=== PATIENT | female | born 1980 | race Caucasian/White ===

== ENCOUNTER 2017-10-29 09:05 | Emergency (ER) | payer MEDICARE, MEDICAID, SELFPAY ==
[2017-10-29 10:00] VITALS: BP 156/112; PULSE 118; RESP 18; TEMP 36.9
--- NOTE | 2017-10-29 10:12 | PC.NURSE ---
After talking with patient and trying to get history, patient states has Cerebral palsy and tells me I dont think I can be safe if I go home this way. I never dont have urine in my bladder. recently put on flomax and now voids 12 times a day from 5 or 6.
--- NOTE | 2017-10-29 10:40 | DI.RAD.S_ITS ---
PROCEDURE: XR LUMBAR SPINE 2-3V INDICATIONS: pain fall today compression fx in july TECHNIQUE: 3 views of the lumbar spine were acquired. COMPARISON: None. FINDINGS: Bones: 5 [id number] vertebrae are present. There is an approximate 34% compression deformity at L2 as well as an approximate 29% compression deformity at L1. There is an approximate 27% compression deformity at T11. No priors are available for comparison. Disc and foraminal narrowing is present to a mild to moderate degree at L5-S1. Soft tissues: Overlying bowel gas pattern is normal. No suspicious soft tissue calcifications. IMPRESSION: Compression deformities as above of indeterminate age, as no priors are available for comparison. Fractures at L1 and L2 are suspected to be acute/subacute. Recommend correlation for history of trauma and point tenderness. Dictated by: Eloisa Ramos M.D. on 10/29/2017 at 11:39 Approved by: Eloisa Ramos M.D. on 10/29/2017 at 11:42
--- NOTE | 2017-10-29 10:44 | ED_ITS ---
HPI - Female Genitourinary General Chief complaint: Urogenital-Female Stated complaint: CANT EMPTY BLADDER Time Seen by Provider: 10/29/17 09:31 Source: patient Mode of arrival: ambulatory Limitations: no limitations History of Present Illness HPI Narrative: Patient is a 37-year-old female who presents with painful frequent urination for 1 week. She says she feels like she is not emptying her bladder out fully. She has some lower abdominal discomfort. She thinks she may have discharge. She denies any sexual activity and no history of sexually transmitted disease. She does not think she says she actually went to a urologist for the symptoms on a up about 2 months ago. She had a cystoscopy and is now taking Flomax. She says the symptoms she is having for the last 1 week have been the worst. She also fell getting off the [place]. She fell sideways. She says she has compression fractures from when she fell in July. She fell forward in July not backwards. She has no numbness or tingling in her legs. She is ambulatory without any difficulty. Related Data Home Medications Medication Instructions Recorded Confirmed chlorhexidine gluconate [Periogard] 15 ml PO #0 05/19/16 estradiol [Estrace] 1 gm VAGINAL SEE INSTRUCTIONS #0 05/19/16 ketorolac 10 mg PO Q6H #0 05/19/16 methocarbamol 500 mg PO QDAY #0 05/19/16 oxycodone 5 mg PO Q6HP PRN #0 05/19/16 calcium polycarbophil [FiberCon] 1 tab PO QDAYP PRN #0 02/10/17 cholecalciferol (vitamin D3) 1 tab PO QDAY #0 02/10/17 [Vitamin D3] nystatin 15 gm TOPICAL #0 02/10/17 omega 7-jzc-cec-fish oil [Fish Oil] 1,000 mg PO QDAY #0 02/10/17 ondansetron 4 mg SUBLINGUAL Q6HP PRN #0 02/10/17 albuterol sulfate [Ventolin HFA] 10/29/17 baclofen 10 mg PO DAILY 10/29/17 10/29/17 cefdinir 1 cap PO Q12H 10/29/17 10/29/17 diazepam 5 mg PO DAILY 10/29/17 10/29/17 fluconazole 1 tab PO Q48H 10/29/17 10/29/17 ibuprofen [IBU] 600 mg PO QID 10/29/17 10/29/17 methocarbamol 500 mg PO TID 10/29/17 10/29/17 morphine 1 tab PO BID 10/29/17 10/29/17 oxybutynin chloride 5 mg PO DAILY 10/29/17 10/29/17 oxycodone 1 dose PO DIRECTED 10/29/17 10/29/17 tizanidine 1 dose PO DIRECTED 10/29/17 10/29/17 Previous Rx's Medication Instructions Recorded sulfamethoxazole-trimethoprim 1 tab PO BID 5 Days #10 tab 10/29/17 Allergies Allergy/AdvReac Type Severity Reaction Status Date / Time acetaminophen [ACETAMINOPHEN] Allergy Mild Unverified 08/25/17 12:39 adhesive [ADHESIVE] Allergy Mild Unverified 08/25/17 12:39 povidone-iodine Allergy Mild Unverified 08/25/17 12:39 [From BETADINE] prochlorperazine Allergy Mild Unverified 08/25/17 12:39 [From COMPAZINE] soap [From BETADINE] Allergy Mild Unverified 08/25/17 12:39 tramadol [TRAMADOL] Allergy Mild Unverified 08/25/17 12:39 venlafaxine [From EFFEXOR] Allergy Mild Unverified 08/25/17 12:39 msg Allergy Unknown vomiting Uncoded 08/25/17 12:39 diahrrea nitrates Allergy Unknown vomiting, Uncoded 08/25/17 12:39 diahrrea Review of Systems Review of Systems GENERAL: Denies chills, fatigue, malaise, fever, sweats, travel HEENT: Denies sinus pain, ear pain, sore throat, difficulty swallowing, neck pain RESPIRATORY: Denies dyspnea, cough, wheezing, hemoptysis, sputum. CARDIOVASCULAR: Denies chest pain, palpitations, orthopnea, edema GASTROINTESTINAL: Denies nausea, vomiting, abdominal pain, diarrhea, constipation, melena. : See HPI MUSCULOSKELETAL: Denies weakness, joint pain, or bony pain SKIN: No rash, no erythema, no pruritus NEUROLOGIC: Denies weakness, dizziness, headache, numbness, change in speech, confusion PSYCHIATRIC: No concerning psychosocial issues. 12 point review of systems is negative except for those stated above and HPI PFSH Social History Smoking Status: Never smoker Exam Initial Vital Signs Initial Vital Signs: Vital Signs Temperature 98.5 F 10/29/17 10:00 Pulse Rate 118 H 10/29/17 10:00 Respiratory Rate 18 10/29/17 10:00 Blood Pressure 156/112 H 10/29/17 10:00 GENERAL: Well-appearing, well-nourished and in no acute distress. HEENT: Head atraumatic,EOMI, pupils reactive, face symmetric, moist mucous membranes CARDIOVASCULAR: Regular rate and rhythm without murmurs, rubs or gallops. RESPIRATORY: Breath sounds equal bilaterally, no wheezes rales or rhonchi. ABDOMEN: Soft, nontender. Normoactive bowel sounds all 4 quadrants. No guarding or rebound. : No CVA tenderness EXTREMITIES: Normal range of motion, no clubbing or edema. Neurovascularly intact NEUROLOGICAL: Alert and oriented x4.Normal gait and speech. Cranial nerves II through XII grossly intact. SKIN: Warm, dry, no laceration, no petechiae, no rashes or lesions. Course Orders Ordered: ED Orders 10/29/17 10:40 XR lumbar spine 2-3V Stat Vital Signs - 8 hr 10/29/17 10:00 10/29/17 11:33 Temperature 98.5 F Pulse Rate 118 H 114 H Respiratory Rate 18 20 Blood Pressure [Left Arm] 156/112 H 135/114 H Pulse Oximetry 100 MDM - Female Genitourinary Lab Data Attestation: I reviewed the patient's lab results. [facility] Narrative Medical decision making narrative: The patient is having UTI symptoms of her urine does not appear infected. She does chronic compression fracture of a. It remains relatively unchanged. A probably subacute on x-ray. Discharge Plan Departure Patient Disposition: Home, Self-Care Clinical Impression: Urinary tract infection, Compression fracture Discharge Date/Time: 10/29/17 12:46 Interventions: ED Discharge Assessment Last Done: 10/29/17 12:23 Instructions: DI for Urinary Tract Infection (UTI) Activity Restrictions/Additional Instructions: *You have been diagnosed with UTI *What to do: Increase fluids *Continue to take medications as directed *Follow up with your primary care provider in 2-3 days *Return to ER if you should have any new, worsening or concerning symptoms Prescriptions: New sulfamethoxazole-trimethoprim 800-160 mg tablet 1 tab PO BID 5 Days Qty: 10 RF: 0 No Action oxycodone 5 MG tablet 5 mg PO Q6HP PRN (Reason: Pain, Severe) Qty: 0 RF: 0 methocarbamol 500 MG tablet 500 mg PO QDAY Qty: 0 RF: 0 ketorolac 10 MG tablet 10 mg PO Q6H Qty: 0 RF: 0 estradiol [Estrace] 0.01 % cream 1 gm Vaginal SEE INSTRUCTIONS Qty: 0 RF: 0 chlorhexidine gluconate [Periogard] 473 ML mouthwash 15 ml PO Qty: 0 RF: 0 nystatin 30 GM ointment 15 gm Topical Qty: 0 RF: 0 calcium polycarbophil [FiberCon] 625 MG tablet 1 tab PO QDAYP PRN (Reason: fiber) Qty: 0 RF: 0 ondansetron 4 MG tablet,disintegrating 4 mg Sublingual Q6HP PRN (Reason: Nausea) Qty: 0 RF: 0 cholecalciferol (vitamin D3) [Vitamin D3] 2,000 UNIT tablet 1 tab PO QDAY Qty: 0 RF: 0 omega 0-nyl-mvx-fish oil [Fish Oil] 1,000 MG capsule 1,000 mg PO QDAY Qty: 0 RF: 0 fluconazole 100 mg tablet 1 tab PO Q48H RF: 0 methocarbamol 500 mg tablet 500 mg PO TID RF: 0 baclofen 10 mg tablet 10 mg PO DAILY RF: 0 morphine 15 mg tablet extended release 1 tab PO BID RF: 0 ibuprofen [IBU] 600 mg tablet 600 mg PO QID RF: 0 albuterol sulfate [Ventolin HFA] 90 mcg/actuation HFA aerosol inhaler RF: 0 oxybutynin chloride 5 mg tablet 5 mg PO DAILY RF: 0 cefdinir 300 mg capsule 1 cap PO Q12H RF: 0 diazepam 5 mg tablet 5 mg PO DAILY RF: 0 oxycodone 5 mg tablet 1 dose PO DIRECTED RF: 0 tizanidine 6 mg capsule 1 dose PO DIRECTED RF: 0
[2017-10-29 11:33] VITALS: BP 135/114; PULSE 114; RESP 20; O2SAT 100
== END 2017-10-29 12:46 | disposition home or self-care (01) ==
PROVIDERS: Emergency Provider Emergency Medicine
DX: N39.0 Urinary tract infection, site not specified (principal); S32.000A Wedge compression fracture of unspecified lumbar vertebra, initial encounter for closed fracture
CPT/HCPCS: 51798; 72100; 81003; 81025; 99283; 99284

== ENCOUNTER 2017-12-25 00:30 | Emergency (ER) | payer MEDICARE, MEDICAID, SELFPAY ==
[2017-12-25] VITALS (7 sets, daily range): BP systolic 125–158; BP diastolic 56–102; PULSE 68–89; RESP 14–18; TEMP 37.1; O2SAT 96–100
[2017-12-25 01:07] LABS: RBC Urine None Seen (0-5/HPF)
[2017-12-25 01:14] LABS: Bacteria Urine Occasional (0-1); Culture Indicated Urine Cult Not Indicated; Mucus Urine 1+ (Negative); Squamous Epithelial Cell Urine 0-1 /HPF; WBC Urine 0-1/HPF (0-5/HPF)
[2017-12-25 01:40] LABS: Add Manual Diff / Slide Review NO; Eosinophils Percent Auto 2.6 % (2-4); Hematocrit 42.2 % (36-46); Hemoglobin 14.5 g/dL (12.0-16.0); Lymphocytes Percent Auto 35.7 % (25-40); Mean Corpuscular HGB Conc 34.4 % (30-36); Mean Corpuscular Hemoglobin 31.2 PG (26-34); Mean Corpuscular Volume 90.7 fL (80-100); Monocytes Percent Auto 6.9 % (3-14); Neutrophils Absolute Auto 1800 /uL (3000-5900); Neutrophils Percent Auto 53.8 % (50-75); Platelet Count 223 X10^3/uL (150-400); Red Blood Cell Count 4.65 X10^6/uL (4.0-5.2); Red Cell Distribution Width 14.3 % (11.6-14.8); White Blood Cell Count 3.3 X10^3/uL (4.5-11.0)
[2017-12-25 01:48] LABS: Alanine Aminotransferase 39 IU/L (9-52); Albumin 4.6 g/dL (3.5-5.0); Albumin Globulin Ratio 1.4 (1.0-2.8); Alkaline Phosphatase 127 U/L (38-126); Aspartate Aminotransferase 34 IU/L (14-36); BUN Creatinine Ratio 12.2 (6-22); Bilirubin Total 0.9 mg/dL (0.2-1.3); Blood Urea Nitrogen 11 mg/dL (7-17); Carbon Dioxide 32 mmol/L (22-32); Chloride 100 mmol/L (98-107); Estimated Glomerular Filt Rate > 60.0 mL/min (>60); Globulin 3.2 g/dL (1.7-4.1); Glucose 110 mg/dL (70-100); HEMOLYSIS < 15 (0-50); Lipase 38 U/L (23-300); Potassium 3.7 mmol/L (3.4-5.1); Sodium 143 mmol/L (137-145); Total Protein 7.8 g/dL (6.3-8.2)
--- NOTE | 2017-12-25 01:50 | DI.CT.S_ITS ---
PROCEDURE: CT ABDOMEN PELVIS W CON INDICATIONS: Abdominal pain,Vomiting, history of small bowel obstruction TECHNIQUE: After the administration of intravenous contrast, 5 mm thick sections acquired from the diaphragm to the symphysis. 5 mm coronal and sagittal reformats were acquired. For radiation dose reduction, the following was used: automated exposure control, adjustment of mA and/or kV according to patient size. COMPARISON: [facility], CR, XR LUMBAR SPINE 2-3V, 10/29/2017, 11:05. FINDINGS: Image quality: Excellent. ABDOMEN: Lung bases: Lung bases are clear. Heart size is normal. Solid organs: Liver is normal in size and enhancement. Gallbladder is surgically absent. Biliary system is non dilated. Pancreas enhances normally. Spleen is normal in size and enhancement. No adrenal nodules. Kidneys demonstrate normal size and enhancement, without hydronephrosis. Peritoneum and bowel: Mildly prominent small bowel within the left hemiabdomen. Bowel loops otherwise demonstrate normal wall thickness and caliber. No free fluid or air. Nodes and vessels: No retroperitoneal or mesenteric adenopathy by size criteria. Aorta and inferior vena cava are normal in size. Miscellaneous: No ventral hernias. PELVIS: Genitourinary: Bladder wall thickness is normal. Miscellaneous: No inguinal hernias or adenopathy. Bones: No suspicious bony lesions. No v acute ertebral body compression fractures. Mild chronic T11, L1, and L2 compression fractures. Small ununited fracture fragment at the anterosuperior aspect of the L2 vertebral body, as before. Spinal catheter is present. IMPRESSION: 1. Mildly prominent small bowel loops, which may indicate focal ileus or early obstruction. 2. No change in thoracolumbar compression fractures. 3. Concordant with preliminary interpretation. Dictated by: Fabian Mallory M.D. on 12/25/2017 at 10:03 Approved by: Fabian Mallory M.D. on 12/25/2017 at 10:07
[2017-12-25] MEDS: ONDANSETRON 4 MG/2 ML INJ IV (02:01)
[2017-12-25] MEDS: SODIUM CHLORIDE 0.9% 1,000 ML 1000 ML IV ×2 (02:05→06:30)
[2017-12-25] MEDS: MORPHINE 5 MG/ML INJ 4 MG IV ×2 (02:05→05:24)
--- NOTE | 2017-12-25 03:16 | ED_ITS ---
HPI - Abdominal Pain General Chief Complaint: Abdominal Pain Stated Complaint: NAUSEA, VOMITING, ABDOMINAL PAIN Time Seen by Provider: 12/25/17 01:15 Source: patient Mode of arrival: ambulatory Limitations: no limitations History of Present Illness HPI narrative: Patient is a 37-year-old female who presents with nausea vomiting. She does have a history small bowel obstruction she says this feels like that. She is no longer able to keep any fluids down. She has not had a bowel movement in some time she cannot remember when. She has some diffuse abdominal discomfort. No localization of pain. Related Data Home Medications Medication Instructions Recorded Confirmed chlorhexidine gluconate [Periogard] 15 ml PO #0 05/19/16 estradiol [Estrace] 1 gm VAGINAL SEE INSTRUCTIONS #0 05/19/16 ketorolac 10 mg PO Q6H #0 05/19/16 methocarbamol 500 mg PO QDAY #0 05/19/16 oxycodone 5 mg PO Q6HP PRN #0 05/19/16 calcium polycarbophil [FiberCon] 1 tab PO QDAYP PRN #0 02/10/17 cholecalciferol (vitamin D3) 1 tab PO QDAY #0 02/10/17 [Vitamin D3] nystatin 15 gm TOPICAL #0 02/10/17 omega 1-kxm-lne-fish oil [Fish Oil] 1,000 mg PO QDAY #0 02/10/17 ondansetron 4 mg SUBLINGUAL Q6HP PRN #0 02/10/17 albuterol sulfate [Ventolin HFA] 10/29/17 baclofen 10 mg PO DAILY 10/29/17 10/29/17 cefdinir 1 cap PO Q12H 10/29/17 10/29/17 diazepam 5 mg PO DAILY 10/29/17 10/29/17 fluconazole 1 tab PO Q48H 10/29/17 10/29/17 ibuprofen [IBU] 600 mg PO QID 10/29/17 10/29/17 methocarbamol 500 mg PO TID 10/29/17 10/29/17 morphine 1 tab PO BID 10/29/17 10/29/17 oxybutynin chloride 5 mg PO DAILY 10/29/17 10/29/17 oxycodone 1 dose PO DIRECTED 10/29/17 10/29/17 tizanidine 1 dose PO DIRECTED 10/29/17 10/29/17 Allergies Allergy/AdvReac Type Severity Reaction Status Date / Time acetaminophen [ACETAMINOPHEN] Allergy Mild Verified 12/25/17 02:00 adhesive [ADHESIVE] Allergy Mild Verified 12/25/17 02:00 povidone-iodine Allergy Mild Verified 12/25/17 02:00 [From BETADINE] prochlorperazine Allergy Mild Verified 12/25/17 02:00 [From COMPAZINE] soap [From BETADINE] Allergy Mild Verified 12/25/17 02:00 tramadol [TRAMADOL] Allergy Mild Verified 12/25/17 02:00 venlafaxine [From EFFEXOR] Allergy Mild Verified 12/25/17 02:00 msg Allergy Unknown vomiting Uncoded 12/25/17 02:00 diahrrea nitrates Allergy Unknown vomiting, Uncoded 12/25/17 02:00 diahrrea Review of Systems Review of Systems GENERAL: Denies chills, fatigue, malaise, fever, sweats, travel HEENT: Denies sinus pain, ear pain, sore throat, difficulty swallowing, neck pain RESPIRATORY: Denies dyspnea, cough, wheezing, hemoptysis, sputum. CARDIOVASCULAR: Denies chest pain, palpitations, orthopnea, edema GASTROINTESTINAL: See HPI : Denies dysuria, frequency, incontinence, hematuria, urinary retention, flank pain. MUSCULOSKELETAL: Denies weakness, joint pain, or bony pain SKIN: No rash, no erythema, no pruritus NEUROLOGIC: Denies weakness, dizziness, headache, numbness, change in speech, confusion PSYCHIATRIC: No concerning psychosocial issues. 12 point review of systems is negative except for those stated above and HPI PFSH Medical History History of hysterectomy (Acute) History of small bowel obstruction (Acute) Surgical History History of appendectomy (Acute) History of cholecystectomy (Acute) Social History Smoking Status: Never smoker Exam Initial Vital Signs Initial Vital Signs: Vital Signs Temperature 98.7 F 12/25/17 00:36 Pulse Rate 88 12/25/17 00:36 Respiratory Rate 18 12/25/17 00:36 Blood Pressure 158/102 H 12/25/17 00:36 Pulse Oximetry 96 12/25/17 00:36 GENERAL: Obese female sleeping but easily arousable is HEENT: Head atraumatic,EOMI, pupils reactive, neck is supple CARDIOVASCULAR: Regular rate and rhythm without murmurs, rubs or gallops. RESPIRATORY: Breath sounds equal bilaterally, no wheezes rales or rhonchi. ABDOMEN: Soft, obese no localization of tenderness no guarding no rebound EXTREMITIES: Normal range of motion, no clubbing or edema. Neurovascularly intact NEUROLOGICAL: Alert and oriented x4.Normal gait and speech. Cranial nerves II through XII grossly intact. SKIN: Warm, dry, no laceration, no petechiae, no rashes or lesions. Course Orders Ordered: ED Orders 12/25/17 00:55 Urine Microscopic Stat 12/25/17 01:30 Complete Blood Count AUTO DIFF Stat Comprehensive Metabolic Panel Stat Lactate (Lactic Acid) Stat Lipase Stat 12/25/17 01:50 CT abdomen pelvis w con Stat Discontinued Medications Sodium Chloride (Normal Saline 0.9%) 1,000 mls @ 1,000 mls/hr IV BOLUS ONE Stop: 12/25/17 02:14 Last Infusion: 12/25/17 06:23 Dose: 0 mls/hr Admin: 12/25/17 02:05 Dose: 1,000 mls/hr Sodium Chloride (Normal Saline 0.9%) 1,000 mls @ 1,000 mls/hr IV BOLUS ONE Stop: 12/25/17 02:49 Last Infusion: 12/25/17 08:03 Dose: 0 mls/hr Admin: 12/25/17 06:30 Dose: 1,000 mls/hr Magnesium Citrate (Magnesium Citrate) 300 ml PO NOW ONE Stop: 12/25/17 06:41 Last Admin: 12/25/17 06:54 Dose: 300 ml Morphine Sulfate (Morphine Sulfate) 4 mg IV NOW ONE Stop: 12/25/17 01:51 Last Admin: 12/25/17 02:05 Dose: 4 mg Morphine Sulfate (Morphine Sulfate) 4 mg IV NOW ONE Stop: 12/25/17 05:23 Last Admin: 12/25/17 05:24 Dose: 4 mg Ondansetron HCl (Zofran) 4 mg IV NOW ONE Stop: 12/25/17 01:51 Last Admin: 12/25/17 02:01 Dose: 4 mg Ondansetron HCl (Zofran Odt Prepack) 1 bottle MISC SEEINSTR ONE Stop: 12/25/17 06:42 Last Admin: 12/25/17 06:54 Dose: 1 bottle Sodium Biphosphate/Sodium Phosphate (Fleet Enema) 1 each IL NOW ONE Stop: 12/25/17 04:45 Last Admin: 12/25/17 05:15 Dose: 1 each Vital Signs - 8 hr 12/25/17 00:36 12/25/17 06:15 12/25/17 07:44 Temperature 98.7 F Pulse Rate 88 89 68 Respiratory Rate 18 14 16 Blood Pressure 158/102 H Blood Pressure [Left Arm] 129/88 H 136/66 H Pulse Oximetry 96 96 96 MDM - Abdominal Pain Lab Data Attestation: I reviewed the patient's lab results. Result diagrams: 12/25/17 01:30 12/25/17 01:30 Lab Results 12/25/17 12/25/17 12/25/17 Range/Units 00:55 01:30 01:30 WBC 3.3 L (4.5-11.0) X10^3/uL RBC 4.65 (4.0-5.2) X10^6/uL Hgb 14.5 (12.0-16.0) g/dL Hct 42.2 (36-46) % MCV 90.7 (80-100) fL MCH 31.2 (26-34) PG MCHC 34.4 (30-36) % RDW 14.3 (11.6-14.8) % Plt Count 223 (150-400) X10^3/uL Neut % (Auto) 53.8 (50-75) % Lymph % (Auto) 35.7 (25-40) % [place] % (Auto) 6.9 (3-14) % Eos % (Auto) 2.6 (2-4) % Baso % (Auto) 1.0 (0-2) % Neut # (Auto) 1800 L (1713-0866) /uL Sodium 143 (137-145) mmol/L Potassium 3.7 (3.4-5.1) mmol/L Chloride 100 (98-107) mmol/L Carbon Dioxide 32 (22-32) mmol/L BUN 11 (7-17) mg/dL Creatinine 0.90 (0.52-1.04) mg/dL Estimated GFR > 60.0 (>60) mL/min BUN/Creatinine Ratio 12.2 (6-22) Glucose 110 H (70-100) mg/dL Lactate (0.7-2.1) mmol/L Calcium 10.0 (8.4-10.2) mg/dL Total Bilirubin 0.9 (0.2-1.3) mg/dL AST 34 (14-36) IU/L ALT 39 (9-52) IU/L Alkaline Phosphatase 127 H (38-126) U/L Total Protein 7.8 (6.3-8.2) g/dL Albumin 4.6 (3.5-5.0) g/dL Globulin 3.2 (1.7-4.1) g/dL Albumin/Globulin Ratio 1.4 (1.0-2.8) Lipase 38 (23-300) U/L Urine RBC None seen (0-5/HPF) Urine WBC 0-1/hpf (0-5/HPF) Ur Squamous Epith Cells 0-1 /hpf Urine Bacteria Occasional (0-1) (None) Urine Mucus 1+ H (Negative) Ur Culture Indicated? Cult not indicated Micro UA Comment Not Reportable 12/25/17 Range/Units 01:30 WBC (4.5-11.0) X10^3/uL RBC (4.0-5.2) X10^6/uL Hgb (12.0-16.0) g/dL Hct (36-46) % MCV (80-100) fL MCH (26-34) PG MCHC (30-36) % RDW (11.6-14.8) % Plt Count (150-400) X10^3/uL Neut % (Auto) (50-75) % Lymph % (Auto) (25-40) % Ma[place] % (Auto) (3-14) % Eos % (Auto) (2-4) % Baso % (Auto) (0-2) % Neut # (Auto) (1266-6314) /uL Sodium (137-145) mmol/L Potassium (3.4-5.1) mmol/L Chloride (98-107) mmol/L Carbon Dioxide (22-32) mmol/L BUN (7-17) mg/dL Creatinine (0.52-1.04) mg/dL Estimated GFR (>60) mL/min BUN/Creatinine Ratio (6-22) Glucose (70-100) mg/dL Lactate 1.0 (0.7-2.1) mmol/L Calcium (8.4-10.2) mg/dL Total Bilirubin (0.2-1.3) mg/dL AST (14-36) IU/L ALT (9-52) IU/L Alkaline Phosphatase (38-126) U/L Total Protein (6.3-8.2) g/dL Albumin (3.5-5.0) g/dL Globulin (1.7-4.1) g/dL Albumin/Globulin Ratio (1.0-2.8) Lipase (23-300) U/L Urine RBC (0-5/HPF) Urine WBC (0-5/HPF) Ur Squamous Epith Cells Urine Bacteria (None) Urine Mucus (Negative) Ur Culture Indicated? 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 Cannot completely exclude very early or partial small-bowel obstruction. Duodenum and proximal jejunal loops appear collapse and mildly thickened wall suggesting enteritis. The colon is not decompressed moderate stool and most of:. Cholecystectomy hysterectomy appendectomy. Chronic spine changes an epidural stimulator catheter. MDM Narrative Medical decision making narrative: Patient tolerating very small amounts of fluid. Overall she has required 2 doses of morphine and has not been vomiting during her long length of stay in the ED. Although in the last 1 hr she did start vomiting again. I have discussed case with of surgery. Will be to ED to evaluate patient Dr. Pascual-recommends repeat enema and discharge with magnesium citrate. Discharge Plan Departure Patient Disposition: Home, Self-Care Clinical Impression: Constipation Instructions: DI for Constipation Activity Restrictions/Additional Instructions: *You have been diagnosed with constipation, possible early small-bowel obstruction *What to do: Recommend Gatorade or Gatorade like substance *Continue to take medications as directed Drink a bottle of magnesium citrate once you get home -Zofran every 6-8 hours if needed for nausea or vomiting *Follow up with your primary care provider in 2-3 days *Return to ER if you should have any new, worsening or concerning symptoms Prescriptions: No Action oxycodone 5 MG tablet 5 mg PO Q6HP PRN (Reason: Pain, Severe) Qty: 0 RF: 0 methocarbamol 500 MG tablet 500 mg PO QDAY Qty: 0 RF: 0 ketorolac 10 MG tablet 10 mg PO Q6H Qty: 0 RF: 0 estradiol [Estrace] 0.01 % cream 1 gm Vaginal SEE INSTRUCTIONS Qty: 0 RF: 0 chlorhexidine gluconate [Periogard] 473 ML mouthwash 15 ml PO Qty: 0 RF: 0 nystatin 30 GM ointment 15 gm Topical Qty: 0 RF: 0 calcium polycarbophil [FiberCon] 625 MG tablet 1 tab PO QDAYP PRN (Reason: fiber) Qty: 0 RF: 0 ondansetron 4 MG tablet,disintegrating 4 mg Sublingual Q6HP PRN (Reason: Nausea) Qty: 0 RF: 0 cholecalciferol (vitamin D3) [Vitamin D3] 2,000 UNIT tablet 1 tab PO QDAY Qty: 0 RF: 0 omega 9-bng-ctm-fish oil [Fish Oil] 1,000 MG capsule 1,000 mg PO QDAY Qty: 0 RF: 0 fluconazole 100 mg tablet 1 tab PO Q48H RF: 0 methocarbamol 500 mg tablet 500 mg PO TID RF: 0 baclofen 10 mg tablet 10 mg PO DAILY RF: 0 morphine 15 mg tablet extended release 1 tab PO BID RF: 0 ibuprofen [IBU] 600 mg tablet 600 mg PO QID RF: 0 albuterol sulfate [Ventolin HFA] 90 mcg/actuation HFA aerosol inhaler RF: 0 oxybutynin chloride 5 mg tablet 5 mg PO DAILY RF: 0 cefdinir 300 mg capsule 1 cap PO Q12H RF: 0 diazepam 5 mg tablet 5 mg PO DAILY RF: 0 oxycodone 5 mg tablet 1 dose PO DIRECTED RF: 0 tizanidine 6 mg capsule 1 dose PO DIRECTED RF: 0
[2017-12-25] MEDS: FLEETS ENEMA 1 EACH PR (05:15)
[2017-12-25] MEDS: ONDANSETRON 4 MG ODT PREPACK 1 BOTTLE MISC (06:54)
[2017-12-25] MEDS: MAGNESIUM CITRATE 300 ML SOLUTION PO (06:54)
--- NOTE | 2017-12-25 08:37 | PC.NURSE ---
up to bedside commode independently.
--- NOTE | 2017-12-25 08:49 | PM.HP.1 ---
History of Present Illness Date Patient Seen: 12/25/17 Time Patient Seen: 08:42 Chief complaint: NAUSEA, VOMITING, ABDOMINAL PAIN Narrative: Patient is a very pleasant 37-year-old female with a complex surgical history and medical history who reports 2-3 days of decreased oral intake and nausea vomiting abdominal pain. She lives on [facility] has a history of a laparoscopic cholecystectomy laparoscopic appendectomy laparoscopic hysterectomy laparoscopic lysis of adhesions all performed either [facility] or [facility] in addition a baclofen pump has been placed for history of C lower extremity muscle spasms from cerebral palsy. She does not have a tense abdomen she is reporting abdominal pain trouble with nausea has had a difficult time with bowel function is currently raising 2 boys ages 12 and 10 at home and lives with her . Patient denies projectile vomiting denies melena hematochezia of bright blood red blood per rectum, jaundice, dark urine or other. Patient History Medical History History of hysterectomy (Acute) History of small bowel obstruction (Acute) Surgical History History of appendectomy (Acute) History of cholecystectomy (Acute) Family & Social History Family History: Reviewed 12/25/17 by Tonio Pascual MD Safety & Behavioral: Feels Safe in Current Yes Environment Tobacco & Substance use: Smoking Status Never smoker alcohol intake frequency 0-2 drinks per day Meds Home Medications Medication Instructions Recorded Confirmed Type chlorhexidine gluconate [Periogard] 15 ml PO #0 05/19/16 History estradiol [Estrace] 1 gm VAGINAL SEE INSTRUCTIONS #0 05/19/16 History ketorolac 10 mg PO Q6H #0 05/19/16 History methocarbamol 500 mg PO QDAY #0 05/19/16 History oxycodone 5 mg PO Q6HP PRN #0 05/19/16 History calcium polycarbophil [FiberCon] 1 tab PO QDAYP PRN #0 02/10/17 History cholecalciferol (vitamin D3) 1 tab PO QDAY #0 02/10/17 History [Vitamin D3] nystatin 15 gm TOPICAL #0 02/10/17 History omega 2-jnr-vro-fish oil [Fish Oil] 1,000 mg PO QDAY #0 02/10/17 History ondansetron 4 mg SUBLINGUAL Q6HP PRN #0 02/10/17 History albuterol sulfate [Ventolin HFA] 10/29/17 History baclofen 10 mg PO DAILY 10/29/17 10/29/17 History cefdinir 1 cap PO Q12H 10/29/17 10/29/17 History diazepam 5 mg PO DAILY 10/29/17 10/29/17 History fluconazole 1 tab PO Q48H 10/29/17 10/29/17 History ibuprofen [IBU] 600 mg PO QID 10/29/17 10/29/17 History methocarbamol 500 mg PO TID 10/29/17 10/29/17 History morphine 1 tab PO BID 10/29/17 10/29/17 History oxybutynin chloride 5 mg PO DAILY 10/29/17 10/29/17 History oxycodone 1 dose PO DIRECTED 10/29/17 10/29/17 History tizanidine 1 dose PO DIRECTED 10/29/17 10/29/17 History Allergies Allergy/AdvReac Type Severity Reaction Status Date / Time acetaminophen [ACETAMINOPHEN] Allergy Mild Verified 12/25/17 02:00 adhesive [ADHESIVE] Allergy Mild Verified 12/25/17 02:00 povidone-iodine Allergy Mild Verified 12/25/17 02:00 [From BETADINE] prochlorperazine Allergy Mild Verified 12/25/17 02:00 [From COMPAZINE] soap [From BETADINE] Allergy Mild Verified 12/25/17 02:00 tramadol [TRAMADOL] Allergy Mild Verified 12/25/17 02:00 venlafaxine [From EFFEXOR] Allergy Mild Verified 12/25/17 02:00 msg Allergy Unknown vomiting Uncoded 12/25/17 02:00 diahrrea nitrates Allergy Unknown vomiting, Uncoded 12/25/17 02:00 diahrrea Review of Systems Review of Systems All systems reviewed & are unremarkable except as noted in HPI and below Exam Vital Signs (past 8 hours): - 12/25/17 06:15 12/25/17 07:44 Pulse Rate 89 68 Respiratory Rate 14 16 Blood Pressure [Left Arm] 129/88 H 136/66 H Pulse Oximetry 96 96 Oxygen Delivery Method Room Air Const General: cooperative, healthy appearing and anxious Nutritional Appearance: other (Morbidly obese) Orientation: alert, awake and oriented x3 [facility] Head: normal to inspection Ears: hearing grossly normal bilaterally Eyes General: appearance normal, both eyes and all related structures Sclera: sclerae normal Neck Neck: normal visual inspection Chest Chest: normal inspection of the chest Resp Effort & Inspection: normal respiratory effort, able to speak in complete sentences, no audible wheezes, no stridor, not tachypneic and symmetric chest movement Auscultation: no rales, no rhonchi and no wheezes Cardio Rate: regular rate Rhythm: regular rhythm and abnormal rhythm Heart Sounds: S1 normal, S2 normal, no click and no murmurs GI Inspection: normal to inspection, incision (Multiple laparoscopic incisions without obvious hernia difficult exam due to body habitus), large pannus and obesity Palpation: No firm, No guarding, No hepatomegaly, No hernia, No mass, No rigid and tender Percussion: normal to percussion, no dullness to percussion, no fluid wave and no tympanic to percussion Auscultation: normal bowel sounds General: other (Deferred) Back/Spine/Pelvis Back: normal to inspection Skin General: no rashes or lesions noted Neuro General: alert, awake, oriented x3 and moves all extremities Speech: speech normal Extrem General: normal to inspection, no clubbing, cyanosis or edema and no calf tenderness Psych Affect: normal affect Attitude: cooperative Thought Process: normal Thought Content: normal Objective Imaging CT scan - abdomen: My impression: Minimal bowel dilation with normal diameter to 3 cm without air-fluid levels of any significance no obvious or suggested bowel obstruction or transition point. Significant stool burden throughout the colon. No hernia or obvious source for nausea vomiting. Labs Result Diagrams: 12/25/17 01:30 12/25/17 01:30 Labs: Laboratory Results - last 24 hr 12/25/17 12/25/17 12/25/17 00:55 01:30 01:30 WBC 3.3 L RBC 4.65 Hgb 14.5 Hct 42.2 MCV 90.7 MCH 31.2 MCHC 34.4 RDW 14.3 Plt Count 223 Neut % (Auto) 53.8 Lymph % (Auto) 35.7 [place] % (Auto) 6.9 Eos % (Auto) 2.6 Baso % (Auto) 1.0 Neut # (Auto) 1800 L Sodium 143 Potassium 3.7 Chloride 100 Carbon Dioxide 32 BUN 11 Creatinine 0.90 Estimated GFR > 60.0 BUN/Creatinine Ratio 12.2 Glucose 110 H Lactate Calcium 10.0 Total Bilirubin 0.9 AST 34 ALT 39 Alkaline Phosphatase 127 H Total Protein 7.8 Albumin 4.6 Globulin 3.2 Albumin/Globulin Ratio 1.4 Lipase 38 Urine RBC None seen Urine WBC 0-1/hpf Ur Squamous Epith Cells 0-1 /hpf Urine Bacteria Occasional (0-1) Urine Mucus 1+ H Ur Culture Indicated? Cult not indicated Micro UA Comment Not Reportable 12/25/17 01:30 WBC RBC Hgb Hct MCV MCH MCHC RDW Plt Count Neut % (Auto) Lymph % (Auto) [place] % (Auto) Eos % (Auto) Baso % (Auto) Neut # (Auto) Sodium Potassium Chloride Carbon Dioxide BUN Creatinine Estimated GFR BUN/Creatinine Ratio Glucose Lactate 1.0 Calcium Total Bilirubin AST ALT Alkaline Phosphatase Total Protein Albumin Globulin Albumin/Globulin Ratio Lipase Urine RBC Urine WBC Ur Squamous Epith Cells Urine Bacteria Urine Mucus Ur Culture Indicated? Micro UA Comment Assessment & Plan (1) Nausea & vomiting: Current visit: Yes Status: Acute (2) History of small bowel obstruction: Current visit: Yes Status: Acute (3) Cerebral palsy: Current visit: Yes Status: Acute (4) History of cholecystectomy: Current visit: Yes Status: Acute (5) Morbid obesity due to excess calories: Current visit: Yes Status: Acute (6) History of laparoscopic appendectomy: Current visit: Yes Status: Acute (7) History of hysterectomy for benign disease: Current visit: Yes Status: Acute Plan: Assessment/Plan Narrative: I discussed that with the patient extensively the risks and benefits of surgery risks and benefits of NG tube and options for nonsurgical management including attempting Mag citrate and another enema or lactulose. She prefers a nonsurgical management and understands with personal history of lysis of adhesions that this would be preferred. She also understands her CT scan shows no obvious source of her nausea vomiting and we discussed the possibility that there may be another source including a viral illness. She understands that the CT scan does not show me a surgical place to go for cutting adhesions such as dilated bowel or any location that is suspicious and we wonder if constipation may be the cause and she agrees. We will put the Mag citrate on ice and mixed with some Gatorade to see if we can help mask the flavor hydrate her with extra L of fluid and follow her closely should she need admission to the hospital we will proceed with rehydration and follow her closely. Medicine should be consulted for admission as there is no surgical indication at this time. Thank you for this consultation and the opportunity to see this very pleasant patient. Time Spent With Patient Time with patient: Greater than 35 minutes
[2017-12-25] MEDS: METOCLOPRAMIDE 10 MG/2 ML INJ IV (09:51)
== END 2017-12-25 13:56 | disposition home or self-care (01) ==
PROVIDERS: Emergency Provider Emergency Medicine
DX: K59.00 Constipation, unspecified (principal)
CPT/HCPCS: 36591; 74177; 80053; 81003; 81015; 83605; 83690; 85025; 96361; 96374; 96375; 96376; 99284; 99285; J2270; J2405; J2765; Q9967

== ENCOUNTER 2018-03-29 23:20 | Emergency (ER) | payer MEDICARE, MEDICAID, SELFPAY ==
[2018-03-29 23:31] VITALS: BP 140/103; PULSE 108; RESP 20; TEMP 37.4; O2SAT 98
--- NOTE | 2018-03-30 00:03 | ED.TRAUMA ---
HPI - Trauma General Chief Complaint: Extremity Injury, Upper Stated Complaint: Lt shoulder injury Time Seen by Provider: 03/29/18 23:28 Source: patient and EMS Mode of arrival: EMS Limitations: no limitations History of Present Illness HPI narrative: This a 38-year-old with multiple medical problems. Patient states she had a mechanical fall where she tripped and fell, she landed on her left side and is complaining of pain in her left shoulder region. She complains of pain with rotation and pronation supination of her arm. It is mostly in the shoulder but radiates down. She is also having some hip pain, as well as some back pain. She has chronic hip and back issues she states she has known compression fractures thoracic region. She states she had compression fractures in the lumbar spine but that they healed. She also is noted to have disc bulging in the lumbar spine. [place] was no ability to evaluate her [place] there. She denies hitting her head she denies any neck pain. She denies any blood thinners. No shortness of breath. She has felt nauseated, no vomiting. She is asking to urinate at this time. She received Toradol, Dilaudid and Zofran in route patient states she does have a history of osteopenia which was upgraded to osteoporosis recently. She has some history of spinal stenosis as well as multiple other medical problems. Related Data Home Medications Medication Instructions Recorded Confirmed chlorhexidine gluconate [Periogard] 15 ml PO #0 05/19/16 estradiol [Estrace] 1 gm VAGINAL SEE INSTRUCTIONS #0 05/19/16 ketorolac 10 mg PO Q6H #0 05/19/16 methocarbamol 500 mg PO QDAY #0 05/19/16 oxycodone 5 mg PO Q6HP PRN #0 05/19/16 calcium polycarbophil [FiberCon] 1 tab PO QDAYP PRN #0 02/10/17 cholecalciferol (vitamin D3) 1 tab PO QDAY #0 02/10/17 [Vitamin D3] nystatin 15 gm TOPICAL #0 02/10/17 omega 8-ugg-six-fish oil [Fish Oil] 1,000 mg PO QDAY #0 02/10/17 ondansetron 4 mg SUBLINGUAL Q6HP PRN #0 09/27/17 albuterol sulfate [Ventolin HFA] 10/29/17 baclofen 10 mg PO DAILY 10/29/17 10/29/17 cefdinir 1 cap PO Q12H 10/29/17 10/29/17 diazepam 5 mg PO DAILY 10/29/17 10/29/17 fluconazole 1 tab PO Q48H 10/29/17 10/29/17 ibuprofen [IBU] 600 mg PO QID 10/29/17 10/29/17 methocarbamol 500 mg PO TID 10/29/17 10/29/17 morphine 1 tab PO BID 10/29/17 10/29/17 oxybutynin chloride 5 mg PO DAILY 10/29/17 10/29/17 oxycodone 1 dose PO DIRECTED 10/29/17 10/29/17 tizanidine 1 dose PO DIRECTED 10/29/17 10/29/17 Allergies Allergy/AdvReac Type Severity Reaction Status Date / Time acetaminophen [ACETAMINOPHEN] Allergy Mild Verified 12/25/17 02:00 adhesive [ADHESIVE] Allergy Mild Verified 12/25/17 02:00 povidone-iodine Allergy Mild Verified 12/25/17 02:00 [From BETADINE] prochlorperazine Allergy Mild Verified 12/25/17 02:00 [From COMPAZINE] soap [From BETADINE] Allergy Mild Verified 12/25/17 02:00 tramadol [TRAMADOL] Allergy Mild Verified 12/25/17 02:00 venlafaxine [From EFFEXOR] Allergy Mild Verified 12/25/17 02:00 msg Allergy Unknown vomiting Uncoded 12/25/17 02:00 diahrrea nitrates Allergy Unknown vomiting, Uncoded 12/25/17 02:00 diahrrea Review of Systems Review of Systems All systems reviewed & are unremarkable except as noted in HPI and below Constitutional Denies other (LOC) ENT Ears, Nose, Mouth, and Throat: Denies neck pain Cardiovascular Denies chest pain, Denies diaphoresis, Denies syncope, Denies leg edema, Denies dyspnea and Denies dyspnea on exertion Respiratory Denies cough, Denies dyspnea, Denies dyspnea on exertion and Denies wheezing Gastrointestinal Gastrointestinal: Denies abdominal pain, Denies change in bowel habits, Denies diarrhea, Reports nausea and Denies vomiting Genitourinary Denies hematuria, Denies flank pain, Denies urinary incontinence and Denies urinary urgency Musculoskeletal Reports back pain, Denies deformity, Reports arthralgias (left shoulder), Reports limited range of motion, Denies muscle weakness, Denies neck pain, Reports radiating pain into limb (left arm) and Denies tingling Neurologic Denies syncope and Denies tingling Allergic/Immunologic Denies wheezing [facility] Medical History History of hysterectomy (Acute) History of small bowel obstruction (Acute) Surgical History History of appendectomy (Acute) History of cholecystectomy (Acute) Social History Smoking Status: Never smoker Exam Narrative Exam Narrative: GEN: Patient appears in moderate distress. HEAD: No evidence of trauma, no raccoon/Galo sign. NECK: Nontender, painless range of motion, trachea midline Negative Nexus criteria, there is no midline tenderness, distracting injury, altered mental status, neuro deficit, recent EtOH. EYES: PERRLA, EOMI ENT: External inspection normal, trachea is midline, TM's are normal no hemotypanum, Nares are clear, no septal hematoma, no dental or oral injury, airway is normal and with normal occlusion, No bony tenderness RESP: Chest is nontender and has symmetric movement, no ecchymosis, breath sounds are normal no crackles, wheezes or rales CVS: Heart sounds are normal, no murmur noted, No JVD. ABG/GI: Nontender, soft, normal bowel sounds, no distention, no organomegaly, pelvic rock is negative. NEURO: Oriented AOx3, neuro is grossly intact, sensation and motor is normal all 4 extremities moving, cranial nerves II through XII are intact, GCS is 15 PSYCH: Normal mood and affect SKIN: Intact, warm and dry, no crepitus and without decubitus BACK: No CVA tenderness, mild vertebral tenderness over Thoracic 3/4, no step-off's, no crepitus EXT: Tenderness over the left AC joint shoulder, no deformity. Patient does not wish to move the arm. She is able to supinate and pronate the left forearm without issue although it is uncomfortable in the shoulder. She does not have any other bony tenderness in the lower arm. She is complaining of hip pain has mild left hip pain with palpation. Patient has no pedal edema, normal color and temperature, normal range of motion of extremities with normal tendon exam, 2+ pulses in all four extremities Initial Vital Signs Initial Vital Signs: Vital Signs Temperature 99.3 F 03/29/18 23:31 Pulse Rate 108 H 03/29/18 23:31 Respiratory Rate 20 03/29/18 23:31 Blood Pressure 140/103 H 03/29/18 23:31 Pulse Oximetry 98 03/29/18 23:31 Course Orders Ordered: ED Orders 03/30/18 00:02 Test Urine Stat Urinalysis and Microscopic Stat 03/30/18 00:17 XR shoulder LT min 2V Stat XR thoracic spine 3V Stat 03/30/18 01:07 Complete Blood Count AUTO DIFF Stat Comprehensive Metabolic Panel Stat Partial Thromboplastin Time Stat Prothrombin Time INR Stat Discontinued Medications Hydromorphone HCl (Dilaudid) 1 mg IV NOW ONE Stop: 03/30/18 00:18 Last Admin: 03/30/18 00:38 Dose: 1 mg Oxycodone HCl (Percolone) 5 mg PO NOW ONE Stop: 03/30/18 03:26 Last Admin: 03/30/18 03:48 Dose: 5 mg Vital Signs - 8 hr 03/29/18 23:31 Temperature 99.3 F Pulse Rate 108 H Respiratory Rate 20 Blood Pressure 140/103 H Pulse Oximetry 98 [facility] - Trauma Lab Data Result diagrams: 03/30/18 01:07 03/30/18 01:07 Lab Results 03/30/18 03/30/18 03/30/18 Range/Units 00:02 00:02 01:07 WBC 5.7 (4.5-11.0) X10^3/uL RBC 4.45 (4.0-5.2) X10^6/uL Hgb 13.6 (12.0-16.0) g/dL Hct 40.3 (36-46) % MCV 90.6 (80-100) fL MCH 30.5 (26-34) PG MCHC 33.7 (30-36) % RDW 13.8 (11.6-14.8) % Plt Count 192 (150-400) X10^3/uL Neut % (Auto) 77.5 H (50-75) % Lymph % (Auto) 16.6 L (25-40) % [place] % (Auto) 4.7 (3-14) % Eos % (Auto) 0.7 L (2-4) % Baso % (Auto) 0.5 (0-2) % Neut # (Auto) 4400 (7871-5123) /uL PT (10.1-12.7) SECONDS INR (0.9-1.3) APTT (26.4-36.2) SECONDS Sodium (137-145) mmol/L Potassium (3.4-5.1) mmol/L Chloride (98-107) mmol/L Carbon Dioxide (22-32) mmol/L BUN (7-17) mg/dL Creatinine (0.52-1.04) mg/dL Estimated GFR (>60) mL/min BUN/Creatinine Ratio (6-22) Glucose (70-100) mg/dL Calcium (8.4-10.2) mg/dL Total Bilirubin (0.2-1.3) mg/dL AST (14-36) IU/L ALT (9-52) IU/L Alkaline Phosphatase (38-126) U/L Total Protein (6.3-8.2) g/dL Albumin (3.5-5.0) g/dL Globulin (1.7-4.1) g/dL Albumin/Globulin Ratio (1.0-2.8) Urine Color Yellow Urine Appearance Clear Urine pH 6.5 (4.5-8.0) Ur Specific [place] 1.010 (1.000-1.035) Urine Protein Negative (Negative) Urine Glucose (UA) Negative (Normal) g/dL Urine Ketones Negative (NEGATIVE) Urine Occult Blood Negative (Negative) Urine Nitrate Negative (Negative) Urine Bilirubin Negative (NEGATIVE) Urine Urobilinogen 0.2 (0.2) E.U./dL Ur Leukocyte Esterase Negative (NEGATIVE) Urine RBC None seen (0-5/HPF) Urine WBC None seen (0-5/HPF) Urine Bacteria None seen (None) Ur Culture Indicated? Cult not indicated Micro UA Comment Microscopic normal Urine Test Negative (Negative) 03/30/18 03/30/18 Range/Units 01:07 01:07 WBC (4.5-11.0) X10^3/uL RBC (4.0-5.2) X10^6/uL Hgb (12.0-16.0) g/dL Hct (36-46) % MCV (80-100) fL MCH (26-34) PG MCHC (30-36) % RDW (11.6-14.8) % Plt Count (150-400) X10^3/uL Neut % (Auto) (50-75) % Lymph % (Auto) (25-40) % [place] % (Auto) (3-14) % Eos % (Auto) (2-4) % Baso % (Auto) (0-2) % Neut # (Auto) (1273-8097) /uL PT 11.7 (10.1-12.7) SECONDS INR 1.1 (0.9-1.3) APTT 39 H (26.4-36.2) SECONDS Sodium 143 (137-145) mmol/L Potassium 4.2 (3.4-5.1) mmol/L Chloride 103 (98-107) mmol/L Carbon Dioxide 28 (22-32) mmol/L BUN 20 H (7-17) mg/dL Creatinine 0.80 (0.52-1.04) mg/dL Estimated GFR > 60.0 (>60) mL/min BUN/Creatinine Ratio 25.0 H (6-22) Glucose 96 (70-100) mg/dL Calcium 9.4 (8.4-10.2) mg/dL Total Bilirubin 0.4 (0.2-1.3) mg/dL AST 46 H (14-36) IU/L ALT 52 (9-52) IU/L Alkaline Phosphatase 166 H (38-126) U/L Total Protein 7.5 (6.3-8.2) g/dL Albumin 4.4 (3.5-5.0) g/dL Globulin 3.1 (1.7-4.1) g/dL Albumin/Globulin Ratio 1.4 (1.0-2.8) Urine Color Urine Appearance Urine pH (4.5-8.0) Ur Specific [place] (1.000-1.035) Urine Protein (Negative) Urine Glucose (UA) (Normal) g/dL Urine Ketones (NEGATIVE) Urine Occult Blood (Negative) Urine Nitrate (Negative) Urine Bilirubin (NEGATIVE) Urine Urobilinogen (0.2) E.U./dL Ur Leukocyte Esterase (NEGATIVE) Urine RBC (0-5/HPF) Urine WBC (0-5/HPF) Urine Bacteria (None) Ur Culture Indicated? Micro UA Comment Urine Test (Negative) Imaging Data thoracic spine xray: Attestation: I personally reviewed and interpreted this imaging study as follows: My impression: no fx, hardware in place from prior surgery shoulder xray: My impression: no fx, no dislocation noted, AC joint spacing appears appropriate. MDM Narrative Medical decision making narrative: Patient refused bed larios and stood and used bedside commode without issue or assistance. Patient was also able to use upper extremity for nursing without issue after arrival. Patient lives on [facility] so is waiting for [employer] service to start running again. She has a baclofen pump and has home medications for pain. Patient given dose of oxycodone in department as she left her home meds at home. Patient able to ambulate. Discharge Plan Departure Patient Disposition: Home Clinical Impression: Acute shoulder pain, Back pain, Fall from ground level Instructions: Shoulder Sprain Activity Restrictions/Additional Instructions: Follow-up with your physician in the next 2-3 days for recheck if your symptoms are not improving. Return to the emergency department for new numbness, new weakness, loss of sensation, passing out, difficulty breathing, persistent vomiting or other new or concerning symptoms. Take medication as prescribed for pain, this medication can make you sleepy do not drive, perform hazards activities or make any major decisions while taking them. Prescriptions: No Action oxycodone 5 MG tablet 5 mg PO Q6HP PRN (Reason: Pain, Severe) Qty: 0 RF: 0 methocarbamol 500 MG tablet 500 mg PO QDAY Qty: 0 RF: 0 ketorolac 10 MG tablet 10 mg PO Q6H Qty: 0 RF: 0 estradiol [Estrace] 0.01 % cream 1 gm Vaginal SEE INSTRUCTIONS Qty: 0 RF: 0 chlorhexidine gluconate [Periogard] 473 ML mouthwash 15 ml PO Qty: 0 RF: 0 nystatin 30 GM ointment 15 gm Topical Qty: 0 RF: 0 calcium polycarbophil [FiberCon] 625 MG tablet 1 tab PO QDAYP PRN (Reason: fiber) Qty: 0 RF: 0 ondansetron 4 MG tablet,disintegrating 4 mg Sublingual Q6HP PRN (Reason: Nausea) Qty: 0 RF: 0 cholecalciferol (vitamin D3) [Vitamin D3] 2,000 UNIT tablet 1 tab PO QDAY Qty: 0 RF: 0 omega 5-rpi-tkj-fish oil [Fish Oil] 1,000 MG capsule 1,000 mg PO QDAY Qty: 0 RF: 0 fluconazole 100 mg tablet 1 tab PO Q48H RF: 0 methocarbamol 500 mg tablet 500 mg PO TID RF: 0 baclofen 10 mg tablet 10 mg PO DAILY RF: 0 morphine 15 mg tablet extended release 1 tab PO BID RF: 0 ibuprofen [IBU] 600 mg tablet 600 mg PO QID RF: 0 albuterol sulfate [Ventolin HFA] 90 mcg/actuation HFA aerosol inhaler RF: 0 oxybutynin chloride 5 mg tablet 5 mg PO DAILY RF: 0 cefdinir 300 mg capsule 1 cap PO Q12H RF: 0 diazepam 5 mg tablet 5 mg PO DAILY RF: 0 oxycodone 5 mg tablet 1 dose PO DIRECTED RF: 0 tizanidine 6 mg capsule 1 dose PO DIRECTED RF: 0
[2018-03-30 00:14] LABS: Bacteria Urine None Seen; RBC Urine None Seen (0-5/HPF); WBC Urine None Seen (0-5/HPF)
[2018-03-30 00:17] LABS: Appearance Urine UA CLEAR; Bilirubin Urine UA NEGATIVE (NEGATIVE); Color Urine UA YELLOW; Glucose Urine UA NEGATIVE (Normal); Ketones Urine UA NEGATIVE (NEGATIVE); Leukocyte Esterase Urine UA NEGATIVE (NEGATIVE); Nitrite Urine UA NEGATIVE (Negative); Occult Blood Urine UA NEGATIVE (Negative); Protein Urine UA NEGATIVE (Negative); Urobilinogen Urine UA 0.2 E.U./dL (0.2); pH Urine UA 6.5 (4.5-8.0)
--- NOTE | 2018-03-30 00:17 | DI.RAD.S_ITS ---
PROCEDURE: XR THORACIC SPINE 3V INDICATIONS: fall, back pain, history of compression fracture TECHNIQUE: 3 views of the thoracic spine were acquired. COMPARISON: [facility], , XR LUMBAR SPINE 2-3V, 10/29/2017, 11:05. FINDINGS: Bones: Multiple upper lumbar vertebral body compression fractures, which are grossly unchanged since 10/29/17. Remaining visualized vertebral body heights appear preserved although suboptimally visualized. Cervical spine fixation hardware and discogenic changes. Soft tissues: No paravertebral stripe thickening. IMPRESSION: Unchanged appearance of upper lumbar compression fractures. No definite thoracic compression fracture although if there is persistent high clinical suspicion, cross-sectional imaging could be considered. Dictated by: Fausto Perez M.D. on 03/30/2018 at 7:05 Approved by: Fausto Perez M.D. on 03/30/2018 at 7:08
--- NOTE | 2018-03-30 00:17 | DI.RAD.S_ITS ---
PROCEDURE: XR SHOULDER LT MIN 2V INDICATIONS: shoulder/arm pain post fall TECHNIQUE: 2 views of the shoulder were acquired. COMPARISON: [facility], CR, XR THORACIC SPINE 3V, 03/30/2018, 0:22. FINDINGS: Bones: No fractures. There is possible trace superior displacement of the lateral clavicle relative to the acromion. No suspicious bony lesions. Visualized ribs appear intact. Cervical spine fixation hardware intact. Soft tissues: No suspicious soft tissue calcifications. IMPRESSION: No fracture identified. Possible trace subluxation of the AC joint as above, age-indeterminate. Please correlate clinically for point tenderness. This could be further evaluated with dedicated acromioclavicular radiographs with and without weights. Dictated by: Fausto Perez M.D. on 03/30/2018 at 7:51 Approved by: Fausto Perez M.D. on 03/30/2018 at 7:54
[2018-03-30 00:19] LABS: Pregnancy Test Urine Negative (Negative)
[2018-03-30 00:26] LABS: Culture Indicated Urine Cult Not Indicated; Urine Comments Microscopic Normal
[2018-03-30] MEDS: HYDROMORPHONE 1 MG INJ IV (00:38)
[2018-03-30 01:20] LABS: Add Manual Diff / Slide Review NO; Basophils Percent Auto 0.5 % (0-2); Eosinophils Percent Auto 0.7 % (2-4); Hematocrit 40.3 % (36-46); Hemoglobin 13.6 g/dL (12.0-16.0); Lymphocytes Percent Auto 16.6 % (25-40); Mean Corpuscular HGB Conc 33.7 % (30-36); Mean Corpuscular Hemoglobin 30.5 PG (26-34); Mean Corpuscular Volume 90.6 fL (80-100); Monocytes Percent Auto 4.7 % (3-14); Neutrophils Absolute Auto 4400 /uL (3000-5900); Neutrophils Percent Auto 77.5 % (50-75); Platelet Count 192 X10^3/uL (150-400); Red Blood Cell Count 4.45 X10^6/uL (4.0-5.2); Red Cell Distribution Width 13.8 % (11.6-14.8); White Blood Cell Count 5.7 X10^3/uL (4.5-11.0)
[2018-03-30 01:22] LABS: INR 1.1 (0.9-1.3); Prothrombin Time 11.7 SECONDS (10.1-12.7)
[2018-03-30 01:24] LABS: PTT Partial Thromboplastin Tim 39 SECONDS (26.4-36.2)
[2018-03-30 01:26] LABS: Alanine Aminotransferase 52 IU/L (9-52); Albumin 4.4 g/dL (3.5-5.0); Albumin Globulin Ratio 1.4 (1.0-2.8); Alkaline Phosphatase 166 U/L (38-126); Aspartate Aminotransferase 46 IU/L (14-36); Bilirubin Total 0.4 mg/dL (0.2-1.3); Blood Urea Nitrogen 20 mg/dL (7-17); Calcium 9.4 mg/dL (8.4-10.2); Carbon Dioxide 28 mmol/L (22-32); Chloride 103 mmol/L (98-107); Estimated Glomerular Filt Rate > 60.0 mL/min (>60); Globulin 3.1 g/dL (1.7-4.1); Glucose 96 mg/dL (70-100); HEMOLYSIS < 15 (0-50); Potassium 4.2 mmol/L (3.4-5.1); Sodium 143 mmol/L (137-145); Total Protein 7.5 g/dL (6.3-8.2)
[2018-03-30 01:40] VITALS: BP 130/90; PULSE 97; RESP 18; TEMP 37.4; O2SAT 97
[2018-03-30] MEDS: OXYCODONE IR 5 MG TABLET PO (03:48)
[2018-03-30 05:05] VITALS: BP 130/90; PULSE 97; RESP 18; O2SAT 97
== END 2018-03-30 05:05 | disposition home or self-care (01) ==
PROVIDERS: Emergency Provider Emergency Medicine
DX: M25.512 Pain in left shoulder (principal); M54.9 Dorsalgia, unspecified; W01.0XXA Fall on same level from slipping, tripping and stumbling without subsequent striking against object, initial encounter
CPT/HCPCS: 36415; 72072; 73030; 80053; 81001; 81025; 85025; 85610; 85730; 96374; 99283; 99284; J1170

== ENCOUNTER 2018-04-11 14:01 | Emergency (ER) | payer MEDICARE, MEDICAID, SELFPAY ==
[2018-04-11 14:18] VITALS: BP 144/89; PULSE 96; TEMP 37.1; O2SAT 98; BMI 39.1
--- NOTE | 2018-04-11 18:15 | ED.ABDPAIN ---
HPI - Abdominal Pain General Chief Complaint: Abdominal Pain Stated Complaint: abd pain,vomiting, nausea,rectal pain Time Seen by Provider: 04/11/18 18:09 Source: patient History of Present Illness HPI narrative: Patient states that she has been laying in bed for 2 weeks after falling and injuring her left shoulder. She states that the shoulder was not fractured, but since she is afflicted by cerebral palsy, and uses a walker, it is difficult for her to get around with an injured shoulder. She states that since she has been lying in bed, she has become increasingly constipated, and about a week ago, had to drink an entire bottle of Mag citrate to clear her bowels out. She states that after that, she did not have a bowel movement for another 4 days, until 3 days ago. She states that since then she has once again had no further bowel movements. She states that now the magnesium citrate is working, and she is nauseated. Patient denies fevers, though she states ?I would normally run 96, and I was 98.7 today.? Patient states that she does have some rectal pain, and does not know if it is from being constipated, or from pushing to get the bowel movement out. Patient states that she has not vomited with the nausea. She denies chest pain or cough. No dysuria. Patient has had a hysterectomy. Patient denies any other complaints at this time. She states she was not placed on any additional pain control, beyond what she is already on. Related Data Home Medications Medication Instructions Recorded Confirmed chlorhexidine gluconate [Periogard] 15 ml PO #0 05/19/16 estradiol [Estrace] 1 gm VAGINAL SEE INSTRUCTIONS #0 05/19/16 ketorolac 10 mg PO Q6H #0 05/19/16 calcium polycarbophil [FiberCon] 1 tab PO QDAYP PRN #0 02/10/17 cholecalciferol (vitamin D3) 1 tab PO QDAY #0 02/10/17 [Vitamin D3] nystatin 15 gm TOPICAL #0 02/10/17 omega 5-[id number]-fish oil [Fish Oil] 1,000 mg PO QDAY #0 02/10/17 ondansetron 4 mg SUBLINGUAL Q6HP PRN #0 02/10/17 albuterol sulfate [Ventolin HFA] 10/29/17 baclofen 10 mg PO DAILY 10/29/17 04/11/18 diazepam 5 mg PO DAILY 10/29/17 04/11/18 fluconazole 1 tab PO Q48H 10/29/17 10/29/17 ibuprofen [IBU] 600 mg PO QID 10/29/17 10/29/17 methocarbamol 500 mg PO TID 10/29/17 04/11/18 morphine 15 mg PO BID 10/29/17 04/11/18 oxybutynin chloride 5 mg PO DAILY 10/29/17 10/29/17 tizanidine 1 dose PO DIRECTED 10/29/17 10/29/17 fluconazole 150 mg PO QWEEK 04/11/18 04/11/18 gabapentin 04/11/18 ibuprofen 600 mg PO QID 04/11/18 04/11/18 omeprazole 20 mg PO BID 04/11/18 04/11/18 oxycodone 5 mg PO Q4H 04/11/18 04/11/18 Allergies Allergy/AdvReac Type Severity Reaction Status Date / Time acetaminophen [ACETAMINOPHEN] Allergy Mild Verified 04/11/18 14:25 adhesive [ADHESIVE] Allergy Mild Verified 04/11/18 14:25 povidone-iodine Allergy Mild Verified 04/11/18 14:25 [From BETADINE] prochlorperazine Allergy Mild Verified 04/11/18 14:25 [From COMPAZINE] soap [From BETADINE] Allergy Mild Verified 04/11/18 14:25 tramadol [TRAMADOL] Allergy Mild Verified 04/11/18 14:25 venlafaxine [From EFFEXOR] Allergy Mild Verified 04/11/18 14:25 msg Allergy Unknown vomiting Uncoded 04/11/18 14:25 diahrrea nitrates Allergy Unknown vomiting, Uncoded 04/11/18 14:25 diahrrea Review of Systems Review of Systems All systems reviewed & are unremarkable except as noted in HPI and below Constitutional Denies chills, Denies fever(s), Denies lethargy and Denies weakness Eyes Denies change in vision, Denies eye discharge, Denies irritation and Denies loss of vision ENT Ears, Nose, Mouth, and Throat: Denies change in voice, Denies neck pain and Denies sore throat Cardiovascular Denies chest pain, Denies irregular heart rhythm, Denies lightheadedness, Denies palpitations, Denies dyspnea, Denies dyspnea on exertion and Denies orthopnea Respiratory Denies cough, Denies dyspnea, Denies dyspnea on exertion and Denies wheezing Gastrointestinal Gastrointestinal: Reports abdominal pain, Denies change in bowel habits, Reports constipation, Denies diarrhea, Reports nausea and Denies vomiting Genitourinary Denies hematuria, Denies flank pain, Denies urinary incontinence and Denies urinary urgency Musculoskeletal Denies neck pain Integumentary/Breasts Denies pruritus, Denies erythema, Denies rash and Denies wounds Neurologic Denies confusion, Denies loss of vision and Denies weakness Psychiatric Denies anxiety, Denies confusion, Denies depression, Denies homicidal ideation and Denies suicidal ideation Endocrine Denies palpitations Hematologic/Lymphatic Denies easy bruising Allergic/Immunologic Denies wheezing [facility] Medical History History of small bowel obstruction (Acute) History of hysterectomy (Acute) Acute shoulder pain (Acute) Back pain (Acute) Fall from ground level (Acute) Morbid obesity due to excess calories (Acute) Cerebral palsy (Acute) History of small bowel obstruction (Acute) Cerebral palsy (Acute) Surgical History History of cholecystectomy (Acute) History of appendectomy (Acute) History of hysterectomy for benign disease (Acute) History of laparoscopic appendectomy (Acute) Social History Smoking Status: Never smoker Exam Initial Vital Signs Initial Vital Signs: Vital Signs Temperature 98.7 F 04/11/18 14:18 Pulse Rate 96 H 04/11/18 14:18 Blood Pressure 144/89 H 04/11/18 14:18 Pulse Oximetry 98 04/11/18 14:18 Const General: cooperative and well developed Nutritional Appearance: well nourished Orientation: alert, awake, oriented x3 and not confused [facility] Head: normocephalic and atraumatic Ears: external ears normal Nose: external nose normal and No nasal discharge Face and sinus: face symmetric and No dry mucous membranes Mouth: oral mucosae normal and moist mucous membranes Teeth and gingiva: dentition normal Eyes General: appearance normal, both eyes and all related structures Eyelids: eyelids normal Conjunctivae: conjunctivae normal Sclera: sclerae normal Pupils: PERRL EOM: EOM intact bilaterally Neck Neck: normal visual inspection, trachea midline, No lymphadenopathy, No midline deformity and No JVD Lymphatic: No lymphedema Chest Chest: normal inspection of the chest Resp Effort & Inspection: normal respiratory effort, able to speak in complete sentences, no respiratory distress and no use of accessory muscles Auscultation: clear to auscultation bilaterally, no rales, no rhonchi and no wheezes Cardio Rate: regular rate Rhythm: regular rhythm Heart Sounds: no click, no gallops, no murmurs and no rubs Pulses: normal peripheral pulses GI Inspection: non-distended Palpation: soft, no hepatosplenomegaly, No guarding, No pulsatile mass and tender (Mild, suprapubic) Back/Spine/Pelvis Back: No CVA tenderness Cervical Spine: cervical ROM normal and No pain with cervical ROM Thoracic/Lumbar Spine: thoracic and lumbar spine normal to inspection Skin General: no rashes or lesions noted, No jaundice and No petechiae Neuro General: alert, oriented x3, gait normal and no focal motor deficits Speech: speech normal Extrem General: full ROM, no clubbing, cyanosis or edema, no pedal edema and no calf tenderness Psych Appearance: well kempt Mental Status: mental status grossly normal Attitude: cooperative Thought Content: normal and suicidality Judgment: judgment good Course Course Narrative: Patient was worked up with labs and acute abdominal x-ray series, as I did suspect some degree of constipation. She was treated with IV fluids, Zofran, and a dose of Dilaudid, she stated she had not been able to take her chronic pain medications, due to being counseled by her doctor not to eat or drink anything until getting to the emergency department and being cleared. Orders Ordered: ED Orders 04/11/18 18:35 Complete Blood Count AUTO DIFF Stat Comprehensive Metabolic Panel Stat 04/11/18 18:36 XR abdomen min 2V Stat Discontinued Medications Hydromorphone HCl (Dilaudid) 1 mg IV NOW ONE Stop: 04/11/18 18:39 Last Admin: 04/11/18 18:47 Dose: 1 mg Sodium Chloride (Normal Saline 0.9%) 1,000 mls @ 1,000 mls/hr IV BOLUS ONE Stop: 04/11/18 19:35 Last Infusion: 04/11/18 20:39 Dose: 0 mls/hr Admin: 04/11/18 18:47 Dose: 1,000 mls/hr Mineral Oil (Mineral Oil Enema) 1 each NC NOW ONE Stop: 04/11/18 20:27 Last Admin: 04/11/18 20:39 Dose: 1 each Ondansetron HCl (Zofran) 4 mg IV NOW ONE Stop: 04/11/18 18:39 Last Admin: 04/11/18 18:47 Dose: 4 mg Vital Signs - 8 hr 04/11/18 19:41 04/11/18 20:40 Pulse Rate 96 H 95 H Respiratory Rate 18 Blood Pressure 142/87 H Blood Pressure [Right Arm] 144/94 H Pulse Oximetry 94 100 MDM - Abdominal Pain Medical Records Attestation: I reviewed the patient's medical records. Lab Data Attestation: I reviewed the patient's lab results. Result diagrams: 04/11/18 18:35 04/11/18 18:35 Lab Results 04/11/18 04/11/18 Range/Units 18:35 18:35 WBC 4.8 (4.5-11.0) X10^3/uL RBC 4.74 (4.0-5.2) X10^6/uL Hgb 14.7 (12.0-16.0) g/dL Hct 42.8 (36-46) % MCV 90.2 (80-100) fL MCH 31.0 (26-34) PG MCHC 34.3 (30-36) % RDW 14.5 (11.6-14.8) % Plt Count 231 (150-400) X10^3/uL Neut % (Auto) 77.8 H (50-75) % Lymph % (Auto) 15.6 L (25-40) % [place] % (Auto) 4.9 (3-14) % Eos % (Auto) 1.1 L (2-4) % Baso % (Auto) 0.6 (0-2) % Neut # (Auto) 3700 (7888-5389) /uL Sodium 143 (137-145) mmol/L Potassium 4.2 (3.4-5.1) mmol/L Chloride 102 (98-107) mmol/L Carbon Dioxide 28 (22-32) mmol/L BUN 20 H (7-17) mg/dL Creatinine 0.90 (0.52-1.04) mg/dL Estimated GFR > 60.0 (>60) mL/min BUN/Creatinine Ratio 22.2 H (6-22) Glucose 102 H (70-100) mg/dL Calcium 9.7 (8.4-10.2) mg/dL Total Bilirubin 0.7 (0.2-1.3) mg/dL AST 35 (14-36) IU/L ALT 41 (9-52) IU/L Alkaline Phosphatase 145 H (38-126) U/L Total Protein 8.0 (6.3-8.2) g/dL Albumin 4.6 (3.5-5.0) g/dL Globulin 3.4 (1.7-4.1) g/dL Albumin/Globulin Ratio 1.4 (1.0-2.8) Point of care testing: Point of Care Testing Test Results Negative Urine Dip Bedside Urine Glucose Negative Bedside Urine Bilirubin - Negative Bedside Urine Ketone - Negative Urine Specific Dinosaur 1.025 Bedside Urine Occult Blood - Negative Bedside Urine pH 6.0 Bedside Urine Protein - Negative Bedside Urine Urobilinogen - Negative Bedside Urine Nitrite - Negative Bedside Urine Leukocytes - Negative Esterase Imaging Data Abdominal x-ray: Radiologist's impression: PROCEDURE: XR ABDOMEN MIN 2V INDICATIONS: abd pain TECHNIQUE: 2 views of the abdomen were acquired. COMPARISON: None. FINDINGS: Surgical changes and devices: Right upper quadrant cholecystectomy clips, some form of device overlies the fatty soft tissues of the abdomen/pelvis junction at the lateral left body wall.. Bowel: No pneumoperitoneum. The bowel gas pattern is normal. Soft tissues: No masses; visualized solid organ contours appear normal in size. No suspicious abdominal calcifications. Bones: No suspicious bony abnormalities. IMPRESSION: A nonspecific bowel gas pattern is present. A source of current pain is not identified. A control like device is identified over the left abdomen/pelvis junction but lesions extending from this to adjacent areas are not seen. Note is made of right upper quadrant cholecystectomy clips. Dictated by: Jesse Montana M.D. on 04/11/2018 at 19:20 Approved by: Jesse Montana M.D. on 04/11/2018 at 19:21 MDM Narrative Medical decision making narrative: The patient's labs were unremarkable, and the abdominal x-ray series was nonspecific. Patient was found to have stool in her colon, but this was found to be mixed with quite a bit of gas. I discussed with the patient that her bowel movements may have slowed down because she has been laying in bed a lot of and she is on chronic narcotics, but that there is no evidence of obstipation. As such, the patient would be expected to be able to have a bowel movement with little further intervention. I have offered the patient an enema in the emergency department, and have advised that she would need to follow this up with magnesium citrate or some other oral laxative afterward. The patient stated that she would take the enema but would go ahead and just drink magnesium citrate here, as well, since she states she is from [facility] and that the next ferry was to leave in 55 min. I did ask the patient what her plans were for the rest of the night, as it is early in the evening, and the patient does not have an emergent condition that would warrant admission to the hospital. The patient stated that ?before, they have just let me stay in the emergency department all night.? I discussed with her that that would not be an option tonight, as we have been extremely busy, and we have many patients waiting in the waiting room yet to be seen. Additionally, it is not crucial that the enema be done here in the emergency department, but could be done at home by the patient with the assistance of her spouse. I have discussed the other options would be for the patient to stay here and get the enema but be discharged from here. At this point she would need to decide whether to wait in the lobby and catch the morning [place] or get a hotel. The patient was displeased with all options, but ultimately, the best option seemed to be for the patient to catch the ferry and use the enema and magnesium citrate at home. As the patient's x-ray is reassuring and as she definitely does not have a bowel obstruction, I feel this is very much an acceptable option. We did arrange for prior the boarding for the patient, and a taxi was called. Patient left the emergency department 30 min prior to their departure of the ferry. We have discussed the usual indications for return, as well as home management and prevention of the symptoms. Discharge Plan Departure Patient Disposition: Home Clinical Impression: Constipation Discharge Date/Time: 04/11/18 20:42 Interventions: ED Discharge Assessment Last Done: 04/11/18 20:40 Instructions: DI for Constipation Activity Restrictions/Additional Instructions: Your labs look good. Your x-ray shows stool mixed with gas, which means your bowels are moving, and there is no bowel obstruction. Please use your magnesium citrate, as well as the take-home enema, as directed, to assist with stooling. Please follow up with your doctor if no stool is produced in the next 3 days. Prescriptions: No Action ketorolac 10 MG tablet 10 mg PO Q6H Qty: 0 RF: 0 estradiol [Estrace] 0.01 % cream 1 gm Vaginal SEE INSTRUCTIONS Qty: 0 RF: 0 chlorhexidine gluconate [Periogard] 473 ML mouthwash 15 ml PO Qty: 0 RF: 0 nystatin 30 GM ointment 15 gm Topical Qty: 0 RF: 0 calcium polycarbophil [FiberCon] 625 MG tablet 1 tab PO QDAYP PRN (Reason: fiber) Qty: 0 RF: 0 ondansetron 4 MG tablet,disintegrating 4 mg Sublingual Q6HP PRN (Reason: Nausea) Qty: 0 RF: 0 cholecalciferol (vitamin D3) [Vitamin D3] 2,000 UNIT tablet 1 tab PO QDAY Qty: 0 RF: 0 omega 0-mtq-nqw-fish oil [Fish Oil] 1,000 MG capsule 1,000 mg PO QDAY Qty: 0 RF: 0 fluconazole 150 mg tablet 150 mg PO QWEEK RF: 0 gabapentin 300 mg capsule RF: 0 omeprazole 20 mg capsule,delayed release(DR/EC) 20 mg PO BID RF: 0 ibuprofen 600 mg tablet 600 mg PO QID RF: 0 oxycodone 5 mg tablet 5 mg PO Q4H RF: 0 fluconazole 100 mg tablet 1 tab PO Q48H RF: 0 methocarbamol 500 mg tablet 500 mg PO TID RF: 0 baclofen 10 mg tablet 10 mg PO DAILY RF: 0 morphine 15 mg tablet extended release 15 mg PO BID RF: 0 ibuprofen [IBU] 600 mg tablet 600 mg PO QID RF: 0 albuterol sulfate [Ventolin HFA] 90 mcg/actuation HFA aerosol inhaler RF: 0 oxybutynin chloride 5 mg tablet 5 mg PO DAILY RF: 0 diazepam 5 mg tablet 5 mg PO DAILY RF: 0 tizanidine 6 mg capsule 1 dose PO DIRECTED RF: 0
[2018-04-11 18:19] VITALS: BP 121/85; PULSE 123; O2SAT 96
--- NOTE | 2018-04-11 18:36 | DI.RAD.S_ITS ---
PROCEDURE: XR ABDOMEN MIN 2V INDICATIONS: abd pain TECHNIQUE: 2 views of the abdomen were acquired. COMPARISON: None. FINDINGS: Surgical changes and devices: Right upper quadrant cholecystectomy clips, some form of device overlies the fatty soft tissues of the abdomen/pelvis junction at the lateral left body wall.. Bowel: No pneumoperitoneum. The bowel gas pattern is normal. Soft tissues: No masses; visualized solid organ contours appear normal in size. No suspicious abdominal calcifications. Bones: No suspicious bony abnormalities. IMPRESSION: A nonspecific bowel gas pattern is present. A source of current pain is not identified. A control like device is identified over the left abdomen/pelvis junction but lesions extending from this to adjacent areas are not seen. Note is made of right upper quadrant cholecystectomy clips. Dictated by: Jesse Montana M.D. on 04/11/2018 at 19:20 Approved by: Jesse Montana M.D. on 04/11/2018 at 19:21
[2018-04-11] MEDS: HYDROMORPHONE 1 MG INJ IV (18:47)
[2018-04-11] MEDS: ONDANSETRON 4 MG/2 ML INJ IV (18:47)
[2018-04-11] MEDS: SODIUM CHLORIDE 0.9% 1,000 ML 1000 ML IV (18:47)
[2018-04-11 18:50] LABS: Add Manual Diff / Slide Review NO; Basophils Percent Auto 0.6 % (0-2); Eosinophils Percent Auto 1.1 % (2-4); Hematocrit 42.8 % (36-46); Hemoglobin 14.7 g/dL (12.0-16.0); Lymphocytes Percent Auto 15.6 % (25-40); Mean Corpuscular HGB Conc 34.3 % (30-36); Mean Corpuscular Volume 90.2 fL (80-100); Monocytes Percent Auto 4.9 % (3-14); Neutrophils Absolute Auto 3700 /uL (3000-5900); Neutrophils Percent Auto 77.8 % (50-75); Platelet Count 231 X10^3/uL (150-400); Red Blood Cell Count 4.74 X10^6/uL (4.0-5.2); Red Cell Distribution Width 14.5 % (11.6-14.8); White Blood Cell Count 4.8 X10^3/uL (4.5-11.0)
[2018-04-11 19:01] LABS: Alanine Aminotransferase 41 IU/L (9-52); Albumin 4.6 g/dL (3.5-5.0); Albumin Globulin Ratio 1.4 (1.0-2.8); Alkaline Phosphatase 145 U/L (38-126); Aspartate Aminotransferase 35 IU/L (14-36); BUN Creatinine Ratio 22.2 (6-22); Bilirubin Total 0.7 mg/dL (0.2-1.3); Blood Urea Nitrogen 20 mg/dL (7-17); Calcium 9.7 mg/dL (8.4-10.2); Carbon Dioxide 28 mmol/L (22-32); Chloride 102 mmol/L (98-107); Estimated Glomerular Filt Rate > 60.0 mL/min (>60); Globulin 3.4 g/dL (1.7-4.1); Glucose 102 mg/dL (70-100); HEMOLYSIS < 15 (0-50); Potassium 4.2 mmol/L (3.4-5.1); Sodium 143 mmol/L (137-145)
[2018-04-11 19:41] VITALS: BP 144/94; PULSE 96; O2SAT 94
[2018-04-11] MEDS: MINERAL OIL 1 EACH ENEMA PR (20:39)
[2018-04-11 20:40] VITALS: BP 142/87; PULSE 95; RESP 18; O2SAT 100
== END 2018-04-11 20:42 | disposition home or self-care (01) ==
PROVIDERS: Emergency Provider Emergency Medicine
DX: K59.00 Constipation, unspecified (principal)
CPT/HCPCS: 36591; 74019; 80053; 81003; 81025; 85025; 96361; 96374; 96375; 99283; 99284; J1170; J2405

== ENCOUNTER 2019-02-02 13:45 | Outpatient (RCR) | payer MEDICARE, MEDICAID, SELFPAY ==
--- NOTE | 2018-11-10 19:46 | PT.OIE ---
Current Diagnoses Other specified disorders of muscle (11/03/18) Past Medical History (Last Reviewed 04/11/18 @ 18:43 by Divina Siegel MD) History of small bowel obstruction (Acute) History of hysterectomy (Acute) Morbid obesity due to excess calories (Acute) Cerebral palsy (Acute) History of small bowel obstruction (Acute) Cerebral palsy (Acute) Acute shoulder pain (Inactive) Back pain (Inactive) Fall from ground level (Inactive) Past Surgical History (Last Reviewed 04/11/18 @ 18:43 by Divina Siegel MD) History of cholecystectomy (Acute) History of appendectomy (Acute) History of hysterectomy for benign disease (Acute) History of laparoscopic appendectomy (Acute) Provider Visit Care Team Role Provider Type Yadira Storm MD Primary Care Provider Non-Staff Specialty: Internal Medicine Address: [address] [place] [address], [id number] Fax: Email: Attending Provider Specialty: Address: Phone: Fax: Email: Physical Therapy Initial Evaluation PT-OP-A Visit Information Start: 11/03/18 08:41 Freq: Status: Active Protocol: Document 11/03/18 11:15 [facility] (Rec: 11/10/18 12:39 [facility] [email or web address]) Out-Patient Physical Therapy Visit Information Visit Information Visit Type Initial Evaluation Visit Note 38 year old female with pelvic floor spasms and pain that began a year ago. Maite has CP and has a baclofen pump so she notes she has had a neurogenic bladder for years. Her pelvic pain is new though and came on following a fall a year ago in which she suffered thoracic compression fractures. Since this time her pelvic floor has gone into spasm. She is not able to have intercourse with her due to pain and her bladder symptoms have worsened . She rates her pelvic pain as 6/10 Visit Start Time 11:15 Visit Stop Time 12:00 Total Visit Minutes 45 Evaluation Information Evaluation Date 11/03/18 PT-OP-B Current Condition Start: 11/03/18 08:41 Freq: Status: Active Protocol: Document 11/03/18 11:15 [facility] (Rec: 11/10/18 12:39 [facility] [email or web address]) Current Condition History of Current Condition Onset Date 1 year ago Current Complaints pelvic pain and spasms History of Current Condition 38 year old female with pelvic floor spasms and pain that began a year ago. Maite has CP and has a baclofen pump so she notes she has had a neurogenic bladder for years. Her pelvic pain is new though and came on following a fall a year ago in which she suffered thoracic compression fractures. Since this time her pelvic floor has gone into spasm. She is not able to have intercourse with her due to pain and her bladder symptoms have worsened . She rates her pelvic pain as 6/10. She is taking preventative antibiotics as she has frequent UTI's and taking muscle relaxors for her CP as well as pain meds for chronic pain. History of osteoporsis, falls, thyroid disorder, headaches, depression Treatment Goals Patient/Caregiver Goals To reduce pelvic pain and improve function Current Functional Impairments (Reported) Functional Limitations- Mobility/Gait limited with gait due to CP, pelvic pain also limits gait and endurance for mobility PT-OP-I Pelvic Floor Start: 11/03/18 08:41 Freq: Status: Active Protocol: Document 11/03/18 11:15 [facility] (Rec: 11/10/18 12:39 [facility] [email or web address]) Pelvic Floor Assessment Urine Pelvic Floor Surgery No Urinary Symptoms Urge Sensation Incomplete Emptying Pain Other Urinary Symptoms frequent UTI's Contraction Ability Voluntary Contraction Weak Voluntary Relaxation Weak Comments Pelvic Floor Comments pelvic floor contraction felt externally today as Maite was very nervous about a internal examination. She has guarding of the adductors bilaterally which makes it difficult to relax her pelvic floor. There is abdominal bulging with a pelvic floor contraction. Poor abdominal control and + ALSR bilaterally PT-OP-J Posture/Palpation/Skin Start: 11/10/18 19:39 Freq: Status: Active Protocol: Document 11/03/18 11:15 [facility] (Rec: 11/10/18 19:45 [facility] [email or web address]) Posture Evaluation Position Standing Evaluation View Posterior Head/C-Spine Posture Neutral Position T-Spine Posture Increased Kyphosis Weight Distribution Decreased Wt.Bear on (R) Palpation Assessment Location Four Palpation Location gluteal guarding and tightness Palpation Findings Muscle Guarding Three Palpation Location adductor spasm Palpation Findings Soft Tissue Tightness Spasm Muscle Guarding Palpation Details adductor spasm with decreased hip active abduction Two Palpation Location suprapubic fascia Palpation Findings Soft Tissue Tightness Spasm Muscle Guarding Tenderness Palpation Details Myofasical tightness across the anterior abdominal fascia, over the bladder and suprapubic region, valsava is palpated with pelvic floor and transvserse abdominal contraction One Palpation Location T2-T4 Palpation Findings Soft Tissue Tightness Spasm Muscle Guarding Tenderness Palpation Details pain to light touch in this region, pain laying supine due to pressure on this region PT-OP-K Range of Motion Start: 11/10/18 19:39 Freq: Status: Active Protocol: Document 11/03/18 11:15 [facility] (Rec: 11/10/18 19:45 [facility] [email or web address]) Lumbar Spine Range of Motion Lumbar Spine Active Testing Position Standing Flexion 40 Extension 5 Rotation Left 15 Rotation Right 15 Lateral Flexion Left 10 Lateral Flexion Right 10 ROM Limitations Soft Tissue Tightness Muscle Weakness Hip Goniometric Range of Motion Hip Right Active Hip ROM WFL No Testing Position Supine Flexion w/Knee Flexed 112 Straight Leg Raise 60 Abduction 10 External Rotation 10 Left Hip ROM WFL No Testing Position Supine Flexion w/Knee Flexed 110 Straight Leg Raise 65 Abduction 10 External Rotation 10 Hip ROM Limitations Hip ROM Limitations Soft Tissue Tightness Contracture Muscle Tone Comments addutor contractures with difficulty abduction the legs actively and decresed hip ER ROM bilaterally PT-OP-Q Treatments Start: 11/03/18 08:41 Freq: Status: Active Protocol: Document 11/03/18 11:15 [facility] (Rec: 11/10/18 19:39 [facility] [email or web address]) Therapeutic Exercises Supine Exercises 2 Supine Exercise Name hip roll outs Side bilateral Reps/Minutes x 2 minutes 1 Supine Exercise Name modified happy baby stretch using the couch as support Side bilateral Reps/Minutes 1-2 minute hold PT-OP-T Assessment and Plan Start: 11/03/18 08:41 Freq: Status: Active Protocol: Document 11/03/18 11:15 [facility] (Rec: 11/10/18 19:39 [facility] [email or web address]) Physical Therapy Assessment Rehab Potential Rehabilitation Potential Good Evaluation Complexity Number of Personal Factors/Comorbidities 1-2 Number of Body Systems Impaired 3 Clinical Presentation at Evaluation Evolving Impairments Impairments Activity Tolerance Functional Mobility Gait Pain Posture ROM Soft Tissue Mobility Strength Tone Goals Four Impairment Tightness and limited mobility of hip ER bilaterally Short Term Goal (STG) Maite is able to perform supine hip ER bilaterally for improved ROM of the hips and reduction of tone in her pelvic floor STG Duration 3-4 weeks Three Impairment pelvic floor muscle guarding and gluteal clenching Short Term Goal (STG) Maite is educated on relaxed awareness of her pelvic floor and taught to relax her gluteal musculature STG Duration 3-4 weeks Two Impairment Thoracic muscle spasm and pain with spinal flexion, rotation , laying supine Shelter Goal (LTG) Reduce spinal muscle spasm to assist with laying supine without tension and guarding LTG Duration 6-8 weeks One Impairment pelvic pain and spasm rated 6/ 10 Short Term Goal (STG) With a gentle stretching program Maite is able to use the vaginal sensor for EMG biofeedback down training and relaxation of her pelvic floor muscles STG Duration 3-4 weeks Strategy Associate Goal (LTG) with a gentle stretching program and manual therapy techniques Maite is able to reduce her pelvic pain levels and resume intercourse with her . Pain is reduced by 1-2 points on the pain scale LTG Duration 8 weeks Assessment Summary Assessment Maite presents to PT with pelvic pain symptoms. She has Cerebral Palsy which affects her ability to move and maintain posture. It has also affected her balance and after a fall last year in which she sustained thoracic compression fractures she is now experiencing pelvic pain. Maite reports she has a neurogenic bladder and is prone to Frequent UTI's. She has not experienced the pelvic pain symptoms until this past year. She is unable to continue sexual intercourse with her due to her high pain levels. Pain is constant and rated 6/10. Maite does take a 5 mg valium suppository 2 xms per day and pain meds for her chronic pain . With examination today Maite was very fearful of a internal pelvic examination. I examined her externally today and discussed the pelvic floor muscle exam for next visit as well as gave her the vaginal sensor that we will use for EMG biofeedback downtraining of her pelvic floor muscles. She does have a baclofen pump which helps with spasticity. She is limited with standing forward bend due to balance and pain issues. There is pain to light touch across the T2-T4 region and she has a increased kyphosis here. There is visable spasm in the thoracic spine paraspinals and she has difficulty with activities that include thoracic rotation. I am able to flex her hips to 100 deg bilaterally and she is able to perform a modified happy baby stretch with feet resting on her couch for pelvic floor relaxation. Active hip rotation is limited bilaterally and I started Maite today with supine bilateral hip rotation today to begin helping to relax the pelvic floor. She tolerated this well. She tends to bulge her abdomen when attempting a pelvic floor contraction and has myofascial tightness across the abdominal wall. She also tends to sole stapler welt with the gluteals. I spent time today discussing pelvic floor anatomy and how gripping with the gluteals can cause pelvic floor muscle spasm. We will work on both manual therapy techniques as well as a modified stretching program for her to address her pelvic floor tightness and spasm. Her thoracic spine pain will also be addressed as guarding in the back muscles can contribute to pelvic floor guarding as well. Stretches for both the spine and pelvic floor will be modified for Maite with the goals of reducing controlable muslce guarding and pain. Physical Therapy Plan Frequency and Duration Frequency of Treatment 2x/Week Duration of Treatment 8 weeks Plan of Care Start Date 11/03/18 Plan of Care End Date 12/29/18 Therapeutic Interventions Therapeutic Interventions Home Exercise Program Manual Therapy Neuromuscular Re-education Patient/Caregiver Education Self-Care/Home Management Soft Tissue Mobilization Therapeutic Exercises Modalities Biofeedback Next Visit Focus/Plan Next Note Type Treatment Note Next Visit Plan If Maite tolerates the EMG sensor size we will begin EMG biofeedback for down training, pelvic floor MMT if Maite is able to tolerate. Work on a gentle stretching program that she is able to do at home to work on pelvic floor and spinal relaxation
--- NOTE | 2018-11-10 19:49 | PT.OPPOC ---
Current Diagnoses Other specified disorders of muscle (11/03/18) Provider Visit Care Team Role Provider Type Yadira Storm MD Primary Care Provider Non-Staff Specialty: Internal Medicine Address: [address] [facility] [place], [place], [address] Fax: Email: Attending Provider Specialty: Address: Phone: Fax: Email: Plan Of Care PT-OP-T Assessment and Plan Start: 11/03/18 08:41 Freq: Status: Active Protocol: Document 11/03/18 11:15 [facility] (Rec: 11/10/18 19:39 [facility] [email or web address]) Physical Therapy Assessment Rehab Potential Rehabilitation Potential Good Evaluation Complexity Number of Personal Factors/Comorbidities 1-2 Number of Body Systems Impaired 3 Clinical Presentation at Evaluation Evolving Impairments Impairments Activity Tolerance Functional Mobility Gait Pain Posture ROM Soft Tissue Mobility Strength Tone Goals Four Impairment Tightness and limited mobility of hip ER bilaterally Short Term Goal (STG) Maite is able to perform supine hip ER bilaterally for improved ROM of the hips and reduction of tone in her pelvic floor STG Duration 3-4 weeks Three Impairment pelvic floor muscle guarding and gluteal clenching Short Term Goal (STG) Maite is educated on relaxed awareness of her pelvic floor and taught to relax her gluteal musculature STG Duration 3-4 weeks Two Impairment Thoracic muscle spasm and pain with spinal flexion, rotation , laying supine Box Spring Frame Builder Goal (LTG) Reduce spinal muscle spasm to assist with laying supine without tension and guarding LTG Duration 6-8 weeks One Impairment pelvic pain and spasm rated 6/ 10 Short Term Goal (STG) With a gentle stretching program Maite is able to use the vaginal sensor for EMG biofeedback down training and relaxation of her pelvic floor muscles STG Duration 3-4 weeks Prison Goal (LTG) with a gentle stretching program and manual therapy techniques Maite is able to reduce her pelvic pain levels and resume intercourse with her . Pain is reduced by 1-2 points on the pain scale LTG Duration 8 weeks Assessment Summary Assessment Maite presents to PT with pelvic pain symptoms. She has Cerebral Palsy which affects her ability to move and maintain posture. It has also affected her balance and after a fall last year in which she sustained thoracic compression fractures she is now experiencing pelvic pain. Maite reports she has a neurogenic bladder and is prone to Frequent UTI's. She has not experienced the pelvic pain symptoms until this past year. She is unable to continue sexual intercourse with her due to her high pain levels. Pain is constant and rated 6/10. Maite does take a 5 mg valium suppository 2 xms per day and pain meds for her chronic pain . With examination today Maite was very fearful of a internal pelvic examination. I examined her externally today and discussed the pelvic floor muscle exam for next visit as well as gave her the vaginal sensor that we will use for EMG biofeedback downtraining of her pelvic floor muscles. She does have a baclofen pump which helps with spasticity. She is limited with standing forward bend due to balance and pain issues. There is pain to light touch across the T2-T4 region and she has a increased kyphosis here. There is visable spasm in the thoracic spine paraspinals and she has difficulty with activities that include thoracic rotation. I am able to flex her hips to 100 deg bilaterally and she is able to perform a modified happy baby stretch with feet resting on her couch for pelvic floor relaxation. Active hip rotation is limited bilaterally and I started Maite today with supine bilateral hip rotation today to begin helping to relax the pelvic floor. She tolerated this well. She tends to bulge her abdomen when attempting a pelvic floor contraction and has myofascial tightness across the abdominal wall. She also tends to gymnasium teacher with the gluteals. I spent time today discussing pelvic floor anatomy and how gripping with the gluteals can cause pelvic floor muscle spasm. We will work on both manual therapy techniques as well as a modified stretching program for her to address her pelvic floor tightness and spasm. Her thoracic spine pain will also be addressed as guarding in the back muscles can contribute to pelvic floor guarding as well. Stretches for both the spine and pelvic floor will be modified for Maite with the goals of reducing controlable muslce guarding and pain. Physical Therapy Plan Frequency and Duration Frequency of Treatment 2x/Week Duration of Treatment 8 weeks Plan of Care Start Date 11/03/18 Plan of Care End Date 12/29/18 Therapeutic Interventions Therapeutic Interventions Home Exercise Program Manual Therapy Neuromuscular Re-education Patient/Caregiver Education Self-Care/Home Management Soft Tissue Mobilization Therapeutic Exercises Modalities Biofeedback Next Visit Focus/Plan Next Note Type Treatment Note Next Visit Plan If Maite tolerates the EMG sensor size we will begin EMG biofeedback for down training, pelvic floor MMT if Maite is able to tolerate. Work on a gentle stretching program that she is able to do at home to work on pelvic floor and spinal relaxation Plan of Care Dates Plan of Care Start Date 11/03/18 Plan of Care End Date 12/29/18 Please Sign and Return: I have reviewed this Plan of Care and certify that the skilled therapy services above are required to meet the patient?s needs. Physician Signature Date Printed Name and Credentials Clinical Instructor Signature Printed Name and Credentials
--- NOTE | 2018-12-15 17:28 | PT.OTN ---
Current Diagnoses Other specified disorders of muscle (12/15/18) Physical Therapy Treatment Note PT-OP-A Visit Information Start: 11/03/18 08:41 Freq: Status: Active Protocol: Document 12/15/18 17:18 [facility] (Rec: 12/15/18 17:28 [facility] [email or web address]) Out-Patient Physical Therapy Visit Information Visit Information Visit Type Treatment Note Visit Start Time 16:00 Visit Stop Time 16:45 Total Visit Minutes 45 Visit Number 2 Number of SYSTEM VALIDATION ENGINEER Visits 0 PT-OP-B Current Condition Start: 11/03/18 08:41 Freq: Status: Active Protocol: Document 11/03/18 11:15 [facility] (Rec: 11/10/18 12:39 [facility] [email or web address]) Current Condition History of Current Condition Onset Date 1 year ago Current Complaints pelvic pain and spasms History of Current Condition 38 year old female with pelvic floor spasms and pain that began a year ago. Maite has CP and has a baclofen pump so she notes she has had a neurogenic bladder for years. Her pelvic pain is new though and came on following a fall a year ago in which she suffered thoracic compression fractures. Since this time her pelvic floor has gone into spasm. She is not able to have intercourse with her due to pain and her bladder symptoms have worsened . She rates her pelvic pain as 6/10. She is taking preventative antibiotics as she has frequent UTI's and taking muscle relaxors for her CP as well as pain meds for chronic pain. History of osteoporsis, falls, thyroid disorder, headaches, depression Treatment Goals Patient/Caregiver Goals To reduce pelvic pain and improve function Current Functional Impairments (Reported) Functional Limitations- Mobility/Gait limited with gait due to CP, pelvic pain also limits gait and endurance for mobility PT-OP-C Subjective Start: 11/03/18 08:41 Freq: Status: Active Protocol: Document 12/15/18 17:18 [facility] (Rec: 12/15/18 17:28 [facility] [email or web address]) OP-PT Subjective Patient Comments Patient Comments Maite reports the rollouts cause back discomfort, she has noticied that she is able to orgasim with external stilulation and that her pelvic pain did reduce some following a few times of experimenting with this with her . PT-OP-I Pelvic Floor Start: 11/03/18 08:41 Freq: Status: Active Protocol: Document 11/03/18 11:15 [facility] (Rec: 11/10/18 12:39 [facility] [email or web address]) Pelvic Floor Assessment Urine Pelvic Floor Surgery No Urinary Symptoms Urge Sensation Incomplete Emptying Pain Other Urinary Symptoms frequent UTI's Contraction Ability Voluntary Contraction Weak Voluntary Relaxation Weak Comments Pelvic Floor Comments pelvic floor contraction felt externally today as Iris was very nervous about a internal examination. She has guarding of the adductors bilaterally which makes it difficult to relax her pelvic floor. There is abdominal bulging with a pelvic floor contraction. Poor abdominal control and + ALSR bilaterally PT-OP-J Posture/Palpation/Skin Start: 11/10/18 19:39 Freq: Status: Active Protocol: Document 11/03/18 11:15 [facility] (Rec: 11/10/18 19:45 [facility] [email or web address]) Posture Evaluation Position Standing Evaluation View Posterior Head/C-Spine Posture Neutral Position T-Spine Posture Increased Kyphosis Weight Distribution Decreased Wt.Bear on (R) Palpation Assessment Location Four Palpation Location gluteal guarding and tightness Palpation Findings Muscle Guarding Three Palpation Location adductor spasm Palpation Findings Soft Tissue Tightness Spasm Muscle Guarding Palpation Details adductor spasm with decreased hip active abduction Two Palpation Location suprapubic fascia Palpation Findings Soft Tissue Tightness Spasm Muscle Guarding Tenderness Palpation Details Myofasical tightness across the anterior abdominal fascia, over the bladder and suprapubic region, valsava is palpated with pelvic floor and transvserse abdominal contraction One Palpation Location T2-T4 Palpation Findings Soft Tissue Tightness Spasm Muscle Guarding Tenderness Palpation Details pain to light touch in this region, pain laying supine due to pressure on this region PT-OP-K Range of Motion Start: 11/10/18 19:39 Freq: Status: Active Protocol: Document 11/03/18 11:15 [facility] (Rec: 11/10/18 19:45 [facility] [email or web address]) Lumbar Spine Range of Motion Lumbar Spine Active Testing Position Standing Flexion 40 Extension 5 Rotation Left 15 Rotation Right 15 Lateral Flexion Left 10 Lateral Flexion Right 10 ROM Limitations Soft Tissue Tightness Muscle Weakness Hip Goniometric Range of Motion Hip Right Active Hip ROM WFL No Testing Position Supine Flexion w/Knee Flexed 100 Straight Leg Raise 60 Abduction 10 External Rotation 10 Left Hip ROM WFL No Testing Position Supine Flexion w/Knee Flexed 100 Straight Leg Raise 65 Abduction 10 External Rotation 10 Hip ROM Limitations Hip ROM Limitations Soft Tissue Tightness Contracture Muscle Tone Comments addutor contractures with difficulty abduction the legs actively and decresed hip ER ROM bilaterally PT-OP-Q Treatments Start: 11/03/18 08:41 Freq: Status: Active Protocol: Document 12/15/18 17:18 [facility] (Rec: 12/15/18 17:28 [facility] [email or web address]) Therapeutic Exercises Supine Exercises 4 Supine Exercise Name pelvic floor contract/relax for progressive relaxation 3 Supine Exercise Name diaphragmatic breathing in 90/ 90 position Comments relaxed awareness of the pelvic floor 2 Supine Exercise Name HOLD 1 Supine Exercise Name modified happy baby stretch using the couch as support Side bilateral Reps/Minutes 1-2 minute hold Prone Exercises 2 Prone Exercise Name modified kimmy pose using bolsters and pillows Comments restorititive pose for pelvic relaxation and breathing 1 Prone Exercise Name prone lying hip stretch and diaphragmatic breathing Therapeutic Activity Therapeutic Activity 1 Name bed mobility and transfers between yoga restoratitive poses Self-Care/Home Management Treatment Education Patient Education Body Mechanics Home Exercise Program Pain Management Other Education worked on home training for progressive relaxation and pain management PT-OP-T Assessment and Plan Start: 11/03/18 08:41 Freq: Status: Active Protocol: Document 12/15/18 17:18 [facility] (Rec: 12/15/18 17:28 [facility] [email or web address]) Physical Therapy Assessment Assessment Summary Assessment Iris was able to get into some of the modified positions for restorative relaxation of her pelvic floor. She was also able to facilitate her pelvic floor today without increased pain. She may also be a candidate for botox injections as she does get these for her headaches and has good relief with them. She has a appointment for her baclofen pump 01/03/19 as it has slipped out of placement Physical Therapy Plan Frequency and Duration Frequency of Treatment 2x/Week Duration of Treatment 8 weeks Plan of Care Start Date 11/03/18 Plan of Care End Date 12/29/18 Next Visit Focus/Plan Next Note Type Treatment Note Next Visit Plan Hold off on EMG but continue with restorative yoga poses and progressive relaxation techniques
--- NOTE | 2019-01-22 20:18 | PT.OTN ---
Current Diagnoses Other specified disorders of muscle (01/19/19) Physical Therapy Treatment Note PT-OP-A Visit Information Start: 11/03/18 08:41 Freq: Status: Active Protocol: Document 01/19/19 15:30 [facility] (Rec: 01/22/19 20:18 [facility] [email or web address]) Out-Patient Physical Therapy Visit Information Visit Information Visit Type Progress Note Visit Start Time 15:30 Visit Stop Time 16:00 Total Visit Minutes 30 Visit Number 3 PT-OP-B Current Condition Start: 11/03/18 08:41 Freq: Status: Active Protocol: Document 11/03/18 11:15 [facility] (Rec: 11/10/18 12:39 [facility] [email or web address]) Current Condition History of Current Condition Onset Date 1 year ago Current Complaints pelvic pain and spasms History of Current Condition 38 year old female with pelvic floor spasms and pain that began a year ago. Iris has CP and has a baclofen pump so she notes she has had a neurogenic bladder for years. Her pelvic pain is new though and came on following a fall a year ago in which she suffered thoracic compression fractures. Since this time her pelvic floor has gone into spasm. She is not able to have intercourse with her due to pain and her bladder symptoms have worsened . She rates her pelvic pain as 6/10. She is taking preventative antibiotics as she has frequent UTI's and taking muscle relaxors for her CP as well as pain meds for chronic pain. History of osteoporsis, falls, thyroid disorder, headaches, depression Treatment Goals Patient/Caregiver Goals To reduce pelvic pain and improve function Current Functional Impairments (Reported) Functional Limitations- Mobility/Gait limited with gait due to CP, pelvic pain also limits gait and endurance for mobility PT-OP-C Subjective Start: 11/03/18 08:41 Freq: Status: Active Protocol: Document 01/19/19 15:30 [facility] (Rec: 01/22/19 20:18 [facility] [email or web address]) OP-PT Subjective Patient Comments Patient Comments pt reports it is very difficult for her to lay on her back for stretches due to low back pain. She is getting the baclofen pump repositioned but this won't be until February PT-OP-I Pelvic Floor Start: 11/03/18 08:41 Freq: Status: Active Protocol: Document 11/03/18 11:15 [facility] (Rec: 11/10/18 12:39 [facility] [email or web address]) Pelvic Floor Assessment Urine Pelvic Floor Surgery No Urinary Symptoms Urge Sensation,Incomplete Emptying,Pain Other Urinary Symptoms frequent UTI's Contraction Ability Voluntary Contraction Weak Voluntary Relaxation Weak Comments Pelvic Floor Comments pelvic floor contraction felt externally today as Iris was very nervous about a internal examination. She has guarding of the adductors bilaterally which makes it difficult to relax her pelvic floor. There is abdominal bulging with a pelvic floor contraction. Poor abdominal control and + ALSR bilaterally PT-OP-J Posture/Palpation/Skin Start: 11/10/18 19:39 Freq: Status: Active Protocol: Document 11/03/18 11:15 [facility] (Rec: 11/10/18 19:45 [facility] [email or web address]) Posture Evaluation Position Standing Evaluation View Posterior Head/C-Spine Posture Neutral Position T-Spine Posture Increased Kyphosis Weight Distribution Decreased Wt.Bear on (R) Palpation Assessment Location Four Palpation Location gluteal guarding and tightness Palpation Findings Muscle Guarding Three Palpation Location adductor spasm Palpation Findings Soft Tissue Tightness,Spasm, Muscle Guarding Palpation Details adductor spasm with decreased hip active abduction Two Palpation Location suprapubic fascia Palpation Findings Soft Tissue Tightness,Spasm, Muscle Guarding,Tenderness Palpation Details Myofasical tightness across the anterior abdominal fascia, over the bladder and suprapubic region, valsava is palpated with pelvic floor and transvserse abdominal contraction One Palpation Location T2-T4 Palpation Findings Soft Tissue Tightness,Spasm, Muscle Guarding,Tenderness Palpation Details pain to light touch in this region, pain laying supine due to pressure on this region PT-OP-K Range of Motion Start: 11/10/18 19:39 Freq: Status: Active Protocol: Document 11/03/18 11:15 [facility] (Rec: 11/10/18 19:45 [facility] [email or web address]) Lumbar Spine Range of Motion Lumbar Spine Active Testing Position Standing Flexion 40 Extension 5 Rotation Left 15 Rotation Right 15 Lateral Flexion Left 10 Lateral Flexion Right 10 ROM Limitations Soft Tissue Tightness,Muscle Weakness Hip Goniometric Range of Motion Hip Right Active Hip ROM WFL No Testing Position Supine Flexion w/Knee Flexed 100 Straight Leg Raise 60 Abduction 10 External Rotation 10 Left Hip ROM WFL No Testing Position Supine Flexion w/Knee Flexed 100 Straight Leg Raise 65 Abduction 10 External Rotation 10 Hip ROM Limitations Hip ROM Limitations Soft Tissue Tightness, Contracture,Muscle Tone Comments addutor contractures with difficulty abduction the legs actively and decresed hip ER ROM bilaterally PT-OP-Q Treatments Start: 11/03/18 08:41 Freq: Status: Active Protocol: Document 01/19/19 15:30 [facility] (Rec: 01/22/19 20:18 [facility] [email or web address]) Therapeutic Exercises Supine Exercises 4 Supine Exercise Name pelvic floor contract/relax for progressive relaxation 3 Supine Exercise Name diaphragmatic breathing in 90/ 90 position Comments relaxed awareness of the pelvic floor 1 Supine Exercise Name modified happy baby stretch using the couch as support Side bilateral Reps/Minutes 1-2 minute hold Comments with husbands support of LE Prone Exercises 2 Prone Exercise Name modified kimmy pose using bolsters and pillows Comments restorititive pose for pelvic relaxation and breathing 1 Prone Exercise Name prone lying hip stretch and diaphragmatic breathing Other Exercises 2 Other Exercise Name seated ball small bounces 1 Other Exercise Name seated on ball pelvic tilts and pelvic clock Comments 65 cm, pt getting a ball for home as she has good tolerance with this ex PT-OP-T Assessment and Plan Start: 11/03/18 08:41 Freq: Status: Active Protocol: Document 01/19/19 15:30 [facility] (Rec: 01/22/19 20:18 [facility] [email or web address]) Physical Therapy Assessment Goals Four Impairment Tightness and limited mobility of hip ER bilaterally Short Term Goal (STG) Willy is able to perform supine hip ER bilaterally for improved ROM of the hips and reduction of tone in her pelvic floor STG Duration 3-4 weeks Three Impairment pelvic floor muscle guarding and gluteal clenching Short Term Goal (STG) Willy is educated on relaxed awareness of her pelvic floor and taught to relax her gluteal musculature WORKING ON POSITIONING FOR PELVIC FLOOR RELAXATION FOR IRIS STG Duration 3-4 weeks Two Impairment Thoracic muscle spasm and pain with spinal flexion, rotation , laying supine Consulting Technical Director Goal (LTG) Reduce spinal muscle spasm to assist with laying supine without tension and guarding STILL DIFFICULT FOR WILLY TO LAY IN A SUPINE POSITION LTG Duration 6-8 weeks One Impairment pelvic pain and spasm rated 6/ 10 Short Term Goal (STG) With a gentle stretching program Willy is able to use the vaginal sensor for EMG biofeedback down training and relaxation of her pelvic floor muscles STG Duration 3-4 weeks Consulting Technical Director Goal (LTG) with a gentle stretching program and manual therapy techniques Willy is able to reduce her pelvic pain levels and resume intercourse with her . Pain is reduced by 1-2 points on the pain scale GOAL NOT YET MET LTG Duration 8 weeks Assessment Summary Assessment Willy has been seen for 3 total visits. She travels from the [facility] to PT here in [place] and she reports this takes most of her day. We have been working to find restorative yoga positions that Willy can tolerate for pelvic floor relaxation and thoracic spine relaxation. She has done well in a modified quadraped postion with a ball or bolster. Today I added ball exercises in a sitting position and this seemed to work well for Willy as laying in supine is too painful for her to do. Her was present with her today and he was shown modifications for stretches as well as ways to assist her with her stretches. Willy would like to purchase a ball and will bring it in next visit to have it inflated. She would benefit from continue PT working on a home program for pelvic relaxation. Physical Therapy Plan Frequency and Duration Frequency of Treatment 1x/Week Duration of Treatment 8 weeks Plan of Care Start Date 12/29/18 Plan of Care End Date 02/28/19 Therapeutic Interventions Therapeutic Interventions Home Exercise Program,Manual Therapy,Neuromuscular Re- education,Patient/Caregiver Education,Self-Care/Home Management,Soft Tissue Mobilization,Therapeutic Exercises Next Visit Focus/Plan Next Note Type Treatment Note Next Visit Plan Continue to promote restorative yoga poses and pelvic relaxation/pelvic movement using the exercise ball
--- NOTE | 2019-01-22 20:19 | PT.OPPOC ---
Current Diagnoses Other specified disorders of muscle (01/19/19) Visit Care Team Role Provider Type Yadira Storm MD Primary Care Provider Non-Staff Specialty: Internal Medicine Address: [address], [place], [address] Fax: Email: Attending Provider Specialty: Address: Phone: Fax: Email: Plan Of Care PT-OP-T Assessment and Plan Start: 11/03/18 08:41 Freq: Status: Active Protocol: Document 01/19/19 15:30 [facility] (Rec: 01/22/19 20:18 [facility] [email or web address]) Physical Therapy Assessment Goals Four Impairment Tightness and limited mobility of hip ER bilaterally Short Term Goal (STG) Willy is able to perform supine hip ER bilaterally for improved ROM of the hips and reduction of tone in her pelvic floor STG Duration 3-4 weeks Three Impairment pelvic floor muscle guarding and gluteal clenching Short Term Goal (STG) Willy is educated on relaxed awareness of her pelvic floor and taught to relax her gluteal musculature 01/19/19 SOME PROGRESS.....WORKING ON POSITIONING FOR PELVIC FLOOR RELAXATION FOR IRIS STG Duration 3-4 weeks Two Impairment Thoracic muscle spasm and pain with spinal flexion, rotation , laying supine Detention Goal (LTG) Reduce spinal muscle spasm to assist with laying supine without tension and guarding 01/19/19 STILL DIFFICULT FOR WILLY TO LAY IN A SUPINE POSITION LTG Duration 6-8 weeks One Impairment pelvic pain and spasm rated 6/ 10 Short Term Goal (STG) With a gentle stretching program Willy is able to use the vaginal sensor for EMG biofeedback down training and relaxation of her pelvic floor muscles STG Duration 3-4 weeks Detention Goal (LTG) with a gentle stretching program and manual therapy techniques Willy is able to reduce her pelvic pain levels and resume intercourse with her . Pain is reduced by 1-2 points on the pain scale GOAL NOT YET MET LTG Duration 8 weeks Assessment Summary Assessment Willy has been seen for 3 total visits. She travels from the [facility] to [facility] in [place] and she reports this takes most of her day. We have been working to find restorative yoga positions that Willy can tolerate for pelvic floor relaxation and thoracic spine relaxation. She has done well in a modified quadruped position with a ball or bolster. Today I added ball exercises in a sitting position and this seemed to work well for Willy as laying in supine is too painful for her to do. Her was present with her today and he was shown modifications for stretches as well as ways to assist her with her stretches. Willy would like to purchase a ball and will bring it in next visit to have it inflated. She would benefit from continue PT working on a home program for pelvic relaxation. Physical Therapy Plan Frequency and Duration Frequency of Treatment 1x/Week Duration of Treatment 8 weeks Plan of Care Start Date 12/29/18 Plan of Care End Date 02/28/19 Therapeutic Interventions Therapeutic Interventions Home Exercise Program,Manual Therapy,Neuromuscular Re- education,Patient/Caregiver Education,Self-Care/Home Management,Soft Tissue Mobilization,Therapeutic Exercises Next Visit Focus/Plan Next Note Type Treatment Note Next Visit Plan Continue to promote restorative yoga poses and pelvic relaxation/pelvic movement using the exercise ball Plan of Care Dates Plan of Care Start Date 12/29/18 Plan of Care End Date 02/28/19 Please Sign and Return: I have reviewed this Plan of Care and certify that the skilled therapy services above are required to meet the patient?s needs. Physician Signature Date Printed Name and Credentials Clinical Instructor Signature Printed Name and Credentials
--- NOTE | 2019-02-04 09:45 | PT.OTN ---
Current Diagnoses Other specified disorders of muscle (02/02/19) Physical Therapy Treatment Note PT-OP-A Visit Information Start: 11/03/18 08:41 Freq: Status: Active Protocol: Document 02/02/19 13:45 [facility] (Rec: 02/04/19 09:45 [facility] [email or web address]) Out-Patient Physical Therapy Visit Information Visit Information Visit Type Treatment Note Visit Start Time 13:45 Visit Stop Time 14:30 Total Visit Minutes 45 Visit Number 4 PT-OP-B Current Condition Start: 11/03/18 08:41 Freq: Status: Active Protocol: Document 11/03/18 11:15 [facility] (Rec: 11/10/18 12:39 [facility] [email or web address]) Current Condition History of Current Condition Onset Date 1 year ago Current Complaints pelvic pain and spasms History of Current Condition 38 year old female with pelvic floor spasms and pain that began a year ago. Iris has CP and has a baclofen pump so she notes she has had a neurogenic bladder for years. Her pelvic pain is new though and came on following a fall a year ago in which she suffered thoracic compression fractures. Since this time her pelvic floor has gone into spasm. She is not able to have intercourse with her due to pain and her bladder symptoms have worsened . She rates her pelvic pain as 6/10. She is taking preventative antibiotics as she has frequent UTI's and taking muscle relaxors for her CP as well as pain meds for chronic pain. History of osteoporsis, falls, thyroid disorder, headaches, depression Treatment Goals Patient/Caregiver Goals To reduce pelvic pain and improve function Current Functional Impairments (Reported) Functional Limitations- Mobility/Gait limited with gait due to CP, pelvic pain also limits gait and endurance for mobility PT-OP-C Subjective Start: 11/03/18 08:41 Freq: Status: Active Protocol: Document 02/02/19 13:45 [facility] (Rec: 02/04/19 09:45 [facility] [email or web address]) OP-PT Subjective Patient Comments Patient Comments pt reports she is having surgery in February to move her baclofen pump. She is still having the pelvic pain. She did get her ball but hasn't stretched on it too much PT-OP-I Pelvic Floor Start: 11/03/18 08:41 Freq: Status: Active Protocol: Document 11/03/18 11:15 [facility] (Rec: 11/10/18 12:39 [facility] [email or web address]) Pelvic Floor Assessment Urine Pelvic Floor Surgery No Urinary Symptoms Urge Sensation,Incomplete Emptying,Pain Other Urinary Symptoms frequent UTI's Contraction Ability Voluntary Contraction Weak Voluntary Relaxation Weak Comments Pelvic Floor Comments pelvic floor contraction felt externally today as Iris was very nervous about a internal examination. She has guarding of the adductors bilaterally which makes it difficult to relax her pelvic floor. There is abdominal bulging with a pelvic floor contraction. Poor abdominal control and + ALSR bilaterally PT-OP-J Posture/Palpation/Skin Start: 11/10/18 19:39 Freq: Status: Active Protocol: Document 11/03/18 11:15 [facility] (Rec: 11/10/18 19:45 [facility] [email or web address]) Posture Evaluation Position Standing Evaluation View Posterior Head/C-Spine Posture Neutral Position T-Spine Posture Increased Kyphosis Weight Distribution Decreased Wt.Bear on (R) Palpation Assessment Location Four Palpation Location gluteal guarding and tightness Palpation Findings Muscle Guarding Three Palpation Location adductor spasm Palpation Findings Soft Tissue Tightness,Spasm, Muscle Guarding Palpation Details adductor spasm with decreased hip active abduction Two Palpation Location suprapubic fascia Palpation Findings Soft Tissue Tightness,Spasm, Muscle Guarding,Tenderness Palpation Details Myofasical tightness across the anterior abdominal fascia, over the bladder and suprapubic region, valsava is palpated with pelvic floor and transvserse abdominal contraction One Palpation Location T2-T4 Palpation Findings Soft Tissue Tightness,Spasm, Muscle Guarding,Tenderness Palpation Details pain to light touch in this region, pain laying supine due to pressure on this region PT-OP-K Range of Motion Start: 11/10/18 19:39 Freq: Status: Active Protocol: Document 11/03/18 11:15 [facility] (Rec: 11/10/18 19:45 [facility] [email or web address]) Lumbar Spine Range of Motion Lumbar Spine Active Testing Position Standing Flexion 40 Extension 5 Rotation Left 15 Rotation Right 15 Lateral Flexion Left 10 Lateral Flexion Right 10 ROM Limitations Soft Tissue Tightness,Muscle Weakness Hip Goniometric Range of Motion Hip Right Active Hip ROM WFL No Testing Position Supine Flexion w/Knee Flexed 100 Straight Leg Raise 60 Abduction 10 External Rotation 10 Left Hip ROM WFL No Testing Position Supine Flexion w/Knee Flexed 100 Straight Leg Raise 65 Abduction 10 External Rotation 10 Hip ROM Limitations Hip ROM Limitations Soft Tissue Tightness, Contracture,Muscle Tone Comments addutor contractures with difficulty abduction the legs actively and decresed hip ER ROM bilaterally PT-OP-Q Treatments Start: 11/03/18 08:41 Freq: Status: Active Protocol: Document 02/02/19 13:45 [facility] (Rec: 02/04/19 09:45 [facility] [email or web address]) Therapeutic Exercises Supine Exercises 4 Supine Exercise Name pelvic floor contract/relax for progressive relaxation 1 Supine Exercise Name modified happy baby stretch using the couch as support Side bilateral Reps/Minutes 1-2 minute hold Comments with husbands support of LE Prone Exercises 2 Prone Exercise Name modified wilfrid pose using bolsters and pillows Comments restorititive pose for pelvic relaxation and breathing 1 Prone Exercise Name prone lying hip stretch and diaphragmatic breathing Other Exercises 2 Other Exercise Name seated ball small bounces 1 Other Exercise Name seated on ball pelvic tilts and pelvic clock Comments 65 cm, pt getting a ball for home as she has good tolerance with this ex Manual Therapy Treatment Manual Techniques 2 Type manual release of the low back while patient is laying in modified wilfrid Comments wilfrid position with MFR to the mid back and sacral region 1 Type manual hip ER stretches in prone PT-OP-T Assessment and Plan Start: 11/03/18 08:41 Freq: Status: Active Protocol: Document 02/02/19 13:45 [facility] (Rec: 02/04/19 09:45 [facility] [email or web address]) Physical Therapy Assessment Goals Four Impairment Tightness and limited mobility of hip ER bilaterally Short Term Goal (STG) Maite is able to perform supine hip ER bilaterally for improved ROM of the hips and reduction of tone in her pelvic floor STG Duration 3-4 weeks Scrap Metal Collector Goal (LTG) NOT MET, due to balcofen pump being out of place and LBP it is uncomfortable for Maite to fully lay prone or supine Three Impairment pelvic floor muscle guarding and gluteal clenching Short Term Goal (STG) Maite is educated on relaxed awareness of her pelvic floor and taught to relax her gluteal musculature WORKING ON POSITIONING FOR PELVIC FLOOR RELAXATION FOR IRIS STG Duration 3-4 weeks Jail Goal (LTG) GOOD PROGRESS, POSITION ON MODIFED WILFRID POSE OVER THE BALL HELPS TO RELAX THE PELVIC FLOOR Two Impairment Thoracic muscle spasm and pain with spinal flexion, rotation , laying supine Jail Goal (LTG) Reduce spinal muscle spasm to assist with laying supine without tension and guarding GOAL NOT MET STILL DIFFICULT FOR IRIS TO LAY IN A SUPINE POSITION LTG Duration 6-8 weeks One Impairment pelvic pain and spasm rated 6/ 10 Short Term Goal (STG) With a gentle stretching program Maite is able to use the vaginal sensor for EMG biofeedback down training and relaxation of her pelvic floor muscles GOAL NOT MET STG Duration 3-4 weeks Scrap Metal Collector Goal (LTG) with a gentle stretching program and manual therapy techniques Maite is able to reduce her pelvic pain levels and resume intercourse with her . Pain is reduced by 1-2 points on the pain scale GOAL NOT YET MET LTG Duration 8 weeks Assessment Summary Assessment Maite has been seen for 4 visits in PT. It is a full day for her to make it to her appointments [place]. At this point she has been given stretches she can do that are modified over the ball and with her partner to help her stretch her pelvic floor. She is needing to have surgery to move her baclofen pump next month. At this point she will be discharged from PT but I would be happy to continue at a later date following her surgery and recovery. Physical Therapy Plan Discharge Physical Therapy Discharge Reasons Change in Medical Status Discharge Comments pt needing to under go surgery to move her baclofen pump.
== END 2019-02-24 12:27 ==
LOC: PHYS 13:45
PROVIDERS: PCP Internal Medicine
DX: M62.89 Other specified disorders of muscle (principal)
CPT/HCPCS: 97110; 97140; 97162; 97530; 97535

== ENCOUNTER → 2020-12-30 14:41 | Outpatient (CLI) | payer MEDICARE, MEDICAID, SELFPAY | PROVIDERS: PCP Internal Medicine; Referring Provider Physician Assistant; Visit Provider Physician Assistant | DX: R30.0 Dysuria (principal) | CPT/HCPCS: 87086 ==

== ENCOUNTER → 2021-01-09 12:20 | Outpatient (CLI) | payer MEDICARE, MEDICAID, SELFPAY ==
[2021-01-09 19:10] LABS: Appearance Urine UA CLEAR; Bilirubin Urine UA NEGATIVE (NEGATIVE); Ketones Urine UA NEGATIVE (NEGATIVE); Leukocyte Esterase Urine UA TRACE (NEGATIVE); Occult Blood Urine UA NEGATIVE (Negative)
[2021-01-09 19:30] LABS: Color Urine UA Orange; RBC Urine 0-1/HPF (0-5/HPF); Transitional Epi Cells Urine 1-5/HPF (0-5/HPF); WBC Urine 5-10/HPF (0-5/HPF)
[2021-01-09 19:31] LABS: Squamous Epithelial Cell Urine 1-5 /HPF (0-5/HPF)
[2021-01-09 19:32] LABS: Bacteria Urine Occasional (0-1); Culture Indicated Urine Specimen Cultured; Hyaline Casts Urine 1-5/LPF; Mucus Urine 1+ (Negative)
== END ==
PROVIDERS: PCP Internal Medicine; Referring Provider Physician Assistant; Visit Provider Physician Assistant
DX: R30.0 Dysuria (principal); R53.83 Other fatigue; R29.6 Repeated falls
CPT/HCPCS: 81001; 87077; 87086; 87186

== ENCOUNTER → 2021-01-21 12:27 | Outpatient (CLI) | payer MEDICARE, MEDICAID, SELFPAY ==
[2021-01-21 19:35] LABS: Add Manual Diff / Slide Review NO; Basophils Absolute Auto 0 /uL (0-100); Basophils Percent Auto 1.3 % (0-2); Eosinophils Absolute Auto 200 /uL (0-450); Eosinophils Percent Auto 6.6 % (2-4); Hematocrit 31.5 % (36-46); Hemoglobin 9.9 g/dL (12.0-16.0); Lymphocytes Absolute Auto 1000 /uL (1100-4500); Lymphocytes Percent Auto 34.8 % (25-40); Mean Corpuscular HGB Conc 31.3 % (30-36); Mean Corpuscular Hemoglobin 32.6 PG (26-34); Monocytes Absolute Auto 200 /uL (0-900); Monocytes Percent Auto 5.8 % (3-14); Neutrophils Absolute Auto 1400 /uL (1500-7000); Neutrophils Percent Auto 51.5 % (50-75); Platelet Count 235 X10^3/uL (150-400); Red Blood Cell Count 3.03 X10^6/uL (4.0-5.2); Red Cell Distribution Width 15.9 % (11.6-14.8); White Blood Cell Count 2.8 X10^3/uL (4.5-11.0)
[2021-01-21 19:42] LABS: Alanine Aminotransferase 119 IU/L (<35); Albumin 2.7 g/dL (3.5-5.0); Alkaline Phosphatase 182 U/L (38-126); Aspartate Aminotransferase 175 IU/L (14-36); BUN Creatinine Ratio 19.8 (6-22); Bilirubin Total 0.6 mg/dL (0.2-1.3); Blood Urea Nitrogen 17 mg/dL (7-17); Calcium 8.6 mg/dL (8.4-10.2); Carbon Dioxide 31 mmol/L (22-32); Chloride 107 mmol/L (98-107); Estimated Glomerular Filt Rate > 60.0 mL/min (>60); Globulin 2.8 g/dL (1.7-4.1); Glucose 109 mg/dL (70-100); HEMOLYSIS < 15 (0-50); Potassium 3.6 mmol/L (3.4-5.1); Sodium 138 mmol/L (137-145); Total Protein 5.5 g/dL (6.3-8.2)
[2021-01-21 20:15] LABS: TSH w/ Reflex to FT4 4.29 uIU/mL (0.47-4.68)
== END ==
PROVIDERS: Physician Assistant; PCP Internal Medicine; Visit Provider Physician Assistant Medical
DX: G80.9 Cerebral palsy, unspecified (principal); R30.0 Dysuria; E03.9 Hypothyroidism, unspecified; R53.83 Other fatigue; R29.6 Repeated falls; N39.0 Urinary tract infection, site not specified
CPT/HCPCS: 80053; 84443; 85025; 87086

== ENCOUNTER → 2021-06-26 12:45 | Outpatient (CLI) | payer MEDICARE, MEDICAID, SELFPAY ==
[2021-06-26 18:28] LABS: Bilirubin Urine UA NEGATIVE (NEGATIVE); Color Urine UA YELLOW; Glucose Urine UA TRACE g/dL (Negative); Ketones Urine UA NEGATIVE (NEGATIVE); Leukocyte Esterase Urine UA TRACE (NEGATIVE); Nitrite Urine UA POSITIVE (Negative); Occult Blood Urine UA NEGATIVE (Negative); Protein Urine UA 1+ (Negative); Specific Gravity Urine UA <=1.005 (1.000-1.035)
[2021-06-26 18:45] LABS: pH Urine UA 6.5 (4.5-8.0)
[2021-06-26 18:46] LABS: Appearance Urine UA Slightly Cloudy
[2021-06-26 19:01] LABS: RBC Urine None Seen (0-5/HPF); Squamous Epithelial Cell Urine 1-5 /HPF (0-5/HPF); WBC Urine 1-5/HPF (0-5/HPF)
[2021-06-26 19:02] LABS: Bacteria Urine Occasional (0-1)
== END ==
PROVIDERS: PCP Internal Medicine; Visit Provider Family Medicine
DX: R30.0 Dysuria (principal); Z91.89 Other specified personal risk factors, not elsewhere classified
CPT/HCPCS: 81001; 87077; 87086; 87186

== ENCOUNTER → 2021-07-04 15:52 | Outpatient (CLI) | payer MEDICARE, MEDICAID, SELFPAY | PROVIDERS: PCP Internal Medicine; Visit Provider Physician Assistant | DX: R30.0 Dysuria (principal); R35.0 Frequency of micturition | CPT/HCPCS: 87086 ==

== ENCOUNTER → 2021-07-11 09:25 | Outpatient (CLI) | payer MEDICARE, MEDICAID, SELFPAY | PROVIDERS: PCP Internal Medicine; Visit Provider Physician Assistant Medical | DX: R30.0 Dysuria (principal) | CPT/HCPCS: 87086 ==

== ENCOUNTER → 2021-07-18 07:29 | Outpatient (CLI) | payer MEDICARE, MEDICAID, SELFPAY ==
[2021-07-18 20:01] LABS: COVID19 - ORCAS (NP or Nasal) Negative (Negative)
== END ==
PROVIDERS: PCP Internal Medicine; Visit Provider Physician Assistant Medical
DX: Z20.822 Contact with and (suspected) exposure to COVID-19 (principal)
CPT/HCPCS: C9803; U0003

== ENCOUNTER → 2021-07-31 10:22 | Outpatient (CLI) | payer MEDICARE, MEDICAID, SELFPAY | PROVIDERS: PCP Internal Medicine; Visit Provider Physician Assistant | DX: N23 Unspecified renal colic (principal) | CPT/HCPCS: 87077; 87086; 87186 ==

== ENCOUNTER → 2021-08-05 16:41 | Outpatient (CLI) | payer MEDICARE, MEDICAID, SELFPAY ==
[2021-08-07 19:24] LABS: Appearance Urine UA CLEAR; Bilirubin Urine UA NEGATIVE (NEGATIVE); Glucose Urine UA TRACE g/dL (Negative); Ketones Urine UA 1+ (NEGATIVE); Leukocyte Esterase Urine UA TRACE (NEGATIVE); Nitrite Urine UA POSITIVE (Negative); Occult Blood Urine UA NEGATIVE (Negative); Protein Urine UA 2+ (Negative)
[2021-08-07 19:29] LABS: Color Urine UA Amber
[2021-08-07 19:40] LABS: Amorphous Sediment Urine 1+; Bacteria Urine Few (2-10); Culture Indicated Urine Specimen Cultured; Mucus Urine 1+ (Negative); RBC Urine None Seen (0-5/HPF); Renal Epithelial Cells Urine 0-1/HPF (0-1/HPF); Squamous Epithelial Cell Urine 1-5 /HPF (0-5/HPF); WBC Urine 1-5/HPF (0-5/HPF)
== END ==
PROVIDERS: PCP Internal Medicine; Visit Provider Physician Assistant
DX: N39.0 Urinary tract infection, site not specified (principal)
CPT/HCPCS: 81001; 87086

== ENCOUNTER → 2021-09-12 13:52 | Outpatient (CLI) | payer MEDICARE, MEDICAID, SELFPAY ==
[2021-09-12 19:25] LABS: Appearance Urine UA CLEAR
[2021-09-12 19:34] LABS: Color Urine UA ORANGE
[2021-09-12 19:38] LABS: Ictotest Urine Negative (Negative); RBC Urine 0-1/HPF (0-5/HPF); Squamous Epithelial Cell Urine 1-5 /HPF (0-5/HPF); Transitional Epi Cells Urine 1-5/HPF (0-5/HPF); WBC Urine 10-30/HPF (0-5/HPF)
[2021-09-12 19:39] LABS: Bacteria Urine Occasional (0-1); Culture Indicated Urine Specimen Cultured; Hyaline Casts Urine 1-5/LPF; Mucus Urine 1+ (Negative)
== END ==
PROVIDERS: Urology; PCP Internal Medicine
DX: N39.0 Urinary tract infection, site not specified (principal)
CPT/HCPCS: 81001; 87086

== ENCOUNTER → 2021-09-26 13:18 | Outpatient (CLI) | payer MEDICARE, MEDICAID, SELFPAY | PROVIDERS: PCP Internal Medicine; Visit Provider Physician Assistant Medical | DX: R30.0 Dysuria (principal) | CPT/HCPCS: 87086 ==

== ENCOUNTER → 2021-10-14 12:28 | Outpatient (CLI) | payer MEDICARE, MEDICAID, SELFPAY ==
[2021-10-14 19:15] LABS: Add Manual Diff / Slide Review NO; Basophils Absolute Auto 0 /uL (0-100); Basophils Percent Auto 1.1 % (0-2); Eosinophils Absolute Auto 200 /uL (0-450); Eosinophils Percent Auto 5.7 % (2-4); Hematocrit 39.5 % (36-46); Hemoglobin 12.8 g/dL (12.0-16.0); Lymphocytes Absolute Auto 900 /uL (1100-4500); Lymphocytes Percent Auto 26.6 % (25-40); Mean Corpuscular HGB Conc 32.6 % (30-36); Mean Corpuscular Hemoglobin 30.9 PG (26-34); Mean Corpuscular Volume 94.9 fL (80-100); Monocytes Absolute Auto 200 /uL (0-900); Monocytes Percent Auto 5.8 % (3-14); Neutrophils Absolute Auto 2000 /uL (1500-7000); Neutrophils Percent Auto 60.8 % (50-75); Platelet Count 217 X10^3/uL (150-400); Red Blood Cell Count 4.16 X10^6/uL (4.0-5.2); Red Cell Distribution Width 13.9 % (11.6-14.8); White Blood Cell Count 3.3 X10^3/uL (4.5-11.0)
[2021-10-14 19:21] LABS: Alanine Aminotransferase 19 IU/L (<35); Albumin Globulin Ratio 1.4 (1.0-2.8); Alkaline Phosphatase 74 U/L (38-126); Aspartate Aminotransferase 26 IU/L (14-36); BUN Creatinine Ratio 16.2 (6-22); Bilirubin Total 0.5 mg/dL (0.2-1.3); Blood Urea Nitrogen 16 mg/dL (7-17); Calcium 9.1 mg/dL (8.4-10.2); Carbon Dioxide 31 mmol/L (22-32); Chloride 101 mmol/L (98-107); Estimated Glomerular Filt Rate > 60 mL/min (>60); Globulin 2.9 g/dL (1.7-4.1); Glucose 103 mg/dL (70-100); HEMOLYSIS < 15 (0-50); Sodium 137 mmol/L (137-145); Total Protein 6.9 g/dL (6.3-8.2)
[2021-10-14 19:29] LABS: Appearance Urine UA CLEAR; Bilirubin Urine UA NEGATIVE (NEGATIVE); Color Urine UA YELLOW; Glucose Urine UA TRACE g/dL (Negative); Ketones Urine UA NEGATIVE (NEGATIVE); Leukocyte Esterase Urine UA TRACE (NEGATIVE); Nitrite Urine UA POSITIVE (Negative); Occult Blood Urine UA NEGATIVE (Negative); Protein Urine UA 1+ (Negative); Specific Gravity Urine UA 1.015 (1.000-1.035)
[2021-10-14 19:48] LABS: Amorphous Sediment Urine 1+; Bacteria Urine Occasional (0-1); Culture Indicated Urine Cult Not Indicated; RBC Urine None Seen (0-5/HPF); Squamous Epithelial Cell Urine 5-10 /HPF (0-5/HPF); WBC Urine 5-10/HPF (0-5/HPF)
[2021-10-14 19:49] LABS: pH Urine UA 6.5 (4.5-8.0)
[2021-10-15 08:14] LABS: Hemoglobin A1C% w Est Avg Glu 4.2 % (4.0-6.0)
== END ==
PROVIDERS: PCP Internal Medicine; Visit Provider Physician Assistant
DX: R35.0 Frequency of micturition (principal); R73.9 Hyperglycemia, unspecified; R30.0 Dysuria; N39.0 Urinary tract infection, site not specified; R81 Glycosuria
CPT/HCPCS: 80053; 81001; 83036; 85025

== ENCOUNTER 2021-12-10 23:16 | Inpatient (IN) | payer MEDICARE, MEDICAID, SELFPAY ==
[2021-12-10 23:20] VITALS: BP 139/82; PULSE 90; RESP 18; O2SAT 97; BMI 36.8
--- NOTE | 2021-12-10 23:25 | DI.CT.S_ITS ---
PROCEDURE: CT PEL WO CON INDICATIONS: pain, deformity, fall, Cerebral Palsy TECHNIQUE: Noncontrast 3 mm axial sections acquired through the bony pelvis, with coronal and sagittal reformatting. COMPARISON: None. FINDINGS: Comminuted, angulated, and minimally displaced left intertrochanteric femur fracture. Remaining bones intact. IMPRESSION: Comminuted, angulated, and minimally displaced intertrochanteric left femur fracture Dictated by: Vasquez Wang M.D. on 12/11/2021 at 1:18 Approved by: Vasquez Wang M.D. on 12/11/2021 at 1:20
--- NOTE | 2021-12-10 23:26 | DI.RAD.S_ITS ---
PROCEDURE: XR CHEST 1V INDICATIONS: fall, trauma, preop TECHNIQUE: One view of the chest was acquired. COMPARISON: None. FINDINGS: Rotated exam which exaggerates the cardiomediastinal silhouette. Heart size appears to be grossly normal. No visible pleural effusion or findings of pneumothorax. No acute airspace opacity identified. IMPRESSION: No acute cardiopulmonary process demonstrated radiographically. Dictated by: Vasquez Wang M.D. on 12/11/2021 at 1:28 Approved by: Vasquez Wang M.D. on 12/11/2021 at 1:29
[2021-12-10] MEDS: HYDROMORPHONE 0.5 MG INJ IV (23:41)
[2021-12-10 23:53] LABS: Magnesium 1.9 mg/dL (1.6-2.3)
[2021-12-10 23:54] LABS: Alanine Aminotransferase 16 IU/L (<35); Albumin 3.6 g/dL (3.5-5.0); Albumin Globulin Ratio 1.3 (1.0-2.8); Alkaline Phosphatase 150 U/L (38-126); Aspartate Aminotransferase 24 IU/L (14-36); BUN Creatinine Ratio 20.5 (6-22); Bilirubin Total 0.5 mg/dL (0.2-1.3); Blood Urea Nitrogen 17 mg/dL (7-17); Calcium 8.4 mg/dL (8.4-10.2); Carbon Dioxide 31 mmol/L (22-32); Chloride 104 mmol/L (98-107); Estimated Glomerular Filt Rate > 60 mL/min (>60); Globulin 2.8 g/dL (1.7-4.1); Glucose 109 mg/dL (70-100); HEMOLYSIS < 15 (0-50); Potassium 3.9 mmol/L (3.4-5.1); Sodium 139 mmol/L (137-145); Total Protein 6.4 g/dL (6.3-8.2)
[2021-12-10 23:54] LABS: COVID19 -Nasal RAPID POSITIVE (Negative)
[2021-12-10 23:55] LABS: Add Manual Diff / Slide Review NO; Basophils Absolute Auto 100 /uL (0-100); Basophils Percent Auto 0.8 % (0-2); Eosinophils Absolute Auto 0 /uL (0-450); Eosinophils Percent Auto 0.3 % (2-4); Hematocrit 39.5 % (36-46); Hemoglobin 12.9 g/dL (12.0-16.0); Lymphocytes Absolute Auto 300 /uL (1100-4500); Lymphocytes Percent Auto 4.1 % (25-40); Mean Corpuscular HGB Conc 32.6 % (30-36); Mean Corpuscular Hemoglobin 32.4 PG (26-34); Mean Corpuscular Volume 99.3 fL (80-100); Monocytes Absolute Auto 200 /uL (0-900); Monocytes Percent Auto 3.4 % (3-14); Neutrophils Absolute Auto 6600 /uL (1500-7000); Neutrophils Percent Auto 91.4 % (50-75); Platelet Count 151 X10^3/uL (150-400); Red Blood Cell Count 3.97 X10^6/uL (4.0-5.2); Red Cell Distribution Width 15.5 % (11.6-14.8); White Blood Cell Count 7.3 X10^3/uL (4.5-11.0)
[2021-12-11] VITALS (7 sets, daily range): BP systolic 112–150; BP diastolic 67–96; PULSE 105–124; RESP 16–20; TEMP 36.5–37.2; O2SAT 85–96; BMI 36.8
[2021-12-11 00:03] LABS: NT-proBNP (BNP-Adult 18+) 165 pg/mL (<125)
--- NOTE | 2021-12-11 00:05 | ED_ITS ---
HPI - Fall General Chief Complaint: Fall Stated Complaint: Hip Pain Time Seen by Provider: 12/10/21 23:24 Source: EMS Mode of arrival: other History of Present Illness HPI Narrative: 41-year-old female nonsmoker with history of cerebral palsy, anxiety, and depression presents by air lift for evaluation of left hip pain. She was at home, ambulating and reaching out for her walker, and the break was apparently not working which caused her to fall onto her left hip. She denies any head, neck or back pain but has significant pain in her left hip with any motion, palpation or attempt at movement. She has had some nasal congestion, runny nose and sneezing but states that she is fully vaccinated against COVID and chronically has these symptoms which are typically related to seasonal allergies. She denies any increased work of breathing but after airlift gave pain medication she started having increased trouble and required oxygen by nasal cannula. She denies any numbness, tingling or weakness. Related Data Home Medications Medication Instructions Recorded Confirmed chlorhexidine gluconate 0.12 % 15 ml PO ##0 05/19/16 10/14/21 mouthwash (Periogard) ketorolac 10 mg tablet 10 mg PO Q6H ##0 05/19/16 10/14/21 cholecalciferol (vitamin D3) 50 1 tab PO QDAY ##0 02/10/17 10/14/21 mcg (2,000 unit) tablet (Vitamin D3) nystatin 100,000 unit/gram topical 15 gm topical ##0 02/10/17 10/14/21 ointment omega 1-znm-xtk-fish oil 1,000 mg 1,000 mg PO QDAY ##0 02/10/17 10/14/21 (120 mg-180 mg) capsule (Fish Oil) ondansetron 4 mg disintegrating 4 mg sublingual Q6HP PRN Nausea ##0 02/10/17 10/14/21 tablet albuterol sulfate 90 mcg/actuation 10/29/17 10/14/21 aerosol inhaler baclofen 10 mg tablet 10 mg PO DAILY 10/29/17 10/14/21 diazepam 5 mg tablet 5 mg PO DAILY 10/29/17 10/14/21 methocarbamol 500 mg tablet 500 mg PO TID 10/29/17 10/14/21 morphine 15 mg tablet,extended 15 mg PO BID 10/29/17 10/14/21 release oxybutynin chloride 5 mg tablet 5 mg PO DAILY 10/29/17 10/14/21 tizanidine 6 mg capsule 1 dose PO DIRECTED 10/29/17 10/14/21 omeprazole 20 mg capsule,delayed 20 mg PO BID 04/11/18 10/14/21 release oxycodone 5 mg tablet 5 mg PO Q4H 04/11/18 10/14/21 budesonide 180 mcg/actuation 1 inh inhalation DAILY 09/18/20 10/14/21 breath activated powder inhaler (Pulmicort Flexhaler) fluoxetine 10 mg capsule 10 mg PO DAILY 09/18/20 10/14/21 raloxifene 60 mg tablet 60 mg PO DAILY 09/18/20 10/14/21 trazodone 50 mg tablet 25 mg PO BEDTIME PRN sleep 09/18/20 10/14/21 ibuprofen 600 mg tablet 800 mg PO BID 09/26/21 10/14/21 Previous Rx's Medication Instructions Recorded fluconazole 150 mg tablet 150 mg PO QWEEK #1 tab 07/31/21 phenazopyridine 200 mg tablet See Rx Instructions .Route 08/05/21 .COMPLEX #6 tabs Allergies Allergy/AdvReac Type Severity Reaction Status Date / Time gabapentin Allergy Severe RESPIRATORY Verified 10/14/21 12:31 DISTRESS acetaminophen [ACETAMINOPHEN] Allergy Mild Verified 10/14/21 12:31 adhesive [ADHESIVE] Allergy Mild Verified 10/14/21 12:31 oxymetazoline Allergy Mild other Verified 10/14/21 12:31 [From Afrin (oxymetazoline)] povidone-iodine Allergy Mild Verified 10/14/21 12:31 [From BETADINE] prochlorperazine Allergy Mild Verified 10/14/21 12:31 [From COMPAZINE] soap [From BETADINE] Allergy Mild Verified 10/14/21 12:31 tramadol [TRAMADOL] Allergy Mild Verified 10/14/21 12:31 venlafaxine [From EFFEXOR] Allergy Mild Verified 10/14/21 12:31 dicyclomine Allergy Unknown NAUSEA AND Verified 10/14/21 12:31 VOMITING msg Allergy Unknown vomiting Uncoded 10/14/21 12:31 diahrrea nitrates Allergy Unknown vomiting, Uncoded 10/14/21 12:31 diahrrea Review of Systems Review of Systems Narrative: GENERAL: See HPI HEENT: See HPI RESPIRATORY: See HPI CARDIOVASCULAR: Denies chest pain, palpitations, orthopnea, edema, GASTROINTESTINAL: Denies nausea, vomiting, abdominal pain, diarrhea, constipation, melena. : Denies dysuria, frequency, incontinence, hematuria, urinary retention. MUSCULOSKELETAL: See HPI SKIN: Denies rash, skin lesions, or other NEUROLOGIC: Denies weakness, headache, numbness, change in speech, confusion, seizures, incoordination. PSYCHIATRIC: No concerning psychosocial issues. 12 point review of systems is negative except for those stated above Patient History Medical History Acute shoulder pain Back pain Cerebral palsy Cerebral palsy Fall from ground level Family history of migraine Hematuria History of small bowel obstruction History of small bowel obstruction Morbid obesity due to excess calories Surgical History History of appendectomy History of cholecystectomy History of hysterectomy History of hysterectomy for benign disease History of laparoscopic appendectomy Social History Smoking Status: Never smoker Smoking Status: Never smoker alcohol intake frequency: 0-2 drinks per day Substance Use Type: does not use Exam Narrative Exam Narrative: GENERAL: [41] year old patient appears stated age. Well-developed patient, in mild distress. Obviously uncomfortable, complaining of pain in her left hip HEAD: Atraumatic. Normocephalic. EYES: Pupils equal round and reactive. Extraocular motions intact. No scleral icterus. No injection or drainage. ENT: Nose without bleeding, purulent drainage. Throat without erythema, tonsillar hypertrophy or exudate. Airway patent. NECK: Trachea midline. Non tender CARDIOVASCULAR: Regular rate and rhythm without murmurs, gallops, or rubs. RESPIRATORY: Clear to auscultation. Breath sounds equal bilaterally. No wheezes, rales, or rhonchi. GASTROINTESTINAL: Abdomen soft, non-tender, nondistended. EXTREMITIES: Pain on palpation of left hip, no obvious shortening or rotation, this is closed, isolated and neurovascularly intact BACK: Nontender without deformity or crepitance. No flank tenderness. NEURO: AOx3. SKIN: No rash or erythema of visible areas Initial Vital Signs Initial Vital Signs: Vital Signs Pulse Rate 90 12/10/21 23:20 Respiratory Rate 18 12/10/21 23:20 Blood Pressure 139/82 12/10/21 23:20 Pulse Oximetry 97 12/10/21 23:20 Oxygen Delivery Method 12/10/21 23:20 Course Orders Ordered: ED Orders 12/10/21 23:23 Complete Blood Count AUTO DIFF Stat Comprehensive Metabolic Panel Stat Magnesium Stat NT-proBNP (BNP-Adult 18+) Stat 12/10/21 23:24 COVID19 -Nasal RAPID/Pre-Proc Stat 12/10/21 23:25 CT pelvis wo con Stat 12/10/21 23:26 XR chest 1V Stat 12/11/21 01:25 XR hip w pel if done LT 2V Stat Discontinued Medications Hydromorphone HCl (Hydromorphone 0.5 Mg Inj) 0.5 mg IV NOW ONE Stop: 12/10/21 23:26 Last Admin: 12/10/21 23:41 Dose: 0.5 mg Documented By: PHILLY Consultations Consultation #1: discussed with crisis intervention counselor ortho (Doreen). Will likely not get to the hip until Wednesday given the OR schedule today. Consultation #2: hospitalist happy to accept Vital Signs Vital signs: Vital Signs - 8 hr 12/10/21 23:20 Pulse Rate 90 Respiratory Rate 18 Blood Pressure 139/82 Pulse Oximetry 97 Oxygen Delivery Method Room Air MDM - Fall Lab Data Result diagrams: 12/10/21 23:23 12/10/21 23:23 Labs: Lab Results 12/10/21 12/10/21 12/10/21 Range/Units 00:16 23:23 23:23 WBC 7.3 (4.5-11.0) X10^3/uL RBC 3.97 L (4.0-5.2) X10^6/uL Hgb 12.9 (12.0-16.0) g/dL Hct 39.5 (36-46) % MCV 99.3 (80-100) fL MCH 32.4 (26-34) PG MCHC 32.6 (30-36) % RDW 15.5 H (11.6-14.8) % Plt Count 151 (150-400) X10^3/uL Neut % (Auto) 91.4 H (50-75) % Lymph % (Auto) 4.1 L (25-40) % [place] % (Auto) 3.4 (3-14) % Eos % (Auto) 0.3 L (2-4) % Baso % (Auto) 0.8 (0-2) % Neut # (Auto) 6600 (9578-6436) /uL Lymph # (Auto) 300 L (1663-4819) /uL [place] # (Auto) 200 (0-900) /uL Eos # (Auto) 0 (0-450) /uL Baso # (Auto) 100 (0-100) /uL ABG pH 7.36 (7.35-7.45) ABG pCO2 55.5 H (35-45) mmHg ABG pO2 83 (80-100) mmHg ABG HCO3 31 H (22-26) mmol/L ABG Total CO2 33 H (21-31) mmol/L ABG O2 Saturation 95 (95-100) % ABG Base Excess 5.0 H (-2-2) mmol/L FiO2 34 Sodium 139 (137-145) mmol/L Potassium 3.9 (3.4-5.1) mmol/L Chloride 104 (98-107) mmol/L Carbon Dioxide 31 (22-32) mmol/L BUN 17 (7-17) mg/dL Creatinine 0.83 (0.52-1.04) mg/dL Estimated GFR > 60 (>60) mL/min BUN/Creatinine Ratio 20.5 (6-22) Glucose 109 H (70-100) mg/dL Calcium 8.4 (8.4-10.2) mg/dL Magnesium (1.6-2.3) mg/dL Total Bilirubin 0.5 (0.2-1.3) mg/dL AST 24 (14-36) IU/L ALT 16 (<35) IU/L Alkaline Phosphatase 150 H (38-126) U/L NT-Pro-B Natriuret Pep (<125) pg/mL Total Protein 6.4 (6.3-8.2) g/dL Albumin 3.6 (3.5-5.0) g/dL Globulin 2.8 (1.7-4.1) g/dL Albumin/Globulin Ratio 1.3 (1.0-2.8) SARS-CoV-2 (PCR) (Negative) 12/10/21 12/10/21 Range/Units 23:23 23:24 WBC (4.5-11.0) X10^3/uL RBC (4.0-5.2) X10^6/uL Hgb (12.0-16.0) g/dL Hct (36-46) % MCV (80-100) fL MCH (26-34) PG MCHC (30-36) % RDW (11.6-14.8) % Plt Count (150-400) X10^3/uL Neut % (Auto) (50-75) % Lymph % (Auto) (25-40) % [place] % (Auto) (3-14) % Eos % (Auto) (2-4) % Baso % (Auto) (0-2) % Neut # (Auto) (1464-5318) /uL Lymph # (Auto) (3859-2586) /uL [place] # (Auto) (0-900) /uL Eos # (Auto) (0-450) /uL Baso # (Auto) (0-100) /uL ABG pH (7.35-7.45) ABG pCO2 (35-45) mmHg ABG pO2 (80-100) mmHg ABG HCO3 (22-26) mmol/L ABG Total CO2 (21-31) mmol/L ABG O2 Saturation (95-100) % ABG Base Excess (-2-2) mmol/L FiO2 Sodium (137-145) mmol/L Potassium (3.4-5.1) mmol/L Chloride (98-107) mmol/L Carbon Dioxide (22-32) mmol/L BUN (7-17) mg/dL Creatinine (0.52-1.04) mg/dL Estimated GFR (>60) mL/min BUN/Creatinine Ratio (6-22) Glucose (70-100) mg/dL Calcium (8.4-10.2) mg/dL Magnesium 1.9 (1.6-2.3) mg/dL Total Bilirubin (0.2-1.3) mg/dL AST (14-36) IU/L ALT (<35) IU/L Alkaline Phosphatase (38-126) U/L NT-Pro-B Natriuret Pep 165 H (<125) pg/mL Total Protein (6.3-8.2) g/dL Albumin (3.5-5.0) g/dL Globulin (1.7-4.1) g/dL Albumin/Globulin Ratio (1.0-2.8) SARS-CoV-2 (PCR) Positive H (Negative) Imaging Data Pelvis : Radiologist's Impression: Maite Odom V??41??F??1980 ? Allergy/Adv: gabapentin, acetaminophen, adhesive, oxymetazoline, povidone- iodine, prochlorperazine, soap, tramadol, venlafaxine, dicyclomine, [msg], [nitrates] (More??) Close Chest X-Ray 12/10/[address] (Signed) Vasquez Wang - 12/10/21 Chest X-Ray (Signed) Jamil Lobo - 04/25/21 Abdomen X-Ray (Signed) Jesse Montana - 04/11/18 Thoracic Spine X-Ray (Signed) Fausto Perez - 03/30/18 Shoulder X-Ray (Signed) Fausto Perez - 03/30/18 Abdomen/Pelvis CT (Signed) Fabian Mallory - 12/25/17 Lumbar Spine X-Ray (Signed) Eloisa Ramos - 10/29/17 [place] [address] CT Scan Report Signed Patient: Maite Odom V MR#: [id number] : 1980 Acct:[id number] Age/Sex: 41 / F Date of Service: 12/10/21 Loc: ED Accession Number: [id number] ?? Procedure: CT pelvis wo con Ordering Provider: Claude Sims D.O. PROCEDURE:? CT PEL WO CON ? INDICATIONS:? pain, deformity, fall, Cerebral Palsy ? TECHNIQUE:? Noncontrast 3 mm axial sections acquired through the bony pelvis, with coronal and sagittal reformatting.? ? COMPARISON:? None. ? FINDINGS:? ? Comminuted, angulated, and minimally displaced left intertrochanteric femur fracture.? Remaining bones intact. ? IMPRESSION:? Comminuted, angulated, and minimally displaced intertrochanteric left femur fracture ? Dictated by: Vasquez Wang M.D. on 12/11/2021 at 1:18 ? ? Approved by: Vasquez Wang M.D. on 12/11/2021 at 1:20 ? Discharge Plan Departure Patient Disposition: Admitted As Inpatient Clinical Impression: Closed fracture of left hip, COVID Admit Date/Time: 12/11/21 03:04 Admit Provider: Jessica Logan
[2021-12-11 00:45] LABS: HCO3 ABG 31 mmol/L (22-26); Oxygen Saturation ABG 95 % (95-100); PCO2 ABG 55.5 mmHg (35-45); PO2 ABG 83 mmHg (80-100); TCO2 ABG 33 mmol/L (21-31); pH ABG 7.36 (7.35-7.45)
[2021-12-11 00:46] LABS: Fractionated Inspired Oxygen 34
[2021-12-11] MEDS: HYDROMORPHONE 0.5 MG INJ (00:59)
--- NOTE | 2021-12-11 01:25 | DI.RAD.S_ITS ---
PROCEDURE: XR HIP W PEL IF DONE LT 2V INDICATIONS: Fracture TECHNIQUE: 2 views of the hip were acquired. COMPARISON: None. FINDINGS: Patient position is challenging due to underlying cerebral palsy. Displaced and angulated left intertrochanteric femur fracture. Two views of the left hip IMPRESSION: Displaced and angulated left intertrochanteric femur fracture. Dictated by: Vasquez Wang M.D. on 12/11/2021 at 1:41 Approved by: Vasquez Wang M.D. on 12/11/2021 at 1:42
[2021-12-11] MEDS: MORPHINE 2 MG/ML INJ IV (05:50)
--- NOTE | 2021-12-11 06:21 | P.HP_ITS ---
History of Present Illness History of Present Illness Date Patient Seen: 12/11/21 Time Patient Seen: 04:00 Chief complaint: Hip Pain Narrative: Ms. Alex Bynum is a 41W with PMH cerebral palsy, osteoporosis, anxiety, and depression who presents after a fall with left hip pain. She was at home and trying to get up after going to the bathroom. She was trying to use her walker, but had not locked the brake and this caused her to fall on her left hip. She had significant pain after the fall, and could not ambulate. She denied loss of consciousness of hitting her head. She did have some congestion, and has vaccinated and boosted for COVID. She has no shortness of breath. En route with EMS she was given pain medications and reportedly had drop in her oxygen to the 80s. In the ED workup was done, vitals notable for no significant abnormality. Labs notable for WBC 7.3, hgb 12.9, creatinine 0.83. COVID positive. Chest xray showed no acute process. Pelvic CT shows comminuted, angulated, displaced left intertrochanteric femur fracture. She was given pain medications and admitted for further treatment. She was not requiring oxygen throughout her ED stay. Family history: asked and patient states she has no family with medical problems Patient History Medical History Acute shoulder pain Back pain Cerebral palsy Cerebral palsy Fall from ground level Family history of migraine Hematuria History of small bowel obstruction History of small bowel obstruction Morbid obesity due to excess calories Surgical History History of appendectomy History of cholecystectomy History of hysterectomy History of hysterectomy for benign disease History of laparoscopic appendectomy Family & Social History Social History: household members spouse,children Prior Living Arrangements House Safety & Behavioral: Feels Safe in Current Yes Environment Been Physically Hurt or No Threatened By a Person Tobacco & Substance use: Smoking Status Never smoker alcohol intake current alcohol intake frequency holiday/special occasion Substance Use Type does not use Meds Home Medications and Allergies Home Medications Medication Instructions Recorded Confirmed Type ketorolac 10 mg tablet 10 mg PO Q6H PRN Migraine Headache 05/19/16 12/11/21 History ##0 nystatin 100,000 unit/gram topical 15 gm topical DAILY PRN Rash ##0 02/10/17 12/11/21 History ointment omega 4-skc-blm-fish oil 1,000 mg 1,000 mg PO QDAY ##0 02/10/17 12/11/21 History (120 mg-180 mg) capsule (Fish Oil) ondansetron 4 mg disintegrating 8 mg sublingual Q6HP PRN Nausea ##0 02/10/17 12/11/21 History tablet albuterol sulfate 90 mcg/actuation 2 puff inhalation DAILY 10/29/17 12/11/21 History aerosol inhaler baclofen 10 mg tablet 10 mg PO DAILY 10/29/17 12/11/21 History diazepam 5 mg tablet 5 mg PO BID 10/29/17 12/11/21 History methocarbamol 500 mg tablet 500 mg PO QID 10/29/17 12/11/21 History morphine 15 mg tablet,extended 15 mg PO BID 10/29/17 12/11/21 History release tizanidine 6 mg capsule 6 dose PO TID 10/29/17 12/11/21 History omeprazole 20 mg capsule,delayed 20 mg PO QID 04/11/18 12/11/21 History release oxycodone 5 mg tablet 5 mg PO Q4H PRN Pain (Scale Score 04/11/18 12/11/21 History 1-3) budesonide 180 mcg/actuation 1 inh inhalation DAILY 09/18/20 12/11/21 History breath activated powder inhaler (Pulmicort Flexhaler) fluoxetine 10 mg capsule 10 mg PO DAILY 09/18/20 12/11/21 History raloxifene 60 mg tablet 60 mg PO DAILY 09/18/20 12/11/21 History trazodone 50 mg tablet 50 mg PO BEDTIME PRN sleep 09/18/20 12/11/21 History fluconazole 150 mg tablet 150 mg PO QWEEK #1 tab 07/31/21 12/11/21 Rx ibuprofen 600 mg tablet 800 mg PO BID 09/26/21 12/11/21 History docusate sodium 100 mg tablet 300 mg PO BID 12/11/21 12/11/21 History magnesium 500 mg tablet 500 mg PO BID 12/11/21 12/11/21 History multivit with minerals-iron 18 1 tab PO DAILY 12/11/21 12/11/21 History mg-folic ac 400 mcg-vit K 25 mcg tablet (Adults Multivitamin) nitrofurantoin 100 mg capsule 100 mg PO DAILY 12/11/21 12/11/21 History phenazopyridine 200 mg tablet 200 mg PO BID 12/11/21 12/11/21 History phenolphthalein 90 mg tablet 75 mg PO BID 12/11/21 12/11/21 History Allergies Allergy/AdvReac Type Severity Reaction Status Date / Time gabapentin Allergy Severe RESPIRATORY Verified 10/14/21 12:31 DISTRESS acetaminophen [ACETAMINOPHEN] Allergy Mild Verified 10/14/21 12:31 adhesive [ADHESIVE] Allergy Mild Verified 10/14/21 12:31 oxymetazoline Allergy Mild other Verified 10/14/21 12:31 [From Afrin (oxymetazoline)] povidone-iodine Allergy Mild Verified 10/14/21 12:31 [From BETADINE] prochlorperazine Allergy Mild Verified 10/14/21 12:31 [From COMPAZINE] soap [From BETADINE] Allergy Mild Verified 10/14/21 12:31 tramadol [TRAMADOL] Allergy Mild Verified 10/14/21 12:31 venlafaxine [From EFFEXOR] Allergy Mild Verified 10/14/21 12:31 dicyclomine Allergy Unknown NAUSEA AND Verified 10/14/21 12:31 VOMITING msg Allergy Unknown vomiting Uncoded 10/14/21 12:31 diahrrea nitrates Allergy Unknown vomiting, Uncoded 10/14/21 12:31 diahrrea Review of Systems Review of Systems Narrative: 14 systems reviewed and negative aside from what is noted in HPI Exam Vital Signs (past 8 hours): - 12/10/21 23:20 12/11/21 05:36 Pulse Rate 90 Respiratory Rate 18 Blood Pressure 139/82 Pulse Oximetry 97 Oxygen Delivery Method Room Air Nasal Cannula Oxygen Delivery Method Nasal Cannula Narrative Exam Narrative: GEN: no acute distress HEENT: moist mucous membranes, PERRL NECK: trachea midline, no JVD CV: regular rate and rhythm, no murmurs PULM: clear bilaterally, no wheezes, rhonchi, rales ABD: soft, nontender, nondistended EXT: warm and well perfused, left hip with ecchymosis and pain to palpation NEURO: awake, alert, oriented, no focal deficits Objective Labs Result Diagrams: 12/10/21 23:23 12/10/21 23:23 Labs: Laboratory Results - last 24 hr 12/10/21 12/10/21 12/10/21 00:16 23:23 23:23 WBC 7.3 RBC 3.97 L Hgb 12.9 Hct 39.5 MCV 99.3 MCH 32.4 MCHC 32.6 RDW 15.5 H Plt Count 151 Neut % (Auto) 91.4 H Lymph % (Auto) 4.1 L [place] % (Auto) 3.4 Eos % (Auto) 0.3 L Baso % (Auto) 0.8 Neut # (Auto) 6600 Lymph # (Auto) 300 L [place] # (Auto) 200 Eos # (Auto) 0 Baso # (Auto) 100 ABG pH 7.36 ABG pCO2 55.5 H ABG pO2 83 ABG HCO3 31 H ABG Total CO2 33 H ABG O2 Saturation 95 ABG Base Excess 5.0 H FiO2 34 Sodium 139 Potassium 3.9 Chloride 104 Carbon Dioxide 31 BUN 17 Creatinine 0.83 Estimated GFR > 60 BUN/Creatinine Ratio 20.5 Glucose 109 H Calcium 8.4 Magnesium Total Bilirubin 0.5 AST 24 ALT 16 Alkaline Phosphatase 150 H NT-Pro-B Natriuret Pep Total Protein 6.4 Albumin 3.6 Globulin 2.8 Albumin/Globulin Ratio 1.3 SARS-CoV-2 (PCR) 12/10/21 12/10/21 23:23 23:24 WBC RBC Hgb Hct MCV MCH MCHC RDW Plt Count Neut % (Auto) Lymph % (Auto) [place] % (Auto) Eos % (Auto) Baso % (Auto) Neut # (Auto) Lymph # (Auto) [place] # (Auto) Eos # (Auto) Baso # (Auto) ABG pH ABG pCO2 ABG pO2 ABG HCO3 ABG Total CO2 ABG O2 Saturation ABG Base Excess FiO2 Sodium Potassium Chloride Carbon Dioxide BUN Creatinine Estimated GFR BUN/Creatinine Ratio Glucose Calcium Magnesium 1.9 Total Bilirubin AST ALT Alkaline Phosphatase NT-Pro-B Natriuret Pep 165 H Total Protein Albumin Globulin Albumin/Globulin Ratio SARS-CoV-2 (PCR) Positive H Assessment & Plan Assessment & Plan narrative: Ms. Alex Bynum is a 41W with PMH cystic fibrosis, osteoporosis who presents after a mechanical fall causing left hip fracture found to be COVID positive. 1. Acute left hip fracture -secondary to mechanical fall -nonweightbearing while awaiting surgical repair -continue with pain regimen, she is already on opiates at home which may make her pain more difficult to treat -ortho consulted, will plan for NPO at 9am, but surgery may not be able to be done until tomorrow 12/12 2. Cystic fibrosis -continue prn nebs -continue baclofen, muscle relaxants 3. Osteoporosis -per patient takes calcium and vitamin d at home -should continue at least on these medications at discharge 4. Depression -continue SSRI 5. COVID positive -no evidence of pneumonia, and not hypoxemic so no indication for treatment currently CODE: Full Proxy: Pankaj Bynum, life partner I have utilized all available resources to reconcile the patient's home medications Time Spent With Patient Critical Care time: I spent a total of [] minutes of critical care time on this patient's care today; this time is exclusive of procedural time. Quality MIPS - Admit I confirm the patient?s Advance Care Plan is present, Code status is documented, Surrogate decision maker is in patient?s record [If Yes, STOP here]: Yes
[2021-12-11] MEDS: BACLOFEN 10 MG TABLET PO (09:23)
[2021-12-11] MEDS: MORPHINE ER 15 MG TABLET PO (09:23)
[2021-12-11] MEDS: diazePAM 5 MG TABLET PO ×2 (09:24→21:28)
[2021-12-11] MEDS: methocarbamoL 500 MG TABLET PO ×2 (09:24→14:14)
[2021-12-11] MEDS: FLUoxetine 10 MG CAPSULE PO (09:24)
[2021-12-11] MEDS: ALBUTEROL HFA MDI 60 PUFF/8 GM INHALER INH (09:34)
[2021-12-11] MEDS: RALOXIFENE 60 MG TABLET PO (09:43)
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
[2021-12-11] MEDS: MORPHINE 4 MG/ML INJ IV ×2 (12:15→20:40)
--- NOTE | 2021-12-11 13:13 | PM.CN ---
History of Present Illness Consult details Date Patient Seen: 12/11/21 Time Patient Seen: 06:45 Chief complaint: Hip Pain Reason for consult: l hip fracure Requesting provider: Claude Sims Narrative: Patient is a 41-year-old female with a history of cerebral palsy that ambulates with a walker at baseline. She fell at home yesterday. Lives at home with her . Normally ambulates with a walker. Has chronic pain. This is managed by both her primary care doctor and her physical medicine doctor. Physical medicine doctor at [facility] is Dr. Tanya Gotti. Patient has a baclofen pump. Patient is able to state the office number for her physical medicine doctor at [facility] this is [phone]. Patient also states she takes 15 long-acting morphine b.i.d. and up to 6x 5mg immediate release oxycodone throughout the day. She does have a history of low bone density and takes medication raloxifene. Endorses pain in multiple areas back specially her whole left side endorses pain in her back and hip and leg any knee and extreme pain with any movement of the left lower extremity. She was brought by air care to [facility]. CT scan and x-rays demonstrated a comminuted intertrochanteric fracture. She was admitted to the hospital and gated for surgery and may require placement. She has a Guerrero catheter in place. Denies fevers and chills. She was also found to be COVID positive on presentation to the [facility] Emergency Room. She has had some mild symptoms which she thought or hay fever. She is vaccinated and boosted. States she has been at home and no would not know a source. Meds Home Medications and Allergies Home Medications Medication Instructions Recorded Confirmed Type ketorolac 10 mg tablet 10 mg PO Q6H PRN Migraine Headache 05/19/16 12/11/21 History ##0 nystatin 100,000 unit/gram topical 15 gm topical DAILY PRN Rash ##0 02/10/17 12/11/21 History ointment omega 1-vvs-rly-fish oil 1,000 mg 1,000 mg PO QDAY ##0 02/10/17 12/11/21 History (120 mg-180 mg) capsule (Fish Oil) ondansetron 4 mg disintegrating 8 mg sublingual Q6HP PRN Nausea ##0 02/10/17 12/11/21 History tablet albuterol sulfate 90 mcg/actuation 2 puff inhalation DAILY 10/29/17 12/11/21 History aerosol inhaler baclofen 10 mg tablet 10 mg PO DAILY 10/29/17 12/11/21 History diazepam 5 mg tablet 5 mg PO BID 10/29/17 12/11/21 History methocarbamol 500 mg tablet 500 mg PO QID 10/29/17 12/11/21 History morphine 15 mg tablet,extended 15 mg PO BID 10/29/17 12/11/21 History release tizanidine 6 mg capsule 6 dose PO TID 10/29/17 12/11/21 History omeprazole 20 mg capsule,delayed 20 mg PO QID 04/11/18 12/11/21 History release oxycodone 5 mg tablet 5 mg PO Q4H PRN Pain (Scale Score 04/11/18 12/11/21 History 1-3) budesonide 180 mcg/actuation 1 inh inhalation DAILY 09/18/20 12/11/21 History breath activated powder inhaler (Pulmicort Flexhaler) fluoxetine 10 mg capsule 10 mg PO DAILY 09/18/20 12/11/21 History raloxifene 60 mg tablet 60 mg PO DAILY 09/18/20 12/11/21 History trazodone 50 mg tablet 50 mg PO BEDTIME PRN sleep 09/18/20 12/11/21 History fluconazole 150 mg tablet 150 mg PO QWEEK #1 tab 07/31/21 12/11/21 Rx ibuprofen 600 mg tablet 800 mg PO BID 09/26/21 12/11/21 History docusate sodium 100 mg tablet 300 mg PO BID 12/11/21 12/11/21 History magnesium 500 mg tablet 500 mg PO BID 12/11/21 12/11/21 History multivit with minerals-iron 18 1 tab PO DAILY 12/11/21 12/11/21 History mg-folic ac 400 mcg-vit K 25 mcg tablet (Adults Multivitamin) nitrofurantoin 100 mg capsule 100 mg PO DAILY 12/11/21 12/11/21 History phenazopyridine 200 mg tablet 200 mg PO BID 12/11/21 12/11/21 History phenolphthalein 90 mg tablet 75 mg PO BID 12/11/21 12/11/21 History Allergies Allergy/AdvReac Type Severity Reaction Status Date / Time gabapentin Allergy Severe RESPIRATORY Verified 10/14/21 12:31 DISTRESS acetaminophen [ACETAMINOPHEN] Allergy Mild Verified 10/14/21 12:31 adhesive [ADHESIVE] Allergy Mild Verified 10/14/21 12:31 oxymetazoline Allergy Mild other Verified 10/14/21 12:31 [From Afrin (oxymetazoline)] povidone-iodine Allergy Mild Verified 10/14/21 12:31 [From BETADINE] prochlorperazine Allergy Mild Verified 10/14/21 12:31 [From COMPAZINE] soap [From BETADINE] Allergy Mild Verified 10/14/21 12:31 tramadol [TRAMADOL] Allergy Mild Verified 10/14/21 12:31 venlafaxine [From EFFEXOR] Allergy Mild Verified 10/14/21 12:31 dicyclomine Allergy Unknown NAUSEA AND Verified 10/14/21 12:31 VOMITING msg Allergy Unknown vomiting Uncoded 10/14/21 12:31 diahrrea nitrates Allergy Unknown vomiting, Uncoded 10/14/21 12:31 diahrrea Review of Systems Review of Systems Narrative: Chronic pain, Osteo cirrhosis, cerebral palsy, muscle spasm, denies chest pain denies shortness of breath, denies fever Exam Vital Signs (past 8 hours): - 12/11/21 05:36 12/11/21 09:34 12/11/21 07:50 Temperature Pulse Rate Respiratory Rate Blood Pressure Pulse Oximetry 95 Oxygen Delivery Method Nasal Cannula Nasal Cannula Nasal Cannula Oxygen Flow Rate 2 12/11/21 08:00 12/11/21 08:00 12/11/21 12:00 Temperature 98.9 F Pulse Rate 124 H 116 H Respiratory Rate 16 20 Blood Pressure 132/79 112/67 Pulse Oximetry 95 95 94 Oxygen Delivery Method Nasal Cannula Oxygen Flow Rate 2 2 2 Oxygen Delivery Method Nasal Cannula Oxygen Flow Rate 2 Narrative Exam Narrative: General exam is alert and oriented female moderate distress she is lying on her right side. States that with any attempted motion of the left side she has extreme pain. She answers questions appropriately and calmly. She has respiratory mesa on nasal cannula. No accessory muscle use lungs clear bilaterally Heart rate tachycardic. Regular rhythm Abdomen. Soft obese. BMI 36 Left lower extremity tenderness globally about the hip. Musculoskeletal exam motor examination limited due to known hip fracture. As patient is palpated with a volar on the hip thigh knee and foot. There is no focal ecchymosis. No obvious deformity. She wiggles her toes and does demonstrate dorsiflexion plantar flexion of bilateral ankles. There are palpable dorsalis pedis pulses. And sensation is grossly intact to light touch. Calf soft. Rest of motor exam is deferred due to known fracture. Her position of comfort is on her right side which limits right lower extremity examination but does demonstrate wiggling toes in dorsiflexion plantar flexion of the right ankle and no tenderness to palpation. Pelvis grossly stable. Tenderness around the left side and flank globally. Guerrero in place Objective Imaging CT pelvis: My impression: Comminuted left intertrochanteric fracture. Right sacral where a left fracture with some sclerosis along the sacrum appears to be full stress fractures a new sacral ala fracture--of note I have discussed 12/11/2021 approximately [address] [facility] radiology about and addendum to CT scan to describe right-sided sacral fracture Radiologist's impression: Comminuted intertrochanteric fracture left Labs Result Diagrams: 12/10/21 23:23 12/10/21 23:23 Labs: Laboratory Results - last 24 hr 12/10/21 12/10/21 12/10/21 00:16 23:23 23:23 WBC 7.3 RBC 3.97 L Hgb 12.9 Hct 39.5 MCV 99.3 MCH 32.4 MCHC 32.6 RDW 15.5 H Plt Count 151 Neut % (Auto) 91.4 H Lymph % (Auto) 4.1 L [place] % (Auto) 3.4 Eos % (Auto) 0.3 L Baso % (Auto) 0.8 Neut # (Auto) 6600 Lymph # (Auto) 300 L [place] # (Auto) 200 Eos # (Auto) 0 Baso # (Auto) 100 ABG pH 7.36 ABG pCO2 55.5 H ABG pO2 83 ABG HCO3 31 H ABG Total CO2 33 H ABG O2 Saturation 95 ABG Base Excess 5.0 H FiO2 34 Sodium 139 Potassium 3.9 Chloride 104 Carbon Dioxide 31 BUN 17 Creatinine 0.83 Estimated GFR > 60 BUN/Creatinine Ratio 20.5 Glucose 109 H Calcium 8.4 Magnesium Total Bilirubin 0.5 AST 24 ALT 16 Alkaline Phosphatase 150 H NT-Pro-B Natriuret Pep Total Protein 6.4 Albumin 3.6 Globulin 2.8 Albumin/Globulin Ratio 1.3 SARS-CoV-2 (PCR) 12/10/21 12/10/21 23:23 23:24 WBC RBC Hgb Hct MCV MCH MCHC RDW Plt Count Neut % (Auto) Lymph % (Auto) [place] % (Auto) Eos % (Auto) Baso % (Auto) Neut # (Auto) Lymph # (Auto) [place] # (Auto) Eos # (Auto) Baso # (Auto) ABG pH ABG pCO2 ABG pO2 ABG HCO3 ABG Total CO2 ABG O2 Saturation ABG Base Excess FiO2 Sodium Potassium Chloride Carbon Dioxide BUN Creatinine Estimated GFR BUN/Creatinine Ratio Glucose Calcium Magnesium 1.9 Total Bilirubin AST ALT Alkaline Phosphatase NT-Pro-B Natriuret Pep 165 H Total Protein Albumin Globulin Albumin/Globulin Ratio SARS-CoV-2 (PCR) Positive H PFSH Medical History Acute shoulder pain Back pain Cerebral palsy Cerebral palsy Fall from ground level Family history of migraine Hematuria History of small bowel obstruction History of small bowel obstruction Morbid obesity due to excess calories Surgical History History of appendectomy History of cholecystectomy History of hysterectomy History of hysterectomy for benign disease History of laparoscopic appendectomy Social History marital status: household members: spouse and children lives independently: Yes caregiver/support person: Yes () Tobacco & Substance Use Smoking Status: Never smoker alcohol intake: current Assessment & Plan Assessment and plan (1) Closed fracture of left hip: Status: Acute (2) COVID: Status: Acute (3) Cerebral palsy: Qualifiers: Cerebral palsy type: unspecified type Qualified Code(s): G80.9 - Cerebral palsy, unspecified Status: Acute (4) Fracture of sacrum: Status: Acute Assessment & Plan narrative: Left IT fx, in ground level fall, hx CP- ambulates with walker, vaccinated but covid + today. mild sxs indication for surgery for fixation L hip fx. will plan CMN L IT fx for wednesday when OR available , likely afternoon evening-- npo 8 hours prior. right sacral ala fx, nonop protected weight bear as tolerated pt on multiple meds for cp and chronic pain-- Continue medications for bone health. appreciate medical management per hospitalist team. The risks and benefits of the procedure have been discussed with the patient and they have been given the opportunity to ask questions. The risks of surgery include but are not limited to infection, malunion, nonunion, persistence of pain, damage to nerves and blood vessels, posttraumatic arthritis, DVT, PE, cardiopulmonary complications and . The patient expressed a thorough understanding of the risks and benefits of surgery and has elected to proceed. Consent was signed. COVID-19 COVID-19 status: Positive Result date/Date tested (Pos, Neg/Pending): 12/10/21 Time Spent With Patient Time with patient: less than 30 minutes Critical Care time: I spent a total of [] minutes of critical care time on this patient's care today; this time is exclusive of procedural time.
[2021-12-11 14:28] LABS: Appearance Urine UA CLOUDY; Bilirubin Urine UA NEGATIVE (NEGATIVE); Color Urine UA YELLOW; Glucose Urine UA TRACE g/dL (Negative); Ketones Urine UA NEGATIVE (NEGATIVE); Leukocyte Esterase Urine UA 3+ (NEGATIVE); Nitrite Urine UA POSITIVE (Negative); Occult Blood Urine UA 3+ (Negative); Protein Urine UA 3+ (Negative); Specific Gravity Urine UA 1.015 (1.000-1.035)
[2021-12-11 14:54] LABS: RBC Urine 10-30/HPF (0-5/HPF); Squamous Epithelial Cell Urine 0-1 /HPF (0-5/HPF); WBC Urine 30-100/HPF (0-5/HPF)
[2021-12-11 14:55] LABS: Bacteria Urine Many (>30); Culture Indicated Urine Specimen Cultured
[2021-12-11] MEDS: cefTRIAXone 1,000 MG in SODIUM CHLORIDE 0.9% 100 ML 200 MG IV (16:56)
[2021-12-11] MEDS: HYDROMORPHONE 4 MG TABLET PO ×2 (18:44→23:02)
--- NOTE | 2021-12-11 19:37 | PC.NURSE ---
Dayshift Pt refused turning and repositioning. Pt refused placing pillows between legs. Pt lying on right side. Educated pt about turning and repositioning to prevent skin breakdown, pt refused turning and repositioning.
[2021-12-12] VITALS (15 sets, daily range): BP systolic 123–150; BP diastolic 64–104; PULSE 100–123; RESP 15–20; TEMP 36.4–36.7; O2SAT 93–123
--- NOTE | 2021-12-12 | DI.RAD.S_ITS ---
PROCEDURE: XR HIP W PEL IF DONE LT 2V INDICATIONS: IMN LEFT FEMUR TECHNIQUE: Intraoperative fluoroscopic spot films were obtained COMPARISON: [facility], [place], XR HIP W PEL IF DONE LT 2V, 12/11/2021, 1:10. FINDINGS: Six intraoperative fluoroscopic spot films show placement of intramedullary martha and femoral neck screw transfixing a intertrochanteric fracture in good position IMPRESSION: Fluoroscopic guidance Approved by: Amol Hernandez M.D. on 12/12/2021 at 17:41
[2021-12-12] MEDS: MORPHINE 2 MG/ML INJ IV ×2 (01:27→06:43)
--- NOTE | 2021-12-12 05:25 | PC.NURSE ---
Noted patient to desat during shift and oxygen increased from 2L to 4L with SpO2 improvement. Currently satting at 97%. Patient reports no SOB but refuses to elevate head of bed for better gas exchange. Patient refuses to be repositioned or turned and requests to remain lying right sided. Patient pushes call light to request pain medication but falls asleep immediately before the nurse is able to retrieve medication from pyxis for administration and waits for patient to be more arousable to ask for pain medication.
[2021-12-12] MEDS: BACLOFEN 10 MG TABLET PO (08:18)
[2021-12-12] MEDS: RALOXIFENE 60 MG TABLET PO (08:18)
[2021-12-12] MEDS: diazePAM 5 MG TABLET PO ×2 (08:18→21:28)
[2021-12-12] MEDS: FLUoxetine 10 MG CAPSULE PO (08:18)
[2021-12-12] MEDS: MORPHINE ER 15 MG TABLET PO ×2 (08:18→21:28)
--- NOTE | 2021-12-12 12:24 | CM.DPC ---
Addendum entered by Rosey Song R.N. 12/12/21 14:15: Received DOPA paper work from Karen Harris via fax, showing that Yelena Huff is listed as DPOA, with four others. Karen is requesting that this DC planner scheduler review with patient, but patient is COVID positive. This document does list Yelena as DPOA, and is notorized, and already spoke to patient over to the phone to confirm this, and can contact Yelena with any questions. Caterina is faxing into patient's chart, will keep this behind patient's face sheet. Addendum entered by Rosey Song R.N. 12/12/21 13:31: Called patient's room. Asked her if Yelena is her POA, and she confirmed. Asked her if it would be ok to share information with her, as well as Karen, her ANNIE caseworker protective services, and she gave permission. Had spoken to Karen Harris today already, and gave her fax number of care management, to fax over DPOA paperwork. Mentioned detention to patient, and that [facility] can accept, and patient is ok with this. Let her know that this would be for her to get the therapy she needs before going home. Original Note: DCP Cont: It is noted from Macarena Ramirez in an email that patient has a DPOA, named Yelena Huff. Her phone number is: [phone]. According to Macarena's note, paperwork is to be faxed over to the hospital regarding her POA paperwork. Karen Harris, ANNIE custodial services manager, left this DC Lead Recreation Assistant a message. She indicated, she had spoken to patient yesterday at 1700 on the phone is aware that patient had a hip fracture, and is COVID positive. Karen also indicated that she has been in contact with Yelena, patient's DPOA. In the message, indicated that patient's fpc plan is to eventually move to the [facility], if she can afford housing in the area. She stated, patient most likely would need rehab, since there are stairs to go into the home, and [facility] will not allow any type of ramp in her home. As was indicated in documentation from yesterday, patient's home is currently for sale. Called Natalya at [facility] to ensure that they can accept her. She stated, she can accept Wednesday, will have to be isolated due to COVID. Asked her if she has been in contact with Mirian, who normally works in admissions, to ensure that they can accept, and she stated that Mirian is aware. At this time, will not call Karen or Yelena until this caseworker protective services gets verbal permission from patient. According to nursing, patient is in a lot of pain, requires pain meds. Her surgery is scheduled for today. Updated Natalya as well. Nursing also indicated, she has been non-compliant with positioning, wants to remain on her side. Will have to see how she does after surgery, for she will need to work with P.T, in order to qualify for rehab. At this time, [facility] is the only facility that may be able to accept, all other facilities in this area are not accepting COVID positive patients. P: DCP to continue to follow and work on [facility] rehab plan, and will need to update patient as well. Rosey Song RN/Aircraft Systems Repairer
[2021-12-12] MEDS: MORPHINE 4 MG/ML INJ IV (12:26)
--- NOTE | 2021-12-12 13:11 | PC.NURSE ---
11:[address] Logan notified that pt states, pain of 8 and requesting IV dilaudid. No new orders given.
[2021-12-12] MEDS: SODIUM CHLORIDE 0.9% FLUSH 10 ML IV ×2 (14:03→21:29)
--- NOTE | 2021-12-12 15:25 | P.PN_ITS ---
Subjective Subjective Date Patient Seen: 12/12/21 Interval history: Continues to have difficult to control pain, was controlled with patient sleeping but she desaturated with that much opiate therapy. Exam Vital Signs (past 8 hours): - 12/12/21 07:30 12/12/21 07:59 Temperature 98.1 F Pulse Rate 101 H Respiratory Rate 20 Blood Pressure 127/64 Pulse Oximetry 94 Oxygen Delivery Method Nasal Cannula Oxygen Flow Rate 4 Oxygen Delivery Method Nasal Cannula Oxygen Flow Rate 4 Narrative Exam Narrative: General: alert and oriented female. on her right side. She answers questions appropriately and calmly but is mildly agitated. She has mildly slurred speech and is extremely groggy. HEENT: MMM, NCAT Pulm: No respiratory distress CV: RRR no m/r/g Abd: Soft, NT, ND Ext: no edema or joint effusions Objective Labs Result Diagrams: 12/10/21 23:23 12/10/21 23:23 [facility] Medical History Acute shoulder pain Back pain Cerebral palsy Cerebral palsy Fall from ground level Family history of migraine Hematuria History of small bowel obstruction History of small bowel obstruction Morbid obesity due to excess calories Surgical History History of appendectomy History of cholecystectomy History of hysterectomy History of hysterectomy for benign disease History of laparoscopic appendectomy Social History marital status: household members: spouse and children lives independently: Yes caregiver/support person: Yes () Smoking Status: Never smoker alcohol intake: current Assessment & Plan Assessment & Plan narrative: Ms. Alex Bynum is a 41W with PMH cystic fibrosis, osteoporosis who presents after a mechanical fall causing left hip fracture found to be COVID positive. 1. Acute left hip fracture -secondary to mechanical fall -nonweightbearing while awaiting surgical repair -continue with pain regimen, for her pain to be controlled at the moment she requires a significant amount of opiates and supplemental oxygen -surgical repair planned for today. -pain control will be difficult after OR. Patient reportedly takes morphine 15 mg QID at baseline, though amount reports has differed over the course of her admission. 2. Cerebral Palsy -continue prn nebs -continue baclofen, muscle relaxants 3. Osteoporosis -per patient takes calcium and vitamin d at home -should continue at least on these medications at discharge 4. Depression -continue SSRI 5. COVID positive -no evidence of pneumonia, and not hypoxemic so no indication for treatment currently 6. Acute cystitis - continue ceftriaxone x3 days. 7. Acute respiratory failure with hypoxia - secondary to opiate use in setting of pain. Continue supplemental oxygen as needed. 8. Obesity - places patient at increased risk for complications after surgical management. CODE: Full Proxy: Pankaj Bynum, life partner I have utilized all available resources to reconcile the patient's home medications Time Spent With Patient Critical Care time: I spent a total of [] minutes of critical care time on this patient's care today; this time is exclusive of procedural time.
--- NOTE | 2021-12-12 16:13 | PM.PREOP ---
Pre-operative Note COVID-19 COVID-19 status: Positive Criteria for continued procedure: Increased loss of function and Continuing or worsening of significant or severe pain Interval Note History & Physical reviewed/Exam performed by Physician: Yes Changes to H&P: No
--- NOTE | 2021-12-12 16:26 | PC.NURSE ---
16:10 Pt taken off unit by ortho surgery nurses.
[2021-12-12] MEDS: cefTRIAXone 1,000 MG in SODIUM CHLORIDE 0.9% 100 ML 200 MG IV (17:04)
--- NOTE | 2021-12-12 17:13 | SUR.OPER ---
Supine on padded [place] table with bilateral legs secured in padded positioning boots and suspended in positioning spars, operative leg in traction per surgeon. Head on one pillow. Arm on non-operative side secured on padded armboard <90 degrees abduction. Arm on operative side padded and resting across chest then secured with tape over sheet. Padded perineal post in place per surgeon. POSITION WAS APPROVED BY ANESTHESIA AND BY SURGEON .
[2021-12-12] MEDS: BUPIVACAINE 0.5% W/ EPI (PF) 30 ML VIAL INJ (18:20)
--- NOTE | 2021-12-12 18:34 | PM.OP.1 ---
Operative Date/Time/Diagnoses Date of procedure: 12/12/21 Time of procedure: 18:36 Pre-op diagnosis: Left intertrochanteric hip fracture COVID positive Right sacral ala fracture Cerebral palsy BMI 36 Chronic pain Osteoporosis/osteopenia Post-op diagnosis: same Procedure & Clinicians Procedure: Cephalomedullary nail intertrochanteric hip fracture CPT code 65041 Same procedure as scheduled: Yes Indications: Patient is a 41-year-old female with a history of cerebral palsy the ambulates with a walker at baseline that fell from standing height. She had immediate hip pain. She was brought to [facility] found to have a comminuted left intertrochanteric hip fracture. On CT scan she also had a right sacral ala fracture with the sclerosis indicating subacute fracture but new since CT in 2018. She has a history of low bone density and is on medication for this. She has chronic pain and spasticity. She takes chronic pain medications and muscle relaxers. She was indicated for operative repair of her left hip fracture to reduce pain and allow early mobilization and position for optimal healing. The risks and benefits of the procedure have been discussed with the patient and they were given the opportunity to ask questions. The risks of surgery include but are not limited to infection, malunion, nonunion, persistence of pain, damage to nerves and blood vessels, posttraumatic arthritis, symptomatic hardware, DVT, PE, cardiopulmonary complications and . The patient expressed a thorough understanding of the risks and benefits of surgery and has elected to proceed. Consent was signed. Surgeon: Jessica Logan Click Yes if Unassisted: Yes Anesthesia Type: General and Local Operative Notes Findings: Mildly displaced intertrochanteric hip fracture. Lined up well with traction on the fracture table. Stabilized with short inter villanueva nail from [employer]. Appropriate leg lengths and motion without any evidence of joint penetration on fluoroscopic imaging at the end of the case. Closure Type: primary Specimen(s): none sent Prosthetic devices, grafts, tissues, transplants, or devices: [employer] inter villanueva cephalomedullary nail 11.5 x 18 85/80 lag screw and interlocking compression screw system 30 mm 5.0 locking static screw Estimated Blood Loss (mL): 35 Blood products transfused: none Tourniquet time (min): 0 Procedure in detail: Procedure: The patient was seen and the site of surgery was marked in the patient's room due to the COVID positive status. Then they were brought down directly to the operating room. Site of surgery was the left hip. Patient was brought to the operating room and placed on the operative table and general anesthesia was administered. The patient was positioned on the fracture table in standard fashion with a well-padded boots and a padded peroneal post. A formal time-out was called to confirm the patient's side and site of surgery administration of preoperative antibiotics. All were in agreement. The operative leg was then gently manipulated under fluoroscopic guidance to obtain a closed reduction in near anatomic alignment. At this point the operative extremity was prepped and draped in the standard sterile manner. The starting point was marked out using fluoroscopic guidance and marked on the skin. A guidewire was placed percutaneously and the starting point was obtained. Incision was made over the guidewire. An opening drill was inserted to the level of the lesser trochanter. The opening Reamer and guidewire were then removed. An 18 cm cephalomedullary nail was selected. The 11.5 x 18 cm nail was then slid into the canal. The nail was advanced to the proper depth and rotation. The guide for the cephalomedullary screw was then inserted into the external handle. An incision was made and the guide was placed down to the bone. A guidewire was placed to the proper depth into the femoral head and this was confirmed on AP and lateral imaging. The tip apex distance was evaluated and appropriate. This was measured. Next the outer cortex was drilled for the interlocking screw and the anti rotation bar was placed. The cephalomedullary screw length was then measured off the drill again. A 85 mm lag screw was selected and the corresponding interlocking compression screw. A guidewire was then over drilled and the lag screw placed. The anti rotation bar was removed and then the locking compression screws were placed and confirmed on biplanar fluoroscopy. The integrated compression screw was tightened. Attention was turned to the distal interlock. A 30 mm screw was selected. This was placed with the guide in the standard technique. AP and lateral images were captured in the or confirming alignment hardware placement. Wounds were irrigated and closed in layers with 0 Vicryl in the deep fascia. 2- 0 in the subcutaneous tissue and nirav in the skin. 0.5% Marcaine with epinephrine was injected into the incision sites for local anesthetic. Sterile dressings were applied. There no immediate complications. Surgical counts were correct. The patient tolerated the procedure well. There were recovered in the operative room as per the COVID protocol and then returnes to the floor room. Complications: none Post-operative Condition: stable Disposition: Acute Care Plan for aftercare: Postoperative plan. Weightbear as tolerated to the surgical extremity, and contralateral extremity, use assistive device. Work with physical therapy and occupational therapy. Discharge by primary team. Likely detention. Calcium vitamin-D and her baseline bone density medication for bone health. Encourage incentive spirometry. SCDs and Lovenox for DVT prophylaxis. Recommend Lovenox 4 weeks for hip fracture. Follow-up [facility] in 2 weeks for wound check and repeat x-rays. Keep dressing clean dry and intact. May change of saturated.
[2021-12-12] MEDS: DOCUSATE 100 MG CAPSULE 300 MG PO (21:28)
[2021-12-12] MEDS: MAGNESIUM OXIDE 400 MG TABLET PO (21:28)
[2021-12-12] MEDS: PANTOPRAZOLE DR 40 MG TABLET PO (21:28)
[2021-12-12] MEDS: LACTATED RINGERS 1,000 ML 125 ML IV (21:28)
[2021-12-13 03:59] VITALS: BP 118/72; PULSE 113; RESP 18; O2SAT 95
[2021-12-13] MEDS: HYDROMORPHONE 0.5 MG INJ IV (05:18)
--- NOTE | 2021-12-13 06:06 | PC.NURSE ---
Pt's confusion is intermittent. Will awaken and ask questions re:what happened, where she is, why she's here, essentially alert only to self and year. Other times patient will remember and be fully alert and oriented. Seems to be getting better as the night continues. Throughout the night patient would request pain medication and then immediately fall asleep after request. Pain medication not given until patient more awake and alert. Patient requested IVF be discontinued early due to positional IV and incessant beeping. Educated pt on importance of hydration and requested that she improve her PO intake if IVF was discontinued- pt agreeable and drank approx 300 mL while RN was in the room.
[2021-12-13 07:12] LABS: Hematocrit 35.1 % (36-46); Hemoglobin 11.6 g/dL (12.0-16.0); Mean Corpuscular HGB Conc 33.1 % (30-36); Mean Corpuscular Hemoglobin 32.7 PG (26-34); Mean Corpuscular Volume 98.8 fL (80-100); Platelet Count 136 X10^3/uL (150-400); Red Blood Cell Count 3.55 X10^6/uL (4.0-5.2); Red Cell Distribution Width 15.2 % (11.6-14.8); White Blood Cell Count 5.1 X10^3/uL (4.5-11.0)
[2021-12-13 07:55] VITALS: BP 131/77; PULSE 113; RESP 19; TEMP 36.3; O2SAT 95
[2021-12-13] MEDS: NITROFURANTOIN ER 100 MG CAPSULE PO (08:37)
[2021-12-13] MEDS: diazePAM 5 MG TABLET PO ×2 (08:37→21:27)
[2021-12-13] MEDS: ENOXAPARIN 40 MG/0.4 ML SYRINGE SUBCUT (08:37)
[2021-12-13] MEDS: DOCUSATE 100 MG CAPSULE 300 MG PO ×2 (08:37→21:26)
[2021-12-13] MEDS: BACLOFEN 10 MG TABLET PO (08:37)
[2021-12-13] MEDS: MAGNESIUM OXIDE 400 MG TABLET PO ×2 (08:38→21:26)
[2021-12-13] MEDS: FLUoxetine 10 MG CAPSULE PO (08:38)
[2021-12-13] MEDS: MULTIVITAMIN 1 TABLET 1 TAB PO (08:38)
[2021-12-13] MEDS: PANTOPRAZOLE DR 40 MG TABLET PO ×2 (08:38→21:27)
[2021-12-13] MEDS: MORPHINE ER 15 MG TABLET PO ×2 (08:38→21:27)
[2021-12-13] MEDS: RALOXIFENE 60 MG TABLET PO (08:45)
[2021-12-13] MEDS: SODIUM CHLORIDE 0.9% FLUSH 10 ML IV ×2 (09:11→22:38)
[2021-12-13 09:12] VITALS: O2SAT 95
--- NOTE | 2021-12-13 10:07 | PT.IIE ---
Current Diagnoses Cerebral palsy, unspecified (12/11/21) Unspecified fracture of sacrum, initial encounter for closed fracture (12/11/21) Fracture of unspecified part of neck of left femur, initial encounter for closed fracture (12/11/21) COVID-19 (12/11/21) Surgery Performed Operation Date: 12/12/21 15:30 Actual Procedures p IMN Intertroch fx Femur(Left) - Jessica Logan MD Surgical History (Last Reviewed 12/13/21 @ 10:21 by Jessica Kirby PA-C) History of appendectomy History of cholecystectomy History of hysterectomy History of hysterectomy for benign disease History of laparoscopic appendectomy Medical History (Last Reviewed 12/13/21 @ 10:21 by Jessica Kirby PA-C) Acute shoulder pain Back pain Cerebral palsy Cerebral palsy Fall from ground level Family history of migraine Hematuria History of small bowel obstruction History of small bowel obstruction Morbid obesity due to excess calories Physical Therapy Inpatient Evaluation/Re-Eval M1 PT/OT-IP Prior Functional Status Start: 12/13/21 12:52 Freq: NEEDED Status: Active Protocol: Document 12/13/21 10:07 AB (Rec: 12/13/21 13:06 AB [email or web address]) Medical Review Prior Functional Status Medical History Reviewed Yes Communication able to make needs known but with decrease cognitive level requiring repeated instructions and time to respond Mobility and Gait pt stated that she is modified independent with all mobilities using a 4WW but with difficulty Activities of Daily Living and IADL's pt stated that her spouse assists her with shower needs Social History Household Members spouse,children Living Arrangements House Number of Floors (Floors) One Floor Number of Stairs To Enter/Railing? 2 steps R rail to enter Home Environment Standard Height Toilet,Tub/ Shower Home Equipment Four Wheel Walker,Tub Transfer Bench,Hand Held Shower,Grab Bars In Shower Additional Social History Comment pt lives with spouse but spouse works 11 am to 830 pm. Has 2 teenage boys at home but pt stated that they are his spouse's sons from his first marriage and limited with assistance they can provide for her M2 PT-IP Current Condition Start: 12/13/21 12:52 Freq: NEEDED Status: Active Protocol: Document 12/13/21 10:07 AB (Rec: 12/13/21 13:06 AB [email or web address]) Physical Therapy Current Condition Current Condition Evaluation Date 12/13/21 Treatment Diagnosis L femoral fx s/p nailing; difficulty in walking Onset Date 12/11/21 M3 PT-IP Subjective Start: 12/13/21 12:52 Freq: NEEDED Status: Active Protocol: Document 12/13/21 10:07 AB (Rec: 12/13/21 13:06 AB [email or web address]) Subjective Physical Therapy Visit Type Type Initial Evaluation Visit Start Time 10:07 Visit Stop Time 11:00 Total Visit Minutes 33 Number of CHANNEL TURNER Visits 0 Physical Therapy Visit Comments Patient Goals agreeable to do PT M4 PT-IP Mobility and Gait Start: 12/13/21 12:52 Freq: NEEDED Status: Active Protocol: Document 12/13/21 10:07 AB (Rec: 12/13/21 13:06 AB [email or web address]) PT-Bed Mobility Assessment Supine to Sit Supine to Sit Maximum Assistance,2 Person Assistance,Head of Bed Elevated Scooting Scooting to Edge of Bed Dependent PT-Transfer Assessment Sit to and From Stand Sit to and from Stand Maximum Assistance,2 Person Assistance,Use of Upper Extremities Equipment Transfer Assistive Device Gait Belt,Front Wheeled Walker Orthotic/Prosthetic Devices or Brace: No Transfers Transfer Destination Chair Transfer Technique Stand Pivot Transfer Ability Level of Assist Maximum Assistance,Total Assistance,2 Person Assistance ,Use of Upper Extremities Comments Mobility Comments completed supine to sit max A x 2 and max cues. able to sit on EOB mod A and max cues. noted increase LLE spasticity. completed sit to stand max A x 2 and max cues stand pivot transfer using FWW max A x 2 to total A x 2. pt attempted to step to transfer with unable to complete and PT and NAC has to pivot pt to the chair. with with flexor spasticity on LLE and unable to put LLE on the floor with only toes touch the floor. total A x 2 for positioning on the chair. call light and table placed within reach. PT-Balance Assessment Sitting Balance and Reactions Static Sitting Balance Ability Fair Dynamic Sitting Balance Ability Fair Standing Balance and Reactions Static Standing Balance Ability Poor Dynamic Standing Balance Ability Poor Device Used FWW M5 PT-IP Objective Assessments Start: 12/13/21 12:52 Freq: NEEDED Status: Active Protocol: Document 12/13/21 10:07 AB (Rec: 12/13/21 13:06 AB [email or web address]) Orientation Orientation/Cognition Orientation Name,Place Safety Awareness Decreased Safety Awareness Gross Range of Motion Lower Extremity ROM Assessment Bilaterally Impaired Impairments bilateral ankle limited DF and with increase inversion Strength Lower Extremity Strength Assessment Bilaterally Impaired Comments Strength Comments LLE: 3-/5 RLE: 3+/5 Muscle Tone Muscle Tone WNL No Muscle Tone Location Left Type of Tone Hypertonicity,Flexor Severity of Tone Moderate M6 PT-IP Treatment Start: 12/13/21 12:52 Freq: NEEDED Status: Active Protocol: Document 12/13/21 10:07 AB (Rec: 12/13/21 13:06 AB [email or web address]) Physical Therapy Treatment Education Education Provided Weight Bearing Status,Safety M7 PT-IP Assessment and Plan Start: 12/13/21 12:52 Freq: NEEDED Status: Active Protocol: Document 12/13/21 10:07 AB (Rec: 12/13/21 13:06 AB [id number]) PT Summary Assessment and Plan Potential Rehabilitation Potential Fair Status of Condition at Evaluation Evolving Summary Impairments Pain,ROM,Strength,Balance, Coordination,Sensation,Tone, Cognition,Bed Mobility, Transfers,Gait,Activity Tolerance Assessment Summary pt requiring max A x 2 to total A x 2 with mobility. pt s/p hip fracture nailing but also has CP contributing to current level of assistance with increase LLE spasticity and limited ankle ROM. PT will require SNF rehab to improve strength and function. Goals Bed Mobility Goal Minimal Assistance Transfer Goal Minimal Assistance,Front Wheeled Walker Gait Goal Minimal Assistance,Front Wheel Walker Gait Distance 50 Other Goals improve bed mobility, transfers using FWW SBA improve ambulation using FWW SBA 200 ft Days to Meet Goals 10 Frequency of Treatment Frequency Of Treatment Twice a Day Treatment Plan Physical Therapy Treatment Plan Bed Mobility Training,Transfer Training,Gait Training, Therapeutic Exercise,Balance Retraining,Post Op Education, Discharge Planning,Hot or Cold Pack,Neuromuscular Re-ed, Coordination Retraining,Manual Therapy Weight Bearing Status Weight Bearing Status Weight Bear as Tolerated Allowed Weight Bearing Amount (enter % LLE WBAT or #) (%) Recommendations To Nursing Amount of Assist Needed Mechanical Lift Discharge Recommendations PT Discharge Recommendations SNF Rehab Transportation Needs at Discharge Wheelchair/Cabulance
--- NOTE | 2021-12-13 10:17 | P.PN_ITS ---
Subjective Subjective Date Patient Seen: 12/13/21 Time Patient Seen: 10:19 Interval history: Patient is complaining of severe, generalized pain this morning. She has a chronic pain management patient and uses a walker at baseline. She is also complaining about being hot. Exam Vital Signs (past 8 hours): - 12/13/21 03:59 12/13/21 09:12 Pulse Rate 113 H Respiratory Rate 18 Blood Pressure 118/72 Pulse Oximetry 95 95 Oxygen Delivery Method Room Air Oxygen Delivery Method Room Air Oxygen Flow Rate 2 Narrative Exam Narrative: 41-year-old female, resting comfortably in bed, no acute distress. She is somewhat of a flat affect and appears somewhat disheveled. Dressing is clean, dry, intact. Bilateral lower extremity: Motor function is grossly intact, sensation is grossly intact to light touch, calves are soft and nontender palpation. Objective Labs Result Diagrams: 12/13/21 06:40 12/10/21 23:23 Labs: Laboratory Results - last 24 hr 12/13/21 06:40 WBC 5.1 RBC 3.55 L Hgb 11.6 L Hct 35.1 L MCV 98.8 MCH 32.7 MCHC 33.1 RDW 15.2 H Plt Count 136 L PFSH Medical History Acute shoulder pain Back pain Cerebral palsy Cerebral palsy Fall from ground level Family history of migraine Hematuria History of small bowel obstruction History of small bowel obstruction Morbid obesity due to excess calories Surgical History History of appendectomy History of cholecystectomy History of hysterectomy History of hysterectomy for benign disease History of laparoscopic appendectomy Social History marital status: household members: spouse and children lives independently: Yes caregiver/support person: Yes () Smoking Status: Never smoker alcohol intake: current Assessment & Plan Post-op Postoperative Procedures: Procedures Operation Date: 12/12/21 15:30 Actual Procedure Side Surgeon sesar [place] Intertroch fx Femur Left Jessica Logan MD Postoperative day: 1 Postoperative status: marginal pain control Postoperative status narrative: -status post left cephalomedullary nail for intertrochanteric femur fracture -COVID positive -history of cerebral palsy Postoperative plan narrative: -Weightbear as tolerated to the surgical extremity, and contralateral extremity, use assistive device. -Work with physical therapy and occupational therapy. -Discharge by primary team. Likely correction. -Calcium vitamin-D and her baseline bone density medication for bone health. -Encourage incentive spirometry. -SCDs and Lovenox for DVT prophylaxis. Recommend Lovenox 4 weeks for hip fracture. -Follow-up [facility] in 2 weeks for wound check and repeat x- rays. -Keep dressing clean dry and intact. May change of saturated.
[2021-12-13 11:10] VITALS: BP 145/99; PULSE 110; RESP 20; TEMP 36.3; O2SAT 94
--- NOTE | 2021-12-13 12:26 | CM.DPC ---
DCP Cont: Spoke with RN this afternoon to discuss further plan. Per RN, pt worked with PT and still needs to work with them some more, as she is post op day 1. RN states that she is not getting discharged today. DCP to continue to follow this case and contact [facility] once pt is medically stable for discharge. Constance Rivas, ARACELI/DCP
--- NOTE | 2021-12-13 13:01 | P.PN_ITS ---
Subjective Subjective Date Patient Seen: 12/13/21 Interval history: 41-year-old female with cerebral palsy, osteoporosis, anxiety and depression who is presently hospital the number 2 admitted with a left hip fracture after a fall found to be SARS-CoV-2 positive.. Patient underwent ORIF of her fracture yesterday. Today, she reports she is feeling ?discombobulated?. She states she is feeling a little bit confused. Overnight, nursing reports she had periods of being more lucid and periods of being more confused. Patient denies any nausea or vomiting. She states she slept well overnight. She reports her pain is fairly well controlled. She denies any COVID symptoms. Specifically she denies any cough, shortness of breath, headache or sore throat. Exam Vital Signs (past 8 hours): - 12/13/21 09:12 12/13/21 07:55 12/13/21 11:10 Temperature 97.4 F L 97.4 F L Pulse Rate 113 H 110 H Respiratory Rate 19 20 Blood Pressure 131/77 145/99 H Pulse Oximetry 95 95 94 Oxygen Delivery Method Room Air Oxygen Flow Rate 2 2 Oxygen Delivery Method Room Air Oxygen Flow Rate 2 Narrative Exam Narrative: GEN: Adult female, Alert and oriented x 2, NAD HEENT:NC, Face symmetric CHEST: Respiratory excursions symmetric, CTAB CV: Mildly tachycardic with regular rhythm,, no M/R/G ABD: Soft, NT/ND, BT present in all 4 quadrants, body habitus limits exam EXTR: warm, well perfused, no C/C/E, left hip postop dressing is clean, dry, intact SKIN: warm and dry, no rash NEURO: Alert and oriented x 2, nonfocal Objective Labs Result Diagrams: 12/13/21 06:40 12/10/21 23:23 Labs: Laboratory Results - last 24 hr 12/13/21 06:40 WBC 5.1 RBC 3.55 L Hgb 11.6 L Hct 35.1 L MCV 98.8 MCH 32.7 MCHC 33.1 RDW 15.2 H Plt Count 136 L PFSH Medical History Acute shoulder pain Back pain Cerebral palsy Cerebral palsy Fall from ground level Family history of migraine Hematuria History of small bowel obstruction History of small bowel obstruction Morbid obesity due to excess calories Surgical History History of appendectomy History of cholecystectomy History of hysterectomy History of hysterectomy for benign disease History of laparoscopic appendectomy Social History marital status: household members: spouse and children lives independently: Yes caregiver/support person: Yes () Smoking Status: Never smoker alcohol intake: current Assessment & Plan Assessment & Plan narrative: 1. Postop day 1. From left hip ORIF after mechanical fall Patient has known osteoporosis. She will need further evaluation and management on an outpatient basis given her young age and pathologic fracture. Continue care per Orthopedic surgery. Continue working with therapies. She has been accepted to [facility] for rehab. 2. SARs CoV 2 positivity Patient denies any current symptoms. Will continue droplet precautions. 3. Osteoporosis Patient takes calcium and vitamin-D at home. Would likely benefit from additional workup after discharge. 4. Cerebral palsy Continue as needed treatments, including baclofen muscle relaxants. 5. Acute metabolic encephalopathy Patient is having some disorientation/confusion. Likely multifactorial from opiates, anesthesia, and possibly cystitis. Will continue reorienting frequently. 6. Acute cystitis Patient was placed on Rocephin. Urine culture is positive for Pseudomonas aeruginosa. Will transition to oral ciprofloxacin. 7. Acute hypoxic respiratory failure [place] to be secondary to opiate use. Continue supplemental oxygen as needed. 8. Class 2 obesity BMI is 36.9. This does increase her risk of morbidity related to her cerebral palsy and fractures. 9. Depression Continue SSRI Code status Full Prophylaxis Per Orthopedic surgery patient will continue Lovenox for 4 weeks after surgery. Disposition [facility] for rehab at discharge. Time Spent With Patient Critical Care time: I spent a total of [] minutes of critical care time on this patient's care today; this time is exclusive of procedural time.
--- NOTE | 2021-12-13 14:56 | PT.IPTN ---
Current Diagnoses Cerebral palsy, unspecified (12/11/21) Unspecified fracture of sacrum, initial encounter for closed fracture (12/11/21) Fracture of unspecified part of neck of left femur, initial encounter for closed fracture (12/11/21) COVID-19 (12/11/21) Surgery Performed Operation Date: 12/12/21 15:30 Actual Procedures p IMN Intertroch fx Femur(Left) - Jessica Logan MD Physical Therapy Treatment Note M2 PT-IP Current Condition Start: 12/13/21 12:52 Freq: NEEDED Status: Active Protocol: Document 12/13/21 10:07 AB (Rec: 12/13/21 13:06 AB [id number]) Physical Therapy Current Condition Current Condition Evaluation Date 12/13/21 Treatment Diagnosis L femoral fx s/p nailing; difficulty in walking Onset Date 12/11/21 M3 PT-IP Subjective Start: 12/13/21 12:52 Freq: NEEDED Status: Active Protocol: Document 12/13/21 14:38 KS (Rec: 12/13/21 15:19 KS [id number]) Subjective Physical Therapy Visit Type Type Treatment Note Visit Start Time 14:38 Visit Stop Time 14:56 Total Visit Minutes 18 Notes partial co-treat w/ OT Number of AUTOMOTIVE GLASS TECHNICIAN Visits 1 Physical Therapy Visit Comments Patient Comments Pt not agreeable to stand this PM. M4 PT-IP Mobility and Gait Start: 12/13/21 12:52 Freq: NEEDED Status: Active Protocol: Document 12/13/21 14:38 KS (Rec: 12/13/21 15:19 KS [id number]) PT-Bed Mobility Assessment Rolling Type of Rolling Roll to Right Level of Assist Maximal Assistance,2 Person Assistance Sit to Supine Sit to Supine Maximum Assistance,2 Person Assistance Scooting Scooting to Edge of Bed Dependent PT-Transfer Assessment Comments Mobility Comments Pt in chair upon arrival, not agreeable to try standing and transferring this PM due to pain and fear. Pt unable to provide much assist and needs Max A for sling placement for leanign and elevating LE and scooting EOC. Used mechanical lift to transfer pt from chair to bed. Pt required Max A x2 for rolling and repositioning in bed. Left in bed w/ all needs in reach. Gait Assessment Comments Gait Comments Unable at this time. PT-Balance Assessment Sitting Balance and Reactions Static Sitting Balance Ability Fair Dynamic Sitting Balance Ability Poor M5 PT-IP Objective Assessments Start: 12/13/21 12:52 Freq: NEEDED Status: Active Protocol: Document 12/13/21 10:07 AB (Rec: 12/13/21 13:06 AB [id number]) Orientation Orientation/Cognition Orientation Name,Place Safety Awareness Decreased Safety Awareness Gross Range of Motion Lower Extremity ROM Assessment Bilaterally Impaired Impairments bilateral ankle limited DF and with increase inversion Strength Lower Extremity Strength Assessment Bilaterally Impaired Comments Strength Comments LLE: 3-/5 RLE: 3+/5 Muscle Tone Muscle Tone WNL No Muscle Tone Location Left Type of Tone Hypertonicity,Flexor Severity of Tone Moderate M6 PT-IP Treatment Start: 12/13/21 12:52 Freq: NEEDED Status: Active Protocol: Document 12/13/21 14:38 KS (Rec: 12/13/21 15:19 KS [id number]) Physical Therapy Treatment Education Education Provided Weight Bearing Status,Safety M7 PT-IP Assessment and Plan Start: 12/13/21 12:52 Freq: NEEDED Status: Active Protocol: Document 12/13/21 14:38 KS (Rec: 12/13/21 15:19 KS [id number]) PT Summary Assessment and Plan Potential Rehabilitation Potential Fair Status of Condition at Evaluation Evolving Summary Impairments Pain,ROM,Strength,Balance, Coordination,Sensation,Tone, Cognition,Bed Mobility, Transfers,Gait,Activity Tolerance Assessment Summary Pt required Max A x2 for leaning, rolling, and elevating LE for sling placement and repositioning in bed. Refused transfer and required ayesha lift from chair to bed. Pt stats she is far from her baseline. She will require SNF to improve strength and functional mobility. Goals Bed Mobility Goal Minimal Assistance Transfer Goal Minimal Assistance,Front Wheeled Walker Gait Goal Minimal Assistance,Front Wheel Walker Gait Distance 50 Other Goals improve bed mobility, transfers using FWW SBA improve ambulation using FWW SBA 200 ft Days to Meet Goals 10 Frequency of Treatment Frequency Of Treatment Twice a Day Treatment Plan Physical Therapy Treatment Plan Bed Mobility Training,Transfer Training,Gait Training, Therapeutic Exercise,Balance Retraining,Post Op Education, Discharge Planning,Hot or Cold Pack,Neuromuscular Re-ed, Coordination Retraining,Manual Therapy Weight Bearing Status Weight Bearing Status Weight Bear as Tolerated Allowed Weight Bearing Amount (enter % LLE WBAT or #) (%) Recommendations To Nursing Amount of Assist Needed Mechanical Lift Discharge Recommendations PT Discharge Recommendations SNF Rehab Transportation Needs at Discharge Wheelchair/Cabulance
--- NOTE | 2021-12-13 14:56 | OT.IP.EVAL ---
Current Diagnoses Cerebral palsy, unspecified (12/11/21) Unspecified fracture of sacrum, initial encounter for closed fracture (12/11/21) Fracture of unspecified part of neck of left femur, initial encounter for closed fracture (12/11/21) COVID-19 (12/11/21) Surgery Performed Operation Date: 12/12/21 15:30 Actual Procedures p IMN Intertroch fx Femur(Left) - Jessica Logan MD Past Medical History (Last Reviewed 12/13/21 @ 10:21 by Jessica Kirby PA-C) Acute shoulder pain Back pain Cerebral palsy Cerebral palsy Fall from ground level Family history of migraine Hematuria History of small bowel obstruction History of small bowel obstruction Morbid obesity due to excess calories Surgical History (Last Reviewed 12/13/21 @ 10:21 by Jessica Kirby PA-C) History of appendectomy History of cholecystectomy History of hysterectomy History of hysterectomy for benign disease History of laparoscopic appendectomy Occupational Therapy Inpatient Evaluation/Re-Eval M1 PT/OT-IP Prior Functional Status Start: 12/13/21 12:52 Freq: NEEDED Status: Active Protocol: Document 12/13/21 15:09 [facility] (Rec: 12/13/21 15:30 [facility] [id number]) Medical Review Prior Functional Status Medical History Reviewed Yes Communication able to make needs known but with decrease cognitive level requiring repeated instructions and time to respond Mobility and Gait pt stated that she is modified independent with all mobilities using a 4WW but with difficulty Activities of Daily Living and IADL's pt stated that her spouse assists her with shower needs. Pt states also has GAYLE to assist with her needs and lately since having falls needing more assist with dressing, toileting and showering needs. Social History Household Members spouse,children Living Arrangements House Number of Floors (Floors) One Floor Number of Stairs To Enter/Railing? 2 steps R rail to enter Home Environment Standard Height Toilet,Tub/ Shower Home Equipment Four Wheel Walker,Tub Transfer Bench,Hand Held Shower,Grab Bars In Shower Additional Social History Comment pt lives with spouse but spouse works 11 am to 830 pm. Has 2 teenage boys at home but pt stated that they are his spouse's sons from his first marriage and limited with assistance they can provide for her M2 OT-IP Current Condition Start: 12/13/21 15:08 Freq: Status: Active Protocol: Document 12/13/21 15:09 [facility] (Rec: 12/13/21 15:30 [facility] [id number]) Occupational Therapy Current Condition Current Condition Evaluation Date 12/06/21 Treatment Diagnosis S/p Left hip fracture, Right sacral ala fracture Diagnosis Onset Date 12/13/21 M3 OT- IP Subjective and Pain Start: 12/13/21 15:08 Freq: Status: Active Protocol: Document 12/13/21 15:09 [facility] (Rec: 12/13/21 15:30 [facility] [id number]) OT- Subjective Occupational Therapy Visit Type Type Initial Evaluation Visit Start Time 14:38 Visit Stop Time 14:56 Total Visit Minutes 18 Occupational Therapy Visit Comments Patient Comments Pt just wanting to get back to bed and afraid of falling and just wanting to use Abdiel lift back to bed. Patient/Caregiver Goals TO get better. OT Pain Assessment Pain When Pain Assessed At Rest Pain Present Pain Present Pain Reported Location Left Hip Intensity 8 M4 OT- IP ADL's Start: 12/13/21 15:08 Freq: Status: Active Protocol: Document 12/13/21 15:09 [facility] (Rec: 12/13/21 15:30 [facility] [id number]) OT [id number] Comments OT Self-Feeding Comments Not at meal time. OT ADL-Grooming Comments OT Grooming Comments Not performed. OT ADL-Oral Care Comments Oral Care Comments NOt performed. OT ADL-Dressing Comments OT Dressing Comments Not performed. OT ADL-Toileting Comments OT Toileting Comments Pt has lopez in place. OT ADL-Bathing Comments OT Bathing Comments Sponge bath more appropriate at this time. M5 OT- IP IADL's Start: 12/13/21 15:08 Freq: Status: Active Protocol: Document 12/13/21 15:09 [facility] (Rec: 12/13/21 15:30 [facility] [id number]) OT-Instrumental Activities of Daily Living Home Safety Awareness Home Safety Comments Pt will not be able to care for herself if going home at this time and best for pt to go to skilled rehab. M6 OT- IP Functional Cognition Start: 12/13/21 15:08 Freq: Status: Active Protocol: Document 12/13/21 15:09 [facility] (Rec: 12/13/21 15:30 [facility] [id number]) Cognitive Factors Limiting Selfcare Function Cognitive Ability Level of Alertness Alert Patient Orientation Name,Situation Attention Span Ability Capable of Focused Attention, Capable of Sustained Attention Ability to Follow Commands Able to Follow One Step Commands with Increased Time, Able to Follow One Step Commands with Repetition Cognitive Comments Cognitive Assessment Comments Pt needing concrete cues to follow. Pt inconsistent with her prior history and initially states able to do everything on her own and at the end of the session states gets assist from Gayle and her . M7 OT- IP Mobility and Balance Start: 12/13/21 15:08 Freq: Status: Active Protocol: Document 12/13/21 15:09 [facility] (Rec: 12/13/21 15:30 [facility] [id number]) OT- Bed Mobility Assessment Rolling Level of Assistance Maximum Assistance,2 Person Assistance OT-Transfer Assessment Transfers Transfer Ability Total Assistance Technique Transfer Destination Bed,Chair Devices Transfer Assistive Devices Mechanical Lift Comments Mobility Comments Pt too tired and fearful to try to stand and agreed to use abdiel lift to help get back to bed. OT- Balance Assessment Sitting Balance and Reactions Static Sitting Balance Ability Poor Dynamic Sitting Balance Ability Poor Comments Other Balance Tests/Deviations/Treatment Pt not able to shift her : weight while in the recliner so therapist able to get the sling underneath her. M8 OT- IP Objective Assessments Start: 12/13/21 15:08 Freq: Status: Active Protocol: Document 12/13/21 15:09 [facility] (Rec: 12/13/21 15:30 [facility] [id number]) OT Gross Range of Motion Upper Extremity Range of Motion Assessment Bilaterally Impaired OT Strength Upper Extremity Strength Assessment Bilaterally Impaired M9 OT- IP Assessment and Plan Start: 12/13/21 15:08 Freq: Status: Active Protocol: Document 12/13/21 15:09 [facility] (Rec: 12/13/21 15:30 [facility] [id number]) OT Summary Assessment and Plan Potential Rehabilitation Potential Fair Analytic Complexity at Evaluation High Summary OT Impairments Pain,Range of Motion,Strength, Balance,Functional Cognition, Functional Mobility,Grooming, Dressing,Toileting,Bathing, Toilet Transfers,Shower Transfers,Activity Tolerance Progress Towards Goals Slow Progress due to Pain,Slow Progress due to Medical Issues,Slow Progress due to Activity Tolerance,Slow Progress due to Cognition Assessment Summary Pt high complexity and now needing extensive two person assist for ADL's and mobility needs. Pt far from her baseline for one person assist for dressing and showering needs and states prior able to walk with her walker 30ft 10 days ago. Pt will greatly benefit from skilled rehab. Goals Self-Feeding Goal Standby Assistance Grooming Goal Standby Assistance Dressing Goal Moderate Assistance Toileting Goal Moderate Assistance Bathing Goal Moderate Assistance Toilet Transfer Goal Minimal Assistance Shower Transfer Goal Moderate Assistance Days to Meet Goals 40 Frequency of Treatment Frequency Of Treatment Once a Day Treatment Plan OT Treatment Plan ADL Training,Functional Cognition Training,Functional Mobility,Patient/Family Education,Discharge Planning Other Treatment Recommendations and Next Transfer to [facility] with MAX AX 2 Treatment Focus Discharge Recommendations OT Discharge Recommendations SNF Rehab Transportation Needs at Discharge Stretcher/Ambulance
[2021-12-13 15:45] VITALS: BP 134/95; PULSE 115; RESP 17; TEMP 36.3; O2SAT 95
[2021-12-13] MEDS: CIPROFLOXACIN 250 MG TABLET 500 MG PO (21:27)
[2021-12-13] MEDS: TIZANIDINE 4 MG TABLET 6 MG PO (21:37)
[2021-12-13 21:48] VITALS: BP 141/91; PULSE 113; RESP 20; TEMP 36.6; O2SAT 98
[2021-12-14] MEDS: HYDROMORPHONE 4 MG TABLET PO (06:17)
[2021-12-14] MEDS: CIPROFLOXACIN 250 MG TABLET 500 MG PO ×2 (06:17→21:57)
[2021-12-14 06:27] VITALS: BP 99/53; PULSE 90; RESP 18; O2SAT 96
--- NOTE | 2021-12-14 06:28 | PC.NURSE ---
Pt last BM was on 12/10/21, pt currently only receiving 300 mg od docusate, pt requesting and Laxative.
[2021-12-14 08:45] VITALS: BP 102/50; PULSE 89; RESP 16; TEMP 36.3; O2SAT 96
[2021-12-14] MEDS: ENOXAPARIN 40 MG/0.4 ML SYRINGE SUBCUT (09:10)
[2021-12-14] MEDS: diazePAM 5 MG TABLET PO ×2 (09:10→21:47)
[2021-12-14] MEDS: MULTIVITAMIN 1 TABLET 1 TAB PO (09:10)
[2021-12-14] MEDS: MAGNESIUM OXIDE 400 MG TABLET PO ×2 (09:10→21:47)
[2021-12-14] MEDS: RALOXIFENE 60 MG TABLET PO (09:10)
[2021-12-14] MEDS: MORPHINE ER 15 MG TABLET PO ×2 (09:11→21:46)
[2021-12-14] MEDS: BACLOFEN 10 MG TABLET PO (09:11)
[2021-12-14] MEDS: FLUoxetine 10 MG CAPSULE PO (09:11)
[2021-12-14] MEDS: DOCUSATE 100 MG CAPSULE 300 MG PO ×2 (09:11→21:46)
[2021-12-14] MEDS: PANTOPRAZOLE DR 40 MG TABLET PO ×2 (09:11→21:47)
[2021-12-14] MEDS: polyethylene glycoL 3350 17 GM POWD.PACK PO (09:14)
[2021-12-14] MEDS: SENNOSIDES 8.6 MG TABLET PO ×2 (09:14→21:47)
[2021-12-14] MEDS: SODIUM CHLORIDE 0.9% FLUSH 10 ML IV ×2 (09:15→21:57)
[2021-12-14 09:50] VITALS: O2SAT 89
--- NOTE | 2021-12-14 10:16 | PM.PNPO.1 ---
Subjective Subjective Date Patient Seen: 12/14/21 Time Patient Seen: 08:40 Interval history: Postop day 2 left intertrochanteric hip fracture status post cephalomedullary nail and non operative treatment right subacute sacral fracture. Patient is doing okay she is lying in bed on her right side. Eating some breakfast. No specific complaints today. Discussed surgery where fracture was and the surgical implants. Exam Vital Signs (past 8 hours): - 12/14/21 06:27 12/14/21 08:45 12/14/21 09:50 Temperature 97.4 F L Pulse Rate 90 89 Respiratory Rate 18 16 Blood Pressure 99/53 L 102/50 L Pulse Oximetry 96 96 89 L Oxygen Delivery Method Room Air Oxygen Flow Rate 2 Oxygen Delivery Method Room Air Oxygen Flow Rate 2 Narrative Exam Narrative: General exam is alert oriented. No acute distress Lying on her right side. Respirations are unlabored she is on nasal cannula. Musculoskeletal exam. Left hip dressings are clean and dry. Thigh is soft. Wiggles toes. Calf is soft Objective Labs Result Diagrams: 12/13/21 06:40 12/10/21 23:23 [facility] Medical History Acute shoulder pain Back pain Cerebral palsy Cerebral palsy Fall from ground level Family history of migraine Hematuria History of small bowel obstruction History of small bowel obstruction Morbid obesity due to excess calories Surgical History History of appendectomy History of cholecystectomy History of hysterectomy History of hysterectomy for benign disease History of laparoscopic appendectomy Social History marital status: household members: spouse and children lives independently: Yes caregiver/support person: Yes () Smoking Status: Never smoker alcohol intake: current Assessment & Plan Post-op Postoperative Procedures: Procedures Operation Date: 12/12/21 15:30 Actual Procedure Side Surgeon sesar [place] Intertroch fx Femur Left Jessica Logan MD Postoperative day: 2 Postoperative status: doing well Postoperative status narrative: Postop day 2 left intertrochanteric hip fracture. Also has subacute sacral insufficiency fracture on the right, Weightbear as tolerated both. Uses walker at baseline. Lovenox for DVT prophylaxis Follow-up with Orthopedic surgery outpatient approximately 2 weeks for staple removal may change dressing as needed. Keep the areas dry. Postoperative plan: routine post-op care Time Spent With Patient Time with patient: less than 15 minutes Quality VTE Deep Vein Thrombosis/Pulmonary Embolism Present on Admission: No
--- NOTE | 2021-12-14 12:14 | CM.DPC ---
DCP Cont: DCP contacted [facility] to inquire about potential transfer to facility today. [facility] states that they are unable to transfer pt today due to staffing. [facility] can accept tomorrow pending time. DCP to contact [facility] in the AM to determine what time to transfer pt. [facility] will provide transport. DCP to continue to follow. New covid swab to be ordered. Constance Rivas RN/DCP
--- NOTE | 2021-12-14 15:48 | PT.IPTN ---
Current Diagnoses Cerebral palsy, unspecified (12/11/21) Unspecified fracture of sacrum, initial encounter for closed fracture (12/11/21) Fracture of unspecified part of neck of left femur, initial encounter for closed fracture (12/11/21) COVID-19 (12/11/21) Surgery Performed Operation Date: 12/12/21 15:30 Actual Procedures p IMN Intertroch fx Femur(Left) - Jessica Logan MD Physical Therapy Treatment Note M2 PT-IP Current Condition Start: 12/13/21 12:52 Freq: NEEDED Status: Active Protocol: Document 12/13/21 10:07 AB (Rec: 12/13/21 13:06 AB [id number]) Physical Therapy Current Condition Current Condition Evaluation Date 12/13/21 Treatment Diagnosis L femoral fx s/p nailing; difficulty in walking Onset Date 12/11/21 M3 PT-IP Subjective Start: 12/13/21 12:52 Freq: NEEDED Status: Active Protocol: Document 12/14/21 15:48 AW (Rec: 12/14/21 16:19 AW [id number]) Subjective Physical Therapy Visit Type Type Treatment Note Visit Start Time 15:08 Visit Stop Time 15:48 Total Visit Minutes 40 Number of CAD ADMINISTRATOR Visits 0 Physical Therapy Visit Comments Patient Comments I sat in the chair for a long time yesterday. I don't think I can do that again. M4 PT-IP Mobility and Gait Start: 12/13/21 12:52 Freq: NEEDED Status: Active Protocol: Document 12/14/21 15:48 AW (Rec: 12/14/21 16:19 AW [id number]) PT-Bed Mobility Assessment Rolling Type of Rolling Roll to Right Level of Assist Maximal Assistance,1 Person Assistance Supine to Sit Supine to Sit Maximum Assistance,1 Person Assistance,Head of Bed Elevated,Bedrails Sit to Supine Sit to Supine Maximum Assistance,1 Person Assistance Scooting Scooting to Edge of Bed Maximum Assistance PT-Transfer Assessment Comments Mobility Comments Pt was lying in bed as PT arrived. BP 140/79 HR 100 SpO2 95% on room air. She was lying on her right side and complained of increased pain as PT attempted to assist her with hip flexion to move her legs toward EOB. With pillow between legs, pt was eventually able to tolerate having her legs slid toward EOB to dangle. She attempted to right her trunk with HOB at 20 degrees but was unable with max A. PT raised HOB to 45 degrees and pt was able to sit up with max A and heavy use of bed rail with left hand . Pt has scoliosis affecting seated posture but once upright, she was able to maintain sitting ~8 minutes before agreeing to slide forward to attempt getting weight on her feet. Max A to scoot forward as pt pulled on walker frame stabilized by PT. Pt then stated bed was too high to attempt standing and she was too fatigued for more activity. Max A for return to supine and to reposition on right side. Pt was left with call light and tray table in reach. Gait Assessment Comments Gait Comments Unable at this time. PT-Balance Assessment Sitting Balance and Reactions Static Sitting Balance Ability Poor Dynamic Sitting Balance Ability Poor M5 PT-IP Objective Assessments Start: 12/13/21 12:52 Freq: NEEDED Status: Active Protocol: Document 12/13/21 10:07 AB (Rec: 12/13/21 13:06 AB [id number]) Orientation Orientation/Cognition Orientation Name,Place Safety Awareness Decreased Safety Awareness Gross Range of Motion Lower Extremity ROM Assessment Bilaterally Impaired Impairments bilateral ankle limited DF and with increase inversion Strength Lower Extremity Strength Assessment Bilaterally Impaired Comments Strength Comments LLE: 3-/5 RLE: 3+/5 Muscle Tone Muscle Tone WNL No Muscle Tone Location Left Type of Tone Hypertonicity,Flexor Severity of Tone Moderate M6 PT-IP Treatment Start: 12/13/21 12:52 Freq: NEEDED Status: Active Protocol: Document 12/14/21 15:48 AW (Rec: 12/14/21 16:19 AW [id number]) Physical Therapy Treatment Education Education Provided Weight Bearing Status,Safety M7 PT-IP Assessment and Plan Start: 12/13/21 12:52 Freq: NEEDED Status: Active Protocol: Document 12/14/21 15:48 AW (Rec: 12/14/21 16:19 AW [id number]) PT Summary Assessment and Plan Potential Rehabilitation Potential Fair Status of Condition at Evaluation Evolving Summary Impairments Pain,ROM,Strength,Balance, Coordination,Sensation,Tone, Cognition,Bed Mobility, Transfers,Gait,Activity Tolerance Assessment Summary With extra time and encouragement, pt improved her bed mobility to Max A x 1. She sat ~8 minutes EOB with UE support. She refused transfer . She will require SNF to improve strength and functional mobility. Goals Bed Mobility Goal Minimal Assistance Transfer Goal Minimal Assistance,Front Wheeled Walker Gait Goal Minimal Assistance,Front Wheel Walker Gait Distance 50 Other Goals improve bed mobility, transfers using FWW SBA improve ambulation using FWW SBA 200 ft Days to Meet Goals 10 Frequency of Treatment Frequency Of Treatment Twice a Day Treatment Plan Physical Therapy Treatment Plan Bed Mobility Training,Transfer Training,Gait Training, Therapeutic Exercise,Balance Retraining,Post Op Education, Discharge Planning,Hot or Cold Pack,Neuromuscular Re-ed, Coordination Retraining,Manual Therapy Weight Bearing Status Weight Bearing Status Weight Bear as Tolerated Allowed Weight Bearing Amount (enter % LLE WBAT or #) (%) Recommendations To Nursing Amount of Assist Needed Mechanical Lift Discharge Recommendations PT Discharge Recommendations SNF Rehab Transportation Needs at Discharge Wheelchair/Cabulance
[2021-12-14 17:00] VITALS: BP 146/76; PULSE 101; RESP 18; TEMP 36.7; O2SAT 95
--- NOTE | 2021-12-14 19:01 | PM.PN.1 ---
Subjective Subjective Date Patient Seen: 12/14/21 Interval history: 41-year-old female with cerebral palsy, osteoporosis, anxiety and depression who is presently hospital day number 3 admitted with a left hip fracture after a fall found to be SARS-CoV-2 positive.? Patient underwent ORIF of her fracture 12/12/21.? Still denies any COVID symptoms. No SOB/cough. Reports she is feeling clearer today than yesterday. Continued hip pain. Exam Vital Signs (past 8 hours): - 12/14/21 17:00 Temperature 98.0 F Pulse Rate 101 H Respiratory Rate 18 Blood Pressure 146/76 H Pulse Oximetry 95 Oxygen Flow Rate 0 Oxygen Delivery Method Room Air Oxygen Flow Rate 0 Narrative Exam Narrative: GEN:? Adult female, Alert and oriented x 3, NAD HEENT:NC, Face symmetric CHEST: Respiratory excursions symmetric, CTAB CV:? Mildly tachycardic with regular rhythm, no M/R/G ABD: Soft, NT/ND, BT present in all 4 quadrants, body habitus limits exam EXTR: warm, well perfused, no C/C/E, left hip postop dressing is clean, dry, intact SKIN: warm and dry, no rash NEURO: Alert and oriented x 3, nonfocal Objective Labs Result Diagrams: 12/13/21 06:40 12/10/21 23:23 PFSH Medical History Acute shoulder pain Back pain Cerebral palsy Cerebral palsy Fall from ground level Family history of migraine Hematuria History of small bowel obstruction History of small bowel obstruction Morbid obesity due to excess calories Surgical History History of appendectomy History of cholecystectomy History of hysterectomy History of hysterectomy for benign disease History of laparoscopic appendectomy Social History marital status: household members: spouse and children lives independently: Yes caregiver/support person: Yes () Smoking Status: Never smoker alcohol intake: current Assessment & Plan Assessment & Plan narrative: 1. Postop day 2. From left hip ORIF after mechanical fall Patient has known osteoporosis.? She will need further evaluation and management on an outpatient basis given her young age and pathologic fracture.? Continue care per Orthopedic surgery.? Continue working with therapies.? She has been accepted [facility]. Uncertain when a bed will be available (possibly tomorrow). 2. SARs CoV 2 positivity Patient denies any current symptoms.? Will continue droplet precautions.? 3. Osteoporosis Patient takes calcium and vitamin-D at home.? Would likely benefit from additional workup after discharge. 4. Cerebral palsy Continue as needed treatments, including baclofen muscle relaxants. 5. Acute metabolic encephalopathy Patient is having some disorientation/confusion.? Likely multifactorial from opiates, anesthesia, and possibly cystitis.? Will continue reorienting frequently. 6. Acute cystitis Patient was placed on Rocephin.? Urine culture is positive for Pseudomonas aeruginosa.? Will transition to oral ciprofloxacin. 7. Acute hypoxic respiratory failure [place] to be secondary to opiate use.? Continue supplemental oxygen as needed. 8. Class 2 obesity BMI is 36.9.? This does increase her risk of morbidity related to her cerebral palsy and fractures. 9. Depression Continue SSRI Code status Full Prophylaxis Per Orthopedic surgery patient will continue Lovenox for 4 weeks after surgery. Disposition [facility] for rehab at discharge. Time Spent With Patient Critical Care time: I spent a total of [] minutes of critical care time on this patient's care today; this time is exclusive of procedural time. Quality VTE Deep Vein Thrombosis/Pulmonary Embolism Present on Admission: No
[2021-12-14 22:14] VITALS: BP 141/74; PULSE 113; RESP 16; TEMP 36.5; O2SAT 96
[2021-12-15] MEDS: HYDROMORPHONE 4 MG TABLET PO (04:09)
--- NOTE | 2021-12-15 04:35 | PC.NURSE ---
Pt not wanting to turn in bed, needs encouragement. Tonight pt has been complaining of pain to right hip and wanting pain medications. Pt was given routine medications at the beginning. Pt unable to keep eyes open while this nurse in the room. Pt was slightly turned in bed using the turn assist in the bed. Pt asked for pain medications around 0400 this morning, pt was awake and conversing with this nurse. pt was reposition using tilt device in bed.
--- NOTE | 2021-12-15 05:23 | P.PN_ITS ---
Subjective Subjective Date Patient Seen: 12/14/21 Exam Vital Signs (past 8 hours): - 12/14/21 22:14 Temperature 97.7 F Pulse Rate 113 H Respiratory Rate 16 Blood Pressure 141/74 H Pulse Oximetry 96 Oxygen Delivery Method Room Air Oxygen Flow Rate 0 Narrative Exam Narrative: GEN:? Adult female, Alert and oriented x 3, NAD HEENT:NC, Face symmetric CHEST: Respiratory excursions symmetric, CTAB CV:? Mildly tachycardic with regular rhythm, no M/R/G ABD: Soft, NT/ND, BT present in all 4 quadrants, body habitus limits exam EXTR: warm, well perfused, no C/C/E, left hip postop dressing is clean, dry, intact SKIN: warm and dry, no rash NEURO: Alert and oriented x 3, nonfocal Objective Labs Result Diagrams: 12/13/21 06:40 12/10/21 23:23 [facility] Medical History Acute shoulder pain Back pain Cerebral palsy Cerebral palsy Fall from ground level Family history of migraine Hematuria History of small bowel obstruction History of small bowel obstruction Morbid obesity due to excess calories Surgical History History of appendectomy History of cholecystectomy History of hysterectomy History of hysterectomy for benign disease History of laparoscopic appendectomy Social History marital status: household members: spouse and children lives independently: Yes caregiver/support person: Yes () Smoking Status: Never smoker alcohol intake: current Assessment & Plan Assessment & Plan narrative: 41-year-old female with cerebral palsy, osteoporosis, anxiety and depression admitted with a left hip fracture after a fall found to be SARS-CoV-2 positive.? Patient underwent ORIF of her fracture 12/12/21.? Still denies any COVID symptoms. No SOB/cough. Reports she is feeling clearer today than yesterday. Continued hip pain. 1. Postop day 2. From left hip ORIF after mechanical fall Patient has known osteoporosis.? She will need further evaluation and management on an outpatient basis given her young age and pathologic fracture.? Continue care per Orthopedic surgery.? Continue working with therapies.? She has been accepted to [facility] for [facility]hab. Uncertain when a bed will be available (possibly tomorrow). 2. SARs CoV 2 positivity Patient denies any current symptoms.? Will continue droplet precautions.? 3. Osteoporosis Patient takes calcium and vitamin-D at home.? Would likely benefit from additional workup after discharge. 4. Cerebral palsy Continue as needed treatments, including baclofen muscle relaxants. 5. Acute metabolic encephalopathy Patient is having some disorientation/confusion.? Likely multifactorial from opiates, anesthesia, and possibly cystitis.? Will continue reorienting frequently. 6. Acute cystitis Patient was placed on Rocephin.? Urine culture is positive for Pseudomonas aeruginosa.? Will transition to oral ciprofloxacin. 7. Acute hypoxic respiratory failure [place] to be secondary to opiate use.? Continue supplemental oxygen as needed. 8. Class 2 obesity BMI is 36.9.? This does increase her risk of morbidity related to her cerebral palsy and fractures. 9. Depression Continue SSRI Code status Full Prophylaxis Per Orthopedic surgery patient will continue Lovenox for 4 weeks after surgery. Disposition [facility] for rehab at discharge. Time Spent With Patient Critical Care time: I spent a total of [] minutes of critical care time on this patient's care today; this time is exclusive of procedural time. Quality VTE Deep Vein Thrombosis/Pulmonary Embolism Present on Admission: No
[2021-12-15 08:00] VITALS: BP 146/80; PULSE 99; RESP 20; TEMP 36.5; O2SAT 98
--- NOTE | 2021-12-15 08:53 | CM.DPC ---
Addendum entered by Constance Rivas R.N. 12/15/21 10:58: DCP spoke to YelenaJAMILA for pt, this morning to update her on patient plan. DCP verbalized to Yelena that the pt will be discharged today @ 1330 and transferred to SNF for rehab. Yelena agreeable to plan. Yelena wants a copy of POA paperwork sent to [facility]. Yelena thankful for the call. COVID swab came back negative and DCP left message for [facility] to update. DCP having director of primary care fax over PAS[facility], med list, and rx's. ADJ Original Note: DCP Cont: DCP spoke to [facility] this morning to discuss transport. Pt to go to [facility] SNF today @ 1330. COVID swab ordered. DCP to fax PASRR, signed med list, and any rx's. DCP to update team. Constance Rivas RN/EMANUELP
[2021-12-15] MEDS: DOCUSATE 100 MG CAPSULE 300 MG PO (09:30)
[2021-12-15] MEDS: CIPROFLOXACIN 250 MG TABLET 500 MG PO (09:30)
[2021-12-15] MEDS: ENOXAPARIN 40 MG/0.4 ML SYRINGE SUBCUT (09:30)
[2021-12-15] MEDS: MULTIVITAMIN 1 TABLET 1 TAB PO (09:30)
[2021-12-15] MEDS: SENNOSIDES 8.6 MG TABLET PO (09:31)
[2021-12-15] MEDS: FLUoxetine 10 MG CAPSULE PO (09:31)
[2021-12-15] MEDS: MORPHINE ER 15 MG TABLET PO (09:31)
[2021-12-15] MEDS: BACLOFEN 10 MG TABLET PO (09:31)
[2021-12-15] MEDS: diazePAM 5 MG TABLET PO (09:32)
[2021-12-15] MEDS: MAGNESIUM OXIDE 400 MG TABLET PO (09:32)
[2021-12-15] MEDS: PANTOPRAZOLE DR 40 MG TABLET PO (09:32)
[2021-12-15] MEDS: SODIUM CHLORIDE 0.9% FLUSH 10 ML IV (09:33)
[2021-12-15] MEDS: RALOXIFENE 60 MG TABLET PO (09:34)
[2021-12-15 09:35] VITALS: O2SAT 98
--- NOTE | 2021-12-15 09:53 | OT.IP.TRT ---
Current Diagnoses Cerebral palsy, unspecified (12/11/21) Unspecified fracture of sacrum, initial encounter for closed fracture (12/11/21) Fracture of unspecified part of neck of left femur, initial encounter for closed fracture (12/11/21) COVID-19 (12/11/21) Surgery Performed Operation Date: 12/12/21 15:30 Actual Procedures p IMN Intertroch fx Femur(Left) - Jessica Logan MD Occupational Therapy Treatment Note M2 OT-IP Current Condition Start: 12/13/21 15:08 Freq: Status: Active Protocol: Document 12/13/21 15:09 [facility] (Rec: 12/13/21 15:30 [facility] [id number]) Occupational Therapy Current Condition Current Condition Evaluation Date 12/06/21 Treatment Diagnosis S/p Left hip fracture, Right sacral ala fracture Diagnosis Onset Date 12/13/21 M3 OT- IP Subjective and Pain Start: 12/13/21 15:08 Freq: Status: Active Protocol: Document 12/15/21 11:34 [facility] (Rec: 12/15/21 11:43 [facility] [id number]) OT- Subjective Occupational Therapy Visit Type Type Progress Note Visit Start Time 09:20 Visit Stop Time 09:53 Total Visit Minutes 33 Notes Pt agreeable to getting up to chair OT Pain Assessment Pain When Pain Assessed During Mobility Pain Present Pain Present Pain Reported Location Left Hip Intensity 9 Scale Used Numeric (0 - 10) Management Techniques Modification of Treatment,Re- positioning,Timing of Activity with Medications M4 OT- IP ADL's Start: 12/13/21 15:08 Freq: Status: Active Protocol: Document 12/15/21 11:34 [facility] (Rec: 12/15/21 11:43 [facility] [id number]) OT [id number] Comments OT Self-Feeding Comments not meal time OT ADL-Grooming General Evaluation Grooming Ability Standby Assistance Areas Needing Assistance Combing/Brushing Hair,Face Washing Comments OT Grooming Comments seated in chair at sink OT ADL-Oral Care General Eval Oral Care Ability Standby Assistance Comments Oral Care Comments seated in chair at sink OT ADL-Dressing Comments OT Dressing Comments not performed OT ADL-Toileting Comments OT Toileting Comments pt with lopez OT ADL-Bathing Comments OT Bathing Comments not performed M5 OT- IP IADL's Start: 12/13/21 15:08 Freq: Status: Active Protocol: Document 12/13/21 15:09 [facility] (Rec: 12/13/21 15:30 [facility] [id number]) OT-Instrumental Activities of Daily Living Home Safety Awareness Home Safety Comments Pt arnulfo not be able to care fore herself if going home at this time and best for pt to go to skilled rehab. M6 OT- IP Functional Cognition Start: 12/13/21 15:08 Freq: Status: Active Protocol: Document 12/13/21 15:09 [facility] (Rec: 12/13/21 15:30 [facility] [id number]) Cognitive Factors Limiting Selfcare Function Cognitive Ability Level of Alertness Alert Patient Orientation Name,Situation Attention Span Ability Capable of Focused Attention, Capable of Sustained Attention Ability to Follow Commands Able to Follow One Step Commands with Increased Time, Able to Follow One Step Commands with Repetition Cognitive Comments Cognitive Assessment Comments Pt needing concrete cues to follow. Pt inconsistent with her prior history and initially states able to do everything on her own and at the end of the session states gets assist from Gayle and her . M7 OT- IP Mobility and Balance Start: 12/13/21 15:08 Freq: Status: Active Protocol: Document 12/15/21 11:34 [facility] (Rec: 12/15/21 11:43 [facility] [id number]) OT- Bed Mobility Assessment Supine to Sit Supine to Sit Assist Minimal Assistance Scooting Scooting to Edge of Bed Standby Assistance OT-Transfer Assessment Sit to and From Stand Sit to and from Stand Contact Guard Assistance Transfers Transfer Ability Contact Guard Assistance Technique Transfer Destination Bed,Car Transfer Technique Squat Pivot Devices Transfer Assistive Devices Gait Belt Comments Mobility Comments Pt prefers to transfer to her right. Pt was able to perform bed mobility from side lying to sitting with min a for her feet/legs. Pt then stood and transfered holding onto the chair. OT- Gait Assessment Comments Gait Ability Comments Did not occur OT- Balance Assessment Sitting Balance and Reactions Static Sitting Balance Ability Fair M8 OT- IP Objective Assessments Start: 12/13/21 15:08 Freq: Status: Active Protocol: Document 12/13/21 15:09 [facility] (Rec: 12/13/21 15:30 [facility] [id number]) OT Gross Range of Motion Upper Extremity Range of Motion Assessment Bilaterally Impaired OT Strength Upper Extremity Strength Assessment Bilaterally Impaired M9 OT- IP Assessment and Plan Start: 12/13/21 15:08 Freq: Status: Active Protocol: Document 12/15/21 11:34 [facility] (Rec: 12/15/21 11:43 [facility] [id number]) OT Summary Assessment and Plan Potential Rehabilitation Potential Fair Analytic Complexity at Evaluation High Summary OT Impairments Pain,Range of Motion,Strength, Balance,Functional Cognition, Functional Mobility,Grooming, Dressing,Toileting,Bathing, Toilet Transfers,Shower Transfers,Activity Tolerance Progress Towards Goals Slow Progress due to Pain,Slow Progress due to Medical Issues,Slow Progress due to Activity Tolerance,Slow Progress due to Cognition Assessment Summary Pt was able to transfer today to chair with CGA but reports 9/10 pain with movement. Pt was able to participate in ADLs seated at sink. Pt left up in chair at end of session. Goals Self-Feeding Goal Standby Assistance Grooming Goal Standby Assistance Dressing Goal Moderate Assistance Toileting Goal Moderate Assistance Bathing Goal Moderate Assistance Toilet Transfer Goal Minimal Assistance Shower Transfer Goal Moderate Assistance Days to Meet Goals 40 Frequency of Treatment Frequency Of Treatment Once a Day Treatment Plan OT Treatment Plan ADL Training,Functional Cognition Training,Functional Mobility,Patient/Family Education,Discharge Planning Other Treatment Recommendations and Next Shower if able Treatment Focus Discharge Recommendations OT Discharge Recommendations SNF Rehab Transportation Needs at Discharge Wheelchair/Cabulance
[2021-12-15 10:25] LABS: COVID19 -Nasal RAPID Negative (Negative)
--- NOTE | 2021-12-15 10:51 | PM.DS.1 ---
History of Present Illness History of Present Illness Date Patient Seen: 12/15/21 Time Patient Seen: 10:52 Chief complaint: Hip Pain Narrative: Ms. Alex Bynum is a 41W with PMH cerebral palsy, osteoporosis, anxiety, and depression who presents after a fall with left hip pain. She was at home and trying to get up after going to the bathroom. She was trying to use her walker, but had not locked the brake and this caused her to fall on her left hip. She had significant pain after the fall, and could not ambulate. She denied loss of consciousness of hitting her head. She did have some congestion, and has vaccinated and boosted for COVID. She has no shortness of breath. En route with EMS she was given pain medications and reportedly had drop in her oxygen to the 80s. In the ED workup was done, vitals notable for no significant abnormality. Labs notable for WBC 7.3, hgb 12.9, creatinine 0.83. COVID positive. Chest xray showed no acute process. Pelvic CT shows comminuted, angulated, displaced left intertrochanteric femur fracture. She was given pain medications and admitted for further treatment. She was not requiring oxygen throughout her ED stay. Family history: asked and patient states she has no family with medical problems Discharge Providers Provider Date of admission: 12/11/21 03:04 Discharge Date: 12/15/21 Primary care physician: Yadira Storm MD Consults: 12/11/21 05:02 Consult to Orthopedic Surgery Routine Comment: Consulting Provider: Jessica Logan Reason for consultation: hip fracture Has provider been notified: Yes 12/12/21 19:15 Consult to Discharge Planning Routine Comment: Consult to Physical Therapy Evaluate & Treat Comment: wbat with walker Physician Instructions: Evaluate and Treat Consult to Respiratory Therapy Evaluate & Treat Comment: Physician Instructions: Evaluate and treat 12/13/21 10:15 Consult to Occupational Therapy Evaluate & Treat Comment: s/p left hip ORIF; h/o cerebral palsy Physician Instructions: Evaluate and treat Discharge provider: Ariel Chavez DO Summary Hospital Course Discharge Diagnosis: 1. Left hip ORIF after mechanical fall, present on admission Patient has known osteoporosis.? She will need further evaluation and management on an outpatient basis given her young age and pathologic fracture.? Continue care per Orthopedic surgery.? Continue working with therapies.? She has been accepted to [facility] for rehab.? Uncertain when a bed will be available (possibly tomorrow). 2. SARs CoV 2 positivity Patient denies any current symptoms.? Will continue droplet precautions.? 3. Osteoporosis Patient takes calcium and vitamin-D at home.? Would likely benefit from additional workup after discharge. 4. Cerebral palsy Continue as needed treatments, including baclofen muscle relaxants. 5. Acute metabolic encephalopathy Patient is having some disorientation/confusion.? Likely multifactorial from opiates, anesthesia, and possibly cystitis.? Will continue reorienting frequently. 6. Acute cystitis Patient was placed on Rocephin.? Urine culture is positive for Pseudomonas aeruginosa.? Will transition to oral ciprofloxacin. 7. Acute hypoxic respiratory failure Julian to be secondary to opiate use.? Continue supplemental oxygen as needed. 8. Class 2 obesity BMI is 36.9.? This does increase her risk of morbidity related to her cerebral palsy and fractures. 9. Depression Continue SSRI Hospital Course: 41-year-old female with cerebral palsy, osteoporosis, anxiety and depression who is presently hospital day number 3 admitted with a left hip fracture after a fall found to be SARS-CoV-2 positive.? Patient underwent ORIF of her fracture 12/12/21.? Still denies any COVID symptoms.? No SOB/cough.? Reports she is feeling clearer today than yesterday.? Continued hip pain. PT recommending SNF so patient discharged to [facility]. Found to have cysititis with Pseudomonas so will have 1 additional day of oral cipro to complete course. Will need 4 weeks of lovenox for DVT prophylaxis. Will f/u in 2 weeks in ortho clinic for eval. Exam Vital Signs (past 8 hours): - 12/15/21 08:00 12/15/21 09:35 12/15/21 09:35 Temperature 97.7 F Pulse Rate 99 H Respiratory Rate 20 Blood Pressure 146/80 H Pulse Oximetry 98 98 Oxygen Delivery Method Room Air Room Air Oxygen Flow Rate 0 Oxygen Delivery Method Room Air Oxygen Flow Rate 0 Narrative Exam Narrative: GEN:? Adult female, Alert and oriented x 3, NAD HEENT:NC, Face symmetric CHEST: Respiratory excursions symmetric, CTAB CV:? Mildly tachycardic with regular rhythm, no M/R/G ABD: Soft, NT/ND, BT present in all 4 quadrants, body habitus limits exam EXTR: warm, well perfused, no C/C/E, left hip postop dressing is clean, dry, intact SKIN: warm and dry, no rash NEURO: Alert and oriented x 3, nonfocal Objective Labs Result Diagrams: 12/13/21 06:40 12/10/21 23:23 Labs: Laboratory Results - last 24 hr 12/15/21 09:56 SARS-CoV-2 (PCR) Negative [facility] Medical History Acute shoulder pain Back pain Cerebral palsy Cerebral palsy Fall from ground level Family history of migraine Hematuria History of small bowel obstruction History of small bowel obstruction Morbid obesity due to excess calories Surgical History History of appendectomy History of cholecystectomy History of hysterectomy History of hysterectomy for benign disease History of laparoscopic appendectomy Social History marital status: household members: spouse and children lives independently: Yes caregiver/support person: Yes () Smoking Status: Never smoker alcohol intake: current Discharge Plan Discharge Plan Patient Disposition: SNF Transfer to: [facility] Discharge orders & Medications Prescriptions: New ciprofloxacin HCl 500 mg tablet 500 mg PO 0700,2100 1 Days Qty: 2 0RF enoxaparin [Lovenox] 40 mg/0.4 mL Syringe 40 mg SUBCUT DAILY 30 Days Qty: 4 0RF Continued nystatin 30 GM ointment 15 gm Topical DAILY PRN (Reason: Rash) Qty: 0 ondansetron 4 MG tablet,disintegrating 8 mg Sublingual Q6HP PRN (Reason: Nausea) Qty: 0 omega 6-ydn-xoh-fish oil [Fish Oil] 1,000 MG capsule 1,000 mg PO QDAY Qty: 0 omeprazole 20 mg capsule,delayed release(DR/EC) 20 mg PO QID magnesium 500 mg Tablet 500 mg PO BID Adults Multivitamin 18 mg iron-400 mcg-25 mcg Tablet 1 tab PO DAILY phenazopyridine 200 mg tablet 200 mg PO BID phenolphthalein 90 mg Tablet 75 mg PO BID docusate sodium 100 mg Tablet 300 mg PO BID morphine 15 mg tablet extended release 15 mg PO BID 30 Days Qty: 60 0RF diazepam 5 mg tablet 5 mg PO BID 30 Days Qty: 60 0RF oxycodone 5 mg tablet 5 mg PO Q4H PRN (Reason: Pain (Scale Score 1-3)) 30 Days Qty: 30 0RF methocarbamol 500 mg tablet 500 mg PO QID baclofen 10 mg tablet 10 mg PO DAILY albuterol sulfate 90 mcg/actuation HFA aerosol inhaler 2 puff inhalation DAILY tizanidine 6 mg capsule 6 dose PO TID fluconazole 150 mg tablet 150 mg PO QWEEK Qty: 1 0RF trazodone 50 mg tablet 50 mg PO BEDTIME PRN (Reason: sleep) raloxifene 60 mg tablet 60 mg PO DAILY Pulmicort Flexhaler 180 mcg/actuation aerosol powdr breath activated 1 inh inhalation DAILY fluoxetine 10 mg capsule 10 mg PO DAILY Discontinued ketorolac 10 MG tablet 10 mg PO Q6H PRN (Reason: Migraine Headache) Qty: 0 nitrofurantoin 100 mg Capsule 100 mg PO DAILY ibuprofen 600 mg tablet 800 mg PO BID Follow up/Referrals: Jessica Logan MD [Physician] - (Two weeks for wound check and postop x-rays) Yadira Storm MD [Primary Care Provider] - (Will need follow-up for pathologic fragility fracture at her young age.) Diet/Activity/Treatments Diet: Regular Other treatments: -Weightbear as tolerated to the surgical extremity, and contralateral extremity, use assistive device. -continue exercises from physical/occupational therapy -Calcium vitamin-D and her baseline bone density medication for bone health. -Encourage incentive spirometry. -Lovenox 4 weeks for hip fracture, to prevent blood clots. -Keep dressing clean dry and intact. Please call office if it becomes saturated. -Follow-up [facility] in 2 weeks for wound check and repeat x-rays. Discharge Data Primary Care Provider: Yadira Storm Quality VTE Deep Vein Thrombosis/Pulmonary Embolism Present on Admission: No
[2021-12-15] MEDS: polyethylene glycoL 3350 17 GM POWD.PACK PO (11:42)
--- NOTE | 2021-12-15 11:45 | PT-IP ANOTE ---
CASSANDRA Sauceda and BROOKS Pena spoke with nursing before entering pt room, told pt - for COVID and no contact percautions needed to enter room, discusssed nursing just assisted pt back to bed via mechanical lift due to pt is max of 2 persons and feeling more weak today after being up in chair for a while but encouraged see if pt willing to work with therapy. Pt laying in bed on R side when arrived approx 1145, pt declined working with therapy stating just recently got back into bed with nursing and really tired. Pt stated wants to rest and conserve her energy before being transferred to SNF at 1330. [employer] discussed importance of mobility and pt understanding benefits, she states will work more with therapy at the SNF. Pt didn't have any further questions for PT. Pt was not seen, defer mobility progress to SNF.
--- NOTE | 2021-12-15 12:30 | PC.NURSE ---
last BM 27th provider aware. pt refusing suppository.
== END 2021-12-15 13:41 | DRG 480 ==
LOC: ED 12-11 01:29 → AC 12-11 03:05
PROVIDERS: Orthopaedic Surgery Foot and Ankle Surgery; Student in an Organized Health Care Education/Training Program; Admitting Provider Internal Medicine; Emergency Provider Emergency Medicine; PCP Internal Medicine; Referring Provider Emergency Medicine; Visit Provider Internal Medicine
PROC: 0QS736Z Reposition Left Upper Femur with Intramedullary Internal Fixation Device, Percutaneous Approach (ICD-10-PCS; CPT 27245; principal; 2021-12-12 15:30)
DX: M80.052A Age-related osteoporosis with current pathological fracture, left femur, initial encounter for fracture (principal); J96.01 Acute respiratory failure with hypoxia; U07.1 COVID-19; G93.41 Metabolic encephalopathy; N30.00 Acute cystitis without hematuria; E84.9 Cystic fibrosis, unspecified; F32.A Depression, unspecified; E66.01 Morbid (severe) obesity due to excess calories; G80.9 Cerebral palsy, unspecified; B96.5 Pseudomonas (aeruginosa) (mallei) (pseudomallei) as the cause of diseases classified elsewhere; G89.29 Other chronic pain; M54.9 Dorsalgia, unspecified; Z20.822 Contact with and (suspected) exposure to COVID-19; Z68.36 Body mass index [BMI] 36.0-36.9, adult
CPT/HCPCS: 36415; 36600; 71045; 72192; 73502; 73552; 76000; 80053; 81001; 82805; 83735; 83880; 85025; 85027; 87077; 87086; 87186; 87635; 94640; 94760; 96374; 97162; 97167; 97530; 97535; 99284; C9803; A9270; J0696; J1170; J1650; J2250; J2270; J2704; J3010

== ENCOUNTER → 2021-12-22 15:35 | Outpatient (ROUT) | payer MEDICARE, MEDICAID, SELFPAY ==
[2021-12-11 04:10] VITALS: BMI 36.8
[2021-12-22 15:41] LABS: Appearance Urine UA CLEAR; Bilirubin Urine UA NEGATIVE (NEGATIVE); Color Urine UA YELLOW; Glucose Urine UA TRACE g/dL (Negative); Ketones Urine UA NEGATIVE (NEGATIVE); Leukocyte Esterase Urine UA NEGATIVE (NEGATIVE); Nitrite Urine UA POSITIVE (Negative); Occult Blood Urine UA NEGATIVE (Negative); Protein Urine UA TRACE (Negative); Specific Gravity Urine UA <=1.005 (1.000-1.035)
[2021-12-22 16:12] LABS: Amorphous Sediment Urine 1+; Bacteria Urine Occasional (0-1); Culture Indicated Urine Specimen Cultured; RBC Urine 0-1/HPF (0-5/HPF); Renal Epithelial Cells Urine 0-1/HPF (0-1/HPF); Squamous Epithelial Cell Urine 0-1 /HPF (0-5/HPF); Transitional Epi Cells Urine 0-1/HPF (0-5/HPF); WBC Urine 0-1/HPF (0-5/HPF)
== END ==
PROVIDERS: PCP Internal Medicine; Visit Provider Physician Assistant
DX: R39.198 Other difficulties with micturition (principal)
CPT/HCPCS: 81001; 87086

== ENCOUNTER → 2022-01-13 18:20 | Outpatient (ROUT) | payer MEDICARE, MEDICAID, SELFPAY ==
[2021-12-11 04:10] VITALS: BMI 36.8
[2022-01-13 19:24] LABS: Appearance Urine UA Clear
[2022-01-13 19:25] LABS: Color Urine UA Orange
[2022-01-13 20:53] LABS: RBC Urine None Seen (0-5/HPF)
[2022-01-13 20:54] LABS: Bacteria Urine Occasional (0-1); Culture Indicated Urine Cult Not Indicated; Squamous Epithelial Cell Urine None Seen (0-5/HPF); WBC Urine None Seen (0-5/HPF)
== END ==
PROVIDERS: PCP Internal Medicine; Visit Provider Physician Assistant
DX: N32.89 Other specified disorders of bladder (principal); R30.9 Painful micturition, unspecified
CPT/HCPCS: 81001

== ENCOUNTER 2022-03-01 04:30 | Emergency (ER) | payer MEDICARE, MEDICAID, SELFPAY ==
[2021-12-11 04:10] VITALS: BMI 36.8
[2022-03-01] VITALS (14 sets, daily range): BP systolic 134–175; BP diastolic 71–95; PULSE 97–120; RESP 16–20; TEMP 36.8; O2SAT 87–98; BMI 44.8
--- NOTE | 2022-03-01 04:45 | DI.CT.S_ITS ---
PROCEDURE: CT LE LT W CON INDICATIONS: trauma, hip and knee TECHNIQUE: Noncontrast 3 mm axial sections acquired of the left hip and femur, with coronal and sagittal reformats. COMPARISON: [facility], CT, CT ABDOMEN PELVIS W CON, 12/25/2017, 1:59. [facility], CT, CT PEL WO CON, 12/11/2021, 0:49. [facility], CT, CT ABDOMEN PELVIS W CON, 03/01/2022, 5:32. [facility] [place], CR, XR PELVIS WITH LATERAL HIP LEFT, 02/25/2022, 10:41. FINDINGS: Image quality: Excellent. Bones: There is a remote, healing fracture of the left proximal femur, with intact hardware in place. There is a remote appearing left greater trochanter avulsion fracture. No acute femur fracture is seen. No acute fractures of the bones of the pelvis can be seen. No suspicious lytic or blastic lesions are seen. Soft tissues: There is a moderate to large left knee joint effusion. Left scarring can be seen laterally, which is considered to be within postoperative limits. Hysterectomy changes are seen. No dilated loops of bowel are seen. IMPRESSION: Negative for acute fracture. Healing left proximal femur fracture, with intact hardware in place. Moderate to large knee joint effusion. Note: No significant discrepancy from the preliminary report. Dictated by: Mathieu Clifford M.D. on 03/01/2022 at 7:39 Approved by: Mathieu Clifford M.D. on 03/01/2022 at 7:41
--- NOTE | 2022-03-01 04:45 | DI.CT.S_ITS ---
PROCEDURE: CT ABDOMEN PELVIS W CON INDICATIONS: trauma, please comment on lumbar spine, left hip TECHNIQUE: After the administration of oral and IV contrast, axial sections were acquired from the lung bases to the pubic symphysis. Coronal and sagittal reformats were performed. For radiation dose reduction, the following was used: automated exposure control, adjustment of mA and/or kV according to patient size. COMPARISON: [facility], CT, CT PEL WO CON, 12/11/2021, 0:49. [facility], CT, CT ABDOMEN PELVIS W CON, 12/25/2017, 1:59. [facility], CT, CT LE LT WO CON, 03/01/2022, 5:32. [facility] [place], CR, XR PELVIS WITH LATERAL HIP LEFT, 02/25/2022, 10:41. FINDINGS: Image quality: Excellent. Lung bases: Unremarkable. Heart: No significant findings. ABDOMEN: Liver: Unremarkable. Gallbladder: Removed. Biliary ducts: Unremarkable. Pancreas: Unremarkable. Spleen: Unremarkable. Incidental note is made of an accessory splenule along the hilum of the primary spleen. Adrenal Glands: Unremarkable. Kidneys and Ureters: Unremarkable. Stomach and Bowel: Stomach, small bowel loops, and colon are unremarkable. Peritoneum: No abnormal intraperitoneal fluid. No free air. Ventral Wall: No hernia. A pain pump is seen within the subcutaneous fat of the anterior abdominal wall, to the left of the midline. The catheter enters the lumbar spine from posteriorly at the L1-L2 level, with the tip seen traversing superiorly to the T7 level. Abdominal Nodes: No retroperitoneal or mesenteric adenopathy by size criteria. Vessels: Aorta and inferior vena cava are normal in size. PELVIS: Pelvic Organs: This patient is status post hysterectomy. No adnexal masses are seen. Bladder: Unremarkable. Pelvic Nodes: No enlarged lymph nodes. Miscellaneous: No inguinal hernias are seen. Bones: There are chronic, stable fractures seen involving the T11, L1 and L2 levels. A T9 fracture is seen, which has not been previously demonstrated, yet without [place] acute features. No acute lumbar fracture is seen. Left proximal femur hardware is seen. There is a healing fracture of the left proximal femur. No acute left hip or left proximal femur fracture is seen. There is a remote right sacral ala fracture. IMPRESSION: No acute fracture is identified. There is a remote, healing fracture of the left proximal femur, with fixation hardware. Remote, stable T11, L1 and L2 compression deformities, without a new lumbar fracture seen. A T9 fracture is seen, which is not been previously demonstrated, yet no acute features are seen. Remote right sacral a fracture again seen. Incidental note is made of: Cholecystectomy Accessory splenule Left anterior abdominal wall pain pump, with the tip at the T7 level Hysterectomy Note: No significant discrepancy from the preliminary report. Dictated by: Mathieu Clifford M.D. on 03/01/2022 at 7:30 Approved by: Mathieu Clifford M.D. on 03/01/2022 at 7:38
--- NOTE | 2022-03-01 04:49 | ED.LOWEXIN ---
HPI - Extremity Injury (Lower) General Chief Complaint: Extremity Injury, Lower Stated Complaint: Fall Time Seen by Provider: 03/01/22 04:35 Source: patient and EMS Mode of arrival: EMS History of Present Illness HPI Narrative: 42-year-old woman with history of cerebral palsy, osteoporosis anxiety and depression who fell in the bathroom in December of 2021 suffered a left femur fracture and was also found to be positive for COVID. She underwent left hip ORIF and was discharged to [facility] for rehab. She has continued there and has made progress felt that she was able to walk up and down the hallway at least once with the use of her walker and physical therapy assistance. She got up to the bathroom today with the use of her walker and called for help when she went to sit on the toilet the toilet itself broke off the wall causing her to fall landing again on her entire left side. She had her knee at an odd angle and is complaining of significant low back pain recurrent hip pain and knee pain. Is unable to move the leg. There was no torso trauma and she did not hit her head. Will in the senior care facility she notes that her strength is improving, she has not had a recent fever, cough, vomiting, diarrhea or significant constipation. She is on chronic narcotic management for her pain. She is having no chest pain, dyspnea or palpitations. Related Data Home Medications Medication Instructions Recorded Confirmed nystatin 100,000 unit/gram topical 15 gm topical DAILY PRN Rash ##0 02/10/17 12/11/21 ointment omega 4-yjh-pzl-fish oil 1,000 mg 1,000 mg PO QDAY ##0 02/10/17 12/11/21 (120 mg-180 mg) capsule (Fish Oil) ondansetron 4 mg disintegrating 8 mg sublingual Q6HP PRN Nausea ##0 02/10/17 12/11/21 tablet albuterol sulfate 90 mcg/actuation 2 puff inhalation DAILY 10/29/17 12/11/21 aerosol inhaler baclofen 10 mg tablet 10 mg PO DAILY 10/29/17 12/11/21 methocarbamol 500 mg tablet 500 mg PO QID 10/29/17 12/11/21 tizanidine 6 mg capsule 6 dose PO TID 10/29/17 12/11/21 omeprazole 20 mg capsule,delayed 20 mg PO QID 04/11/18 12/11/21 release budesonide 180 mcg/actuation 1 inh inhalation DAILY 09/18/20 12/11/21 breath activated powder inhaler (Pulmicort Flexhaler) fluoxetine 10 mg capsule 10 mg PO DAILY 09/18/20 12/11/21 raloxifene 60 mg tablet 60 mg PO DAILY 09/18/20 12/11/21 trazodone 50 mg tablet 50 mg PO BEDTIME PRN sleep 09/18/20 12/11/21 docusate sodium 100 mg tablet 300 mg PO BID 12/11/21 12/11/21 magnesium 500 mg tablet 500 mg PO BID 12/11/21 12/11/21 multivit with minerals-iron 18 1 tab PO DAILY 12/11/21 12/11/21 mg-folic ac 400 mcg-vit K 25 mcg tablet (Adults Multivitamin) phenazopyridine 200 mg tablet 200 mg PO BID 12/11/21 12/11/21 phenolphthalein 90 mg tablet 75 mg PO BID 12/11/21 12/11/21 Previous Rx's Medication Instructions Recorded fluconazole 150 mg tablet 150 mg PO QWEEK #1 tab 07/31/21 diazepam 5 mg tablet 5 mg PO BID 30 days #60 tabs 12/15/21 morphine 15 mg tablet,extended 15 mg PO BID 30 days #60 tabs 12/15/21 release oxycodone 5 mg tablet 5 mg PO Q4H PRN Pain (Scale Score 12/15/21 1-3) 30 days #30 tabs Allergies Allergy/AdvReac Type Severity Reaction Status Date / Time gabapentin Allergy Severe RESPIRATORY Verified 10/14/21 12:31 DISTRESS acetaminophen [ACETAMINOPHEN] Allergy Mild Verified 10/14/21 12:31 adhesive [ADHESIVE] Allergy Mild Verified 10/14/21 12:31 oxymetazoline Allergy Mild other Verified 10/14/21 12:31 [From Afrin (oxymetazoline)] povidone-iodine Allergy Mild Verified 10/14/21 12:31 [From BETADINE] prochlorperazine Allergy Mild Verified 10/14/21 12:31 [From COMPAZINE] tramadol [TRAMADOL] Allergy Mild Verified 10/14/21 12:31 venlafaxine [From EFFEXOR] Allergy Mild Verified 10/14/21 12:31 dicyclomine AdvReac Unknown NAUSEA AND Verified 12/12/21 16:25 VOMITING monosodium glutamate AdvReac Unknown VOMITING, Verified 12/12/21 16:25 DIARRHEA Nitrate Analogues AdvReac Unknown VOMITING, Verified 12/12/21 16:25 DIARRHEA Review of Systems Review of Systems Narrative: Remainder of complete review of systems is otherwise unremarkable except for that included in the HPI. Patient History Medical History (Updated 03/01/22 @ 07:17 by Radhika Delgado MD) Anxiety Asthma Back pain Cerebral palsy Closed fracture of left hip Depression Family history of migraine Fracture of sacrum Hematuria History of small bowel obstruction Morbid obesity due to excess calories PTSD (post-traumatic stress disorder) Surgical History (Updated 03/01/22 @ 04:55 by Radhika Delgado MD) History of appendectomy History of cholecystectomy History of hysterectomy for benign disease History of laparoscopic appendectomy Social History marital status: household members: spouse and children lives independently: Yes caregiver/support person: Yes () Smoking Status: Never smoker alcohol intake: current Smoking Status: Never smoker alcohol intake frequency: holidays/special occasions only Substance Use Type: does not use Exam Initial Vital Signs Initial Vital Signs: Vital Signs Temperature 98.3 F 03/01/22 04:39 Pulse Rate 106 H 03/01/22 04:39 Respiratory Rate 20 03/01/22 04:39 Blood Pressure 139/95 H 03/01/22 04:39 Pulse Oximetry 88 L 03/01/22 04:39 Oxygen Delivery Method 03/01/22 04:39 General: Chronically ill-appearing but Able to give a complete and coherent history. HEENT: Moist mucous membranes, normal sclera with reactive pupils, Neck: No JVD, supple Respiratory: Lungs are clear to auscultation, no wheezing no rales no rhonchi. Full and symmetrical air movement Cardiac: Regular rate and rhythm no murmurs no bruits Abdomen: Soft, nontender, good bowel tones, tenderness over the lumbar spine, sacrum, left side of the pelvic ring and ischial tuberosity Skin: Warm and dry, Neurologic: Cerebral palsy with weakness in the lower extremities. Is not able to lift up her right leg due to cerebral palsy nor the left leg due to cerebral palsy as well as pain. She is complaining of paresthesia that is developed since the fall over the anterior portion of her thigh. Extremities: Muscle atrophy, left knee moderately swollen with effusion compared to the right. Neurovascularly intact distally. Psych: Cooperative, appropriate insight and affect Course Orders Ordered: ED Orders 03/01/22 04:45 CT LE LT wo con Stat CT abdomen pelvis w con Stat 03/01/22 05:01 COVID19 -Nasal RAPID/Pre-Proc Stat Complete Blood Count AUTO DIFF Stat Comprehensive Metabolic Panel Stat Hydromorphone HCl (Hydromorphone 0.5 Mg Inj) 0.5 mg IV Q15MIN PRN PRN Reason: Pain, Discontinued Medications Hydromorphone HCl (Hydromorphone 1 Mg Inj) 1 mg IV NOW ONE Stop: 03/01/22 04:46 Last Admin: 03/01/22 04:59 Dose: 1 mg Documented By: KATERINE Hydromorphone HCl (Hydromorphone 1 Mg Inj) 1 mg IV NOW ONE Stop: 03/01/22 05:27 Last Admin: 03/01/22 05:58 Dose: 1 mg Documented By: PHILLY Ondansetron HCl (Ondansetron 4 Mg/2 Ml Inj) 4 mg IV NOW ONE Stop: 03/01/22 04:46 Last Admin: 03/01/22 04:58 Dose: 4 mg Documented By: KATERINE Vital Signs Vital signs: Vital Signs - 8 hr 03/01/22 04:39 Temperature 98.3 F Pulse Rate 106 H Respiratory Rate 20 Blood Pressure 139/95 H Pulse Oximetry 88 L Oxygen Delivery Method Room Air MDM - Extremity Injury (Lower) Lab Data Result diagrams: 03/01/22 05:01 03/01/22 05:01 Labs: Lab Results 03/01/22 03/01/22 03/01/22 Range/Units 05:01 05:01 05:01 WBC 2.7 L (4.5-11.0) X10^3/uL RBC 3.40 L (4.0-5.2) X10^6/uL Hgb 10.7 L (12.0-16.0) g/dL Hct 32.7 L (36-46) % MCV 96.3 (80-100) fL MCH 31.5 (26-34) PG MCHC 32.7 (30-36) % RDW 15.0 H (11.6-14.8) % Plt Count 174 (150-400) X10^3/uL Neut % (Auto) 50.2 (50-75) % Lymph % (Auto) 37.2 (25-40) % Ocean % (Auto) 6.9 (3-14) % Eos % (Auto) 5.1 H (2-4) % Baso % (Auto) 0.6 (0-2) % Neut # (Auto) 1300 L (3542-3955) /uL Lymph # (Auto) 1000 L (7060-7089) /uL Ocean # (Auto) 200 (0-900) /uL Eos # (Auto) 100 (0-450) /uL Baso # (Auto) 0 (0-100) /uL Sodium 138 (137-145) mmol/L Potassium 4.0 (3.4-5.1) mmol/L Chloride 100 (98-107) mmol/L Carbon Dioxide 33 H (22-32) mmol/L BUN 19 H (7-17) mg/dL Creatinine 0.89 (0.52-1.04) mg/dL Estimated GFR > 60 (>60) mL/min BUN/Creatinine Ratio 21.3 (6-22) Glucose 96 (70-100) mg/dL Calcium 8.5 (8.4-10.2) mg/dL Total Bilirubin 0.5 (0.2-1.3) mg/dL AST 34 (14-36) IU/L ALT 32 (<35) IU/L Alkaline Phosphatase 112 (38-126) U/L Total Protein 6.9 (6.3-8.2) g/dL Albumin 3.7 (3.5-5.0) g/dL Globulin 3.2 (1.7-4.1) g/dL Albumin/Globulin Ratio 1.2 (1.0-2.8) SARS-CoV-2 (PCR) Negative (Negative) Imaging Data CT abd and pelvis: Radiologist's Impression: Chronic appearing 3 Co lumbar compression fractures. No acute spine fracture or pelvic fracture is appreciated. Previously healed left intratrochanteric fracture site is noted with hardware in place. Previously healed right sacral all fracture also noted. Dr Christiano Alvarado CT Left leg: My Impression: Comparison to CT on 07/28 suggests the avulsion fracture of the greater trochanteric complex was present at that time Radiologist's Impression: Previous left femur surgery with healed site of intratrochanteric fracture. A nondisplaced avulsion of the greater trochanteric cortex posteriorly is age indeterminate. Large knee joint effusion with no new fracture appreciated MDM Narrative Medical decision making narrative: 42-year-old woman with chronic pain issues, cerebral palsy osteoporosis left hip fracture with ORIF in November with rehab stay subsequently. Was beginning to heal and fell as the toilet actually fell off the wall. She is complaining of severe left spine pelvis and knee pain. CT scans do not show any acute fractures, her knee does have a new effusion. At this time pain control is going to be the main option with no evidence of new fractures appreciated. At some point in the future she may need an MRI of the knee to see if there is ligamentous injury. At this point with the effusion and her pain more thorough exam of the knee to see if there is ligamentous instability is not possible. She currently has a safe place to discharge 2 will go back to her senior care facility. Will need physical therapy to again re-evaluate her after most recent fall. Discharge Plan Departure Patient Disposition: Home Clinical Impression: Fall Qualifiers: Encounter type: initial encounter Qualified Code(s): W19.XXXA - Unspecified fall, initial encounter Acute knee pain Qualifiers: Laterality: left Qualified Code(s): M25.562 - Pain in left knee Acute hip pain Qualifiers: Laterality: left Qualified Code(s): M25.552 - Pain in left hip Activity Restrictions/Additional Instructions: I am sorry that you had this experience with the fall last night. CT scan of your spine pelvis hip thigh and the knee was relatively unremarkable. There are no new fractures. You are going to be sore but there is no additional bracing or surgical intervention required. Your physical therapist will certainly need to help re-evaluate to see how best to get you passed this new injury. Prescriptions: No Action nystatin 30 GM ointment 15 gm Topical DAILY PRN (Reason: Rash) Qty: 0 ondansetron 4 MG tablet,disintegrating 8 mg Sublingual Q6HP PRN (Reason: Nausea) Qty: 0 omega 5-ekz-fxo-fish oil [Fish Oil] 1,000 MG capsule 1,000 mg PO QDAY Qty: 0 omeprazole 20 mg capsule,delayed release(DR/EC) 20 mg PO QID magnesium 500 mg Tablet 500 mg PO BID Adults Multivitamin 18 mg iron-400 mcg-25 mcg Tablet 1 tab PO DAILY phenazopyridine 200 mg tablet 200 mg PO BID phenolphthalein 90 mg Tablet 75 mg PO BID docusate sodium 100 mg Tablet 300 mg PO BID morphine 15 mg tablet extended release 15 mg PO BID 30 Days Qty: 60 0RF diazepam 5 mg tablet 5 mg PO BID 30 Days Qty: 60 0RF oxycodone 5 mg tablet 5 mg PO Q4H PRN (Reason: Pain (Scale Score 1-3)) 30 Days Qty: 30 0RF methocarbamol 500 mg tablet 500 mg PO QID baclofen 10 mg tablet 10 mg PO DAILY albuterol sulfate 90 mcg/actuation HFA aerosol inhaler 2 puff inhalation DAILY tizanidine 6 mg capsule 6 dose PO TID fluconazole 150 mg tablet 150 mg PO QWEEK Qty: 1 0RF trazodone 50 mg tablet 50 mg PO BEDTIME PRN (Reason: sleep) raloxifene 60 mg tablet 60 mg PO DAILY Pulmicort Flexhaler 180 mcg/actuation aerosol powdr breath activated 1 inh inhalation DAILY fluoxetine 10 mg capsule 10 mg PO DAILY Referrals: Yadira Storm MD [Primary Care Provider] -
[2022-03-01] MEDS: ONDANSETRON 4 MG/2 ML INJ IV (04:58)
[2022-03-01] MEDS: HYDROMORPHONE 1 MG INJ IV ×2 (04:59→05:58)
[2022-03-01 05:07] LABS: Add Manual Diff / Slide Review NO; Basophils Absolute Auto 0 /uL (0-100); Basophils Percent Auto 0.6 % (0-2); Eosinophils Absolute Auto 100 /uL (0-450); Eosinophils Percent Auto 5.1 % (2-4); Hematocrit 32.7 % (36-46); Hemoglobin 10.7 g/dL (12.0-16.0); Lymphocytes Absolute Auto 1000 /uL (1100-4500); Lymphocytes Percent Auto 37.2 % (25-40); Mean Corpuscular HGB Conc 32.7 % (30-36); Mean Corpuscular Hemoglobin 31.5 PG (26-34); Mean Corpuscular Volume 96.3 fL (80-100); Monocytes Absolute Auto 200 /uL (0-900); Monocytes Percent Auto 6.9 % (3-14); Neutrophils Absolute Auto 1300 /uL (1500-7000); Neutrophils Percent Auto 50.2 % (50-75); Platelet Count 174 X10^3/uL (150-400); White Blood Cell Count 2.7 X10^3/uL (4.5-11.0)
[2022-03-01 05:22] LABS: Alanine Aminotransferase 32 IU/L (<35); Albumin 3.7 g/dL (3.5-5.0); Albumin Globulin Ratio 1.2 (1.0-2.8); Alkaline Phosphatase 112 U/L (38-126); Aspartate Aminotransferase 34 IU/L (14-36); BUN Creatinine Ratio 21.3 (6-22); Bilirubin Total 0.5 mg/dL (0.2-1.3); Blood Urea Nitrogen 19 mg/dL (7-17); Calcium 8.5 mg/dL (8.4-10.2); Carbon Dioxide 33 mmol/L (22-32); Chloride 100 mmol/L (98-107); Estimated Glomerular Filt Rate > 60 mL/min (>60); Globulin 3.2 g/dL (1.7-4.1); Glucose 96 mg/dL (70-100); HEMOLYSIS < 15 (0-50); Sodium 138 mmol/L (137-145); Total Protein 6.9 g/dL (6.3-8.2)
[2022-03-01 05:31] LABS: COVID19 -Nasal RAPID Negative (Negative)
[2022-03-01] MEDS: HYDROMORPHONE 0.5 MG INJ IV ×2 (07:19→09:48)
--- NOTE | 2022-03-01 09:51 | PC.NURSE ---
transport in ED to facilitate transfer back to [facility]. Pt reports she has to use the bathroom. Offered to have pt use bed larios and pt refuses.
== END 2022-03-01 09:54 | disposition home or self-care (01) ==
PROVIDERS: Emergency Provider Emergency Medicine; PCP Internal Medicine
DX: M25.562 Pain in left knee (principal); M25.552 Pain in left hip; M54.50 Low back pain, unspecified; W18.11XA Fall from or off toilet without subsequent striking against object, initial encounter; Z20.822 Contact with and (suspected) exposure to COVID-19; Z86.16 Personal history of COVID-19; Z87.81 Personal history of (healed) traumatic fracture
CPT/HCPCS: 36415; 73700; 74177; 80053; 85025; 87635; 96374; 96375; 96376; 99284; C9803; J1170; J2405; Q9967

== ENCOUNTER 2022-03-21 05:45 | Emergency (ER) | payer MEDICARE, MEDICAID, SELFPAY ==
[2021-12-11 04:10] VITALS: BMI 36.8
[2022-03-21] VITALS (21 sets, daily range): BP systolic 126–178; BP diastolic 72–95; PULSE 100–133; RESP 13–20; O2SAT 91–99
--- NOTE | 2022-03-21 05:51 | DI.RAD.S_ITS ---
PROCEDURE: XR CHEST 1V INDICATIONS: altered mental status TECHNIQUE: One view of the chest was acquired. COMPARISON: [facility], CR, XR CHEST 1V, 12/11/2021, 1:08. FINDINGS: Surgical changes and devices: Lower cervical spine instrumentation Lungs and pleura: Lungs are clear. No pleural effusions or pneumothorax. Mediastinum: Heart size enlarged. Moderate vascular congestion noted. Bones and chest wall: No suspicious bony lesions. Overlying soft tissues appear unremarkable. Generalized decrease in osseous mineralization noted. IMPRESSION: Cardiomegaly and moderate vascular congestion Approved by: Amol Hernandez M.D. on 03/21/2022 at 8:03
--- NOTE | 2022-03-21 05:51 | DI.CT.S_ITS ---
PROCEDURE: CT HEAD/BRAIN WO CON INDICATIONS: altered mental status TECHNIQUE: Noncontrast 4.5 mm thick angled axial sections acquired from the foramen magnum to the vertex, with coronal and sagittal reformats. For radiation dose reduction, the following was used: automated exposure control, adjustment of mA and/or kV according to patient size. COMPARISON: None. FINDINGS: Image quality: Limited by motion artifact CSF spaces: Basal cisterns are patent. No extra-axial fluid collections. Ventricles are normal in size and shape. Brain: No midline shift. No intracranial masses or hemorrhage. Weiss-white matter interface is normal. Skull and face: Calvarium and visualized facial bones are intact, without suspicious lesions. Sinuses: Visualized sinuses and mastoids are clear. IMPRESSION: Unremarkable CT of the head Approved by: Amol Hernandez M.D. on 03/21/2022 at 8:23
--- NOTE | 2022-03-21 05:53 | ED.AMS ---
HPI - Altered Mental Status <Dea Hart, DO - Last Filed: 03/26/22 08:36> General Chief Complaint: Altered Mental Status Stated Complaint: unconscious Time Seen by Provider: 03/21/22 05:51 Source: patient and EMS Mode of arrival: EMS Limitations: altered mental status History of Present Illness HPI narrative: This is a 42-year-old female with history of cerebral palsy, osteoporosis, anxiety depression with recent left femur fracture in December of 2021 who had left hip ORIF and was discharged to rehab. She presents today with having altered mental status. Patient was per EMS ambulating about and her normal status earlier in the evening and then found by staff sitting on the toilet altered. Was given Narcan by staff. EMS states it did not change and when they had arrived patient's pupils were large but she was not responding. She did start to get agitated became more responsive and her mentation has been slowly improving but is not her reported baseline. They did give 5 of Versed IM for agitation and were able to obtain IV access. Patient has decreased movement of both lower extremities, she is able to tell me her name she can tell me she has cerebral palsy but tells me that she wants to go home. She tells me she lives at home when asked if that is rehab she states no it is not. Patient is somewhat repetitive. No slurred speech. Patient denies headache, chest pain or shortness of breath, denies nausea or vomiting. States she needs to urinate. Denies diarrhea constipation or other GI or urinary symptoms. EMS did not note any blood in the stool. They states she was still on the stool when they found her and they lowered her to the ground she did not have any obvious falls. They do note that she gets chronic narcotics for pain and that she has been known by staff to keep her own bottle and take extra at times. Patient denies taking any extra medications today or any different medications. No known seizure disorder. Related Data Home Medications Medication Instructions Recorded Confirmed nystatin 100,000 unit/gram topical 15 gm topical DAILY PRN Rash ##0 02/10/17 12/11/21 ointment omega [id number] oil 1,000 mg 1,000 mg PO QDAY ##0 02/10/17 12/11/21 (120 mg-180 mg) capsule (Fish Oil) ondansetron 4 mg disintegrating 8 mg sublingual Q6HP PRN Nausea ##0 02/10/17 12/11/21 tablet albuterol sulfate 90 mcg/actuation 2 puff inhalation DAILY 10/29/17 12/11/21 aerosol inhaler baclofen 10 mg tablet 10 mg PO DAILY 10/29/17 12/11/21 methocarbamol 500 mg tablet 500 mg PO QID 10/29/17 12/11/21 tizanidine 6 mg capsule 6 dose PO TID 10/29/17 12/11/21 omeprazole 20 mg capsule,delayed 20 mg PO QID 04/11/18 12/11/21 release budesonide 180 mcg/actuation 1 inh inhalation DAILY 09/18/20 12/11/21 breath activated powder inhaler (Pulmicort Flexhaler) fluoxetine 10 mg capsule 10 mg PO DAILY 09/18/20 12/11/21 raloxifene 60 mg tablet 60 mg PO DAILY 09/18/20 12/11/21 trazodone 50 mg tablet 50 mg PO BEDTIME PRN sleep 09/18/20 12/11/21 docusate sodium 100 mg tablet 300 mg PO BID 12/11/21 12/11/21 magnesium 500 mg tablet 500 mg PO BID 12/11/21 12/11/21 multivit with minerals-iron 18 1 tab PO DAILY 12/11/21 12/11/21 mg-folic ac 400 mcg-vit K 25 mcg tablet (Adults Multivitamin) phenazopyridine 200 mg tablet 200 mg PO BID 12/11/21 12/11/21 phenolphthalein 90 mg tablet 75 mg PO BID 12/11/21 12/11/21 Previous Rx's Medication Instructions Recorded fluconazole 150 mg tablet 150 mg PO QWEEK #1 tab 07/31/21 diazepam 5 mg tablet 5 mg PO BID 30 days #60 tabs 12/15/21 morphine 15 mg tablet,extended 15 mg PO BID 30 days #60 tabs 12/15/21 release oxycodone 5 mg tablet 5 mg PO Q4H PRN Pain (Scale Score 12/15/21 1-3) 30 days #30 tabs Allergies Allergy/AdvReac Type Severity Reaction Status Date / Time gabapentin Allergy Severe RESPIRATORY Verified 10/14/21 12:31 DISTRESS acetaminophen [ACETAMINOPHEN] Allergy Mild Verified 10/14/21 12:31 adhesive [ADHESIVE] Allergy Mild Verified 10/14/21 12:31 oxymetazoline Allergy Mild other Verified 10/14/21 12:31 [From Afrin (oxymetazoline)] povidone-iodine Allergy Mild Verified 10/14/21 12:31 [From BETADINE] prochlorperazine Allergy Mild Verified 10/14/21 12:31 [From COMPAZINE] tramadol [TRAMADOL] Allergy Mild Verified 10/14/21 12:31 venlafaxine [From EFFEXOR] Allergy Mild Verified 10/14/21 12:31 dicyclomine AdvReac Unknown NAUSEA AND Verified 12/12/21 16:25 VOMITING monosodium glutamate AdvReac Unknown VOMITING, Verified 12/12/21 16:25 DIARRHEA Nitrate Analogues AdvReac Unknown VOMITING, Verified 12/12/21 16:25 DIARRHEA Review of Systems <Dea Hart DO - Last Filed: 03/26/22 08:36> Review of Systems ROS Unobtainable: All systems reviewed & are unremarkable except as noted in HPI and below Patient History <Dea Hart DO - Last Filed: 03/26/22 08:36> Medical History Anxiety Asthma Back pain Cerebral palsy Closed fracture of left hip Depression Family history of migraine Fracture of sacrum Hematuria History of small bowel obstruction Morbid obesity due to excess calories PTSD (post-traumatic stress disorder) Surgical History History of appendectomy History of cholecystectomy History of hysterectomy for benign disease History of laparoscopic appendectomy Social History marital status: household members: spouse and children lives independently: Yes caregiver/support person: Yes () Smoking Status: Never smoker alcohol intake: current Smoking Status: Never smoker alcohol intake frequency: holidays/special occasions only Substance Use Type: does not use Exam <Dea Hart DO - Last Filed: 03/26/22 08:36> Narrative Exam Narrative: GEN: Obese female, alert and oriented to location the patient knows she is at the hospital she does not know which 1, patient appears to be in mild distress. HEENT: Atraumatic, pupils are equal round reactive to light, extraocular movements are intact, no nystagmus, nares are clear, TMs are clear with no fluid, there is no conjunctival pallor. Throat is clear without any exudates, erythema, tonsillar enlargement or uvular deviation, no obvious facial droop, patient has some dried blood around the opening of the mouth, I can not see a clear laceration on the inside but appears to be the source. HEART: Regular rate and rhythm without murmur, clicks, rubs. No carotid bruits, pulses are equal in upper and lower extremities LUNGS:Lungs clear to auscultation, no wheezes, rales, crackles, chest moves symmetrically ABD:bowel sounds normal, soft, non-tender, no guarding, rebound, rigidity, no masses noted, no hepatosplenomegaly :No CVA tenderness MSCL: Non-tender, no muscle atrophy, patient has movement of upper extremities, has some movement of lower extremities but seems minimal. She is not following commands for full exam. Does not seem to be in pain with palpation of her extremities. Able to passively move lower extremities bilaterally with no increase in discomfort or pain. NEURO:CN 2-12 intact, sensation normal, unable to perform neuro exam. Initial Vital Signs Initial Vital Signs: Vital Signs Pulse Rate 133 H 03/21/22 05:55 Respiratory Rate 16 03/21/22 05:55 Blood Pressure 126/88 03/21/22 05:55 Pulse Oximetry 97 03/21/22 05:55 Oxygen Delivery Method 03/21/22 05:55 <Alicia Wise DO - Last Filed: 03/21/22 17:28> Initial Vital Signs Initial Vital Signs: Vital Signs Pulse Rate 133 H 03/21/22 05:55 Respiratory Rate 16 03/21/22 05:55 Blood Pressure 126/88 03/21/22 05:55 Pulse Oximetry 97 03/21/22 05:55 Oxygen Delivery Method 03/21/22 05:55 Scores <Dea Hart DO - Last Filed: 03/26/22 08:36> GCS Leroy coma scale eye opening: Spontaneous Leroy coma scale verbal response: Confused Leroy coma scale motor response: Obey commands Leroy coma scale total score: 14 <Alicia Wise DO - Last Filed: 03/21/22 17:28> GCS Leroy coma scale total score: 14 Course <Dea Hart, - Last Filed: 03/26/22 08:36> Orders Ordered: Discontinued Medications Hydromorphone HCl (Hydromorphone 1 Mg Inj) 1 mg IV NOW ONE Stop: 03/21/22 08:54 Last Admin: 03/21/22 09:21 Dose: 1 mg Documented By: JANETT Sodium Chloride (Normal Saline 0.9%) 1,000 mls @ 150 mls/hr IV CONT ABDOUL Last Admin: 03/21/22 09:33 Dose: Not Given Documented By: GUNNER Sodium Chloride (Normal Saline 0.9%) 1,000 mls @ 1,000 mls/hr IV BOLUS ONE Stop: 03/21/22 07:38 Last Infusion: 03/21/22 08:01 Dose: 0 mls/hr Documented By: Admin: 03/21/22 06:41 Dose: 1,000 mls/hr Documented By: PHILLY Methocarbamol (Methocarbamol 500 Mg Tablet) 500 mg PO NOW ONE Stop: 03/21/22 12:46 Last Admin: 03/21/22 12:55 Dose: 500 mg Documented By: JANETT Oxycodone HCl (Oxycodone Ir 5 Mg Tablet) 5 mg PO NOW ONE Stop: 03/21/22 08:54 Last Admin: 03/21/22 09:21 Dose: 5 mg Documented By: JANETT Vital Signs Vital signs: Vital Signs - 8 hr 03/21/22 09:30 03/21/22 09:30 03/21/22 10:00 Pulse Rate 116 H Respiratory Rate 13 Blood Pressure 150/74 H 150/72 H Pulse Oximetry Oxygen Delivery Method 03/21/22 10:00 03/21/22 10:30 03/21/22 10:30 Pulse Rate 114 H 110 H Respiratory Rate 15 14 Blood Pressure 160/82 H Pulse Oximetry 91 99 Oxygen Delivery Method 03/21/22 11:18 03/21/22 11:30 03/21/22 12:00 Pulse Rate 109 H 116 H 103 H Respiratory Rate 16 Blood Pressure Pulse Oximetry 96 97 97 Oxygen Delivery Method 03/21/22 12:30 03/21/22 14:31 03/21/22 14:32 Pulse Rate 108 H 107 H Respiratory Rate 20 Blood Pressure 178/80 H Pulse Oximetry 97 Oxygen Delivery Method 03/21/22 14:32 11/05/22 15:00 03/21/22 15:30 Pulse Rate 107 H 106 H 107 H Respiratory Rate Blood Pressure Pulse Oximetry 97 94 91 Oxygen Delivery Method Room Air 03/21/22 15:52 03/21/22 16:01 Pulse Rate 106 H Respiratory Rate Blood Pressure 167/92 H Pulse Oximetry 94 Oxygen Delivery Method Room Air <Alicia Wise, - Last Filed: 03/21/22 17:28> Orders Ordered: Discontinued Medications Hydromorphone HCl (Hydromorphone 1 Mg Inj) 1 mg IV NOW ONE Stop: 03/21/22 08:54 Last Admin: 03/21/22 09:21 Dose: 1 mg Documented By: JANETT Sodium Chloride (Normal Saline 0.9%) 1,000 mls @ 150 mls/hr IV CONT ABDOUL Last Admin: 03/21/22 09:33 Dose: Not Given Documented By: GUNNER Sodium Chloride (Normal Saline 0.9%) 1,000 mls @ 1,000 mls/hr IV BOLUS ONE Stop: 03/21/22 07:38 Last Infusion: 03/21/22 08:01 Dose: 0 mls/hr Documented By: Admin: 03/21/22 06:41 Dose: 1,000 mls/hr Documented By: PHILLY Methocarbamol (Methocarbamol 500 Mg Tablet) 500 mg PO NOW ONE Stop: 03/21/22 12:46 Last Admin: 03/21/22 12:55 Dose: 500 mg Documented By: JANETT Oxycodone HCl (Oxycodone Ir 5 Mg Tablet) 5 mg PO NOW ONE Stop: 03/21/22 08:54 Last Admin: 03/21/22 09:21 Dose: 5 mg Documented By: JANETT Vital Signs Vital signs: Vital Signs - 8 hr 03/21/22 09:30 03/21/22 09:30 03/21/22 10:00 Pulse Rate 116 H Respiratory Rate 13 Blood Pressure 150/74 H 150/72 H Pulse Oximetry Oxygen Delivery Method 03/21/22 10:00 03/21/22 10:30 03/21/22 10:30 Pulse Rate 114 H 110 H Respiratory Rate 15 14 Blood Pressure 160/82 H Pulse Oximetry 91 99 Oxygen Delivery Method 03/21/22 11:18 03/21/22 11:30 03/21/22 12:00 Pulse Rate 109 H 116 H 103 H Respiratory Rate 16 Blood Pressure Pulse Oximetry 96 97 97 Oxygen Delivery Method 03/21/22 12:30 03/21/22 14:31 03/21/22 14:32 Pulse Rate 108 H 107 H Respiratory Rate 20 Blood Pressure 178/80 H Pulse Oximetry 97 Oxygen Delivery Method 03/21/22 14:32 03/21/22 15:00 03/21/22 15:30 Pulse Rate 107 H 106 H 107 H Respiratory Rate Blood Pressure Pulse Oximetry 97 94 91 Oxygen Delivery Method Room Air 03/21/22 15:52 03/21/22 16:01 Pulse Rate 106 H Respiratory Rate Blood Pressure 167/92 H Pulse Oximetry 94 Oxygen Delivery Method Room Air MDM - Altered Mental Status <Dea Hart DO - Last Filed: 03/26/22 08:36> Lab Data Result diagrams: 03/21/22 06:05 03/21/22 06:05 Labs: Lab Results 03/21/22 03/21/22 03/21/22 Range/Units 06:05 06:05 06:05 WBC 2.7 L (4.5-11.0) X10^3/uL RBC 3.67 L (4.0-5.2) X10^6/uL Hgb 11.5 L (12.0-16.0) g/dL Hct 35.6 L (36-46) % MCV 97.0 (80-100) fL MCH 31.2 (26-34) PG MCHC 32.2 (30-36) % RDW 13.6 (11.6-14.8) % Plt Count 210 (150-400) X10^3/uL Neut % (Auto) 39.7 L (50-75) % Lymph % (Auto) 47.0 H (25-40) % Wallace % (Auto) 7.4 (3-14) % Eos % (Auto) 5.1 H (2-4) % Baso % (Auto) 0.8 (0-2) % Neut # (Auto) 1100 L (7871-8873) /uL Lymph # (Auto) 1300 (2136-4908) /uL Wallace # (Auto) 200 (0-900) /uL Eos # (Auto) 100 (0-450) /uL Baso # (Auto) 0 (0-100) /uL PT 12.1 (10.1-12.7) SECONDS INR 1.1 (0.9-1.3) APTT 35 (26-36) SECONDS D-Dimer (<500) ng/ml Sodium (137-145) mmol/L Potassium (3.4-5.1) mmol/L Chloride (98-107) mmol/L Carbon Dioxide (22-32) mmol/L BUN (7-17) mg/dL Creatinine (0.52-1.04) mg/dL Estimated GFR (>60) mL/min BUN/Creatinine Ratio (6-22) Glucose (70-100) mg/dL Serum Osmolality (275-295) mOsmol/kg Lactate (0.7-2.1) mmol/L Calcium (8.4-10.2) mg/dL Total Bilirubin (0.2-1.3) mg/dL AST (14-36) IU/L ALT (<35) IU/L Alkaline Phosphatase (38-126) U/L Ammonia (9-30) umol/L Total Creatine Kinase 43 (30-135) U/L CK-MB (CK-2) TNP CK-MB (CK-2) Rel Index TNP Troponin I < 0.012 (0.01-0.034) ng/mL Total Protein (6.3-8.2) g/dL Albumin (3.5-5.0) g/dL Globulin (1.7-4.1) g/dL Albumin/Globulin Ratio (1.0-2.8) TSH (0.47-4.68) uIU/mL Prolactin (3.0-18.6) ng/mL Urine Color Urine Appearance Urine pH (4.5-8.0) Ur Specific [place] (1.000-1.035) Urine Protein (Negative) Urine Glucose (UA) (Negative) g/dL Urine Ketones (NEGATIVE) Urine Occult Blood (Negative) Urine Nitrate (Negative) Urine Bilirubin (NEGATIVE) Urine Urobilinogen (0.2) E.U./dL Ur Leukocyte Esterase (NEGATIVE) Urine RBC (0-5/HPF) Urine WBC (0-5/HPF) Ur Squamous Epith Cells (0-5/HPF) Amorphous Sediment Urine Bacteria (None) Urine Test (Negative) Salicylates (<20) mg/dL U Opiates 300ng/mL cut (Negative) Ur Oxycodone Screen (Negative) Urine Methadone Screen (Negative) Acetaminophen (10-30) ug/mL Ur Barbiturates Screen (Negative) U Tricyclic Antidepress (Negative) Ur Phencyclidine Scrn (Negative) Ur Amphetamines Screen (Negative) U Methamphetamines Scrn (Negative) Ur MDMA Scrn (Ecstasy) (Negative) U Benzodiazepines Scrn (Negative) Urine Cocaine Screen (Negative) U Marijuana (THC) Screen (Negative) Ethyl Alcohol ( - 10) mg/dL A. baumannii (PCR) (Not Detect) Umm albicans (PCR) (Not Detect) C. glabrata (PCR) (Not Detect) C. krusei (PCR) (Not Detect) C. parapsilosis (PCR) (Not Detect) C. tropicalis (PCR) (Not Detect) SARS-CoV-2 (PCR) (Negative) Enterobacteriac sp PCR (Not Detect) E. cloacae complex PCR (Not Detect) Enterococcus sp PCR (Not Detect) E. coli (PCR) (Not Detect) H. influenzae (PCR) (Not Detect) Influenza A (RT-PCR) (NEGATIVE) Influenza B (RT-PCR) (NEGATIVE) Klebsiella oxytoca PCR (Not Detect) Klebsiella pneumoniae (Not Detect) List. monocytogenes PCR (Not Detect) N. meningitidis (PCR) (Not Detect) Proteus species (PCR) (Not Detect) RSV (PCR) (Negative) Serratia marcescens PCR (Not Detect) Staphylococcus sp PCR (Not Detect) Staph aureus (PCR) (Not Detect) mecA-Methicil Res Gene (Not Detect) Streptococcus sp PCR (Not Detect) Group A Strep (PCR) (Not Detect) Strep agalactiae (PCR) (Not Detect) Strep pneumoniae (PCR) (Not Detect) P. aeruginosa (PCR) (Not Detect) Suly/B-Vanco Res Genes KPC-Carbap Res Gene PCR 03/21/22 03/21/22 03/21/22 Range/Units 06:05 06:05 06:05 WBC (4.5-11.0) X10^3/uL RBC (4.0-5.2) X10^6/uL Hgb (12.0-16.0) g/dL Hct (36-46) % MCV (80-100) fL MCH (26-34) PG MCHC (30-36) % RDW (11.6-14.8) % Plt Count (150-400) X10^3/uL Neut % (Auto) (50-75) % Lymph % (Auto) (25-40) % Wallace % (Auto) (3-14) % Eos % (Auto) (2-4) % Baso % (Auto) (0-2) % Neut # (Auto) (7449-6717) /uL Lymph # (Auto) (9817-6050) /uL Wallace # (Auto) (0-900) /uL Eos # (Auto) (0-450) /uL Baso # (Auto) (0-100) /uL PT (10.1-12.7) SECONDS INR (0.9-1.3) APTT (26-36) SECONDS D-Dimer (<500) ng/ml Sodium 141 (137-145) mmol/L Potassium 3.9 (3.4-5.1) mmol/L Chloride 99 (98-107) mmol/L Carbon Dioxide 33 H (22-32) mmol/L BUN 25 H (7-17) mg/dL Creatinine 0.81 (0.52-1.04) mg/dL Estimated GFR > 60 (>60) mL/min BUN/Creatinine Ratio 30.9 H (6-22) Glucose 101 H (70-100) mg/dL Serum Osmolality (275-295) mOsmol/kg Lactate 2.5 H (0.7-2.1) mmol/L Calcium 9.2 (8.4-10.2) mg/dL Total Bilirubin 0.6 (0.2-1.3) mg/dL AST 51 H (14-36) IU/L ALT 54 H (<35) IU/L Alkaline Phosphatase 133 H (38-126) U/L Ammonia (9-30) umol/L Total Creatine Kinase (30-135) U/L CK-MB (CK-2) CK-MB (CK-2) Rel Index Troponin I (0.01-0.034) ng/mL Total Protein 7.5 (6.3-8.2) g/dL Albumin 4.1 (3.5-5.0) g/dL Globulin 3.4 (1.7-4.1) g/dL Albumin/Globulin Ratio 1.2 (1.0-2.8) TSH 3.91 (0.47-4.68) uIU/mL Prolactin 83.7 H (3.0-18.6) ng/mL Urine Color Urine Appearance Urine pH (4.5-8.0) Ur Specific [place] (1.000-1.035) Urine Protein (Negative) Urine Glucose (UA) (Negative) g/dL Urine Ketones (NEGATIVE) Urine Occult Blood (Negative) Urine Nitrate (Negative) Urine Bilirubin (NEGATIVE) Urine Urobilinogen (0.2) E.U./dL Ur Leukocyte Esterase (NEGATIVE) Urine RBC (0-5/HPF) Urine WBC (0-5/HPF) Ur Squamous Epith Cells (0-5/HPF) Amorphous Sediment Urine Bacteria (None) Urine Test (Negative) Salicylates < 1.0 (<20) mg/dL U Opiates 300ng/mL cut (Negative) Ur Oxycodone Screen (Negative) Urine Methadone Screen (Negative) Acetaminophen < 10 (10-30) ug/mL Ur Barbiturates Screen (Negative) U Tricyclic Antidepress (Negative) Ur Phencyclidine Scrn (Negative) Ur Amphetamines Screen (Negative) U Methamphetamines Scrn (Negative) Ur MDMA Scrn (Ecstasy) (Negative) U Benzodiazepines Scrn (Negative) Urine Cocaine Screen (Negative) U Marijuana (THC) Screen (Negative) Ethyl Alcohol < 10 ( - 10) mg/dL A. baumannii (PCR) (Not Detect) Umm albicans (PCR) (Not Detect) C. glabrata (PCR) (Not Detect) C. krusei (PCR) (Not Detect) C. parapsilosis (PCR) (Not Detect) C. tropicalis (PCR) (Not Detect) SARS-CoV-2 (PCR) (Negative) Enterobacteriac sp PCR (Not Detect) E. cloacae complex PCR (Not Detect) Enterococcus sp PCR (Not Detect) E. coli (PCR) (Not Detect) H. influenzae (PCR) (Not Detect) Influenza A (RT-PCR) (NEGATIVE) Influenza B (RT-PCR) (NEGATIVE) Klebsiella oxytoca PCR (Not Detect) Klebsiella pneumoniae (Not Detect) List. monocytogenes PCR (Not Detect) N. meningitidis (PCR) (Not Detect) Proteus species (PCR) (Not Detect) RSV (PCR) (Negative) Serratia marcescens PCR (Not Detect) Staphylococcus sp PCR (Not Detect) Staph aureus (PCR) (Not Detect) mecA-Methicil Res Gene (Not Detect) Streptococcus sp PCR (Not Detect) Group A Strep (PCR) (Not Detect) Strep agalactiae (PCR) (Not Detect) Strep pneumoniae (PCR) (Not Detect) P. aeruginosa (PCR) (Not Detect) Suly/B-Vanco Res Genes KPC-Carbap Res Gene PCR 03/21/22 03/21/22 03/21/22 Range/Units 06:05 06:05 06:05 WBC (4.5-11.0) X10^3/uL RBC (4.0-5.2) X10^6/uL Hgb (12.0-16.0) g/dL Hct (36-46) % MCV (80-100) fL MCH (26-34) PG MCHC (30-36) % RDW (11.6-14.8) % Plt Count (150-400) X10^3/uL Neut % (Auto) (50-75) % Lymph % (Auto) (25-40) % Wallace % (Auto) (3-14) % Eos % (Auto) (2-4) % Baso % (Auto) (0-2) % Neut # (Auto) (1890-3763) /uL Lymph # (Auto) (3881-3758) /uL Wallace # (Auto) (0-900) /uL Eos # (Auto) (0-450) /uL Baso # (Auto) (0-100) /uL PT (10.1-12.7) SECONDS INR (0.9-1.3) APTT (26-36) SECONDS D-Dimer 793 H (<500) ng/ml Sodium (137-145) mmol/L Potassium (3.4-5.1) mmol/L Chloride (98-107) mmol/L Carbon Dioxide (22-32) mmol/L BUN (7-17) mg/dL Creatinine (0.52-1.04) mg/dL Estimated GFR (>60) mL/min BUN/Creatinine Ratio (6-22) Glucose (70-100) mg/dL Serum Osmolality 291 (275-295) mOsmol/kg Lactate (0.7-2.1) mmol/L Calcium (8.4-10.2) mg/dL Total Bilirubin (0.2-1.3) mg/dL AST (14-36) IU/L ALT (<35) IU/L Alkaline Phosphatase (38-126) U/L Ammonia (9-30) umol/L Total Creatine Kinase (30-135) U/L CK-MB (CK-2) CK-MB (CK-2) Rel Index Troponin I (0.01-0.034) ng/mL Total Protein (6.3-8.2) g/dL Albumin (3.5-5.0) g/dL Globulin (1.7-4.1) g/dL Albumin/Globulin Ratio (1.0-2.8) TSH (0.47-4.68) uIU/mL Prolactin (3.0-18.6) ng/mL Urine Color Urine Appearance Urine pH (4.5-8.0) Ur Specific [place] (1.000-1.035) Urine Protein (Negative) Urine Glucose (UA) (Negative) g/dL Urine Ketones (NEGATIVE) Urine Occult Blood (Negative) Urine Nitrate (Negative) Urine Bilirubin (NEGATIVE) Urine Urobilinogen (0.2) E.U./dL Ur Leukocyte Esterase (NEGATIVE) Urine RBC (0-5/HPF) Urine WBC (0-5/HPF) Ur Squamous Epith Cells (0-5/HPF) Amorphous Sediment Urine Bacteria (None) Urine Test (Negative) Salicylates (<20) mg/dL U Opiates 300ng/mL cut (Negative) Ur Oxycodone Screen (Negative) Urine Methadone Screen (Negative) Acetaminophen (10-30) ug/mL Ur Barbiturates Screen (Negative) U Tricyclic Antidepress (Negative) Ur Phencyclidine Scrn (Negative) Ur Amphetamines Screen (Negative) U Methamphetamines Scrn (Negative) Ur MDMA Scrn (Ecstasy) (Negative) U Benzodiazepines Scrn (Negative) Urine Cocaine Screen (Negative) U Marijuana (THC) Screen (Negative) Ethyl Alcohol ( - 10) mg/dL A. baumannii (PCR) Not detected (Not Detect) Umm albicans (PCR) Not detected (Not Detect) C. glabrata (PCR) Not detected (Not Detect) C. krusei (PCR) Not detected (Not Detect) C. parapsilosis (PCR) Not detected (Not Detect) C. tropicalis (PCR) Not detected (Not Detect) SARS-CoV-2 (PCR) (Negative) Enterobacteriac sp PCR Not detected (Not Detect) E. cloacae complex PCR Not detected (Not Detect) Enterococcus sp PCR Not detected (Not Detect) E. coli (PCR) Not detected (Not Detect) H. influenzae (PCR) Not detected (Not Detect) Influenza A (RT-PCR) (NEGATIVE) Influenza B (RT-PCR) (NEGATIVE) Klebsiella oxytoca PCR Not detected (Not Detect) Klebsiella pneumoniae Not detected (Not Detect) List. monocytogenes PCR Not detected (Not Detect) N. meningitidis (PCR) Not detected (Not Detect) Proteus species (PCR) Not detected (Not Detect) RSV (PCR) (Negative) Serratia marcescens PCR Not detected (Not Detect) Staphylococcus sp PCR Detected H (Not Detect) Staph aureus (PCR) Not detected (Not Detect) mecA-Methicil Res Gene Not detected (Not Detect) Streptococcus sp PCR Not detected (Not Detect) Group A Strep (PCR) Not detected (Not Detect) Strep agalactiae (PCR) Not detected (Not Detect) Strep pneumoniae (PCR) Not detected (Not Detect) P. aeruginosa (PCR) Not detected (Not Detect) Suly/B-Vanco Res Genes Not Reportable KPC-Carbap Res Gene PCR Not Reportable 03/21/22 03/21/22 03/21/22 Range/Units 06:20 08:06 08:25 WBC (4.5-11.0) X10^3/uL RBC (4.0-5.2) X10^6/uL Hgb (12.0-16.0) g/dL Hct (36-46) % MCV (80-100) fL MCH (26-34) PG MCHC (30-36) % RDW (11.6-14.8) % Plt Count (150-400) X10^3/uL Neut % (Auto) (50-75) % Lymph % (Auto) (25-40) % Wallace % (Auto) (3-14) % Eos % (Auto) (2-4) % Baso % (Auto) (0-2) % Neut # (Auto) (8648-4132) /uL Lymph # (Auto) (4976-3799) /uL Wallace # (Auto) (0-900) /uL Eos # (Auto) (0-450) /uL Baso # (Auto) (0-100) /uL PT (10.1-12.7) SECONDS INR (0.9-1.3) APTT (26-36) SECONDS D-Dimer (<500) ng/ml Sodium (137-145) mmol/L Potassium (3.4-5.1) mmol/L Chloride (98-107) mmol/L Carbon Dioxide (22-32) mmol/L BUN (7-17) mg/dL Creatinine (0.52-1.04) mg/dL Estimated GFR (>60) mL/min BUN/Creatinine Ratio (6-22) Glucose (70-100) mg/dL Serum Osmolality (275-295) mOsmol/kg Lactate (0.7-2.1) mmol/L Calcium (8.4-10.2) mg/dL Total Bilirubin (0.2-1.3) mg/dL AST (14-36) IU/L ALT (<35) IU/L Alkaline Phosphatase (38-126) U/L Ammonia < 9 L (9-30) umol/L Total Creatine Kinase (30-135) U/L CK-MB (CK-2) CK-MB (CK-2) Rel Index Troponin I (0.01-0.034) ng/mL Total Protein (6.3-8.2) g/dL Albumin (3.5-5.0) g/dL Globulin (1.7-4.1) g/dL Albumin/Globulin Ratio (1.0-2.8) TSH (0.47-4.68) uIU/mL Prolactin (3.0-18.6) ng/mL Urine Color Yellow Urine Appearance Clear Urine pH 6.5 (4.5-8.0) Ur Specific [place] 1.015 (1.000-1.035) Urine Protein 2+ H (Negative) Urine Glucose (UA) Trace H (Negative) g/dL Urine Ketones Negative (NEGATIVE) Urine Occult Blood Negative (Negative) Urine Nitrate Positive H (Negative) Urine Bilirubin Negative (NEGATIVE) Urine Urobilinogen 2.0 H (0.2) E.U./dL Ur Leukocyte Esterase Trace H (NEGATIVE) Urine RBC None seen (0-5/HPF) Urine WBC 0-1/hpf (0-5/HPF) Ur Squamous Epith Cells 0-1 /hpf (0-5/HPF) Amorphous Sediment 1+ Urine Bacteria None seen (None) Urine Test (Negative) Salicylates (<20) mg/dL U Opiates 300ng/mL cut (Negative) Ur Oxycodone Screen (Negative) Urine Methadone Screen (Negative) Acetaminophen (10-30) ug/mL Ur Barbiturates Screen (Negative) U Tricyclic Antidepress (Negative) Ur Phencyclidine Scrn (Negative) Ur Amphetamines Screen (Negative) U Methamphetamines Scrn (Negative) Ur MDMA Scrn (Ecstasy) (Negative) U Benzodiazepines Scrn (Negative) Urine Cocaine Screen (Negative) U Marijuana (THC) Screen (Negative) Ethyl Alcohol ( - 10) mg/dL A. baumannii (PCR) (Not Detect) Umm albicans (PCR) (Not Detect) C. glabrata (PCR) (Not Detect) C. krusei (PCR) (Not Detect) C. parapsilosis (PCR) (Not Detect) C. tropicalis (PCR) (Not Detect) SARS-CoV-2 (PCR) Negative (Negative) Enterobacteriac sp PCR (Not Detect) E. cloacae complex PCR (Not Detect) Enterococcus sp PCR (Not Detect) E. coli (PCR) (Not Detect) H. influenzae (PCR) (Not Detect) Influenza A (RT-PCR) Flu a negative (NEGATIVE) Influenza B (RT-PCR) Flu b negative (NEGATIVE) Klebsiella oxytoca PCR (Not Detect) Klebsiella pneumoniae (Not Detect) List. monocytogenes PCR (Not Detect) N. meningitidis (PCR) (Not Detect) Proteus species (PCR) (Not Detect) RSV (PCR) Negative (Negative) Serratia marcescens PCR (Not Detect) Staphylococcus sp PCR (Not Detect) Staph aureus (PCR) (Not Detect) mecA-Methicil Res Gene (Not Detect) Streptococcus sp PCR (Not Detect) Group A Strep (PCR) (Not Detect) Strep agalactiae (PCR) (Not Detect) Strep pneumoniae (PCR) (Not Detect) P. aeruginosa (PCR) (Not Detect) Suly/B-Vanco Res Genes KPC-Carbap Res Gene PCR 11/05/22 11/05/22 11/05/22 Range/Units 08:25 08:25 10:41 WBC (4.5-11.0) X10^3/uL RBC (4.0-5.2) X10^6/uL Hgb (12.0-16.0) g/dL Hct (36-46) % MCV (80-100) fL MCH (26-34) PG MCHC (30-36) % RDW (11.6-14.8) % Plt Count (150-400) X10^3/uL Neut % (Auto) (50-75) % Lymph % (Auto) (25-40) % Wallace % (Auto) (3-14) % Eos % (Auto) (2-4) % Baso % (Auto) (0-2) % Neut # (Auto) (0603-0688) /uL Lymph # (Auto) (8806-9105) /uL Wallace # (Auto) (0-900) /uL Eos # (Auto) (0-450) /uL Baso # (Auto) (0-100) /uL PT (10.1-12.7) SECONDS INR (0.9-1.3) APTT (26-36) SECONDS D-Dimer (<500) ng/ml Sodium (137-145) mmol/L Potassium (3.4-5.1) mmol/L Chloride (98-107) mmol/L Carbon Dioxide (22-32) mmol/L BUN (7-17) mg/dL Creatinine (0.52-1.04) mg/dL Estimated GFR (>60) mL/min BUN/Creatinine Ratio (6-22) Glucose (70-100) mg/dL Serum Osmolality (275-295) mOsmol/kg Lactate 0.7 (0.7-2.1) mmol/L Calcium (8.4-10.2) mg/dL Total Bilirubin (0.2-1.3) mg/dL AST (14-36) IU/L ALT (<35) IU/L Alkaline Phosphatase (38-126) U/L Ammonia (9-30) umol/L Total Creatine Kinase (30-135) U/L CK-MB (CK-2) CK-MB (CK-2) Rel Index Troponin I (0.01-0.034) ng/mL Total Protein (6.3-8.2) g/dL Albumin (3.5-5.0) g/dL Globulin (1.7-4.1) g/dL Albumin/Globulin Ratio (1.0-2.8) TSH (0.47-4.68) uIU/mL Prolactin (3.0-18.6) ng/mL Urine Color Urine Appearance Urine pH (4.5-8.0) Ur Specific [place] (1.000-1.035) Urine Protein (Negative) Urine Glucose (UA) (Negative) g/dL Urine Ketones (NEGATIVE) Urine Occult Blood (Negative) Urine Nitrate (Negative) Urine Bilirubin (NEGATIVE) Urine Urobilinogen (0.2) E.U./dL Ur Leukocyte Esterase (NEGATIVE) Urine RBC (0-5/HPF) Urine WBC (0-5/HPF) Ur Squamous Epith Cells (0-5/HPF) Amorphous Sediment Urine Bacteria (None) Urine Test Negative (Negative) Salicylates (<20) mg/dL U Opiates 300ng/mL cut Positive H (Negative) Ur Oxycodone Screen Positive H (Negative) Urine Methadone Screen Negative (Negative) Acetaminophen (10-30) ug/mL Ur Barbiturates Screen Negative (Negative) U Tricyclic Antidepress Negative (Negative) Ur Phencyclidine Scrn Negative (Negative) Ur Amphetamines Screen Negative (Negative) U Methamphetamines Scrn Negative (Negative) Ur MDMA Scrn (Ecstasy) Negative (Negative) U Benzodiazepines Scrn Positive H (Negative) Urine Cocaine Screen Negative (Negative) U Marijuana (THC) Screen Negative (Negative) Ethyl Alcohol ( - 10) mg/dL A. baumannii (PCR) (Not Detect) Umm albicans (PCR) (Not Detect) C. glabrata (PCR) (Not Detect) C. krusei (PCR) (Not Detect) C. parapsilosis (PCR) (Not Detect) C. tropicalis (PCR) (Not Detect) SARS-CoV-2 (PCR) (Negative) Enterobacteriac sp PCR (Not Detect) E. cloacae complex PCR (Not Detect) Enterococcus sp PCR (Not Detect) E. coli (PCR) (Not Detect) H. influenzae (PCR) (Not Detect) Influenza A (RT-PCR) (NEGATIVE) Influenza B (RT-PCR) (NEGATIVE) Klebsiella oxytoca PCR (Not Detect) Klebsiella pneumoniae (Not Detect) List. monocytogenes PCR (Not Detect) N. meningitidis (PCR) (Not Detect) Proteus species (PCR) (Not Detect) RSV (PCR) (Negative) Serratia marcescens PCR (Not Detect) Staphylococcus sp PCR (Not Detect) Staph aureus (PCR) (Not Detect) mecA-Methicil Res Gene (Not Detect) Streptococcus sp PCR (Not Detect) Group A Strep (PCR) (Not Detect) Strep agalactiae (PCR) (Not Detect) Strep pneumoniae (PCR) (Not Detect) P. aeruginosa (PCR) (Not Detect) Suly/B-Vanco Res Genes KPC-Carbap Res Gene PCR ECG Data Attestation: I personally reviewed and interpreted this ECG as follows: Prior ECG tracings: not available for review Interpretation: Sinus tachycardia rate of 128 WA 142 QRS 92 and QTC 443. No acute ST elevation or depression appreciated. No priors for comparison. MDM Narrative Medical decision making narrative: This is a 42-year-old female found altered sitting on the toilet her rehab facility. She received Narcan in the field with no change ultimately did begin have some improvement in mentation and was quite agitated per EMS she seemed to be somewhat postictal with slowly improving mentation but agitated and did receive Versed IM in the field. Patient was tachycardic and hypertensive for medics although they state that it was difficult to obtain vitals initially secondary to her agitation and noncompliance. Patient workup includes head CT, chest x-ray EKG shows sinus tach no other acute ST changes appreciated no priors for comparison. Labs and urine. Patient signed out to Dr. Wise while awaiting pending labs and imaging. Patient is noted to have improving mentation while here in the department. She is noted to occasionally drop her oxygen when she falls asleep. <Alicia Wise, DO - Last Filed: 03/21/22 17:28> Lab Data Labs: Lab Results 03/21/22 03/21/22 03/21/22 Range/Units 06:05 06:05 06:05 WBC 2.7 L (4.5-11.0) X10^3/uL RBC 3.67 L (4.0-5.2) X10^6/uL Hgb 11.5 L (12.0-16.0) g/dL Hct 35.6 L (36-46) % MCV 97.0 (80-100) fL MCH 31.2 (26-34) PG MCHC 32.2 (30-36) % RDW 13.6 (11.6-14.8) % Plt Count 210 (150-400) X10^3/uL Neut % (Auto) 39.7 L (50-75) % Lymph % (Auto) 47.0 H (25-40) % Wallace % (Auto) 7.4 (3-14) % Eos % (Auto) 5.1 H (2-4) % Baso % (Auto) 0.8 (0-2) % Neut # (Auto) 1100 L (8585-0130) /uL Lymph # (Auto) 1300 (8186-3170) /uL Wallace # (Auto) 200 (0-900) /uL Eos # (Auto) 100 (0-450) /uL Baso # (Auto) 0 (0-100) /uL PT 12.1 (10.1-12.7) SECONDS INR 1.1 (0.9-1.3) APTT 35 (26-36) SECONDS D-Dimer (<500) ng/ml Sodium (137-145) mmol/L Potassium (3.4-5.1) mmol/L Chloride (98-107) mmol/L Carbon Dioxide (22-32) mmol/L BUN (7-17) mg/dL Creatinine (0.52-1.04) mg/dL Estimated GFR (>60) mL/min BUN/Creatinine Ratio (6-22) Glucose (70-100) mg/dL Serum Osmolality (275-295) mOsmol/kg Lactate (0.7-2.1) mmol/L Calcium (8.4-10.2) mg/dL Total Bilirubin (0.2-1.3) mg/dL AST (14-36) IU/L ALT (<35) IU/L Alkaline Phosphatase (38-126) U/L Ammonia (9-30) umol/L Total Creatine Kinase 43 (30-135) U/L CK-MB (CK-2) TNP CK-MB (CK-2) Rel Index TNP Troponin I < 0.012 (0.01-0.034) ng/mL Total Protein (6.3-8.2) g/dL Albumin (3.5-5.0) g/dL Globulin (1.7-4.1) g/dL Albumin/Globulin Ratio (1.0-2.8) TSH (0.47-4.68) uIU/mL Prolactin (3.0-18.6) ng/mL Urine Color Urine Appearance Urine pH (4.5-8.0) Ur Specific [place] (1.000-1.035) Urine Protein (Negative) Urine Glucose (UA) (Negative) g/dL Urine Ketones (NEGATIVE) Urine Occult Blood (Negative) Urine Nitrate (Negative) Urine Bilirubin (NEGATIVE) Urine Urobilinogen (0.2) E.U./dL Ur Leukocyte Esterase (NEGATIVE) Urine RBC (0-5/HPF) Urine WBC (0-5/HPF) Ur Squamous Epith Cells (0-5/HPF) Amorphous Sediment Urine Bacteria (None) Urine Test (Negative) Salicylates (<20) mg/dL U Opiates 300ng/mL cut (Negative) Ur Oxycodone Screen (Negative) Urine Methadone Screen (Negative) Acetaminophen (10-30) ug/mL Ur Barbiturates Screen (Negative) U Tricyclic Antidepress (Negative) Ur Phencyclidine Scrn (Negative) Ur Amphetamines Screen (Negative) U Methamphetamines Scrn (Negative) Ur MDMA Scrn (Ecstasy) (Negative) U Benzodiazepines Scrn (Negative) Urine Cocaine Screen (Negative) U Marijuana (THC) Screen (Negative) Ethyl Alcohol ( - 10) mg/dL A. baumannii (PCR) (Not Detect) Umm albicans (PCR) (Not Detect) C. glabrata (PCR) (Not Detect) C. krusei (PCR) (Not Detect) C. parapsilosis (PCR) (Not Detect) C. tropicalis (PCR) (Not Detect) SARS-CoV-2 (PCR) (Negative) Enterobacteriac sp PCR (Not Detect) E. cloacae complex PCR (Not Detect) Enterococcus sp PCR (Not Detect) E. coli (PCR) (Not Detect) H. influenzae (PCR) (Not Detect) Influenza A (RT-PCR) (NEGATIVE) Influenza B (RT-PCR) (NEGATIVE) Klebsiella oxytoca PCR (Not Detect) Klebsiella pneumoniae (Not Detect) List. monocytogenes PCR (Not Detect) N. meningitidis (PCR) (Not Detect) Proteus species (PCR) (Not Detect) RSV (PCR) (Negative) Serratia marcescens PCR (Not Detect) Staphylococcus sp PCR (Not Detect) Staph aureus (PCR) (Not Detect) mecA-Methicil Res Gene (Not Detect) Streptococcus sp PCR (Not Detect) Group A Strep (PCR) (Not Detect) Strep agalactiae (PCR) (Not Detect) Strep pneumoniae (PCR) (Not Detect) P. aeruginosa (PCR) (Not Detect) Suly/B-Vanco Res Genes KPC-Carbap Res Gene PCR 03/21/22 03/21/22 03/21/22 Range/Units 06:05 06:05 06:05 WBC (4.5-11.0) X10^3/uL RBC (4.0-5.2) X10^6/uL Hgb (12.0-16.0) g/dL Hct (36-46) % MCV (80-100) fL MCH (26-34) PG MCHC (30-36) % RDW (11.6-14.8) % Plt Count (150-400) X10^3/uL Neut % (Auto) (50-75) % Lymph % (Auto) (25-40) % Wallace % (Auto) (3-14) % Eos % (Auto) (2-4) % Baso % (Auto) (0-2) % Neut # (Auto) (8289-2726) /uL Lymph # (Auto) (5924-8852) /uL Wallace # (Auto) (0-900) /uL Eos # (Auto) (0-450) /uL Baso # (Auto) (0-100) /uL PT (10.1-12.7) SECONDS INR (0.9-1.3) APTT (26-36) SECONDS D-Dimer (<500) ng/ml Sodium 141 (137-145) mmol/L Potassium 3.9 (3.4-5.1) mmol/L Chloride 99 (98-107) mmol/L Carbon Dioxide 33 H (22-32) mmol/L BUN 25 H (7-17) mg/dL Creatinine 0.81 (0.52-1.04) mg/dL Estimated GFR > 60 (>60) mL/min BUN/Creatinine Ratio 30.9 H (6-22) Glucose 101 H (70-100) mg/dL Serum Osmolality (275-295) mOsmol/kg Lactate 2.5 H (0.7-2.1) mmol/L Calcium 9.2 (8.4-10.2) mg/dL Total Bilirubin 0.6 (0.2-1.3) mg/dL AST 51 H (14-36) IU/L ALT 54 H (<35) IU/L Alkaline Phosphatase 133 H (38-126) U/L Ammonia (9-30) umol/L Total Creatine Kinase (30-135) U/L CK-MB (CK-2) CK-MB (CK-2) Rel Index Troponin I (0.01-0.034) ng/mL Total Protein 7.5 (6.3-8.2) g/dL Albumin 4.1 (3.5-5.0) g/dL Globulin 3.4 (1.7-4.1) g/dL Albumin/Globulin Ratio 1.2 (1.0-2.8) TSH 3.91 (0.47-4.68) uIU/mL Prolactin 83.7 H (3.0-18.6) ng/mL Urine Color Urine Appearance Urine pH (4.5-8.0) Ur Specific [place] (1.000-1.035) Urine Protein (Negative) Urine Glucose (UA) (Negative) g/dL Urine Ketones (NEGATIVE) Urine Occult Blood (Negative) Urine Nitrate (Negative) Urine Bilirubin (NEGATIVE) Urine Urobilinogen (0.2) E.U./dL Ur Leukocyte Esterase (NEGATIVE) Urine RBC (0-5/HPF) Urine WBC (0-5/HPF) Ur Squamous Epith Cells (0-5/HPF) Amorphous Sediment Urine Bacteria (None) Urine Test (Negative) Salicylates < 1.0 (<20) mg/dL U Opiates 300ng/mL cut (Negative) Ur Oxycodone Screen (Negative) Urine Methadone Screen (Negative) Acetaminophen < 10 (10-30) ug/mL Ur Barbiturates Screen (Negative) U Tricyclic Antidepress (Negative) Ur Phencyclidine Scrn (Negative) Ur Amphetamines Screen (Negative) U Methamphetamines Scrn (Negative) Ur MDMA Scrn (Ecstasy) (Negative) U Benzodiazepines Scrn (Negative) Urine Cocaine Screen (Negative) U Marijuana (THC) Screen (Negative) Ethyl Alcohol < 10 ( - 10) mg/dL A. baumannii (PCR) (Not Detect) Umm albicans (PCR) (Not Detect) C. glabrata (PCR) (Not Detect) C. krusei (PCR) (Not Detect) C. parapsilosis (PCR) (Not Detect) C. tropicalis (PCR) (Not Detect) SARS-CoV-2 (PCR) (Negative) Enterobacteriac sp PCR (Not Detect) E. cloacae complex PCR (Not Detect) Enterococcus sp PCR (Not Detect) E. coli (PCR) (Not Detect) H. influenzae (PCR) (Not Detect) Influenza A (RT-PCR) (NEGATIVE) Influenza B (RT-PCR) (NEGATIVE) Klebsiella oxytoca PCR (Not Detect) Klebsiella pneumoniae (Not Detect) List. monocytogenes PCR (Not Detect) N. meningitidis (PCR) (Not Detect) Proteus species (PCR) (Not Detect) RSV (PCR) (Negative) Serratia marcescens PCR (Not Detect) Staphylococcus sp PCR (Not Detect) Staph aureus (PCR) (Not Detect) mecA-Methicil Res Gene (Not Detect) Streptococcus sp PCR (Not Detect) Group A Strep (PCR) (Not Detect) Strep agalactiae (PCR) (Not Detect) Strep pneumoniae (PCR) (Not Detect) P. aeruginosa (PCR) (Not Detect) Suly/B-Vanco Res Genes KPC-Carbap Res Gene PCR 03/21/22 03/21/22 03/21/22 Range/Units 06:05 06:05 06:05 WBC (4.5-11.0) X10^3/uL RBC (4.0-5.2) X10^6/uL Hgb (12.0-16.0) g/dL Hct (36-46) % MCV (80-100) fL MCH (26-34) PG MCHC (30-36) % RDW (11.6-14.8) % Plt Count (150-400) X10^3/uL Neut % (Auto) (50-75) % Lymph % (Auto) (25-40) % Wallace % (Auto) (3-14) % Eos % (Auto) (2-4) % Baso % (Auto) (0-2) % Neut # (Auto) (9629-2435) /uL Lymph # (Auto) (4496-8387) /uL Wallace # (Auto) (0-900) /uL Eos # (Auto) (0-450) /uL Baso # (Auto) (0-100) /uL PT (10.1-12.7) SECONDS INR (0.9-1.3) APTT (26-36) SECONDS D-Dimer 793 H (<500) ng/ml Sodium (137-145) mmol/L Potassium (3.4-5.1) mmol/L Chloride (98-107) mmol/L Carbon Dioxide (22-32) mmol/L BUN (7-17) mg/dL Creatinine (0.52-1.04) mg/dL Estimated GFR (>60) mL/min BUN/Creatinine Ratio (6-22) Glucose (70-100) mg/dL Serum Osmolality 291 (275-295) mOsmol/kg Lactate (0.7-2.1) mmol/L Calcium (8.4-10.2) mg/dL Total Bilirubin (0.2-1.3) mg/dL AST (14-36) IU/L ALT (<35) IU/L Alkaline Phosphatase (38-126) U/L Ammonia (9-30) umol/L Total Creatine Kinase (30-135) U/L CK-MB (CK-2) CK-MB (CK-2) Rel Index Troponin I (0.01-0.034) ng/mL Total Protein (6.3-8.2) g/dL Albumin (3.5-5.0) g/dL Globulin (1.7-4.1) g/dL Albumin/Globulin Ratio (1.0-2.8) TSH (0.47-4.68) uIU/mL Prolactin (3.0-18.6) ng/mL Urine Color Urine Appearance Urine pH (4.5-8.0) Ur Specific [place] (1.000-1.035) Urine Protein (Negative) Urine Glucose (UA) (Negative) g/dL Urine Ketones (NEGATIVE) Urine Occult Blood (Negative) Urine Nitrate (Negative) Urine Bilirubin (NEGATIVE) Urine Urobilinogen (0.2) E.U./dL Ur Leukocyte Esterase (NEGATIVE) Urine RBC (0-5/HPF) Urine WBC (0-5/HPF) Ur Squamous Epith Cells (0-5/HPF) Amorphous Sediment Urine Bacteria (None) Urine Test (Negative) Salicylates (<20) mg/dL U Opiates 300ng/mL cut (Negative) Ur Oxycodone Screen (Negative) Urine Methadone Screen (Negative) Acetaminophen (10-30) ug/mL Ur Barbiturates Screen (Negative) U Tricyclic Antidepress (Negative) Ur Phencyclidine Scrn (Negative) Ur Amphetamines Screen (Negative) U Methamphetamines Scrn (Negative) Ur MDMA Scrn (Ecstasy) (Negative) U Benzodiazepines Scrn (Negative) Urine Cocaine Screen (Negative) U Marijuana (THC) Screen (Negative) Ethyl Alcohol ( - 10) mg/dL A. baumannii (PCR) Not detected (Not Detect) Umm albicans (PCR) Not detected (Not Detect) C. glabrata (PCR) Not detected (Not Detect) C. krusei (PCR) Not detected (Not Detect) C. parapsilosis (PCR) Not detected (Not Detect) C. tropicalis (PCR) Not detected (Not Detect) SARS-CoV-2 (PCR) (Negative) Enterobacteriac sp PCR Not detected (Not Detect) E. cloacae complex PCR Not detected (Not Detect) Enterococcus sp PCR Not detected (Not Detect) E. coli (PCR) Not detected (Not Detect) H. influenzae (PCR) Not detected (Not Detect) Influenza A (RT-PCR) (NEGATIVE) Influenza B (RT-PCR) (NEGATIVE) Klebsiella oxytoca PCR Not detected (Not Detect) Klebsiella pneumoniae Not detected (Not Detect) List. monocytogenes PCR Not detected (Not Detect) N. meningitidis (PCR) Not detected (Not Detect) Proteus species (PCR) Not detected (Not Detect) RSV (PCR) (Negative) Serratia marcescens PCR Not detected (Not Detect) Staphylococcus sp PCR Detected H (Not Detect) Staph aureus (PCR) Not detected (Not Detect) mecA-Methicil Res Gene Not detected (Not Detect) Streptococcus sp PCR Not detected (Not Detect) Group A Strep (PCR) Not detected (Not Detect) Strep agalactiae (PCR) Not detected (Not Detect) Strep pneumoniae (PCR) Not detected (Not Detect) P. aeruginosa (PCR) Not detected (Not Detect) Suly/B-Vanco Res Genes Not Reportable KPC-Carbap Res Gene PCR Not Reportable 03/21/22 03/21/22 03/21/22 Range/Units 06:20 08:06 08:25 WBC (4.5-11.0) X10^3/uL RBC (4.0-5.2) X10^6/uL Hgb (12.0-16.0) g/dL Hct (36-46) % MCV (80-100) fL MCH (26-34) PG MCHC (30-36) % RDW (11.6-14.8) % Plt Count (150-400) X10^3/uL Neut % (Auto) (50-75) % Lymph % (Auto) (25-40) % Wallace % (Auto) (3-14) % Eos % (Auto) (2-4) % Baso % (Auto) (0-2) % Neut # (Auto) (6890-2085) /uL Lymph # (Auto) (4839-2408) /uL Wallace # (Auto) (0-900) /uL Eos # (Auto) (0-450) /uL Baso # (Auto) (0-100) /uL PT (10.1-12.7) SECONDS INR (0.9-1.3) APTT (26-36) SECONDS D-Dimer (<500) ng/ml Sodium (137-145) mmol/L Potassium (3.4-5.1) mmol/L Chloride (98-107) mmol/L Carbon Dioxide (22-32) mmol/L BUN (7-17) mg/dL Creatinine (0.52-1.04) mg/dL Estimated GFR (>60) mL/min BUN/Creatinine Ratio (6-22) Glucose (70-100) mg/dL Serum Osmolality (275-295) mOsmol/kg Lactate (0.7-2.1) mmol/L Calcium (8.4-10.2) mg/dL Total Bilirubin (0.2-1.3) mg/dL AST (14-36) IU/L ALT (<35) IU/L Alkaline Phosphatase (38-126) U/L Ammonia < 9 L (9-30) umol/L Total Creatine Kinase (30-135) U/L CK-MB (CK-2) CK-MB (CK-2) Rel Index Troponin I (0.01-0.034) ng/mL Total Protein (6.3-8.2) g/dL Albumin (3.5-5.0) g/dL Globulin (1.7-4.1) g/dL Albumin/Globulin Ratio (1.0-2.8) TSH (0.47-4.68) uIU/mL Prolactin (3.0-18.6) ng/mL Urine Color Yellow Urine Appearance Clear Urine pH 6.5 (4.5-8.0) Ur Specific [place] 1.015 (1.000-1.035) Urine Protein 2+ H (Negative) Urine Glucose (UA) Trace H (Negative) g/dL Urine Ketones Negative (NEGATIVE) Urine Occult Blood Negative (Negative) Urine Nitrate Positive H (Negative) Urine Bilirubin Negative (NEGATIVE) Urine Urobilinogen 2.0 H (0.2) E.U./dL Ur Leukocyte Esterase Trace H (NEGATIVE) Urine RBC None seen (0-5/HPF) Urine WBC 0-1/hpf (0-5/HPF) Ur Squamous Epith Cells 0-1 /hpf (0-5/HPF) Amorphous Sediment 1+ Urine Bacteria None seen (None) Urine Test (Negative) Salicylates (<20) mg/dL U Opiates 300ng/mL cut (Negative) Ur Oxycodone Screen (Negative) Urine Methadone Screen (Negative) Acetaminophen (10-30) ug/mL Ur Barbiturates Screen (Negative) U Tricyclic Antidepress (Negative) Ur Phencyclidine Scrn (Negative) Ur Amphetamines Screen (Negative) U Methamphetamines Scrn (Negative) Ur MDMA Scrn (Ecstasy) (Negative) U Benzodiazepines Scrn (Negative) Urine Cocaine Screen (Negative) U Marijuana (THC) Screen (Negative) Ethyl Alcohol ( - 10) mg/dL A. baumannii (PCR) (Not Detect) Umm albicans (PCR) (Not Detect) C. glabrata (PCR) (Not Detect) C. krusei (PCR) (Not Detect) C. parapsilosis (PCR) (Not Detect) C. tropicalis (PCR) (Not Detect) SARS-CoV-2 (PCR) Negative (Negative) Enterobacteriac sp PCR (Not Detect) E. cloacae complex PCR (Not Detect) Enterococcus sp PCR (Not Detect) E. coli (PCR) (Not Detect) H. influenzae (PCR) (Not Detect) Influenza A (RT-PCR) Flu a negative (NEGATIVE) Influenza B (RT-PCR) Flu b negative (NEGATIVE) Klebsiella oxytoca PCR (Not Detect) Klebsiella pneumoniae (Not Detect) List. monocytogenes PCR (Not Detect) N. meningitidis (PCR) (Not Detect) Proteus species (PCR) (Not Detect) RSV (PCR) Negative (Negative) Serratia marcescens PCR (Not Detect) Staphylococcus sp PCR (Not Detect) Staph aureus (PCR) (Not Detect) mecA-Methicil Res Gene (Not Detect) Streptococcus sp PCR (Not Detect) Group A Strep (PCR) (Not Detect) Strep agalactiae (PCR) (Not Detect) Strep pneumoniae (PCR) (Not Detect) P. aeruginosa (PCR) (Not Detect) Suly/B-Vanco Res Genes KPC-Carbap Res Gene PCR 03/21/22 03/21/22 03/21/22 Range/Units 08:25 08:25 10:41 WBC (4.5-11.0) X10^3/uL RBC (4.0-5.2) X10^6/uL Hgb (12.0-16.0) g/dL Hct (36-46) % MCV (80-100) fL MCH (26-34) PG MCHC (30-36) % RDW (11.6-14.8) % Plt Count (150-400) X10^3/uL Neut % (Auto) (50-75) % Lymph % (Auto) (25-40) % Wallace % (Auto) (3-14) % Eos % (Auto) (2-4) % Baso % (Auto) (0-2) % Neut # (Auto) (3018-9561) /uL Lymph # (Auto) (4567-8681) /uL Wallace # (Auto) (0-900) /uL Eos # (Auto) (0-450) /uL Baso # (Auto) (0-100) /uL PT (10.1-12.7) SECONDS INR (0.9-1.3) APTT (26-36) SECONDS D-Dimer (<500) ng/ml Sodium (137-145) mmol/L Potassium (3.4-5.1) mmol/L Chloride (98-107) mmol/L Carbon Dioxide (22-32) mmol/L BUN (7-17) mg/dL Creatinine (0.52-1.04) mg/dL Estimated GFR (>60) mL/min BUN/Creatinine Ratio (6-22) Glucose (70-100) mg/dL Serum Osmolality (275-295) mOsmol/kg Lactate 0.7 (0.7-2.1) mmol/L Calcium (8.4-10.2) mg/dL Total Bilirubin (0.2-1.3) mg/dL AST (14-36) IU/L ALT (<35) IU/L Alkaline Phosphatase (38-126) U/L Ammonia (9-30) umol/L Total Creatine Kinase (30-135) U/L CK-MB (CK-2) CK-MB (CK-2) Rel Index Troponin I (0.01-0.034) ng/mL Total Protein (6.3-8.2) g/dL Albumin (3.5-5.0) g/dL Globulin (1.7-4.1) g/dL Albumin/Globulin Ratio (1.0-2.8) TSH (0.47-4.68) uIU/mL Prolactin (3.0-18.6) ng/mL Urine Color Urine Appearance Urine pH (4.5-8.0) Ur Specific [place] (1.000-1.035) Urine Protein (Negative) Urine Glucose (UA) (Negative) g/dL Urine Ketones (NEGATIVE) Urine Occult Blood (Negative) Urine Nitrate (Negative) Urine Bilirubin (NEGATIVE) Urine Urobilinogen (0.2) E.U./dL Ur Leukocyte Esterase (NEGATIVE) Urine RBC (0-5/HPF) Urine WBC (0-5/HPF) Ur Squamous Epith Cells (0-5/HPF) Amorphous Sediment Urine Bacteria (None) Urine Test Negative (Negative) Salicylates (<20) mg/dL U Opiates 300ng/mL cut Positive H (Negative) Ur Oxycodone Screen Positive H (Negative) Urine Methadone Screen Negative (Negative) Acetaminophen (10-30) ug/mL Ur Barbiturates Screen Negative (Negative) U Tricyclic Antidepress Negative (Negative) Ur Phencyclidine Scrn Negative (Negative) Ur Amphetamines Screen Negative (Negative) U Methamphetamines Scrn Negative (Negative) Ur MDMA Scrn (Ecstasy) Negative (Negative) U Benzodiazepines Scrn Positive H (Negative) Urine Cocaine Screen Negative (Negative) U Marijuana (THC) Screen Negative (Negative) Ethyl Alcohol ( - 10) mg/dL A. baumannii (PCR) (Not Detect) Umm albicans (PCR) (Not Detect) C. glabrata (PCR) (Not Detect) C. krusei (PCR) (Not Detect) C. parapsilosis (PCR) (Not Detect) C. tropicalis (PCR) (Not Detect) SARS-CoV-2 (PCR) (Negative) Enterobacteriac sp PCR (Not Detect) E. cloacae complex PCR (Not Detect) Enterococcus sp PCR (Not Detect) E. coli (PCR) (Not Detect) H. influenzae (PCR) (Not Detect) Influenza A (RT-PCR) (NEGATIVE) Influenza B (RT-PCR) (NEGATIVE) Klebsiella oxytoca PCR (Not Detect) Klebsiella pneumoniae (Not Detect) List. monocytogenes PCR (Not Detect) N. meningitidis (PCR) (Not Detect) Proteus species (PCR) (Not Detect) RSV (PCR) (Negative) Serratia marcescens PCR (Not Detect) Staphylococcus sp PCR (Not Detect) Staph aureus (PCR) (Not Detect) mecA-Methicil Res Gene (Not Detect) Streptococcus sp PCR (Not Detect) Group A Strep (PCR) (Not Detect) Strep agalactiae (PCR) (Not Detect) Strep pneumoniae (PCR) (Not Detect) P. aeruginosa (PCR) (Not Detect) Suly/B-Vanco Res Genes KPC-Carbap Res Gene PCR Imaging Data CT scan - head: Radiologist's Impression: PROCEDURE:? CT HEAD/BRAIN WO CON ? INDICATIONS:? altered mental status ? TECHNIQUE:? Noncontrast 4.5 mm thick angled axial sections acquired from the foramen magnum to the vertex, with coronal and sagittal reformats.? For radiation dose reduction, the following was used:? automated exposure control, adjustment of mA and/or kV according to patient size.? ? COMPARISON:? None. ? FINDINGS:? Image quality:? Limited by motion artifact ? CSF spaces:? Basal cisterns are patent.? No extra-axial fluid collections.? Ventricles are normal in size and shape.? ? Brain:? No midline shift.? No intracranial masses or hemorrhage.? Weiss-white matter interface is normal.? ? Skull and face:? Calvarium and visualized facial bones are intact, without suspicious lesions.? ? Sinuses:? Visualized sinuses and mastoids are clear.? ? IMPRESSION:? Unremarkable CT of the head ? ? ? Approved by: Amol Hernandez M.D. on 03/21/2022 at 8:23? Chest x-ray: Radiologist's Impression: XRay Report Signed Patient: Maite Odom V MR#: [id number] : 1980 Acct:[id number] Age/Sex: 42 / F Date of Service: 03/21/22 Loc: ED Accession Number: [id number] ?? Procedure: XR chest 1V Ordering Provider: Dea Hart D.O. PROCEDURE:? XR CHEST 1V ? INDICATIONS:? altered mental status ? TECHNIQUE:? One view of the chest was acquired.? ? COMPARISON:? [facility], , XR CHEST 1V, 12/11/2021, 1:08. ? FINDINGS:? ? Surgical changes and devices:? Lower cervical spine instrumentation ? Lungs and pleura:? Lungs are clear.? No pleural effusions or pneumothorax.? ? Mediastinum:? Heart size enlarged.? Moderate vascular congestion noted. ? Bones and chest wall:? No suspicious bony lesions.? Overlying soft tissues appear unremarkable.? Generalized decrease in osseous mineralization noted. ? IMPRESSION:? Cardiomegaly and moderate vascular congestion ? ? ? Approved by: Amol Hernandez M.D. on 03/21/2022 at 8:03? MDM Narrative Medical decision making narrative: This is a 42-year-old female found altered sitting on the toilet her rehab facility. She received Narcan in the field with no change ultimately did begin have some improvement in mentation and was quite agitated per EMS she seemed to be somewhat postictal with slowly improving mentation but agitated and did receive Versed IM in the field. Patient was tachycardic and hypertensive for medics although they state that it was difficult to obtain vitals initially secondary to her agitation and noncompliance. Patient workup includes head CT, chest x-ray EKG shows sinus tach no other acute ST changes appreciated no priors for comparison. Labs and urine. Patient signed out to Dr. Wise while awaiting pending labs and imaging. Patient is noted to have improving mentation while here in the department. She is noted to occasionally drop her oxygen when she falls asleep. Patient signed out to me by Dr. Hart. Patient presented with altered mental status is agitated but now slowly improving mental status. Prolactin is quite elevated at 84 looks as he may have bit her tongue all suggestive of possible seizure. After reviewing and confirming with the feels ability she did get all of her Valium. She has not missed a dose. Patient remains mildly tachycardic. However she was given Narcan and is complaining of pain. She says she needs some pain medication in her heart rate will improve which it is actually. She was finally able to get up and walk to give urine sample. Drug screen is positive for all medications she is taking and nothing else. At this time she may go home unclear why she had a seizure at this time patient developed hypoxia requiring 6 L of nasal cannula at time of discharge. Discharged was canceled she just received Dilaudid and oxycodone, awake alert speaking she does not feel short of breath. CT angio for pulmonary embolism was negative. Able to wean down her O2 now back on room air. Probably overmedicated. She has been off oxygen for number of hours. And remained stable. Discharge Plan Departure Patient Disposition: Home Clinical Impression: Seizure Instructions: Seizure Disorder -- Adult Activity Restrictions/Additional Instructions: *You have been diagnosed with seizures *What to do: At this time unknown what caused your seizure. Please continue Valium in all medications. If you should have recurrent seizure then he may need evaluation by Neurology. Received Dilaudid and oxycodone in the ED *Continue to take medications as directed May need oxygen 1-2 L if O2 drops below 90% *Follow up with your primary care provider in 2-3 days or call [phone] *Return to ER if you should have recurrent seizure decreasing mental status [or] any new, worsening or concerning symptoms Prescriptions: No Action nystatin 30 GM ointment 15 gm Topical DAILY PRN (Reason: Rash) Qty: 0 ondansetron 4 MG tablet,disintegrating 8 mg Sublingual Q6HP PRN (Reason: Nausea) Qty: 0 omega [id number] oil [Fish Oil] 1,000 MG capsule 1,000 mg PO QDAY Qty: 0 omeprazole 20 mg capsule,delayed release(DR/EC) 20 mg PO QID magnesium 500 mg Tablet 500 mg PO BID Adults Multivitamin 18 mg iron-400 mcg-25 mcg Tablet 1 tab PO DAILY phenazopyridine 200 mg tablet 200 mg PO BID phenolphthalein 90 mg Tablet 75 mg PO BID docusate sodium 100 mg Tablet 300 mg PO BID morphine 15 mg tablet extended release 15 mg PO BID 30 Days Qty: 60 0RF diazepam 5 mg tablet 5 mg PO BID 30 Days Qty: 60 0RF oxycodone 5 mg tablet 5 mg PO Q4H PRN (Reason: Pain (Scale Score 1-3)) 30 Days Qty: 30 0RF methocarbamol 500 mg tablet 500 mg PO QID baclofen 10 mg tablet 10 mg PO DAILY albuterol sulfate 90 mcg/actuation HFA aerosol inhaler 2 puff inhalation DAILY tizanidine 6 mg capsule 6 dose PO TID fluconazole 150 mg tablet 150 mg PO QWEEK Qty: 1 0RF trazodone 50 mg tablet 50 mg PO BEDTIME PRN (Reason: sleep) raloxifene 60 mg tablet 60 mg PO DAILY Pulmicort Flexhaler 180 mcg/actuation aerosol powdr breath activated 1 inh inhalation DAILY fluoxetine 10 mg capsule 10 mg PO DAILY Referrals: Yadira Storm MD [Primary Care Provider] - Visit Report Forms: Patient Portal/API
[2022-03-21 06:25] LABS: Add Manual Diff / Slide Review NO; Basophils Absolute Auto 0 /uL (0-100); Basophils Percent Auto 0.8 % (0-2); Eosinophils Absolute Auto 100 /uL (0-450); Eosinophils Percent Auto 5.1 % (2-4); Hematocrit 35.6 % (36-46); Hemoglobin 11.5 g/dL (12.0-16.0); Lymphocytes Absolute Auto 1300 /uL (1100-4500); Mean Corpuscular HGB Conc 32.2 % (30-36); Mean Corpuscular Hemoglobin 31.2 PG (26-34); Monocytes Absolute Auto 200 /uL (0-900); Monocytes Percent Auto 7.4 % (3-14); Neutrophils Absolute Auto 1100 /uL (1500-7000); Neutrophils Percent Auto 39.7 % (50-75); Platelet Count 210 X10^3/uL (150-400); Red Blood Cell Count 3.67 X10^6/uL (4.0-5.2); Red Cell Distribution Width 13.6 % (11.6-14.8); White Blood Cell Count 2.7 X10^3/uL (4.5-11.0)
[2022-03-21 06:27] LABS: INR 1.1 (0.9-1.3); Prothrombin Time 12.1 SECONDS (10.1-12.7)
[2022-03-21 06:30] LABS: PTT Partial Thromboplastin Tim 35 SECONDS (26-36)
[2022-03-21 06:33] LABS: Acetaminophen < 10 ug/mL (10-30); Alanine Aminotransferase 54 IU/L (<35); Albumin 4.1 g/dL (3.5-5.0); Albumin Globulin Ratio 1.2 (1.0-2.8); Alkaline Phosphatase 133 U/L (38-126); Aspartate Aminotransferase 51 IU/L (14-36); BUN Creatinine Ratio 30.9 (6-22); Bilirubin Total 0.6 mg/dL (0.2-1.3); Blood Urea Nitrogen 25 mg/dL (7-17); Calcium 9.2 mg/dL (8.4-10.2); Carbon Dioxide 33 mmol/L (22-32); Chloride 99 mmol/L (98-107); Creatine Kinase 43 U/L (30-135); Estimated Glomerular Filt Rate > 60 mL/min (>60); Ethanol (ETOH) < 10 mg/dL; Globulin 3.4 g/dL (1.7-4.1); Glucose 101 mg/dL (70-100); HEMOLYSIS 35 (0-50); Lactate (Lactic Acid) 2.5 mmol/L (0.7-2.1); Potassium 3.9 mmol/L (3.4-5.1); Salicylate < 1.0 mg/dL (<20); Sodium 141 mmol/L (137-145); Total Protein 7.5 g/dL (6.3-8.2)
[2022-03-21] MEDS: SODIUM CHLORIDE 0.9% 1,000 ML 1000 ML IV (06:41)
[2022-03-21 06:44] LABS: Ammonia (NH3) < 9 umol/L (9-30)
[2022-03-21 06:46] LABS: Troponin I < 0.012 ng/mL (0.01-0.034)
[2022-03-21 06:49] LABS: Prolactin 83.7 ng/mL (3.0-18.6)
[2022-03-21 07:22] LABS: Thyroid Stimulating Hormone 3.91 uIU/mL (0.47-4.68)
[2022-03-21 08:18] LABS: Reflexed Lactate in 2 Hours Y
[2022-03-21 08:25] LABS: Influenza A - CEPHEID Flu A NEGATIVE (NEGATIVE); Influenza B - CEPHEID Flu B NEGATIVE (NEGATIVE); Respiratory Syncytial Virus Negative (Negative)
[2022-03-21 08:26] LABS: COVID-19 CEPHEID 4-PLEX PCR Negative (Negative)
[2022-03-21] MEDS: OXYCODONE IR 5 MG TABLET PO (09:21)
[2022-03-21] MEDS: HYDROMORPHONE 1 MG INJ IV (09:21)
[2022-03-21 09:23] LABS: Appearance Urine UA CLEAR; Bilirubin Urine UA NEGATIVE (NEGATIVE); Color Urine UA YELLOW; Glucose Urine UA TRACE g/dL (Negative); Ketones Urine UA NEGATIVE (NEGATIVE); Leukocyte Esterase Urine UA TRACE (NEGATIVE); Nitrite Urine UA POSITIVE (Negative); Occult Blood Urine UA NEGATIVE (Negative); Protein Urine UA 2+ (Negative); Specific Gravity Urine UA 1.015 (1.000-1.035); pH Urine UA 6.5 (4.5-8.0)
[2022-03-21 09:26] LABS: UR Morphine/Opiate cutoff 300 Positive (Negative); Ur Creatinine Normal (Normal); Ur Specific Gravity Normal (Normal); Urine Amphetamines Negative (Negative); Urine Barbiturates Negative (Negative); Urine Benzodiazepines Positive (Negative); Urine Cocaine Negative (Negative); Urine MDMA Negative (Negative); Urine Methadone Negative (Negative); Urine Methamphetamines Negative (Negative); Urine Oxycodone Positive (Negative); Urine Phencyclidine Negative (Negative); Urine Tetrahydrocannabinol Negative (Negative); Urine Tricyclic Antidepressant Negative (Negative); Urine pH Normal (Normal)
[2022-03-21 09:36] LABS: Amorphous Sediment Urine 1+; Bacteria Urine None Seen; RBC Urine None Seen (0-5/HPF); Squamous Epithelial Cell Urine 0-1 /HPF (0-5/HPF); WBC Urine 0-1/HPF (0-5/HPF)
--- NOTE | 2022-03-21 10:34 | DI.CT.S_ITS ---
PROCEDURE: CT ANGIO CHEST PE PROTOCOL INDICATIONS: hyposic with seizure TECHNIQUE: After the administration of intravenous contrast, 2 mm thick sections acquired from the pulmonary apices to the posterior costophrenic angles. For radiation dose reduction, the following was used: automated exposure control, adjustment of mA and/or kV according to patient size. COMPARISON: None. FINDINGS: Image quality: Excellent. Pulmonary arteries: Pulmonary arteries are normal in size, and demonstrate no intraluminal filling defects to suggest central pulmonary embolism. Lungs and pleura: Bibasilar atelectasis and or infiltrate noted. Mediastinum: Heart size is normal, without pericardial effusion. No mediastinal or hilar adenopathy. Thoracic aorta is normal in caliber and enhancement. Esophagus is normal in caliber, without hiatal hernia. Incidental aberrant right subclavian artery, an anatomic variant. Bones and chest wall: No suspicious bony lesions. Ribs and thoracic spine appear intact throughout. Thyroid gland unremarkable. No axillary or supraclavicular adenopathy. Abdomen: Visualized upper abdominal solid organs appear normal in the early arterial phase of enhancement. Cholecystectomy. IMPRESSION: 1. No evidence of pulmonary embolism, aortic dissection or aneurysm. 2. Bibasilar atelectasis and or infiltrate Approved by: Amol Hernandez M.D. on 03/21/2022 at 10:54
[2022-03-21 10:41] LABS: D Dimer 793 ng/ml (<500)
[2022-03-21 11:02] LABS: Lactate 2HR (Lactic Acid Rflx) 0.7 mmol/L (0.7-2.1)
[2022-03-21 11:15] LABS: Pregnancy Test Urine Negative (Negative)
[2022-03-21] MEDS: methocarbamoL 500 MG TABLET PO (12:55)
[2022-03-22 07:04] LABS: Enterococcus species Not Detected (Not Detect); Listeria monocytogenes Not Detected (Not Detect)
[2022-03-22 07:05] LABS: Staphylococcus species Detected (Not Detect)
[2022-03-22 07:06] LABS: Acinetobacter baumannii Not Detected (Not Detect); Candida albicans Not Detected (Not Detect); Candida glabrata Not Detected (Not Detect); Candida krusei Not Detected (Not Detect); Candida parapsilosis Not Detected (Not Detect); Candida tropicalis Not Detected (Not Detect); E. coli Not Detected (Not Detect); Enterobacter cloacae complex Not Detected (Not Detect); Enterobacteriaceae species Not Detected (Not Detect); Haemophilus influenzae Not Detected (Not Detect); Methicillin-resistant gene Not Detected (Not Detect); Neisseria meningitidis Not Detected (Not Detect); Proteus species Not Detected (Not Detect); Pseudomonas aeruginosa Not Detected (Not Detect); Serratia marcescens Not Detected (Not Detect); Streptococcus agalactiae (Gr B Not Detected (Not Detect); Streptococcus pneumonia Not Detected (Not Detect); Streptococcus pyogenes (Gr A) Not Detected (Not Detect); Streptococcus species Not Detected (Not Detect)
[2022-03-23 15:30] LABS: Osmolality, Serum 291 mOsmol/kg (275-295)
== END 2022-03-21 16:12 | disposition home or self-care (01) ==
PROVIDERS: Emergency Medicine; Emergency Provider Emergency Medicine; PCP Internal Medicine
DX: R56.9 Unspecified convulsions (principal); R09.02 Hypoxemia; R00.0 Tachycardia, unspecified; I10 Essential (primary) hypertension; Z20.822 Contact with and (suspected) exposure to COVID-19
CPT/HCPCS: 0241U; 36415; 70450; 71045; 71275; 80053; 80305; 80320; 80329; 81001; 81025; 82140; 82550; 83605; 83930; 84146; 84443; 84484; 85025; 85379; 85610; 85730; 87040; 87077; 87086; 87150; 87186; 93005; 96361; 96374; 99284; G0480; J1170; Q9967

== ENCOUNTER → 2022-04-08 20:10 | Outpatient (ROUT) | payer MEDICARE, MEDICAID, SELFPAY ==
[2021-12-11 04:10] VITALS: BMI 36.8
== END ==
PROVIDERS: PCP Internal Medicine; Visit Provider Physical Medicine & Rehabilitation
DX: R30.0 Dysuria (principal)
CPT/HCPCS: 87077; 87086; 87186

== ENCOUNTER 2022-04-20 23:00 | Emergency (ER) | payer MEDICARE, MEDICAID, SELFPAY ==
[2021-12-11 04:10] VITALS: BMI 36.8
[2022-04-20 23:09] VITALS: PULSE 155; RESP 25
--- NOTE | 2022-04-20 23:10 | ED_ITS ---
HPI - Altered Mental Status General Chief Complaint: Seizure Stated Complaint: Unconscious Time Seen by Provider: 04/20/22 23:08 History of Present Illness HPI narrative: 42-year-old female with history of cerebral palsy, osteoporosis, anxiety, depression, recent left femur fracture in December of 2021 with recent diagnosis of seizure-like activity presents to the emergency department by EMS for evaluation of altered mental status. retirement staff reports alteration in her mental status this evening and given her use of opioids it was thought to be related to overdose. She was given a total of Narcan 8 mg prior to her arrival without any reported improvement and presents by EMS altered, some blood coming from her mouth, report of a tongue laceration and slightly increasing t achycardia initially in the 120s and now to the 140s on arrival. There is no report of recent fever or chills. There is no report of cough, chest pain or shortness of breath nor of nausea, vomiting or diarrhea. Related Data Home Medications Medication Instructions Recorded Confirmed nystatin 100,000 unit/gram topical 15 gm topical DAILY PRN Rash ##0 02/10/17 12/11/21 ointment omega 0-bfj-eot-fish oil 1,000 mg 1,000 mg PO QDAY ##0 02/10/17 12/11/21 (120 mg-180 mg) capsule (Fish Oil) ondansetron 4 mg disintegrating 8 mg sublingual Q6HP PRN Nausea ##0 02/10/17 12/11/21 tablet albuterol sulfate 90 mcg/actuation 2 puff inhalation DAILY 10/29/17 12/11/21 aerosol inhaler baclofen 10 mg tablet 10 mg PO DAILY 10/29/17 12/11/21 methocarbamol 500 mg tablet 500 mg PO QID 10/29/17 12/11/21 tizanidine 6 mg capsule 6 dose PO TID 10/29/17 12/11/21 omeprazole 20 mg capsule,delayed 20 mg PO QID 04/11/18 12/11/21 release budesonide 180 mcg/actuation 1 inh inhalation DAILY 09/18/20 12/11/21 breath activated powder inhaler (Pulmicort Flexhaler) fluoxetine 10 mg capsule 10 mg PO DAILY 09/18/20 12/11/21 raloxifene 60 mg tablet 60 mg PO DAILY 09/18/20 12/11/21 trazodone 50 mg tablet 50 mg PO BEDTIME PRN sleep 09/18/20 12/11/21 docusate sodium 100 mg tablet 300 mg PO BID 12/11/21 12/11/21 magnesium 500 mg tablet 500 mg PO BID 12/11/21 12/11/21 multivit with minerals-iron 18 1 tab PO DAILY 12/11/21 12/11/21 mg-folic ac 400 mcg-vit K 25 mcg tablet (Adults Multivitamin) phenazopyridine 200 mg tablet 200 mg PO BID 12/11/21 12/11/21 phenolphthalein 90 mg tablet 75 mg PO BID 12/11/21 12/11/21 Previous Rx's Medication Instructions Recorded fluconazole 150 mg tablet 150 mg PO QWEEK #1 tab 07/31/21 diazepam 5 mg tablet 5 mg PO BID 30 days #60 tabs 12/15/21 morphine 15 mg tablet,extended 15 mg PO BID 30 days #60 tabs 12/15/21 release oxycodone 5 mg tablet 5 mg PO Q4H PRN Pain (Scale Score 12/15/21 1-3) 30 days #30 tabs levetiracetam 750 mg tablet 750 mg PO BID #60 tabs 04/21/22 (Keppra) Allergies Allergy/AdvReac Type Severity Reaction Status Date / Time gabapentin Allergy Severe RESPIRATORY Verified 10/14/21 12:31 DISTRESS acetaminophen [ACETAMINOPHEN] Allergy Mild Verified 10/14/21 12:31 adhesive [ADHESIVE] Allergy Mild Verified 10/14/21 12:31 oxymetazoline Allergy Mild other Verified 10/14/21 12:31 [From Afrin (oxymetazoline)] povidone-iodine Allergy Mild Verified 10/14/21 12:31 [From BETADINE] prochlorperazine Allergy Mild Verified 10/14/21 12:31 [From COMPAZINE] tramadol [TRAMADOL] Allergy Mild Verified 10/14/21 12:31 venlafaxine [From EFFEXOR] Allergy Mild Verified 10/14/21 12:31 dicyclomine AdvReac Unknown NAUSEA AND Verified 12/12/21 16:25 VOMITING monosodium glutamate AdvReac Unknown VOMITING, Verified 12/12/21 16:25 DIARRHEA Nitrate Analogues AdvReac Unknown VOMITING, Verified 12/12/21 16:25 DIARRHEA Review of Systems Review of Systems Narrative: GENERAL: Denies chills, fatigue, malaise, fever, sweats. HEENT: Denies sinus pain, ear pain, sore throat, difficulty swallowing, dizziness. RESPIRATORY: Denies dyspnea, cough, wheezing, hemoptysis, sputum. CARDIOVASCULAR: Denies chest pain, palpitations, orthopnea, edema, GASTROINTESTINAL: Denies nausea, vomiting, abdominal pain, diarrhea, constipation, melena. : Denies dysuria, frequency, incontinence, hematuria, urinary retention. MUSCULOSKELETAL: denies weakness, joint pain, or bony pain SKIN: Denies rash, skin lesions, or other NEUROLOGIC: See HPI PSYCHIATRIC: No concerning psychosocial issues. 12 point review of systems is negative except for those stated above Patient History Medical History Anxiety Asthma Back pain Cerebral palsy Closed fracture of left hip Depression Family history of migraine Fracture of sacrum Hematuria History of small bowel obstruction Morbid obesity due to excess calories PTSD (post-traumatic stress disorder) Surgical History History of appendectomy History of cholecystectomy History of hysterectomy for benign disease History of laparoscopic appendectomy Social History marital status: household members: spouse and children lives independently: Yes caregiver/support person: Yes () Smoking Status: Never smoker alcohol intake: current Smoking Status: Never smoker alcohol intake frequency: holidays/special occasions only Substance Use Type: does not use Exam Narrative Exam Narrative: GENERAL: 42[] year old patient appears stated age. Well-developed patient, in obvious distress, altered, following commands, responding to noxious stimuli, guarding her airway and controlling secretions HEAD: Atraumatic. Normocephalic. EYES: Pupils equal round and reactive. Extraocular motions intact. No scleral icterus. No injection or drainage. ENT: Dry mucous membrane, dried blood at the corner of her mouth, lateral tongue bite suspected, patient not cooperative for full exam at time of arrival. Nose without bleeding, purulent drainage. Throat without erythema, tonsillar hypertrophy or exudate. Airway patent. NECK: Trachea midline. Non tender CARDIOVASCULAR: Tachycardic but regular rate and rhythm without murmurs, gallops, or rubs. RESPIRATORY: Clear to auscultation. Breath sounds equal bilaterally. No wheezes, rales, or rhonchi. GASTROINTESTINAL: Abdomen soft, non-tender, nondistended. EXTREMITIES: No edema or joint tenderness. BACK: Nontender without deformity or crepitance. No flank tenderness. NEURO: AOx3. SKIN: No rash or erythema of visible areas Initial Vital Signs Initial Vital Signs: Vital Signs Pulse Rate 155 H 04/20/22 23:09 Respiratory Rate 25 H 04/20/22 23:09 Course Orders Ordered: Discontinued Medications Sodium Chloride (Normal Saline 0.9%) 1,000 mls @ 1,000 mls/hr IV BOLUS ONE Stop: 04/21/22 00:07 Last Infusion: 04/21/22 01:48 Dose: 0 mls/hr Documented By: Admin: 04/20/22 23:20 Dose: 1,000 mls/hr Documented By: AT Levetiracetam (Levetiracetam 250 Mg Tablet) 750 mg PO NOW ONE Stop: 04/21/22 06:40 Last Admin: 04/21/22 06:56 Dose: 750 mg Documented By: JOSEPH Morphine Sulfate (Morphine 4 Mg/Ml Inj) 4 mg IV NOW ONE Stop: 04/21/22 00:23 Last Admin: 04/21/22 00:27 Dose: 4 mg Documented By: JEM Morphine Sulfate (Morphine 4 Mg/Ml Inj) 4 mg IV NOW ONE Stop: 04/21/22 01:15 Last Admin: 04/21/22 01:23 Dose: 4 mg Documented By: PHILLY Morphine Sulfate (Morphine Er 15 Mg Tablet) 15 mg PO BID [facility] Last Admin: 04/21/22 01:23 Dose: 15 mg Documented By: PHILLY Morphine Sulfate (Morphine Er 15 Mg Tablet) 15 mg PO BID [facility] Last Admin: 04/21/22 01:48 Dose: Not Given Documented By: PHILLY Reevaluation(s) Reevaluation #1: Patient continuing to move in the right direction, eyes are open, she is responding to questions but admits that she is confused. Still not able to answer review of systems but certainly moving in the right direction. Continues to be tachycardic but in no respiratory distress, I am concerned that given her chronic use of opioids in her significant dose of Narcan that she is having a rather impressive catecholamine surge Time: 23:58 Reevaluation #2: Patient continues to improve neurologically, she is alert and oriented, answering questions complaining of all-over body pain. Symptoms quite similar to her visit a month ago. When no etiology of seizure was noted. Consultations Consultation #1: Discussed with on-call Neurology at [facility]. We had discussion regarding today's history, physical exam, labs and imaging as well as her presentation, which is very similar, about 1 month ago. We sure the opinion that seems reasonable to consider her confused state a likely consequence of an unwitnessed seizure with postictal phase. Thankfully there is no obvious secondary cause, however as this is the 2nd visit neurology recommends initiating treatment of Aurara and encouraged close follow-up with her care team at [facility] Consultation #2: The results of today's visit have been related to the patient's DPOA by myself, we had extensive discussion regarding patient's recent medical history Vital Signs Vital signs: Vital Signs - 8 hr 04/20/22 23:29 04/20/22 23:09 04/20/22 23:30 Temperature 98.9 F Pulse Rate 137 H 155 H 140 H Respiratory Rate 20 25 H 26 H Blood Pressure 134/77 Pulse Oximetry 96 96 Oxygen Delivery Method Nasal Cannula Oxygen Flow Rate 2 04/20/22 23:31 04/20/22 23:31 04/21/22 00:00 Temperature Pulse Rate 140 H 133 H Respiratory Rate 25 H 32 H Blood Pressure 145/79 H Pulse Oximetry 95 94 Oxygen Delivery Method Nasal Cannula Oxygen Flow Rate 2 04/21/22 00:01 04/21/22 00:01 04/21/22 00:30 Temperature Pulse Rate 132 H 128 H Respiratory Rate 15 12 Blood Pressure 135/68 Pulse Oximetry 96 96 Oxygen Delivery Method Oxygen Flow Rate 04/21/22 00:31 04/21/22 00:31 04/21/22 01:00 Temperature Pulse Rate 128 H Respiratory Rate 17 Blood Pressure 125/71 138/61 Pulse Oximetry 96 Oxygen Delivery Method Oxygen Flow Rate 04/21/22 01:00 04/21/22 01:30 04/21/22 01:31 Temperature Pulse Rate 125 H 126 H 125 H Respiratory Rate 9 L 33 H 39 H Blood Pressure Pulse Oximetry 95 95 95 Oxygen Delivery Method Oxygen Flow Rate 04/21/22 01:31 04/21/22 02:00 04/21/22 02:04 Temperature Pulse Rate 123 H 123 H Respiratory Rate 25 H 16 Blood Pressure 91/69 Pulse Oximetry 95 96 Oxygen Delivery Method Oxygen Flow Rate 04/21/22 02:04 04/21/22 02:30 04/21/22 02:30 Temperature Pulse Rate 122 H Respiratory Rate 16 Blood Pressure 144/70 H 148/72 H Pulse Oximetry 93 Oxygen Delivery Method Oxygen Flow Rate MDM - Altered Mental Status Lab Data Result diagrams: 04/20/22 23:25 04/20/22 23:25 Labs: Lab Results 04/20/22 04/20/22 04/20/22 Range/Units 23:25 23:25 23:25 WBC 4.5 (4.5-11.0) X10^3/uL RBC 4.14 (4.0-5.2) X10^6/uL Hgb 12.4 (12.0-16.0) g/dL Hct 38.8 (36-46) % MCV 93.7 (80-100) fL MCH 29.9 (26-34) PG MCHC 31.9 (30-36) % RDW 13.5 (11.6-14.8) % Plt Count 187 (150-400) X10^3/uL Neut % (Auto) 61.6 (50-75) % Lymph % (Auto) 28.8 (25-40) % Valley % (Auto) 5.4 (3-14) % Eos % (Auto) 3.6 (2-4) % Baso % (Auto) 0.6 (0-2) % Neut # (Auto) 2800 (9159-9399) /uL Lymph # (Auto) 1300 (7425-6151) /uL Valley # (Auto) 200 (0-900) /uL Eos # (Auto) 200 (0-450) /uL Baso # (Auto) 0 (0-100) /uL Sodium 140 (137-145) mmol/L Potassium 3.8 (3.4-5.1) mmol/L Chloride 104 (98-107) mmol/L Carbon Dioxide 29 (22-32) mmol/L BUN 24 H (7-17) mg/dL Creatinine 0.91 (0.52-1.04) mg/dL Estimated GFR > 60 (>60) mL/min BUN/Creatinine Ratio 26.4 H (6-22) Glucose 138 H (70-100) mg/dL Lactate (0.7-2.1) mmol/L Calcium 8.4 (8.4-10.2) mg/dL Magnesium 1.9 (1.6-2.3) mg/dL Total Bilirubin 0.4 (0.2-1.3) mg/dL AST 42 H (14-36) IU/L ALT 50 H (<35) IU/L Alkaline Phosphatase 134 H (38-126) U/L NT-Pro-B Natriuret Pep (<125) pg/mL Total Protein 7.0 (6.3-8.2) g/dL Albumin 3.9 (3.5-5.0) g/dL Globulin 3.1 (1.7-4.1) g/dL Albumin/Globulin Ratio 1.3 (1.0-2.8) Prolactin Cancelled Urine RBC (0-5/HPF) Urine WBC (0-5/HPF) Ur Squamous Epith Cells (0-5/HPF) Urine Bacteria (None) Ur Culture Indicated? Salicylates (<20) mg/dL U Opiates 300ng/mL cut (Negative) Ur Oxycodone Screen (Negative) Urine Methadone Screen (Negative) Acetaminophen (10-30) ug/mL Ur Barbiturates Screen (Negative) U Tricyclic Antidepress (Negative) Ur Phencyclidine Scrn (Negative) Ur Amphetamines Screen (Negative) U Methamphetamines Scrn (Negative) Ur MDMA Scrn (Ecstasy) (Negative) U Benzodiazepines Scrn (Negative) Urine Cocaine Screen (Negative) U Marijuana (THC) Screen (Negative) SARS-CoV-2 (PCR) (Negative) Influenza A (RT-PCR) (NEGATIVE) Influenza B (RT-PCR) (NEGATIVE) RSV (PCR) (Negative) 04/20/22 04/20/22 04/20/22 Range/Units 23:25 23:25 23:40 WBC (4.5-11.0) X10^3/uL RBC (4.0-5.2) X10^6/uL Hgb (12.0-16.0) g/dL Hct (36-46) % MCV (80-100) fL MCH (26-34) PG MCHC (30-36) % RDW (11.6-14.8) % Plt Count (150-400) X10^3/uL Neut % (Auto) (50-75) % Lymph % (Auto) (25-40) % Valley % (Auto) (3-14) % Eos % (Auto) (2-4) % Baso % (Auto) (0-2) % Neut # (Auto) (0676-9644) /uL Lymph # (Auto) (5621-4616) /uL Valley # (Auto) (0-900) /uL Eos # (Auto) (0-450) /uL Baso # (Auto) (0-100) /uL Sodium (137-145) mmol/L Potassium (3.4-5.1) mmol/L Chloride (98-107) mmol/L Carbon Dioxide (22-32) mmol/L BUN (7-17) mg/dL Creatinine (0.52-1.04) mg/dL Estimated GFR (>60) mL/min BUN/Creatinine Ratio (6-22) Glucose (70-100) mg/dL Lactate 2.9 H (0.7-2.1) mmol/L Calcium (8.4-10.2) mg/dL Magnesium (1.6-2.3) mg/dL Total Bilirubin (0.2-1.3) mg/dL AST (14-36) IU/L ALT (<35) IU/L Alkaline Phosphatase (38-126) U/L NT-Pro-B Natriuret Pep 90 (<125) pg/mL Total Protein (6.3-8.2) g/dL Albumin (3.5-5.0) g/dL Globulin (1.7-4.1) g/dL Albumin/Globulin Ratio (1.0-2.8) Prolactin Urine RBC (0-5/HPF) Urine WBC (0-5/HPF) Ur Squamous Epith Cells (0-5/HPF) Urine Bacteria (None) Ur Culture Indicated? Salicylates < 1.0 (<20) mg/dL U Opiates 300ng/mL cut (Negative) Ur Oxycodone Screen (Negative) Urine Methadone Screen (Negative) Acetaminophen < 10 (10-30) ug/mL Ur Barbiturates Screen (Negative) U Tricyclic Antidepress (Negative) Ur Phencyclidine Scrn (Negative) Ur Amphetamines Screen (Negative) U Methamphetamines Scrn (Negative) Ur MDMA Scrn (Ecstasy) (Negative) U Benzodiazepines Scrn (Negative) Urine Cocaine Screen (Negative) U Marijuana (THC) Screen (Negative) SARS-CoV-2 (PCR) Positive H (Negative) Influenza A (RT-PCR) Flu a negative (NEGATIVE) Influenza B (RT-PCR) Flu b negative (NEGATIVE) RSV (PCR) Negative (Negative) 04/21/22 04/21/22 04/21/22 Range/Units 01:45 06:44 06:44 WBC (4.5-11.0) X10^3/uL RBC (4.0-5.2) X10^6/uL Hgb (12.0-16.0) g/dL Hct (36-46) % MCV (80-100) fL MCH (26-34) PG MCHC (30-36) % RDW (11.6-14.8) % Plt Count (150-400) X10^3/uL Neut % (Auto) (50-75) % Lymph % (Auto) (25-40) % Valley % (Auto) (3-14) % Eos % (Auto) (2-4) % Baso % (Auto) (0-2) % Neut # (Auto) (2722-1042) /uL Lymph # (Auto) (3312-7937) /uL Valley # (Auto) (0-900) /uL Eos # (Auto) (0-450) /uL Baso # (Auto) (0-100) /uL Sodium (137-145) mmol/L Potassium (3.4-5.1) mmol/L Chloride (98-107) mmol/L Carbon Dioxide (22-32) mmol/L BUN (7-17) mg/dL Creatinine (0.52-1.04) mg/dL Estimated GFR (>60) mL/min BUN/Creatinine Ratio (6-22) Glucose (70-100) mg/dL Lactate 1.3 (0.7-2.1) mmol/L Calcium (8.4-10.2) mg/dL Magnesium (1.6-2.3) mg/dL Total Bilirubin (0.2-1.3) mg/dL AST (14-36) IU/L ALT (<35) IU/L Alkaline Phosphatase (38-126) U/L NT-Pro-B Natriuret Pep (<125) pg/mL Total Protein (6.3-8.2) g/dL Albumin (3.5-5.0) g/dL Globulin (1.7-4.1) g/dL Albumin/Globulin Ratio (1.0-2.8) Prolactin Urine RBC 1-5/hpf (0-5/HPF) Urine WBC 1-5/hpf (0-5/HPF) Ur Squamous Epith Cells 1-5 /hpf (0-5/HPF) Urine Bacteria None seen (None) Ur Culture Indicated? Specimen cultured Salicylates (<20) mg/dL U Opiates 300ng/mL cut Positive H (Negative) Ur Oxycodone Screen Negative (Negative) Urine Methadone Screen Negative (Negative) Acetaminophen (10-30) ug/mL Ur Barbiturates Screen Negative (Negative) U Tricyclic Antidepress Negative (Negative) Ur Phencyclidine Scrn Negative (Negative) Ur Amphetamines Screen Negative (Negative) U Methamphetamines Scrn Negative (Negative) Ur MDMA Scrn (Ecstasy) Negative (Negative) U Benzodiazepines Scrn Positive H (Negative) Urine Cocaine Screen Negative (Negative) U Marijuana (THC) Screen Negative (Negative) SARS-CoV-2 (PCR) (Negative) Influenza A (RT-PCR) (NEGATIVE) Influenza B (RT-PCR) (NEGATIVE) RSV (PCR) (Negative) MDM Narrative Medical decision making narrative: 42-year-old female nonsmoker with history of cerebral palsy, osteoporosis, PTSD, anxiety, depression, COVID presents with altered mental status for the 2nd time in a month. There is no report of known overdose, change in her medications or missed doses. Differential diagnosis includes opioid overdose, sepsis, seizure with postictal phase or other. Patient did not respond to Narcan, opioid overdose thought unlikely, no respiratory depression or pinpoint pupils, however patient was screaming complaining of all-over body pain and tachycardic and was eventually started back on opioids with improvement in vital signs and overall appearance. She did bite her tongue though it is not through and through or serpentine and does not need repair it is consistent with possible seizure. She has had no fever and denies neck pain, no indication for lumbar puncture she is not drink alcohol and has had no recent trauma or injury. I have had indepe ndent conversations and consultations with on-call Neurology at [facility] as well as the patient's power of energy attorney. Recommendation is to initiate Keppra 750 mg p.o. b.i.d. and follow closely with her care team. The POA will follow closely and reach out to the Neurology group later today to let them know she was seen here and to have records sent. Critical Care Time Critical Care Time Critical Care Time: Yes Total Critical Care Time: 45 Attestation: The high probability of a clinically significant, sudden or life threatening deterioration of the Neuro/CV system(s) required my full and direct attention, intervention and personal management. The aggregate critical care time was [45] minutes. This time is in addition to time spent performing reported procedures but includes the following: [x] Data Review and interpretation [x] Patient assessment and monitoring of vital signs [x] Documentation [x] Medication orders and management Discharge Plan Departure Patient Disposition: Home Clinical Impression: Generalized seizure Activity Restrictions/Additional Instructions: *You have been diagnosed with [altered mental status, likely a consequence a seizure ] *What to do: *Please continue to take your regular medications as directed. [ ] New medication prescriptions sent to your pharmacy: [ ] [ x] New medication written as a paper prescription [ ] No new medications given *Please follow up with your primary care provider in 2-3 days, call for an appointment. Let them know you were seen in the Emergency Department and that we ask that you be seen in follow up. We will electronically transmit a record of today's note if your PCP is in our system Please follow up with your neurologist at in 2 weeks as planned. It would be best to call ahead to let them know you were here so they can review the records. *Return to Emergency Department if you should have any new, worsening or concerning symptoms Prescriptions: New levetiracetam [Keppra] 750 mg tablet 750 mg PO BID Qty: 60 0RF No Action nystatin 30 GM ointment 15 gm Topical DAILY PRN (Reason: Rash) Qty: 0 ondansetron 4 MG tablet,disintegrating 8 mg Sublingual Q6HP PRN (Reason: Nausea) Qty: 0 omega 7-mwj-yke-fish oil [Fish Oil] 1,000 MG capsule 1,000 mg PO QDAY Qty: 0 omeprazole 20 mg capsule,delayed release(DR/EC) 20 mg PO QID magnesium 500 mg Tablet 500 mg PO BID Adults Multivitamin 18 mg iron-400 mcg-25 mcg Tablet 1 tab PO DAILY phenazopyridine 200 mg tablet 200 mg PO BID phenolphthalein 90 mg Tablet 75 mg PO BID docusate sodium 100 mg Tablet 300 mg PO BID morphine 15 mg tablet extended release 15 mg PO BID 30 Days Qty: 60 0RF diazepam 5 mg tablet 5 mg PO BID 30 Days Qty: 60 0RF oxycodone 5 mg tablet 5 mg PO Q4H PRN (Reason: Pain (Scale Score 1-3)) 30 Days Qty: 30 0RF methocarbamol 500 mg tablet 500 mg PO QID baclofen 10 mg tablet 10 mg PO DAILY albuterol sulfate 90 mcg/actuation HFA aerosol inhaler 2 puff inhalation DAILY tizanidine 6 mg capsule 6 dose PO TID fluconazole 150 mg tablet 150 mg PO QWEEK Qty: 1 0RF trazodone 50 mg tablet 50 mg PO BEDTIME PRN (Reason: sleep) raloxifene 60 mg tablet 60 mg PO DAILY Pulmicort Flexhaler 180 mcg/actuation aerosol powdr breath activated 1 inh inhalation DAILY fluoxetine 10 mg capsule 10 mg PO DAILY Referrals: Yadira Storm MD [Primary Care Provider] - Visit Report Forms: Patient Portal/API
[2022-04-20] MEDS: SODIUM CHLORIDE 0.9% 1,000 ML 1000 ML IV (23:20)
[2022-04-20 23:29] VITALS: BP 134/77; PULSE 137; RESP 20; TEMP 37.2; O2SAT 96
[2022-04-20 23:30] VITALS: PULSE 140; RESP 26; O2SAT 96
[2022-04-20 23:31] VITALS: BP 145/79; PULSE 140; RESP 25; O2SAT 95
[2022-04-20 23:40] LABS: Add Manual Diff / Slide Review NO; Basophils Absolute Auto 0 /uL (0-100); Basophils Percent Auto 0.6 % (0-2); Eosinophils Absolute Auto 200 /uL (0-450); Eosinophils Percent Auto 3.6 % (2-4); Hematocrit 38.8 % (36-46); Hemoglobin 12.4 g/dL (12.0-16.0); Lymphocytes Absolute Auto 1300 /uL (1100-4500); Lymphocytes Percent Auto 28.8 % (25-40); Mean Corpuscular HGB Conc 31.9 % (30-36); Mean Corpuscular Hemoglobin 29.9 PG (26-34); Mean Corpuscular Volume 93.7 fL (80-100); Monocytes Absolute Auto 200 /uL (0-900); Monocytes Percent Auto 5.4 % (3-14); Neutrophils Absolute Auto 2800 /uL (1500-7000); Neutrophils Percent Auto 61.6 % (50-75); Platelet Count 187 X10^3/uL (150-400); Red Blood Cell Count 4.14 X10^6/uL (4.0-5.2); Red Cell Distribution Width 13.5 % (11.6-14.8); White Blood Cell Count 4.5 X10^3/uL (4.5-11.0)
--- NOTE | 2022-04-20 23:51 | PC.NURSE ---
x2 blood culture drawn by wetlands conservation laborer on separate sites, RN assisted with keeping pt limb straight.
--- NOTE | 2022-04-20 23:58 | PC.NURSE ---
Dried blood assessed in pt mouth and on tongue.
[2022-04-21] VITALS (10 sets, daily range): BP systolic 91–148; BP diastolic 61–72; PULSE 122–133; RESP 9–39; O2SAT 93–96
[2022-04-21 00:02] LABS: Salicylate < 1.0 mg/dL (<20)
[2022-04-21 00:03] LABS: Alanine Aminotransferase 50 IU/L (<35); Albumin 3.9 g/dL (3.5-5.0); Albumin Globulin Ratio 1.3 (1.0-2.8); Alkaline Phosphatase 134 U/L (38-126); Aspartate Aminotransferase 42 IU/L (14-36); BUN Creatinine Ratio 26.4 (6-22); Bilirubin Total 0.4 mg/dL (0.2-1.3); Blood Urea Nitrogen 24 mg/dL (7-17); Calcium 8.4 mg/dL (8.4-10.2); Carbon Dioxide 29 mmol/L (22-32); Chloride 104 mmol/L (98-107); Estimated Glomerular Filt Rate > 60 mL/min (>60); Globulin 3.1 g/dL (1.7-4.1); Glucose 138 mg/dL (70-100); HEMOLYSIS 23 (0-50); Magnesium 1.9 mg/dL (1.6-2.3); Potassium 3.8 mmol/L (3.4-5.1); Sodium 140 mmol/L (137-145)
[2022-04-21 00:04] LABS: Lactate (Lactic Acid) 2.9 mmol/L (0.7-2.1)
[2022-04-21 00:05] LABS: Acetaminophen < 10 ug/mL (10-30)
[2022-04-21 00:27] LABS: Influenza A - CEPHEID Flu A NEGATIVE (NEGATIVE); Influenza B - CEPHEID Flu B NEGATIVE (NEGATIVE); Respiratory Syncytial Virus Negative (Negative)
[2022-04-21] MEDS: MORPHINE 4 MG/ML INJ IV ×2 (00:27→01:23)
[2022-04-21 00:36] LABS: COVID-19 CEPHEID 4-PLEX PCR POSITIVE (Negative)
[2022-04-21] MEDS: MORPHINE ER 15 MG TABLET PO (01:23)
[2022-04-21 01:35] LABS: Reflexed Lactate in 2 Hours Y
--- NOTE | 2022-04-21 01:57 | DI.CT.S_ITS ---
PROCEDURE: CT HEAD/BRAIN WO CON INDICATIONS: seizure, altered mental status TECHNIQUE: Noncontrast 4.5 mm thick angled axial sections acquired from the foramen magnum to the vertex, with coronal and sagittal reformats. For radiation dose reduction, the following was used: automated exposure control, adjustment of mA and/or kV according to patient size. COMPARISON: [facility], CT, CT HEAD/BRAIN WO CON, 03/21/2022, 5:56. FINDINGS: Image quality: Excellent. CSF spaces: Basal cisterns are patent. No extra-axial fluid collections. Ventricles are normal in size and shape. Brain: No midline shift. No intracranial masses or hemorrhage. Weiss-white matter interface is normal. Skull and face: Calvarium and visualized facial bones are intact, without suspicious lesions. Sinuses: Visualized sinuses and mastoids are clear. IMPRESSION: No evidence acute intracranial process. Comment: Final report is concordant with preliminary interpretation provided by [facility]. Dictated by: Morgan Liang M.D. on 04/21/2022 at 8:06 Approved by: Morgan Liang M.D. on 04/21/2022 at 8:07
[2022-04-21 02:02] LABS: Lactate 2HR (Lactic Acid Rflx) 1.3 mmol/L (0.7-2.1)
[2022-04-21 05:38] LABS: NT-proBNP (BNP-Adult 18+) 90 pg/mL (<125)
[2022-04-21] MEDS: levETIRAcetam 250 MG TABLET 750 MG PO (06:56)
[2022-04-21 07:27] LABS: Ur Creatinine Normal (Normal); Ur Specific Gravity Normal (Normal); Urine Tetrahydrocannabinol Negative (Negative); Urine pH Normal (Normal)
[2022-04-21 07:28] LABS: RBC Urine 1-5/HPF (0-5/HPF); UR Morphine/Opiate cutoff 300 Positive (Negative); Urine Amphetamines Negative (Negative); Urine Barbiturates Negative (Negative); Urine Benzodiazepines Positive (Negative); Urine Cocaine Negative (Negative); Urine MDMA Negative (Negative); Urine Methadone Negative (Negative); Urine Methamphetamines Negative (Negative); Urine Oxycodone Negative (Negative); Urine Phencyclidine Negative (Negative); Urine Tricyclic Antidepressant Negative (Negative); WBC Urine 1-5/HPF (0-5/HPF)
[2022-04-21 07:29] LABS: Bacteria Urine None Seen; Culture Indicated Urine Specimen Cultured; Squamous Epithelial Cell Urine 1-5 /HPF (0-5/HPF)
== END 2022-04-21 07:37 | disposition home or self-care (01) ==
PROVIDERS: Emergency Provider Emergency Medicine; PCP Internal Medicine
DX: G40.409 Other generalized epilepsy and epileptic syndromes, not intractable, without status epilepticus (principal); R00.0 Tachycardia, unspecified; Z79.899 Other long term (current) drug therapy; Z20.822 Contact with and (suspected) exposure to COVID-19
CPT/HCPCS: 0241U; 36415; 70450; 80053; 80305; 80329; 81015; 83605; 83735; 83880; 85025; 87040; 87086; 93005; 93010; 96361; 96374; 96376; 99285; 99291; G0480; J2270

== ENCOUNTER 2022-07-23 08:45 | Emergency (ER) | payer MEDICARE, MEDICAID, SELFPAY ==
[2021-12-11 04:10] VITALS: BMI 36.8
[2022-07-23] VITALS (13 sets, daily range): BP systolic 124–160; BP diastolic 67–114; PULSE 98–127; RESP 10–19; TEMP 36.4–36.9; O2SAT 84–99
--- NOTE | 2022-07-23 08:57 | ED_ITS ---
HPI - Seizure General Chief Complaint: Seizure Stated Complaint: seizure Time Seen by Provider: 07/23/22 08:56 Source: EMS Mode of arrival: EMS Limitations: altered mental status History of Present Illness HPI Narrative: this is a 42-year-old female with history of cerebral palsy, morbid obesity, depressive disorder, PTSD, anxiety, osteoporosis and reported prior episodes of seizures but was never started on any antiepileptic medications after having workup with a sounds like EEG by report from the facility. She currently lives at [facility] was there this morning was had witnessed shaking tonic-clon ic type behavior with decreased mentation which has been slowly improving over time somewhat similar to postictal state. Patient was lower to the floor she did not fall was witnessed by individuals at her facility. Patient does not recall the episode she at the moment thinks she still lives on [facility] she does not recall that she is had sound [facility]. Patient is able to tell me she has a baclofen pump, she is able to tell me some of her medications which is concurrent with her list. Patient states she is had surgery for her baclofen pump placement. she notes she does have allergies to medications including tramadol, Compazine, Tylenol and states there others. Denies tobacco, occasional alcohol none recently. No illicit. Patient knows that she is at [facility] she is unsure of the year or the month but has clear speech and is somewhat repetitive in questions. She denies any fevers, chills, no chest pain or shortness of breath, she denies any pain elsewhere, denies any nausea or vomiting, no abdominal back or flank pain. She does not appreciate any cuts or lacerations on her tongue. She states she normally walks with a walker. She denies any new weakness or other changes. Related Data Home Medications Medication Instructions Recorded Confirmed nystatin 100,000 unit/gram topical 15 gm topical DAILY PRN Rash ##0 02/10/17 12/11/21 ointment omega 1-ukl-bis-fish oil 1,000 mg 1,000 mg PO QDAY ##0 02/10/17 12/11/21 (120 mg-180 mg) capsule (Fish Oil) ondansetron 4 mg disintegrating 8 mg sublingual Q6HP PRN Nausea ##0 02/10/17 12/11/21 tablet albuterol sulfate 90 mcg/actuation 2 puff inhalation DAILY 10/29/17 12/11/21 aerosol inhaler baclofen 10 mg tablet 10 mg PO DAILY 10/29/17 12/11/21 methocarbamol 500 mg tablet 500 mg PO QID 10/29/17 12/11/21 tizanidine 6 mg capsule 6 dose PO TID 10/29/17 12/11/21 omeprazole 20 mg capsule,delayed 20 mg PO QID 04/11/18 12/11/21 release budesonide 180 mcg/actuation 1 inh inhalation DAILY 09/18/20 12/11/21 breath activated powder inhaler (Pulmicort Flexhaler) fluoxetine 10 mg capsule 10 mg PO DAILY 09/18/20 12/11/21 raloxifene 60 mg tablet 60 mg PO DAILY 09/18/20 12/11/21 trazodone 50 mg tablet 50 mg PO BEDTIME PRN sleep 09/18/20 12/11/21 docusate sodium 100 mg tablet 300 mg PO BID 12/11/21 12/11/21 magnesium 500 mg tablet 500 mg PO BID 12/11/21 12/11/21 multivit with minerals-iron 18 1 tab PO DAILY 12/11/21 12/11/21 mg-folic ac 400 mcg-vit K 25 mcg tablet (Adults Multivitamin) phenazopyridine 200 mg tablet 200 mg PO BID 12/11/21 12/11/21 phenolphthalein 90 mg tablet 75 mg PO BID 12/11/21 12/11/21 Previous Rx's Medication Instructions Recorded fluconazole 150 mg tablet 150 mg PO QWEEK #1 tab 07/31/21 diazepam 5 mg tablet 5 mg PO BID 30 days #60 tabs 12/15/21 morphine 15 mg tablet,extended 15 mg PO BID 30 days #60 tabs 12/15/21 release oxycodone 5 mg tablet 5 mg PO Q4H PRN Pain (Scale Score 12/15/21 1-3) 30 days #30 tabs levetiracetam 750 mg tablet 750 mg PO BID #60 tabs 04/21/22 (Keppra) cephalexin 500 mg capsule 500 mg PO BID 5 days #10 caps 07/23/22 Allergies Allergy/AdvReac Type Severity Reaction Status Date / Time gabapentin Allergy Severe RESPIRATORY Verified 07/23/22 08:57 DISTRESS acetaminophen [ACETAMINOPHEN] Allergy Mild Verified 07/23/22 08:57 adhesive [ADHESIVE] Allergy Mild Verified 07/23/22 08:57 oxymetazoline Allergy Mild other Verified 07/23/22 08:57 [From Afrin (oxymetazoline)] povidone-iodine Allergy Mild Verified 07/23/22 08:57 [From BETADINE] prochlorperazine Allergy Mild Verified 07/23/22 08:57 [From COMPAZINE] tramadol [TRAMADOL] Allergy Mild Verified 07/23/22 08:57 venlafaxine [From EFFEXOR] Allergy Mild Verified 07/23/22 08:57 dicyclomine AdvReac Unknown NAUSEA AND Verified 07/23/22 08:57 VOMITING monosodium glutamate AdvReac Unknown VOMITING, Verified 07/23/22 08:57 DIARRHEA Nitrate Analogues AdvReac Unknown VOMITING, Verified 07/23/22 08:57 DIARRHEA Review of Systems Review of Systems ROS Unobtainable: All systems reviewed & are unremarkable except as noted in HPI and below Patient History Medical History Anxiety Asthma Back pain Cerebral palsy Closed fracture of left hip Depression Family history of migraine Fracture of sacrum Hematuria History of small bowel obstruction Morbid obesity due to excess calories PTSD (post-traumatic stress disorder) Surgical History History of appendectomy History of cholecystectomy History of hysterectomy for benign disease History of laparoscopic appendectomy Social History marital status: household members: spouse and children lives independently: Yes caregiver/support person: Yes () Smoking Status: Never smoker alcohol intake: current Exam Narrative Exam Narrative: GEN: well nourished, well appearing female, alert and oriented to self, location, patient appears to be in mild distress. HEENT: Atraumatic, pupils are equal round reactive to light, extraocular movements are intact, nares are clear, TMs are clear with no fluid, there is no conjunctival pallor. Throat is clear without any exudates, erythema, tonsillar enlargement or uvular deviation, patient has poor dentition. No oral lacerations or cuts appreciated. HEART: Patient is slightly tachycardic Regular rate and rhythm without murmur, clicks, rubs. pulses are equal in upper and lower extremities LUNGS:Lungs clear to auscultation, no wheezes, rales, crackles, chest moves symmetrically, no tachypnea accessory muscle use. ABD:bowel sounds normal, soft, non-tender, no guarding, rebound, rigidity, no masses noted, no hepatosplenomegaly :No CVA tenderness MSCL: Non-tender, patient has good movement in upper extremities, she has some movement but less so in her lower extremities. NEURO:CN 2-12 intact, sensation normal, GCS of 14 SKIN: No rash, erythema or other skin changes noted Initial Vital Signs Initial Vital Signs: Vital Signs Temperature 97.6 F 07/23/22 08:45 Pulse Rate 121 H 07/23/22 08:45 Respiratory Rate 10 L 07/23/22 08:45 Blood Pressure 158/114 H 07/23/22 08:45 Pulse Oximetry 85 L 07/23/22 08:45 Oxygen Delivery Method Room Air 07/23/22 08:45 Scores GCS Eloisa coma scale eye opening: Spontaneous Eloisa coma scale verbal response: Orientated Eloisa coma scale motor response: Obey commands Kadoka coma scale total score: 15 Course Orders Ordered: ED Orders 07/23/22 11:39 UA Complete [Urinalysis and Microscopic] Stat Urine Culture Stat Urine Drug Screen, Rapid Stat Discontinued Medications Cephalexin HCl (Cephalexin 250 Mg Capsule) 500 mg PO NOW ONE Stop: 07/23/22 12:32 Last Admin: 07/23/22 12:50 Dose: 500 mg Documented By: RUTH Oxycodone HCl (Oxycodone Ir 5 Mg Tablet) 10 mg PO NOW ONE Stop: 07/23/22 12:03 Last Admin: 07/23/22 12:11 Dose: 10 mg Documented By: RUTH Vital Signs Vital signs: Vital Signs - 8 hr 07/23/22 12:30 07/23/22 12:30 Temperature 98.4 F Pulse Rate 110 H Respiratory Rate 13 Blood Pressure 132/79 Pulse Oximetry 91 Oxygen Delivery Method Room Air MDM - Seizure Lab Data 07/23/22 08:57 07/23/22 08:57 Labs: Lab Results 07/23/22 07/23/22 07/23/22 Range/Units 08:57 08:57 08:57 WBC 3.2 L (4.5-11.0) X10^3/uL RBC 4.25 (4.0-5.2) X10^6/uL Hgb 13.1 (12.0-16.0) g/dL Hct 40.9 (36-46) % MCV 96.1 (80-100) fL MCH 30.8 (26-34) PG MCHC 32.1 (30-36) % RDW 13.3 (11.6-14.8) % Plt Count 176 (150-400) X10^3/uL Neut % (Auto) 42.2 L (50-75) % Lymph % (Auto) 45.4 H (25-40) % Letcher % (Auto) 6.4 (3-14) % Eos % (Auto) 5.2 H (2-4) % Baso % (Auto) 0.8 (0-2) % Neut # (Auto) 1400 L (6926-3836) /uL Lymph # (Auto) 1500 (1973-0670) /uL Letcher # (Auto) 200 (0-900) /uL Eos # (Auto) 200 (0-450) /uL Baso # (Auto) 0 (0-100) /uL Sodium 137 (137-145) mmol/L Potassium 4.1 (3.4-5.1) mmol/L Chloride 100 (98-107) mmol/L Carbon Dioxide 27 (22-32) mmol/L BUN 21 H (7-17) mg/dL Creatinine 0.77 (0.52-1.04) mg/dL Estimated GFR > 60 (>60) mL/min BUN/Creatinine Ratio 27.3 H (6-22) Glucose 112 H (70-100) mg/dL Calcium 8.7 (8.4-10.2) mg/dL Magnesium 2.1 (1.6-2.3) mg/dL Total Bilirubin 0.8 (0.2-1.3) mg/dL AST 46 H (14-36) IU/L ALT 38 H (<35) IU/L Alkaline Phosphatase 133 H (38-126) U/L Total Protein 8.0 (6.3-8.2) g/dL Albumin 4.4 (3.5-5.0) g/dL Globulin 3.6 (1.7-4.1) g/dL Albumin/Globulin Ratio 1.2 (1.0-2.8) Lipase 53 (23-300) U/L Prolactin 101.9 H (3.0-18.6) ng/mL Serum , Qual Negative (Negative) Urine Color Urine Appearance Urine pH (4.5-8.0) Ur Specific Dante (1.000-1.035) Urine Protein (Negative) Urine Glucose (UA) (Negative) g/dL Urine Ketones (NEGATIVE) Urine Occult Blood (Negative) Urine Nitrate (Negative) Urine Bilirubin (NEGATIVE) Urine Urobilinogen (0.2) E.U./dL Ur Leukocyte Esterase (NEGATIVE) Urine RBC (0-5/HPF) Urine WBC (0-5/HPF) Ur Squamous Epith Cells (0-5/HPF) Urine Bacteria (None) Ur Culture Indicated? U Opiates 300ng/mL cut (Negative) Ur Oxycodone Screen (Negative) Urine Methadone Screen (Negative) Ur Barbiturates Screen (Negative) U Tricyclic Antidepress (Negative) Ur Phencyclidine Scrn (Negative) Ur Amphetamines Screen (Negative) U Methamphetamines Scrn (Negative) Ur MDMA Scrn (Ecstasy) (Negative) U Benzodiazepines Scrn (Negative) Urine Cocaine Screen (Negative) U Marijuana (THC) Screen (Negative) Ethyl Alcohol < 10 ( - 10) mg/dL 07/23/22 07/23/22 Range/Units 11:39 11:39 WBC (4.5-11.0) X10^3/uL RBC (4.0-5.2) X10^6/uL Hgb (12.0-16.0) g/dL Hct (36-46) % MCV (80-100) fL MCH (26-34) PG MCHC (30-36) % RDW (11.6-14.8) % Plt Count (150-400) X10^3/uL Neut % (Auto) (50-75) % Lymph % (Auto) (25-40) % Letcher % (Auto) (3-14) % Eos % (Auto) (2-4) % Baso % (Auto) (0-2) % Neut # (Auto) (5962-1896) /uL Lymph # (Auto) (8034-8959) /uL Letcher # (Auto) (0-900) /uL Eos # (Auto) (0-450) /uL Baso # (Auto) (0-100) /uL Sodium (137-145) mmol/L Potassium (3.4-5.1) mmol/L Chloride (98-107) mmol/L Carbon Dioxide (22-32) mmol/L BUN (7-17) mg/dL Creatinine (0.52-1.04) mg/dL Estimated GFR (>60) mL/min BUN/Creatinine Ratio (6-22) Glucose (70-100) mg/dL Calcium (8.4-10.2) mg/dL Magnesium (1.6-2.3) mg/dL Total Bilirubin (0.2-1.3) mg/dL AST (14-36) IU/L ALT (<35) IU/L Alkaline Phosphatase (38-126) U/L Total Protein (6.3-8.2) g/dL Albumin (3.5-5.0) g/dL Globulin (1.7-4.1) g/dL Albumin/Globulin Ratio (1.0-2.8) Lipase (23-300) U/L Prolactin (3.0-18.6) ng/mL Serum , Qual (Negative) Urine Color Yellow Urine Appearance Clear Urine pH 6.5 (4.5-8.0) Ur Specific Dante 1.015 (1.000-1.035) Urine Protein Negative (Negative) Urine Glucose (UA) Negative (Negative) g/dL Urine Ketones Negative (NEGATIVE) Urine Occult Blood 3+ H (Negative) Urine Nitrate Positive H (Negative) Urine Bilirubin Negative (NEGATIVE) Urine Urobilinogen 1.0 (0.2) E.U./dL Ur Leukocyte Esterase Negative (NEGATIVE) Urine RBC 1-5/hpf (0-5/HPF) Urine WBC 0-1/hpf (0-5/HPF) Ur Squamous Epith Cells 0-1 /hpf (0-5/HPF) Urine Bacteria Many (>30) H (None) Ur Culture Indicated? Specimen cultured U Opiates 300ng/mL cut Positive H (Negative) Ur Oxycodone Screen Positive H (Negative) Urine Methadone Screen Negative (Negative) Ur Barbiturates Screen Negative (Negative) U Tricyclic Antidepress Positive H (Negative) Ur Phencyclidine Scrn Negative (Negative) Ur Amphetamines Screen Negative (Negative) U Methamphetamines Scrn Negative (Negative) Ur MDMA Scrn (Ecstasy) Negative (Negative) U Benzodiazepines Scrn Positive H (Negative) Urine Cocaine Screen Negative (Negative) U Marijuana (THC) Screen Negative (Negative) Ethyl Alcohol ( - 10) mg/dL Imaging Data CT scan - head: Radiologist's Impression: prochlorperazine, tramadol, venlafaxine, dicyclomine, monosodium glutamate, Nitrate Analogues (More??) Close Head CT (Signed) Tad Russell - 07/23/22 Chest X-Ray (Signed) Tad Russell - 07/23/[address] (Signed) Morgan Liang - 04/21/22 Chest CTA (Signed) Amol Hernandez - 03/21/[address] (Signed) Hernandez,Amol - 03/21/22 Chest X-Ray (Signed) Hernandez,Amol - 03/21/[address] (Signed) Mathieu Clifford - 03/01/22 Abdomen/Pelvis CT (Signed) Mathieu Clifford - 03/01/22 Femur X-Ray (Signed) Amol Hernandez - 12/12/21 Telemetry Strips 12/11/21 Hip X-Ray (Signed) Vasquez Wang - 12/11/21 Chest X-Ray (Signed) Vasquez Wang - 12/10/[address] (Signed) Vasquez Wang (+) - 12/10/21 Chest X-Ray (Signed) Jamil Lobo - 04/25/21 Abdomen X-Ray (Signed) Jesse Montana - 04/11/18 Thoracic Spine X-Ray (Signed) Fausto Perez - 03/30/18 Shoulder X-Ray (Signed) Fausto Perez - 03/30/18 Abdomen/Pelvis CT (Signed) Fabian Mallory - 12/25/17 Lumbar Spine X-Ray (Signed) Eloisa Ramos - 10/29/[address] [address] [address] Scan Report Signed Patient: Maite Odom V MR#: [id number] : 1980 Acct:[id number] Age/Sex: 42 / F Date of Service: 07/23/22 Loc: ED Accession Number: [id number] ?? Procedure: CT head/brain wo con Ordering Provider: Dea Hart D.O. PROCEDURE:? CT HEAD/BRAIN WO CON ? INDICATIONS:? seizure like activity, hx cerebral palsy ? TECHNIQUE:? Noncontrast 4.5 mm thick angled axial sections acquired from the foramen magnum to the vertex, with coronal and sagittal reformats.? For radiation dose reduction, the following was used:? automated exposure control, adjustment of mA and/or kV according to patient size.? ? COMPARISON:? [facility], CT, CT HEAD/BRAIN WO CON, 04/21/2022, 2:06. ? FINDINGS:? ? CSF spaces:? Basal cisterns are patent.? No extra-axial fluid collections.? Ventricles are normal in size and shape.? ? Brain:? No midline shift.? No intracranial masses or hemorrhage.? Weiss-white matter interface is normal.? ? Skull and face:? Calvarium and visualized facial bones are intact, without suspicious lesions.? ? Sinuses:? Visualized sinuses and mastoids are clear.? ? IMPRESSION:? No intracranial hemorrhage or other acute intracranial abnormality. ? ? Dictated by: Tad Russell M.D. on 07/23/2022 at 9:43 ? ? Approved by: Tad Russell M.D. on 07/23/2022 at 9:49?? Chest x-ray: Radiologist's Impression: [place] [address] XRay Report Signed Patient: Maite Odom V MR#: [id number] : 1980 Acct:[id number] Age/Sex: 42 / F Date of Service: 07/23/22 Loc: ED Accession Number: [id number] ?? Procedure: XR chest 1V Ordering Provider: Dea Hart D.O. PROCEDURE:? XR CHEST 1V ? INDICATIONS:? seizure like activity ? TECHNIQUE:? One view of the chest was acquired.? ? COMPARISON:? [facility], CR, XR CHEST 1V, 03/21/2022, 5:54.? [facility], CR, XR CHEST 1V, 12/11/2021, 1:08. ? FINDINGS:? ? Surgical changes and devices:? Cervical spine fusion hardware ? Lungs and pleura:? Diffuse opacity projects over both lungs.? No definite large pleural effusion or pneumothorax. ? Mediastinum:? Cardiac silhouette is obscured, may be enlarged ? Bones and chest wall:? No suspicious bony lesions.? Overlying soft tissues appear unremarkable.? ? IMPRESSION:? Limited evaluation due to difficulty with patient positioning.? Diffuse opacity projecting over both lungs may be artifactual related to overlying soft tissue/positioning/rotation, but acute airspace disease is not excludable.? ? Dictated by: Tad Russell M.D. on 07/23/2022 at 9:50 ? ? Approved by: Tad Russell M.D. on 07/23/2022 at 9:52?? MDM Narrative Medical decision making narrative: This is a 42-year-old female comes emergency department with seizure-like activity witnessed. Patient does seem to be postictal mentation has been imp roving during her stay in the department she is a little bit more with it on reexamination and is able to tell me she has had a prior seizure like activity, she is been scheduled for an EEG but has not had it performed. This is only her 2nd event. Patient has requested something for pain. She states that she does not think she got her long-acting morphine this morning. Patient's prolactin is elevated at 101, AST ALT are little bit elevated, electrolytes are normal, is negative, BUN 21, ETOH is negative. Patient's mentation is significantly improved. Fifty suspect she had a seizure today. She has follow- up in place is going to pursue. Urine did show nitrite positive urine plan to start oral antibiotic as this may have lowered seizure threshold. Discharge Plan Departure Patient Disposition: Home Clinical Impression: Seizure-like activity, UTI (urinary tract infection) Instructions: DI for Seizure Disorder -- Adult Activity Restrictions/Additional Instructions: You do appear to have had seizure-like activity today, please follow-up with your team Adilene adams to get your EEG and further workup. You may continue your home medications as prescribed. Your urine today does show signs of infection. Take antibiotics until completely gone. Please return for recurrent episodes altered mental status, new chest pain, shortness of breath, passing out, persistent vomiting, new swelling in extremities or other new or concerning changes. Prescriptions: New cephalexin 500 mg capsule 500 mg PO BID 5 Days Qty: 10 0RF No Action nystatin 30 GM ointment 15 gm Topical DAILY PRN (Reason: Rash) Qty: 0 ondansetron 4 MG tablet,disintegrating 8 mg Sublingual Q6HP PRN (Reason: Nausea) Qty: 0 omega 8-bfd-hlt-fish oil [Fish Oil] 1,000 MG capsule 1,000 mg PO QDAY Qty: 0 omeprazole 20 mg capsule,delayed release(DR/EC) 20 mg PO QID magnesium 500 mg Tablet 500 mg PO BID Adults Multivitamin 18 mg iron-400 mcg-25 mcg Tablet 1 tab PO DAILY phenazopyridine 200 mg tablet 200 mg PO BID phenolphthalein 90 mg Tablet 75 mg PO BID docusate sodium 100 mg Tablet 300 mg PO BID morphine 15 mg tablet extended release 15 mg PO BID 30 Days Qty: 60 0RF diazepam 5 mg tablet 5 mg PO BID 30 Days Qty: 60 0RF oxycodone 5 mg tablet 5 mg PO Q4H PRN (Reason: Pain (Scale Score 1-3)) 30 Days Qty: 30 0RF methocarbamol 500 mg tablet 500 mg PO QID baclofen 10 mg tablet 10 mg PO DAILY albuterol sulfate 90 mcg/actuation HFA aerosol inhaler 2 puff inhalation DAILY tizanidine 6 mg capsule 6 dose PO TID levetiracetam [Keppra] 750 mg tablet 750 mg PO BID Qty: 60 0RF fluconazole 150 mg tablet 150 mg PO QWEEK Qty: 1 0RF trazodone 50 mg tablet 50 mg PO BEDTIME PRN (Reason: sleep) raloxifene 60 mg tablet 60 mg PO DAILY Pulmicort Flexhaler 180 mcg/actuation aerosol powdr breath activated 1 inh inhalation DAILY fluoxetine 10 mg capsule 10 mg PO DAILY Referrals: *Temp,ED* [Primary Care Provider] - Stand Alone Forms: Patient Portal/API
--- NOTE | 2022-07-23 09:06 | DI.RAD.S_ITS ---
PROCEDURE: XR CHEST 1V INDICATIONS: seizure like activity TECHNIQUE: One view of the chest was acquired. COMPARISON: [facility], CR, XR CHEST 1V, 03/21/2022, 5:54. [facility], CR, XR CHEST 1V, 12/11/2021, 1:08. FINDINGS: Surgical changes and devices: Cervical spine fusion hardware Lungs and pleura: Diffuse opacity projects over both lungs. No definite large pleural effusion or pneumothorax. Mediastinum: Cardiac silhouette is obscured, may be enlarged Bones and chest wall: No suspicious bony lesions. Overlying soft tissues appear unremarkable. IMPRESSION: Limited evaluation due to difficulty with patient positioning. Diffuse opacity projecting over both lungs may be artifactual related to overlying soft tissue/positioning/rotation, but acute airspace disease is not excludable. Dictated by: Tad Russell M.D. on 07/23/2022 at 9:50 Approved by: Tad Russell M.D. on 07/23/2022 at 9:52
--- NOTE | 2022-07-23 09:06 | DI.CT.S_ITS ---
PROCEDURE: CT HEAD/BRAIN WO CON INDICATIONS: seizure like activity, hx cerebral palsy TECHNIQUE: Noncontrast 4.5 mm thick angled axial sections acquired from the foramen magnum to the vertex, with coronal and sagittal reformats. For radiation dose reduction, the following was used: automated exposure control, adjustment of mA and/or kV according to patient size. COMPARISON: [facility], CT, CT HEAD/BRAIN WO CON, 04/21/2022, 2:06. FINDINGS: CSF spaces: Basal cisterns are patent. No extra-axial fluid collections. Ventricles are normal in size and shape. Brain: No midline shift. No intracranial masses or hemorrhage. Weiss-white matter interface is normal. Skull and face: Calvarium and visualized facial bones are intact, without suspicious lesions. Sinuses: Visualized sinuses and mastoids are clear. IMPRESSION: No intracranial hemorrhage or other acute intracranial abnormality. Dictated by: Tad Russell M.D. on 07/23/2022 at 9:43 Approved by: Tad Russell M.D. on 07/23/2022 at 9:49
[2022-07-23 09:17] LABS: Add Manual Diff / Slide Review NO; Basophils Absolute Auto 0 /uL (0-100); Basophils Percent Auto 0.8 % (0-2); Eosinophils Absolute Auto 200 /uL (0-450); Eosinophils Percent Auto 5.2 % (2-4); Hematocrit 40.9 % (36-46); Hemoglobin 13.1 g/dL (12.0-16.0); Lymphocytes Absolute Auto 1500 /uL (1100-4500); Lymphocytes Percent Auto 45.4 % (25-40); Mean Corpuscular HGB Conc 32.1 % (30-36); Mean Corpuscular Hemoglobin 30.8 PG (26-34); Mean Corpuscular Volume 96.1 fL (80-100); Monocytes Absolute Auto 200 /uL (0-900); Monocytes Percent Auto 6.4 % (3-14); Neutrophils Absolute Auto 1400 /uL (1500-7000); Neutrophils Percent Auto 42.2 % (50-75); Platelet Count 176 X10^3/uL (150-400); Red Blood Cell Count 4.25 X10^6/uL (4.0-5.2); Red Cell Distribution Width 13.3 % (11.6-14.8); White Blood Cell Count 3.2 X10^3/uL (4.5-11.0)
[2022-07-23 09:26] LABS: Alanine Aminotransferase 38 IU/L (<35); Albumin 4.4 g/dL (3.5-5.0); Albumin Globulin Ratio 1.2 (1.0-2.8); Alkaline Phosphatase 133 U/L (38-126); Aspartate Aminotransferase 46 IU/L (14-36); BUN Creatinine Ratio 27.3 (6-22); Bilirubin Total 0.8 mg/dL (0.2-1.3); Blood Urea Nitrogen 21 mg/dL (7-17); Calcium 8.7 mg/dL (8.4-10.2); Carbon Dioxide 27 mmol/L (22-32); Chloride 100 mmol/L (98-107); Estimated Glomerular Filt Rate > 60 mL/min (>60); Ethanol (ETOH) < 10 mg/dL; Globulin 3.6 g/dL (1.7-4.1); Glucose 112 mg/dL (70-100); HEMOLYSIS 48 (0-50); Lipase 53 U/L (23-300); Magnesium 2.1 mg/dL (1.6-2.3); Potassium 4.1 mmol/L (3.4-5.1); Sodium 137 mmol/L (137-145)
[2022-07-23 09:40] LABS: Pregnancy Test Serum,Qual Negative (Negative); Prolactin 101.9 ng/mL (3.0-18.6)
--- NOTE | 2022-07-23 11:25 | PC.NURSE ---
Pt refused bedside commode. pt assisted up to wheelchair and escorted to restroom.
--- NOTE | 2022-07-23 11:29 | PC.NURSE ---
RN assisted pt to bathroom with wheelchair. Pt requsted RN to leave bathroom because she cannot pee with an audience RN instructed pt to pull assistance cord when finished.
[2022-07-23 12:02] LABS: Appearance Urine UA CLEAR; Bilirubin Urine UA NEGATIVE (NEGATIVE); Color Urine UA YELLOW; Glucose Urine UA NEGATIVE (Negative); Ketones Urine UA NEGATIVE (NEGATIVE); Leukocyte Esterase Urine UA NEGATIVE (NEGATIVE); Nitrite Urine UA POSITIVE (Negative); Occult Blood Urine UA 3+ (Negative); Protein Urine UA NEGATIVE (Negative); Specific Gravity Urine UA 1.015 (1.000-1.035); UR Morphine/Opiate cutoff 300 Positive (Negative); Ur Creatinine 10 (Normal); Ur Specific Gravity 1.025 (Normal); Urine Amphetamines Negative (Negative); Urine Barbiturates Negative (Negative); Urine Benzodiazepines Positive (Negative); Urine Cocaine Negative (Negative); Urine MDMA Negative (Negative); Urine Methadone Negative (Negative); Urine Methamphetamines Negative (Negative); Urine Phencyclidine Negative (Negative); Urine Tetrahydrocannabinol Negative (Negative); Urine Tricyclic Antidepressant Positive (Negative); Urine pH 5 (Normal)
[2022-07-23 12:03] LABS: Urine Oxycodone Positive (Negative)
[2022-07-23 12:06] LABS: pH Urine UA 6.5 (4.5-8.0)
[2022-07-23 12:07] LABS: Bacteria Urine Many (>30); Culture Indicated Urine Specimen Cultured; RBC Urine 1-5/HPF (0-5/HPF); Squamous Epithelial Cell Urine 0-1 /HPF (0-5/HPF); WBC Urine 0-1/HPF (0-5/HPF)
[2022-07-23] MEDS: OXYCODONE IR 5 MG TABLET 10 MG PO (12:11)
--- NOTE | 2022-07-23 12:25 | PC.NURSE ---
Pt given juice and yogurt per request
[2022-07-23] MEDS: cephALEXin 250 MG CAPSULE 500 MG PO (12:50)
== END 2022-07-23 13:03 | disposition home or self-care (01) ==
PROVIDERS: Emergency Provider Emergency Medicine
DX: G40.909 Epilepsy, unspecified, not intractable, without status epilepticus (principal); N39.0 Urinary tract infection, site not specified; R07.9 Chest pain, unspecified
CPT/HCPCS: 70450; 71045; 80053; 80305; 80320; 81001; 83690; 83735; 84146; 84703; 85025; 87077; 87086; 87186; 93005; 99284